=== PATIENT | male | born 1975 | race Caucasian/White ===

== ENCOUNTER 2016-06-13 16:33 | Emergency (ER) | payer MEDICAID ==
--- NOTE | 2016-06-13 16:44 | CPEKG ---
Heart Rate: 70 RR Interval: 857 P-R Interval: 176 QRSD Interval: 130 QT Interval: 436 QTC Interval: 471 P [place]: 30 QRS [place]: -36 T Wave [place]: 153 EKG Severity - ABNORMAL ECG - EKG Impression: SINUS RHYTHM EKG Impression: PROBABLE LEFT ATRIAL ABNORMALITY EKG Impression: LVH WITH IVCD, LAD AND SECONDARY REPOL ABNRM Electronically Signed By: Beka Agudelo 13-Jun-2016 16:50:55
[2016-06-13] MEDS ORDERED: ONDANSETRON 4 MG/2 ML VIAL IVP ONE (16:47)
[2016-06-13 16:54] LABS: % IMMATURE GRANULYOCYTES 0.7 % (0.0-1.1); ABSOLUTE IMMATURE GRANULOCYTES 0.05 10^3/uL (0.00-0.10); ADD DIFF? NO; ADD MORPH? NO; ADD SCAN? NO; ATYPICAL LYMPHOCYTE FLAG 10 (0-99); FRAGMENT RBC FLAG 0 (0-99); HEMOGLOBIN 15.2 g/dL (13.7-17.5); LEFT SHIFT FLG 0 (0-99); LIPEMIA HEMOLYSIS FLAG 90 (0-99); MEAN CELL HEMOGLOBIN 27.2 pg (27.9-34.1); MEAN CELL HEMOGLOBIN CONCENTR. 33.8 g/dL (32.4-36.7); MEAN CELL VOLUME 80.6 fL (81.5-99.8); MEAN PLATELET VOLUME 10.3 fL (8.7-11.7); PLATELET CLUMPS FLAG 10 (0-99); PLATELET COUNT 285 10^3/uL (150-400); RED BLOOD CELL COUNT 5.58 10^6/uL (4.40-6.38); RED CELL DISTRIBUTION WIDTH 15.9 % (11.5-15.2)
--- NOTE | 2016-06-13 17:02 | EDPHY ---
H & P Time Seen by Provider: 06/13/16 16:42 HPI/ROS: Chief complaint. Chest pain and possible syncope HPI. 40-year-old male here in by EMS after a possible syncopal episode versus falling down. He had just seen his therapist today for PTSD. He and his were walking outside and he fell over backward. He had been having sit several episodes of being dizzy, sweating, chest discomfort. He describes the chest discomfort is sharp left anterior going to his left arm. Episodes last 5-10 minutes. No precipitating symptoms. Shortness of breath with exertion for several months. No fever cough. He complains of pain to his neck and had a collar placed by EMS prior to arrival. He also has a bump on his head. He is unsure if he lost consciousness. He had a heart catheterization on April 04 which showed nonischemic cardiomyopathy with normal coronary arteries. He has an implantable defibrillator. No unusual leg pain or swelling. Claims compliance with medication ROS Constitutional. no fever/chills, no weakness Eyes. no problems with vision ENT. no sore throat, no nasal drainage Cardiovascular. Chest pain Respiratory. Shortness of breath Abdominal. no abdominal pain, no nausea/vomiting, no diarrhea . no problems urinating MS. no calf pain/swelling, no neck/back pain, no joint pain Skin. no rash Lymph. no swollen glands Neuro. Possible syncope Past Medical/Surgical History: I HS S cardiomyopathy, atrial fibrillation, mechanical heart valve and mitral valve. PTSD, hypothyroid, V-tach, implantable defibrillator Social History: , daily smoker, no alcohol Smoking Status: Current every day smoker Physical Exam: General Appearance: Alert well-developed male mild distress. Vital signs are stable Eyes: Pupils equal and round no pallor or injection. ENT, Mouth: Mucous membranes are moist. Respiratory: There are no retractions, lungs are clear to auscultation. Cardiovascular: Regular rate and rhythm. Gastrointestinal: Abdomen is soft and nontender, no masses, bowel sounds normal. Neurological: Awake and alert, sensory and motor exams grossly normal. Skin: Warm and dry, no rashes. Musculoskeletal: Neck is in cervical collar. He complains of neck pain to palpation. Extremities symmetrical, full range of motion. Psychiatric: Patient is oriented X 3, there is no agitation. Constitutional: Initial Vital Signs Temperature (C) 36.6 C 06/13/16 16:43 Heart Rate 70 06/13/16 16:43 Respiratory Rate 15 06/13/16 16:43 Blood Pressure 129/85 H 06/13/16 16:43 O2 Sat (%) 93 06/13/16 16:43 O2 Delivery Mode Room Air Allergies/Adverse Reactions: amiodarone Allergy (Intermediate, Verified 06/13/16 16:43) Hives Home Medications: Medication Instructions Recorded Aspirin [Aspirin 81mg (*)] 81 mg PO DAILY 11/21/15 Lisinopril [Zestril 2.5 mg (*)] 2.5 mg PO DAILY 01/21/16 Enoxaparin [Lovenox 100 MG (*)] 100 mg SQ 1000,2200 #4 syr 04/03/16 Gabapentin [Neurontin 300 MG (*)] 900 mg PO TID #270 cap 04/03/16 Levothyroxine [Synthroid 50 mcg 50 mcg PO DAILY06 #30 tab 04/03/16 (*)] Metoprolol Tartrate [Lopressor 25 75 mg PO BID #180 tab 04/03/16 mg (*)] Topiramate [Topamax 100MG (*)] 125 mg PO HS #30 tab 04/03/16 Warfarin Sodium [Coumadin 5MG (*)] 5 mg PO SUTUTHSA #14 tab 04/03/16 Warfarin Sodium [Coumadin 7.5MG 7.5 mg PO MOWEFR #14 tab 04/03/16 (*)] clonazePAM [klonoPIN (*)] 1 mg PO BID #20 tab 04/03/16 Omeprazole 40 mg PO DAILY 04/05/16 Ativan (*) 06/13/16 Baclofen [Baclofen 20 mg (*)] 20 mg PO BID 06/13/16 Cyclobenzaprine [Flexeril 10 MG 10 mg PO BID 06/13/16 (*)] HYDROcodone/APAP [Covert 1 tab PO TID PRN 06/13/16 (*)] Latuda 06/13/16 Zolpidem Tartrate [Ambien 5MG (*)] 5 mg PO HS 06/13/16 Medical Decision Making - Diagnostics EKG Interpretation: EKG interpreted by me shows normal sinus rhythm with normal interval and axis. QRS shows LVH. Probable secondary repolarization abnormality. There are T- wave inversions in lead 1 and aVL and as well as V5 and V6. There is no significant change from previous EKG in April 2016 Imaging: Per Dr. hanna CT head and neck are nonacute. CT is reviewed by me as well. One-view chest x-ray interpreted by me as normal Procedures: IV normal saline, monitor. Tylenol for pain ED Course/Re-evaluation: Patient's pacemaker is interrogated and there has been no recent dysrhythmias including V-tach. I consulted and discussed the case with Dr. Parnell, cardiology, on who recommends admission overnight for this patient I discussed and consulted with Dr. Lee, hospitalist who agrees to the admission I have discussed imaging lab EKG results with the patient. We discussed treatment plan including recommendation for admission. He expresses understanding and agreement Differential Diagnosis: This is a difficult patient. He has known cardiomyopathy and heart disease. Always runs an elevated troponin so serial troponins do not really seem to be helpful. He has a substance abuse issue and is continuing at [facility] for pain medication. My concern is for acute coronary syndrome obviously. I also considered pneumonia pneumothorax, dysrhythmia - Data Points Laboratory Results: Laboratory Results 06/13/16 16:49 06/13/16 16:49 06/13/16 16:49 WBC 7.45 10^3/uL (3.80-9.50) RBC 5.58 10^6/uL (4.40-6.38) Hgb 15.2 g/dL (13.7-17.5) Hct 45.0 % (40.0-51.0) MCV 80.6 L fL (81.5-99.8) MCH 27.2 L pg (27.9-34.1) MCHC 33.8 g/dL (32.4-36.7) RDW 15.9 H % (11.5-15.2) Plt Count 285 10^3/uL (150-400) MPV 10.3 fL (8.7-11.7) Neut % (Auto) 46.1 % (39.3-74.2) Lymph % (Auto) 37.6 % (15.0-45.0) [place] % (Auto) 11.4 % (4.5-13.0) Eos % (Auto) 3.5 % (0.6-7.6) Baso % (Auto) 0.7 % (0.3-1.7) Nucleat RBC Rel Count 0.0 % (0.0-0.2) Absolute Neuts (auto) 3.44 10^3/uL (1.70-6.50) Absolute Lymphs (auto) 2.80 10^3/uL (1.00-3.00) Absolute Monos (auto) 0.85 H 10^3/uL (0.30-0.80) Absolute Eos (auto) 0.26 10^3/uL (0.03-0.40) Absolute Basos (auto) 0.05 10^3/uL (0.02-0.10) Absolute Nucleated RBC 0.00 10^3/uL (0-0.01) Immature Gran % 0.7 % (0.0-1.1) Immature Gran # 0.05 10^3/uL (0.00-0.10) PT 17.5 H SEC (12.0-15.0) INR 1.44 H (0.83-1.16) APTT 31.0 SEC (23.0-38.0) Sodium 142 mEq/L (134-144) Potassium 4.3 mEq/L (3.5-5.2) Chloride 102 mEq/L (97-110) Carbon Dioxide 25 mEq/l (22-31) Anion Gap 15 mEq/L (8-16) BUN 16 mg/dL (7-23) Creatinine 1.2 mg/dL (0.7-1.3) Estimated GFR > 60 Glucose 93 mg/dL (70-100) Calcium 9.6 mg/dL (8.5-10.4) Troponin I 0.222 H ng/mL (0-0.034) NT-Pro-B Natriuret Pep 392 H pg/mL (0-125) Medications Given: Discontinued Medications Acetaminophen (Tylenol) 1,000 mg PO EDNOW ONE Stop: 06/13/16 17:37 Last Admin: 06/13/16 17:41 Dose: 1,000 mg Ondansetron HCl (Zofran) 4 mg IVP EDNOW ONE Stop: 06/13/16 16:48 Last Admin: 06/13/16 16:50 Dose: 4 mg Oxycodone HCl (Oxycodone Ir) 5 mg PO EDNOW ONE Stop: 06/13/16 18:52 Last Admin: 06/13/16 18:55 Dose: 5 mg Oxycodone/Acetaminophen (Percocet 5/325) 1 tab PO EDNOW ONE Stop: 06/13/16 18:51 Last Admin: 06/13/16 19:03 Dose: Not Given Departure - Departure Disposition: [facility] Clinical Impression: Chest pain Cardiomyopathy Qualifiers: Cardiomyopathy type: obstructive hypertrophic Qualifier Code: (I42.1) Obstructive hypertrophic cardiomyopathy Condition: Fair
[2016-06-13 17:05] LABS: INR 1.44 (0.83-1.16); PROTIME(PATIENT) 17.5 SEC (12.0-15.0)
--- NOTE | 2016-06-13 17:13 | DX ---
Portable Chest at 1705 hours History: Chest pain. Comparison: Portable chest April 07, 2016. Findings: Lung volumes are low with no pneumothorax, focal consolidation, or pleural effusion. Left subclavian AICD, mild cardiomegaly, and cardiac valve are again noted. Fractured inferior sternotomy wires are again noted. The bones are stable Impression: No acute findings in the chest.
[2016-06-13 17:17] LABS: ANION GAP 15 mEq/L (8-16); CALCIUM 9.6 mg/dL (8.5-10.4); CARBON DIOXIDE 25 mEq/l (22-31); CHLORIDE 102 mEq/L (97-110); CREATININE 1.2 mg/dL (0.7-1.3); GLOMERULAR FILTRATION RATE > 60; GLUCOSE 93 mg/dL (70-100); POTASSIUM 4.3 mEq/L (3.5-5.2); SODIUM 142 mEq/L (134-144)
[2016-06-13 17:28] LABS: TROPONIN I 0.222 ng/mL (0-0.034)
[2016-06-13] MEDS ORDERED: ACETAMINOPHEN 500 MG TAB PO ONE (17:36)
--- NOTE | 2016-06-13 17:41 | CT ---
CT Scan of Head (Without Contrast) Clinical Indications: Loss of consciousness. Technique: Axial CT images were acquired from foramen magnum through vertex, without intravenous con trast. Soft tissue and bone windows were reviewed on the computer workstation. Images were reconstr ucted down to 1.25-mm images. Dose reduction techniques were utilized. Findings: No mass lesions are seen, and there is no evidence of intracranial hemorrhage or acute inf arct. The ventricles and subarachnoid spaces are normal in size for this age group. Bone windows re veal no sign of fracture. The visualized paranasal sinuses and mastoid air cells are free of fluid. Impression: Normal CT of the head. Critical results relayed by Dr. Brenton Perez with Dr. Beka Agudelo on June 13, 2016, at 1736 hour s.
--- NOTE | 2016-06-13 17:42 | CT ---
CT Scan of the Cervical Spine (Without Contrast) Clinical Indications: Trauma Technique: Thinly collimated multidetector helical CT imaging of the cervical spine was reviewed in multiple planes. Dose reduction techniques were utilized. Findings: No fractures are found. The spinal canal is adequate in size. No evidence of herniated d isk or hematoma. There is some degenerative disk disease and anterior calcification at the C5-C6 disk space. This is consistent with osteoarthritis. Impression: Mild osteoarthritic changes. No evidence of fracture. Critical results relayed by Dr. Brenton Perez to Dr. Beka Agudelo on June 13, 2016, at 1738 hours.
[2016-06-13] MEDS ORDERED: OXYCODONE/APAP 5/325 TAB PO ONE (18:50)
[2016-06-13] MEDS ORDERED: oxyCODONE IR 5 MG TAB PO ONE ×2 (18:51→22:01)
[2016-06-13] MEDS ORDERED: ONDANSETRON DISINTEGRATING 4 MG TAB PO ONE (22:01)
[2016-06-13] MEDS ORDERED: HYDROCODONE/APAP 10/325 TAB PO PRN (23:28)
[2016-06-13] MEDS ORDERED: oxyCODONE IR 5 MG TAB PO PRN (23:35)
[2016-06-13] MEDS ORDERED: WARFARIN SODIUM 5 MG TAB ONE (23:59)
[2016-06-14] MEDS: clonazePAM 1 MG TAB PO SCH ×2 (00:17→09:02)
--- NOTE | 2016-06-14 00:30 | GHP ---
[f rep st] HISTORY AND PHYSICAL DATE OF ADMISSION: 06/13/2016 HISTORY OF PRESENT ILLNESS: The patient is a 40-year-old gentleman, with history of hypertrophic obs tructive cardiomyopathy, syncope, presents with episodes of chest pain, as well as possible syncope. He had a flu shot yesterday. He has had some low-grade temperatures. He has not had a cough. He h as not had urgency, frequency, dysuria. He had nausea, but no vomiting or diarrhea. No one around h as been sick. He notes episodes of chest pain going to his left arm lasting 5-10 minutes. No fever or cough. He h as had some dyspnea on exertion, but no lower extremity edema. He possibly hit his head today. In the emergency department, his AICD was interrogated, and there was no evidence of arrhythmia reall y going back to the . REVIEW OF SYSTEMS: Complete 10-point review of systems conducted, negative except as noted in the HP I. PAST MEDICAL HISTORY: 1. Hypertrophic obstructive cardiomyopathy. 2. Clean coronary arteries by cardiac catheterization in April of 2016. 3. History of myomectomy. 4. Mitral valve replacement, with mechanical. 5. Cardiac arrest in 2008. 6. Atrial fibrillation, status post ablation. 7. AICD placed in 2012. 8. Bilateral footdrop. 9. Upper extremity neuropathy. 10. Hypothyroidism. 11. Chronic hepatitis C. 12. PTSD related to childhood trauma. 13. DJD. 14. Migraines. SOCIAL HISTORY: He smokes cigarettes. Denies alcohol or drugs. ALLERGIES: Amiodarone. HOME MEDICATIONS: Ambien, Flexeril, Coumadin, Topamax, baclofen, [place] 10/325, omeprazole, Lopressor , Klonopin, lisinopril, levothyroxine, gabapentin, enoxaparin, aspirin, Latuda, and Ativan. PHYSICAL EXAM: PRESENTING VITAL SIGNS: Temperature 36.6, blood pressure 129/85, pulse 70, breathing 15 times a minute, 93% on room air. GENERAL: No acute distress. HEENT: Sclerae are anicteric. O ropharynx is clear. Mucous membranes are moist. NECK: Supple. No lymphadenopathy or JVD. LUNGS: Clear to auscultation bilaterally. HEART: S1, S2. ABDOMEN: Soft, nontender, nondistended. LOWER EXTREMITIES: Without edema. Calves nontender. SKIN: Without rash. NEUROLOGIC: Nonfocal. LABS: White count 7.45, hematocrit 45, platelets are 285,000, MCV is low at 80, that is new. INR is 1.44; last checked here it was 4.6. Sodium 142, potassium 4.3, chloride 102, bicarbonate 25, BUN 16 , creatinine 1.2; his baseline is about that. Troponin is 0.22. Repeated shortly thereafter, it was 0.178. BNP is 392. These values are essentially at baseline for him. Chest x-ray, interpreted by me, shows no acute cardiopulmonary disease. AICD in place. EKG, interpreted by me, shows sinus at 70, with left axis deviation, LVH, T-wave inversions in I, L, V5, V6, unchanged from prior. Discussed the case with Dr. Beka Agudelo. ASSESSMENT AND PLAN: A 40-year-old gentleman, with a complex cardiac history, presents with possible syncope. 1. Syncope. It is difficult to know what to make of this. It could be vasovagal. Interrogation of an AICD that reveals no dysrhythmias indicates that this is not cardiac syncope. His abnormal EKG, troponin, BNP are all at baseline. No further cardiac workup is indicated. We will admit him to the EICU. 2. Flu shot. The patient did have a flu shot yesterday. We will continue it. 3. Posttraumatic stress disorder. We will continue his medications. 4. Neuropathy. We will continue his medications. 5. Pain. Chronic pain medicine use. Written him for his p.r.n. home doses, as well as some oxycodo ne. Will not give him any IV narcotics while here if they are not indicated. 6. Disposition. Observation status. 7. Subtherapeutic INR. We will continue his Lovenox as prescribed. This patient is high risk for t hromboembolic event, given his mitral valve replacement. /[id number]/MODL
[2016-06-14] MEDS ORDERED: ENOXAPARIN 100 MG/ML SYR SC SCH (01:30)
[2016-06-14] MEDS ORDERED: TOPIRAMATE 25 MG TAB PO SCH (02:00)
[2016-06-14] MEDS: METOPROLOL TARTRATE 25 MG TAB PO SCH ×2 (02:25→10:12)
[2016-06-14] MEDS: GABAPENTIN 300 MG CAP PO SCH ×2 (02:25→09:02)
[2016-06-14] MEDS: CYCLOBENZAPRINE 10 MG TAB PO SCH ×2 (02:26→10:11)
[2016-06-14] MEDS: BACLOFEN 20 MG TAB PO SCH ×2 (02:26→10:11)
[2016-06-14] MEDS ORDERED: LEVOTHYROXINE 50 MCG TAB PO SCH (06:00)
[2016-06-14 08:27] VITALS: RESP 18
[2016-06-14] MEDS ORDERED: ASPIRIN 81 MG CHEWABLE TAB PO SCH (09:00)
[2016-06-14] MEDS ORDERED: PANTOPRAZOLE SODIUM 40 MG TAB PO SCH (09:00)
[2016-06-14] MEDS ORDERED: LISINOPRIL 2.5 MG TAB PO SCH (09:00)
[2016-06-14 09:52] VITALS: BP 129/95; PULSE 70; TEMP 97.7; O2SAT 95
[2016-06-14] MEDS ORDERED: WARFARIN SODIUM 7.5 MG TAB PO SCH (16:00)
--- NOTE | 2016-06-14 17:27 | PDCONSULT ---
[employer] Note: DISCHARGE SUMMARY FOLLOW-UP ITEMS: Address his mental health needs aggressively DATE OF ADMISSION: 06/13/2016 DATE OF DISCHARGE: 06/14/2016 DISCHARGE DIAGNOSES: 1. Acute chest pain 2. Generalized anxiety disorder 3. Mechanical mitral valve status post repair 4. Hypertrophic obstructive cardiomyopathy 5. Paroxysmal atrial fibrillation 6. Possible syncope CONSULTATIONS: None PROCEDURES / IMAGING: Head CT demonstrating no intracranial abnormality, neck CT demonstrating degenerative joint disease but no fracture comma chest x-ray demonstrating no evidence of CHF, AICD interrogation demonstrating no evidence of abnormal electrical activity at the time of patient's chest discomfort CHIEF COMPLAINT: Possible syncope, acute chest pain SUBJECTIVE: Patient reports that he currently is experiencing some left-sided chest discomfort which is alleviated with Ativan PHYSICAL EXAM ON DISCHARGE: Systolic blood pressure is 101/30, heart rates in the 70s, afebrile overnight, satting well on room air, heart rate and rhythm are regular, 2/6 systolic murmur at the apex, chest is clear to auscultation bilaterally without any inspiratory crackles or expiratory wheezes, no lower extremity edema, alert awake oriented x3, anxious LABS ON DISCHARGE: Troponin 0.18 HOSPITAL COURSE BY PROBLEM: 1. Acute chest pain. Atypical, ruled out for acute coronary syndrome with no significant elevation in his cardiac enzymes, ruled out for tachyarrhythmia with no conduction abnormalities on AICD interrogation, ruled out for CHF with normal-appearing chest x-ray. Most likely cause of patient's chest discomfort is underlying anxiety disorder which will be further discussed below. The patient underwent cardiac catheterization 2 months ago which demonstrated clean coronary arteries and there is no indication for further cardiac risk stratification at this time. 2. Generalized anxiety disorder. I believe the cause of patient's chest discomfort symptoms are his anxiety disorder, and the patient is currently receiving aggressive management with numerous medications from numerous classes with unsuccessful a containment of his anxiety. He is currently receiving Ativan as needed as anxiolytics which seems to have good effect but this is not a good long-term solution and have advised the patient that he should follow up with his mental health providers as closely as possible to continue exploring other options. I have provided him with a script for as needed Ativan for a limited supply until he is able to [facility] providers. 3. Chronic hypertrophic obstructive cardiomyopathy. Patient currently has compensated HOCM without any evidence of CHF on physical exam or chest imaging. I have recommended that he follow up with Dr. Gandhi at [facility] and the patient reports that he will do so. Patient will continue on his home medications as prescribed. 4. Paroxysmal atrial fibrillation. Patient has a history of paroxysmal atrial fibrillation status post ablation. He had no evidence of AFib on his AICD interrogation. 5. Mechanical mitral valve status post repair. Patient underwent mitral valve repair and he has mechanical valve. His INR is subtherapeutic. He will require Lovenox bridging therapy with a goal INR of 2.5-3.5. I have provided him with a script for bridging Lovenox as well as a script for a PT and INR [facility] with the patient follows up for this. It is believed that the patient became subtherapeutic in the setting of not taking Coumadin temporarily, and he will reinitiate. His discharge INR is 1.44. DISCHARGE MEDICATIONS: Please see official discharge medication reconciliation sheet in chart , Lovenox bridging therapy, 100 mg twice daily to be taken through this Sunday with a follow-up PT and INR on Sunday. Ativan as needed 0.5 mg twice daily 20 tabs prescribed. DISCHARGE INSTRUCTIONS: [facility] up [facility] on 06/19/2016 for PT and INR, establish care with Dr. Gandhi at [facility] next week. TIME SPENT: Greater than 30 minutes were spent on direct patient care, as well as discharge planning and preparation.
[2016-06-14] MEDS ORDERED: ZOLPIDEM TARTRATE 5 MG TAB PO SCH (21:00)
[2016-06-14] MEDS ORDERED: WARFARIN SODIUM 5 MG TAB PO SCH (23:30)
== END 2016-06-14 10:31 | disposition home or self-care (01) ==
LOC: EDUNIT# → UNDOADMOB 20:41
DX: R07.9 Chest pain, unspecified (principal); R55 Syncope and collapse; I42.1 Obstructive hypertrophic cardiomyopathy
CPT/HCPCS: 70450; 71010; 72125; 93005; 96374; 99285; G0378; J1650; J2405

== ENCOUNTER 2016-06-18 09:58 | Inpatient (IN) | payer MEDICAID ==
--- NOTE | 2016-06-18 10:13 | EDPHY ---
H & P Time Seen by Provider: 06/18/16 10:03 HPI/ROS: CHIEF COMPLAINT: chest pain HISTORY OF PRESENT ILLNESS: Patient is a 40-year-old male with extensive cardiac history presents emergency department with chest pain starting this morning. Patient has had previous open heart surgery including myomectomy and mitral valve replacement. Patient has also had previous PA per report. Patient states that he developed chest pain a few days ago. [facility]. He was discharged yesterday. Today he presented to the [facility] for his mental health issues. He told that he is having left-sided chest pain. This is slightly different than his previous chest pain. He reports it is a little bit lower on my chest than his previous pain. He describes his pain is [id number]. Does not radiate. He has had mild sweating but no nausea or vomiting. No fevers or chills. No leg pain or swelling. EMS treated the patient with aspirin 324 mg orally. Patient is on Coumadin. REVIEW OF SYSTEMS: My complete review of systems is negative except as mentioned in the HPI. Past Medical/Surgical History: Includes hypertrophic cardiomyopathy, anxiety, hepatitis-C, congenital bone disease, fatty liver, acute PA ACS, PTSD Past surgical history: Includes mitral valve replacement, pacemaker placement Social history: The patient smokes. He denies drug use. Smoking Status: Current every day smoker Physical Exam: Vitals noted GENERAL: No acute distress, alert. HEENT: Eyes normal to inspection, normal pharynx, no signs of dehydration. NECK: No thyromegaly, no lymphadenopathy, supple. RESPIRATORY: Clear to auscultation bilaterally, no rales, rhonchi or wheezing. CVS: Regular rate and rhythm, no rubs, murmurs, or gallops. Large midline surgical scar. The patient has a pacer/AICD in place in his left chest ABDOMEN: Soft, nontender, nondistended, no organomegaly. BACK: Normal to inspection, no CVA tenderness. SKIN: Normal color, no rash, warm, dry. No pallor. EXTREMITIES: No pedal edema, no calf tenderness, no Homans sign or cords, no joint swelling. NEURO/PSYCH: Alert and oriented x3, normal mood and affect, normal motor sensory exam. Constitutional: Initial Vital Signs Temperature (C) 36.8 C 06/18/16 09:58 Heart Rate 92 06/18/16 09:58 Respiratory Rate 20 06/18/16 09:58 Blood Pressure 141/93 H 06/18/16 09:58 O2 Sat (%) 94 06/18/16 09:58 O2 Delivery Mode Room Air Allergies/Adverse Reactions: amiodarone Allergy (Intermediate, Verified 06/18/16 10:11) Hives Home Medications: Medication Instructions Recorded Aspirin [Aspirin 81mg (*)] 81 mg PO DAILY 11/21/15 Lisinopril [Zestril 2.5 mg (*)] 2.5 mg PO DAILY 01/21/16 Gabapentin [Neurontin 300 MG (*)] 900 mg PO TID #270 cap 04/03/16 Levothyroxine [Synthroid 50 mcg 50 mcg PO DAILY06 #30 tab 04/03/16 (*)] Metoprolol Tartrate [Lopressor 25 75 mg PO BID #180 tab 04/03/16 mg (*)] Topiramate [Topamax 100MG (*)] 125 mg PO HS #30 tab 04/03/16 Warfarin Sodium [Coumadin 5MG (*)] 5 mg PO SUTUTHSA #14 tab 04/03/16 Warfarin Sodium [Coumadin 7.5MG 7.5 mg PO MOWEFR #14 tab 04/03/16 (*)] Omeprazole 40 mg PO DAILY 04/05/16 Baclofen [Baclofen 20 mg (*)] 20 mg PO BID 06/13/16 Cyclobenzaprine [Flexeril 10 MG 10 mg PO BID 06/13/16 (*)] HYDROcodone/APAP 10325 [[place] 1 tab PO TID PRN 06/13/16 10/325 (*)] Latuda 06/13/16 Zolpidem Tartrate [Ambien 5MG (*)] 5 mg PO HS 06/13/16 Ativan (*) 0.5 mg PO BID PRN #20 tab 06/14/16 Enoxaparin [Lovenox 100 MG (*)] 100 mg SQ 1000,2200 #7 syr 06/14/16 Medical Decision Making ED Course/Re-evaluation: In the emergency department I discussed possible etiologies with the patient. I discussed the plan and answered all his questions. Laboratory studies, EKG and chest x-ray were ordered. I have ordered a previous HPI and discharge summary from [facility]. Sinus rhythm at 98. The patient has interventricular conduction delay. LVH. ST depression I. Flipped T-waves I, AVL. This is an abnormal EKG is interpreted by me. I obtained records from [facility]. I reviewed the documentation note from 06/17/[address] Tai. In his note he states that the patient had been evaluated the 3 days prior to his presentation at [facility]. Dr. Tai spoke with Dr. Hughes from Cardiology at [facility]. Patient does have a history of hypertrophic cardiomyopathy and has pain secondary to that. He does have labile T-waves with dynamic T-wave changes. It is not believe that he has coronary disease or an emergent process per the note. Patient was evaluated with serial cardiac enzymes and discharge. Patient's EKG from 06/17/2016 is similar to the EKG today. However, the patient's troponin is elevated today at 0.169. Troponin from yesterday is 0.097 and then 0.089. Because today's value was higher than his previous he will have further rule out. I discussed this with the hospitalist service. I discussed the plan with the patient and answered all his questions. 1125: I rechecked the patient. He was complaining of some discomfort. He was given Toradol 30 mg IV. Differential Diagnosis: My differential includes but is not limited to ACS, acute PA, myocarditis, pericarditis, aortic aneurysm, aortic dissection, pleurisy, pneumothorax, hemothorax, pneumonia, PE - Data Points Laboratory Results: Laboratory Results 06/18/16 10:08 06/18/16 10:08 06/18/16 10:08 WBC 6.69 10^3/uL (3.80-9.50) RBC 4.96 10^6/uL (4.40-6.38) Hgb 13.6 L g/dL (13.7-17.5) Hct 41.4 % (40.0-51.0) MCV 83.5 fL (81.5-99.8) MCH 27.4 L pg (27.9-34.1) MCHC 32.9 g/dL (32.4-36.7) RDW 17.0 H % (11.5-15.2) Plt Count 224 10^3/uL (150-400) MPV 11.2 fL (8.7-11.7) Neut % (Auto) 67.3 % (39.3-74.2) Lymph % (Auto) 22.4 % (15.0-45.0) [place] % (Auto) 8.5 % (4.5-13.0) Eos % (Auto) 0.9 % (0.6-7.6) Baso % (Auto) 0.3 % (0.3-1.7) Nucleat RBC Rel Count 0.0 % (0.0-0.2) Absolute Neuts (auto) 4.50 10^3/uL (1.70-6.50) Absolute Lymphs (auto) 1.50 10^3/uL (1.00-3.00) Absolute Monos (auto) 0.57 10^3/uL (0.30-0.80) Absolute Eos (auto) 0.06 10^3/uL (0.03-0.40) Absolute Basos (auto) 0.02 10^3/uL (0.02-0.10) Absolute Nucleated RBC 0.00 10^3/uL (0-0.01) Immature Gran % 0.6 % (0.0-1.1) Immature Gran # 0.04 10^3/uL (0.00-0.10) PT 21.7 H SEC (12.0-15.0) INR 1.88 H (0.83-1.16) APTT 27.0 SEC (23.0-38.0) D-Dimer < 0.27 ug/mLFEU (0.00-0.50) Sodium 139 mEq/L (134-144) Potassium 4.0 mEq/L (3.5-5.2) Chloride 100 mEq/L (97-110) Carbon Dioxide 25 mEq/l (22-31) Anion Gap 14 mEq/L (8-16) BUN 13 mg/dL (7-23) Creatinine 1.0 mg/dL (0.7-1.3) Estimated GFR > 60 Glucose 171 H mg/dL (70-100) Calcium 8.9 mg/dL (8.5-10.4) Total Bilirubin 0.5 mg/dL (0.1-1.4) Conjugated Bilirubin 0.3 mg/dL (0.0-0.5) Unconjugated Bilirubin 0.2 mg/dL (0.0-1.1) AST 64 H IU/L (17-59) ALT 89 H IU/L (21-72) Alkaline Phosphatase 85 IU/L (38-126) Troponin I 0.167 H ng/mL (0-0.034) Total Protein 8.5 H g/dL (6.3-8.2) Albumin 4.3 g/dL (3.5-5.0) Lipase 51.0 IU/L (23-300) Medications Given: Discontinued Medications Ondansetron HCl (Zofran) 4 mg IVP EDNOW ONE Stop: 06/18/16 10:40 Last Admin: 06/18/16 10:41 Dose: 4 mg Departure - Departure Disposition: [facility] Inpatient Acute Clinical Impression: Acute chest pain, Troponin level elevated Condition: Good Referrals: NONE *PRIMARY CARE P,. [Primary Care Provider] - As per Instructions
--- NOTE | 2016-06-18 10:19 | CPEKG ---
Heart Rate: 98 RR Interval: 612 P-R Interval: 188 QRSD Interval: 132 QT Interval: 396 QTC Interval: 506 P Norman: 52 QRS Norman: -31 T Wave Norman: 113 EKG Severity - ABNORMAL ECG - EKG Impression: SINUS RHYTHM EKG Impression: LVH WITH IVCD AND SECONDARY REPOL ABNRM Electronically Signed By: Francie Hu 18-Jun-2016 15:11:20
[2016-06-18 10:21] LABS: % IMMATURE GRANULYOCYTES 0.6 % (0.0-1.1); ABSOLUTE IMMATURE GRANULOCYTES 0.04 10^3/uL (0.00-0.10); ADD DIFF? NO; ADD MORPH? NO; ADD SCAN? NO; ATYPICAL LYMPHOCYTE FLAG 40 (0-99); FRAGMENT RBC FLAG 20 (0-99); HEMATOCRIT 41.4 % (40.0-51.0); HEMOGLOBIN 13.6 g/dL (13.7-17.5); LEFT SHIFT FLG 0 (0-99); LIPEMIA HEMOLYSIS FLAG 80 (0-99); MEAN CELL HEMOGLOBIN 27.4 pg (27.9-34.1); MEAN CELL HEMOGLOBIN CONCENTR. 32.9 g/dL (32.4-36.7); MEAN CELL VOLUME 83.5 fL (81.5-99.8); MEAN PLATELET VOLUME 11.2 fL (8.7-11.7); PLATELET CLUMPS FLAG 30 (0-99); PLATELET COUNT 224 10^3/uL (150-400); RED BLOOD CELL COUNT 4.96 10^6/uL (4.40-6.38)
[2016-06-18 10:30] LABS: INR 1.88 (0.83-1.16); PROTIME(PATIENT) 21.7 SEC (12.0-15.0)
[2016-06-18] MEDS ORDERED: ONDANSETRON 4 MG/2 ML VIAL ONE (10:37)
[2016-06-18 10:38] LABS: ALANINE AMINOTRANSFERASE 89 IU/L (21-72); ALBUMIN 4.3 g/dL (3.5-5.0); ALKALINE PHOSPHATASE 85 IU/L (38-126); ANION GAP 14 mEq/L (8-16); ASPARTATE AMINOTRANSFERASE 64 IU/L (17-59); BILIRUBIN,TOTAL 0.5 mg/dL (0.1-1.4); BILIRUBIN-CONJUGATED 0.3 mg/dL (0.0-0.5); BILIRUBIN-UNCONJUGATED 0.2 mg/dL (0.0-1.1); CALCIUM 8.9 mg/dL (8.5-10.4); CARBON DIOXIDE 25 mEq/l (22-31); CHLORIDE 100 mEq/L (97-110); GLOMERULAR FILTRATION RATE > 60; GLUCOSE 171 mg/dL (70-100); SODIUM 139 mEq/L (134-144); TOTAL PROTEIN 8.5 g/dL (6.3-8.2)
--- NOTE | 2016-06-18 10:38 | DX ---
Chest, PA Upright and Lateral Views June 18, 2016 at 9:58 a.m. Clinical History: 40-year-old male with chest pain this morning. Comparison Study: Chest, dated June 13, 2016. Findings: Telemetry monitoring lead lines are present. There is stable positioning of the dual-lead l eft subclavian AICD pacemaker with the proximal lead in the right atrium and the distal lead in the r ight ventricle. The patient has undergone prior median sternotomy and a prosthetic cardiac valve repl acement. The cardiac silhouette remains mildly enlarged. There is some minimal left basilar subsegmen chaz atelectasis with an air-fluid level identified within the stomach. Impression: Mild hypoventilatory features with stable cardiomegaly and minimal left basilar diskoid s ubsegmental atelectasis.
[2016-06-18] MEDS ORDERED: ONDANSETRON 4 MG/2 ML VIAL IVP ONE (10:39)
[2016-06-18 10:49] LABS: TROPONIN I 0.167 ng/mL (0-0.034)
[2016-06-18] MEDS ORDERED: KETOROLAC 30 MG/1 ML SDV IVP ONE (11:29)
[2016-06-18] MEDS ORDERED: hydrOXYzine HCL 25 MG TAB PO PRN (15:05)
[2016-06-18] MEDS ORDERED: PROMETHAZINE HCL 25 MG/ML VIAL IVP PRN (15:07)
--- NOTE | 2016-06-18 15:36 | GHP ---
[f rep st] HISTORY AND PHYSICAL DATE OF ADMISSION: 06/18/2016 CHIEF COMPLAINT: Chest pain and elevated heart rate. HISTORY OF PRESENT ILLNESS: This is a 40-year-old male with history of hypertrophic obstructive cardiomyopathy who underwent cardiac catheterization, in April of 2016 with clean coronary arteries who was recently evaluated at [facility] in [place] for chest pain where he reportedly had a negative stress test and was discharged from [facility] with chest pain yesterday after he had flat troponins. He presented to the emergency department here in [place] after at around 9 o'clock this morning he developed a 6/10 sharp, stabbing pain in his left chest that radiated to his arm. The pain started while he was getting ready for work and exerting himself. The pain was improved with nitroglycerin and Toradol in the emergency department. It is worse with deep inspiration and leaning forward. Arsenio was at a behavioral health facility earlier today when his symptoms began. He has been out of his psychiatric medications for some time. He currently denies any suicidal or homicidal ideation, but reports feeling very anxious and on edge since being off his medications. He has been compliant with his coumadin an cardiac meds. PAST MEDICAL HISTORY: 1. Hypertrophic obstructive cardiomyopathy. 2. Mitral valve replacement with a mechanical valve. 3. History of myomectomy. 4. Clean cardiac catheterization in April 2016. 5. Cardiac arrest in 2008. 6. Atrial fibrillation status post ablation. 7. AICD placement in 2012. 8. Bilateral footdrop. 9. Upper extremity neuropathy. 10. Hypothyroidism. 11. Hepatitis C. 12. PTSD. 13. DJD. 14. Migraines. HOME MEDICATIONS: Reviewed. Refer to [employer] for details. ALLERGIES: Amiodarone. SOCIAL HISTORY: Patient smokes. He denies any alcohol or illicit drugs. He was recently followed by a manager party in [place] but is now living at [place]. Patient has a prior history of methamphetamine abuse. FAMILY HISTORY: Reviewed and noncontributory. REVIEW OF SYSTEMS: Comprehensive 10-point review of systems was done that was negative except for as mentioned in HPI and below. GI: Patient reports nausea that has been ongoing since his pain started this morning. PHYSICAL EXAM: VITAL SIGNS: Blood pressure 129/100, heart rate 93, respiratory rate 20, O2 saturation 97% on room air. Temperature afebrile. GENERAL: No acute distress. HEENT: Head: Normocephalic, atraumatic. Eyes are PERRLA. Sclerae anicteric. Mouth: Moist mucous membranes. NECK: Supple. No lymphadenopathy. CARDIOVASCULAR: S1-S2. No JVD. No lower extremity edema. PULMONARY: Lungs are clear. No wheezes, rales, or rhonchi. ABDOMEN: Soft, nontender, nondistended. No guarding or rebound tenderness. Normoactive bowel sounds. EXTREMITIES: No clubbing or cyanosis. NEUROLOGICAL : Cranial nerves 2-12 grossly intact. No focal motor or sensory deficits. SKIN: Clear. No rashes. DIAGNOSTIC STUDIES: WBC 6.69, hemoglobin 13.6, hematocrit 41.4, platelets 224. INR 1.88. Sodium 139, potassium 4, chloride 100, BUN 13, creatinine 1. Glucose 171. AST 64, ALT 89. Troponin was 0.167. D-dimer was negative. Chest x-ray shows mild hypoventilatory features with stable cardiomegaly and minimal left basilar discoid subsegmental atelectasis. EKG, which I visualized and personally interpreted, shows sinus rhythm with large voltages consistent with LVH. ASSESSMENT AND PLAN: This is a 40-year-old male with history of hypertrophic cardiomyopathy status post myomectomy and mitral valve replacements who underwent cardiac catheterization here in April of 2016 presenting with: 1. Chest pain in the setting of troponin elevation which seems to be chronic. Plan: Patient will be placed in observation where I will obtain an echocardiogram to evaluate cardiac function and consult cardiology. His chest pain could possibly be psychologic in etiology given his history of post traumatic stress disorder. See below. 2. History of post traumatic stress disorder with recently reported suicidal ideation. Plan: Resume home psychiatric meds. Will ask for behavioral health evaluation. [facility]. 3. History of mechanical mitral valve replacement with subtherapeutic INR. Plan: Continue coumadin and monitor INR. I discussed bridging with cardiology who felt like it was not necessary. /[id number]/MODL MTDD
[2016-06-18] MEDS: LISINOPRIL 2.5 MG TAB PO SCH (15:46)
[2016-06-18] MEDS: VENLAFAXINE XR 150 MG CAP PO SCH (15:46)
[2016-06-18] MEDS: GABAPENTIN 300 MG CAP PO SCH ×2 (15:46→20:57)
[2016-06-18] MEDS: LORazepam 1 MG TAB PO SCH ×2 (15:46→20:55)
[2016-06-18] MEDS: WARFARIN SODIUM 5 MG TAB PO SCH (15:46)
[2016-06-18] MEDS: LURASIDONE HCL 20 MG TAB PO SCH (16:09)
[2016-06-18] MEDS: oxyCODONE IR 5 MG TAB PO PRN ×2 (16:56→20:56)
[2016-06-18] MEDS: guaiFENesin 600 MG TAB.ER PO SCH (20:54)
[2016-06-18] MEDS: METOPROLOL TARTRATE 100 MG TAB PO SCH (20:54)
[2016-06-18] MEDS: OLANZapine DISINTEGR 10 MG TAB PO SCH (20:55)
[2016-06-18] MEDS: ZOLPIDEM TARTRATE 5 MG TAB PO SCH (20:55)
[2016-06-18] MEDS ORDERED: ENOXAPARIN 100 MG/ML SYR SC SCH (21:00)
[2016-06-19 05:04] LABS: INR 2.36 (0.83-1.16)
[2016-06-19] MEDS: GABAPENTIN 300 MG CAP PO SCH ×4 (05:44→21:06)
[2016-06-19] MEDS: LEVOTHYROXINE 50 MCG TAB PO SCH (05:44)
[2016-06-19] MEDS: oxyCODONE IR 5 MG TAB PO PRN ×3 (05:46→21:05)
[2016-06-19] MEDS: LORazepam 1 MG TAB PO SCH ×3 (08:35→21:05)
[2016-06-19] MEDS: VENLAFAXINE XR 150 MG CAP PO SCH (08:35)
[2016-06-19] MEDS: LISINOPRIL 2.5 MG TAB PO SCH (08:36)
[2016-06-19] MEDS: guaiFENesin 600 MG TAB.ER PO SCH ×2 (08:36→21:06)
[2016-06-19] MEDS: LURASIDONE HCL 20 MG TAB PO SCH (08:36)
[2016-06-19] MEDS: METOPROLOL TARTRATE 100 MG TAB PO SCH ×2 (08:36→21:07)
--- NOTE | 2016-06-19 09:04 | CPEKG ---
Heart Rate: 69 RR Interval: 870 P-R Interval: 196 QRSD Interval: 132 QT Interval: 436 QTC Interval: 467 P [place]: 34 QRS [place]: -37 T Wave [place]: 161 EKG Severity - ABNORMAL ECG - EKG Impression: SINUS RHYTHM EKG Impression: LVH WITH IVCD, LAD AND SECONDARY REPOL ABNRM Electronically Signed By: Loki Gonzalez 20-Jun-2016 17:20:46
--- NOTE | 2016-06-19 10:46 | ECHO ---
[id number] + + [address] : : [place] [address] : : [phone] + + Adult Echocardiographic Report + --------+ :Name: DEWAYNEALIDA SAPP JStudy Date: 06/19/2016 09:52 AM : : Hospital Admission Number: [id number] Locat ion: 202: :: 1975 Gender: Male Height: 72 in : :Age: 40 yrs Race: WH Weight: 230 l b : :Reason For Study: Eval LV FX : : BSA: 2.3 mete rs2 : :History: Reassessment of the LVEF, Known mechanical mitral : :valve, Known septal myectomy : + --------+ MMode/2D Measurements & Calculations IVSd: 0.91 cm LVIDd: 4.9 cm FS: 19.5 % Ao root diam: LVPWd: 1.2 cm LVIDs: 4.0 cm EDV(Teich): 2.7 cm 113.4 ml ACS: 1.7 cm ESV(Teich): 68.0 ml EF(Teich): 40.0 % LVLd ap4: 8.9 cm SV(MOD-sp4): EDV(MOD-sp4): 47.0 ml 114.0 ml LVLs ap4: 7.8 cm ESV(MOD-sp4): 67.0 ml EF(MOD-sp4): 41.2 % Normal Measurement Values: + + :LVIDd (3.5-5.7cm) IVSd (0.6-1.1cm) LVPWd (0.6-1.1cm) Aortic Root (2.0-3.7cm)Left Atrium (1.5-4.0cm): :LV Vol(d) (76-115ml) LV Vol(s) (29-48ml) Ejec Fraction (50-65%)PV Charly (0.6- 1.2m/s) TV Charly (0.4-1.0m/s) : :MV E Charly (0.8-1.0m/s)MV A Charly (0.3-1.0m/s)LVOT Charly (0.7-1.2m/s) Asc Ao Charly ( 0.9-1.8m/s) : + + Doppler Measurements & Calculations MV E max charly: MV V2 mean: MV P1/2t max charly: Ao V2 max: 155.2 cm/sec 110.9 cm/sec 192.7 cm/sec 133.0 cm/sec MV A max charly: MV mean PG: MV P1/2t: 94.9 msec Ao max P.9 cm/sec 5.3 mmHg MVA(P1/2t): 2.3 cm2 7.1 mmHg MV E/A: 1.7 MV V2 VTI: 49.2 cmMV dec slope: MV dec time: 0.33 sec 595.0 cm/sec2 LV V1 max: PA V2 max: 84.6 cm/sec 80.1 cm/sec LV V1 max PG: PA max P.9 mmHg 2.6 mmHg Left Ventricle The left ventricle is mildly dilated. Ejection Fraction = 40%. There is Doppler evidence for diastolic dysfunction. Akinetic, mid anteroseptal and inferoseptal. no lvot obstruction noted. Right Ventricle The right ventricle is normal in size and function. Atria The left atrium is mildly dilated. Right atrial size is normal. Mitral Valve There is a mechanical mitral valve. The mitral valve mean PG is 10 mmHg. Tricuspid Valve The tricuspid valve is normal in structure and function. There is no tricuspid stenosis. No tricuspid regurgitation. Right ventricular systolic pressure is normal. Aortic Valve The aortic valve is normal in structure and function. The aortic valve is trileaflet. The aortic valve opens well. There is no aortic stenosis. There is no aortic insufficiency. Pulmonic Valve The pulmonic valve is normal in structure and function. There is no pulmonic valvular regurgitation. Great Vessels The aortic root is normal size. Pericardium/Pleural There is no pericardial effusion. Conclusion A complete two-dimensional transthoracic echocardiogram was performed (2D, M-mode, Doppler and color flow Doppler). Compared to prior study, there is no significant change. The left ventricle is mildly dilated. Ejection Fraction = 40%. There is Doppler evidence for diastolic dysfunction. The left atrium is mildly dilated. There is a mechanical mitral valve. The mitral valve mean PG is 10 mmHg. The tricuspid valve is normal in structure and function. Right ventricular systolic pressure is normal. The aortic valve is normal in structure and function. The aortic valve is trileaflet. The pulmonic valve is normal in structure and function. There is no pericardial effusion. Akinetic, mid anteroseptal and inferoseptal. no lvot obstruction noted Compared to prior study, there is no significant change. Final Reading Physician: Steve Marshall signed on 06/19/2016 10:44 AM Ordering Physician: Clarence Castro Performed By: Dl Mascorro RDCS
--- NOTE | 2016-06-19 12:06 | PDCARCONS ---
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 He also has a history of atrial fibrillation s/p ablation. Arsenio presented to the emergency department at [facility] 06/18 for recurrent left-sided chest pain, rapid heart rate and diaphoresis. His last cardiac catheterization was performed 04/04/16 (Dr. Gandhi) which revealed nonischemic cardiomyopathy with moderately reduced LV systolic function, angiographically normal coronary arteries and normal excursion of [place] mechanical mitral prosthesis leaflets. The patient had an echocardiogram performed today which revealed akinetic mid anteroseptal and inferoseptal akinesis with an ejection fraction estimated to be 40%. The left atrium was mildly dilated and left atrial thrombus could not be ruled out. (Unchanged from the study 03/19/2016) I have ordered a HUSAM to be performed tomorrow to rule out left atrial thrombus , which I think would be unlikely since he has been compliant with his anticoagulation and has a therapeutic INR. I have also asked that his AICD be interrogated ([employer]) to examine his cardiac rhythm during the episode of chest discomfort, diaphoresis and tachycardia. He is taking his Coumadin faithfully with therapeutic INR. Obstructive coronary disease is unlikely to be the source of the chest pain given most recent cath 04/04, even though his EKG is abnormal. These changes are almost certainly related to the patient's known history of hypertrophic cardiomyopathy. I do think the most likely cardiac causes of his clinical symptoms may be partial or intermittent obstruction of the mechanical mitral valve or significant tachydysrhythmia. Clinically he has bronchitis without evidence of pneumonia on examination or the CXR. History Information - Allergies/Home Medication List Allergies/Adverse Reactions: amiodarone Allergy (Intermediate, Verified 06/18/16 10:11) Hives Home Medications: Gabapentin [Neurontin 300 MG (*)] 900 mg PO QID 06/18/16 [Last Taken Unknown] LORazepam [Ativan (*)] 1 mg PO TID 06/18/16 [Last Taken Unknown] Levothyroxine [Synthroid 50 mcg (*)] 50 mcg PO DAILY06 06/18/16 [Last Taken Unknown] Lisinopril [Zestril 2.5 mg (*)] 2.5 mg PO DAILY 06/18/16 [Last Taken Unknown] Lurasidone HCl [Latuda] 20 mg PO DAILY 06/18/16 [Last Taken Unknown] Metoprolol Tartrate [Lopressor 100 mg (*)] 100 mg PO BID 06/18/16 [Last Taken Unknown] Olanzapine [Zyprexa] 10 mg PO HS 06/18/16 [Last Taken Unknown] Venlafaxine Xr [Effexor Xr] 150 mg PO DAILY 06/18/16 [Last Taken Unknown] Warfarin Sodium [Coumadin 5MG (*)] 5 mg PO SUTUTHSA@1600 06/18/16 [Last Taken Unknown] Warfarin Sodium [Coumadin 7.5MG (*)] 7.5 mg PO MOWEFR@1600 06/18/16 [Last Taken Unknown] Zolpidem Tartrate [Ambien 5MG (*)] 5 mg PO HS 06/18/16 [Last Taken Unknown] hydrOXYzine HCL [hydrOXYzine HCL (RX)] 25 mg PO Q6 PRN 06/18/16 [Last Taken Unknown] I have personally reviewed and updated: medical history, social history, surgical history Past Medical History: HOCM, cardiac arrest 2008, MVR, Myomectomy, atrial fibrillation, AICD implantation, Hep C, PTSD, DJD, Migraines. - Surgical History Reports: ablation, pacemaker/AICD Additional surgical history: Myomectomy - Social History Smoking Status: Current every day smoker Cardiac History - Cardiac History Past Cardiac History: MVR, ICD Associated Symptoms: cough, diaphoresis HANNAH Risk Evaluation age greater or equal to 65: no greater or equal to 3 CAD risk factors: no known CAD(stenosis greater or eqaul to 50%): no ASA use in past 7 days: no severe angina(greater or equal to 2 episodes in 24hrs): no EKG ST changes greater or equal to 0.5mm: yes positive cardiac marker: no Total Score: 2 HANNAH Score: 8.3% risk Physical Exam Temp Pulse Resp BP Pulse Ox 36.7 C 88 18 111/79 92 06/19/16 08:00 06/19/16 08:00 06/19/16 08:00 06/19/16 08:00 06/19/16 08:00 O2 (L/minute) 2 Constitutional: no apparent distress, appears nourished, not in pain Cardiovascular: regular rate and rhythym, systolic murmur, No edema Respiratory: no respiratory distress, no rales or rhonchi, clear to auscultation Gastrointestinal: normoactive bowel sounds Skin: warm, normal color Psychiatric: not anxious Lab and Imaging 06/18/16 10:08 06/18/16 10:08 WBC 6.69 10^3/uL (3.80-9.50) 06/18/16 10:08 RBC 4.96 10^6/uL (4.40-6.38) 06/18/16 10:08 Hgb 13.6 g/dL (13.7-17.5) L 06/18/16 10:08 Hct 41.4 % (40.0-51.0) 06/18/16 10:08 MCV 83.5 fL (81.5-99.8) 06/18/16 10:08 MCH 27.4 pg (27.9-34.1) L 06/18/16 10:08 MCHC 32.9 g/dL (32.4-36.7) 06/18/16 10:08 RDW 17.0 % (11.5-15.2) H 06/18/16 10:08 Plt Count 224 10^3/uL (150-400) 06/18/16 10:08 MPV 11.2 fL (8.7-11.7) 06/18/16 10:08 Neut % (Auto) 67.3 % (39.3-74.2) 06/18/16 10:08 Lymph % (Auto) 22.4 % (15.0-45.0) 06/18/16 10:08 [place] % (Auto) 8.5 % (4.5-13.0) 06/18/16 10:08 Eos % (Auto) 0.9 % (0.6-7.6) 06/18/16 10:08 Baso % (Auto) 0.3 % (0.3-1.7) 06/18/16 10:08 Nucleat RBC Rel Count 0.0 % (0.0-0.2) 06/18/16 10:08 Absolute Neuts (auto) 4.50 10^3/uL (1.70-6.50) 06/18/16 10:08 Absolute Lymphs (auto) 1.50 10^3/uL (1.00-3.00) 06/18/16 10:08 Absolute Monos (auto) 0.57 10^3/uL (0.30-0.80) 06/18/16 10:08 Absolute Eos (auto) 0.06 10^3/uL (0.03-0.40) 06/18/16 10:08 Absolute Basos (auto) 0.02 10^3/uL (0.02-0.10) 06/18/16 10:08 Absolute Nucleated RBC 0.00 10^3/uL (0-0.01) 06/18/16 10:08 Immature Gran % 0.6 % (0.0-1.1) 06/18/16 10:08 Immature Gran # 0.04 10^3/uL (0.00-0.10) 06/18/16 10:08 PT 26.0 SEC (12.0-15.0) H 06/19/16 03:25 INR 2.36 (0.83-1.16) H 06/19/16 03:25 APTT 27.0 SEC (23.0-38.0) 06/18/16 10:08 D-Dimer < 0.27 ug/mLFEU (0.00-0.50) 06/18/16 10:08 Sodium 139 mEq/L (134-144) 06/18/16 10:08 Potassium 4.0 mEq/L (3.5-5.2) 06/18/16 10:08 Chloride 100 mEq/L (97-110) 06/18/16 10:08 Carbon Dioxide 25 mEq/l (22-31) 06/18/16 10:08 Anion Gap 14 mEq/L (8-16) 06/18/16 10:08 BUN 13 mg/dL (7-23) 06/18/16 10:08 Creatinine 1.0 mg/dL (0.7-1.3) 06/18/16 10:08 Estimated GFR > 60 06/18/16 10:08 Glucose 171 mg/dL (70-100) H 06/18/16 10:08 Calcium 8.9 mg/dL (8.5-10.4) 06/18/16 10:08 Total Bilirubin 0.5 mg/dL (0.1-1.4) 06/18/16 10:08 Conjugated Bilirubin 0.3 mg/dL (0.0-0.5) 06/18/16 10:08 Unconjugated Bilirubin 0.2 mg/dL (0.0-1.1) 06/18/16 10:08 AST 64 IU/L (17-59) H 06/18/16 10:08 ALT 89 IU/L (21-72) H 06/18/16 10:08 Alkaline Phosphatase 85 IU/L (38-126) 06/18/16 10:08 Troponin I 0.212 ng/mL (0-0.034) H 06/18/16 23:01 Total Protein 8.5 g/dL (6.3-8.2) H 06/18/16 10:08 Albumin 4.3 g/dL (3.5-5.0) 06/18/16 10:08 Lipase 51.0 IU/L (23-300) 06/18/16 10:08 EKG Interpretation: Positive for: LVH, normal sinsus rhythm (IVCD, secondary repolarization abnormality)
[2016-06-19] MEDS ORDERED: IPRATROPIUM/ALBUTEROL 3 ML DEYVIAL ONE (15:02)
--- NOTE | 2016-06-19 15:33 | HOSPPROG ---
Hospitalist Progress Note Assessment/Plan: * Chest pain -doubt ischemia with recent negative cardiac cath -suspect chronically elevated troponin * Hypertrophic cardiomyopathy s/p myomectomy/AICD -interrogate AICD - r/o arrhythmia as cause for CP * Mechanical MVR -continue warfarin - follow INR -HUSAM in am - r/o clot as cause for CP * Afib s/p ablation * Non-ischemic cardiomyopathy - EF 40% * Bronchitis with RAD exacerbation -steroids, nebs, abx -r/o influenza * Hepatitis C * PTSD -ran out of psych meds with increased symptoms -resume meds Subjective: coughing, wheezing, worried he is getting pneumonia Objective: Vital Signs Temp Pulse Resp BP Pulse Ox 37.3 C 70 16 116/72 95 06/19/16 12:00 06/19/16 12:00 06/19/16 12:00 06/19/16 12:00 06/19/16 12:00 06/18/16 06/19/16 06/20/16 05:59 05:59 05:59 Intake Total 895 120 Balance 895 120 PT 26.0 SEC (12.0-15.0) H 06/19/16 03:25 INR 2.36 (0.83-1.16) H 06/19/16 03:25 - Physical Exam Constitutional: no apparent distress, appears nourished, not in pain Cardiovascular: regular rate and rhythym, no murmur, rub, or gallop Respiratory: expiratory wheeze, No inspiratory crackles, No respiratory distress , No rhonchi Gastrointestinal: normoactive bowel sounds, soft, non-tender abdomen, no palpable masses Skin: no rashes or abrasions, no fluctuance, no induration Neurologic: AAOx3, sensation intact bilaterally Psychiatric: interacting appropriately, not anxious, not encephalopathic, thought process linear ICD10 Worksheet Patient Problems: Problems Problem Status Diagnosed Acute chest pain Acute Troponin level elevated Acute Mood disorder Active Chest pain Acute History of coronary artery disease Acute Lightheadedness Acute Shortness of breath Acute
[2016-06-19] MEDS: WARFARIN SODIUM 7.5 MG TAB PO SCH (16:04)
[2016-06-19] MEDS: predniSONE 20 MG TAB PO SCH (16:09)
[2016-06-19] MEDS: IPRATROPIUM/ALBUTEROL 3 ML DEYVIAL IH SCH ×2 (16:40→20:18)
[2016-06-19] MEDS: DOXYCYCLINE HYCLATE 100 MG CAP/TAB PO SCH (21:05)
[2016-06-19] MEDS: OLANZapine DISINTEGR 10 MG TAB PO SCH (21:06)
[2016-06-19] MEDS: ZOLPIDEM TARTRATE 5 MG TAB PO SCH (21:06)
[2016-06-20] MEDS: oxyCODONE IR 5 MG TAB PO PRN ×3 (03:23→20:57)
[2016-06-20 05:16] LABS: INR 2.58 (0.83-1.16)
[2016-06-20] MEDS: IPRATROPIUM/ALBUTEROL 3 ML DEYVIAL IH SCH ×4 (05:29→20:30)
[2016-06-20] MEDS: LEVOTHYROXINE 50 MCG TAB PO SCH (05:37)
[2016-06-20] MEDS: GABAPENTIN 300 MG CAP PO SCH ×4 (05:37→20:56)
[2016-06-20] MEDS ORDERED: PROPOFOL 200 MG/20 ML VIAL IVP ONE (06:41)
[2016-06-20] MEDS ORDERED: fentaNYL 100 MCG/2 ML INJ IVP ONE (06:41)
[2016-06-20] MEDS ORDERED: MIDAZOLAM 2 MG/2 ML VIAL IVP ONE (06:41)
[2016-06-20] MEDS ORDERED: NS 1,000 ML IV ONE (06:41)
[2016-06-20] MEDS ORDERED: BENZOCAINE UNIT DOSE SPRAY HURRICAINE MM ONE (06:41)
[2016-06-20] MEDS ORDERED: NS 1,000 ML IV SCH (08:00)
[2016-06-20] MEDS: METOPROLOL TARTRATE 100 MG TAB PO SCH ×2 (08:01→20:55)
[2016-06-20] MEDS ORDERED: MIDAZOLAM 2 MG/2 ML VIAL ONE ×3 (09:45→10:18)
[2016-06-20] MEDS ORDERED: fentaNYL 100 MCG/2 ML INJ ONE (09:45)
[2016-06-20] MEDS ORDERED: ETOMIDATE 40 MG/20 ML INJ ONE (09:46)
[2016-06-20] MEDS: guaiFENesin 600 MG TAB.ER PO SCH ×2 (12:36→20:55)
[2016-06-20] MEDS: DOXYCYCLINE HYCLATE 100 MG CAP/TAB PO SCH ×2 (12:38→20:56)
[2016-06-20] MEDS: LURASIDONE HCL 20 MG TAB PO SCH (12:38)
[2016-06-20] MEDS: LISINOPRIL 2.5 MG TAB PO SCH (12:38)
[2016-06-20] MEDS: predniSONE 20 MG TAB PO SCH (12:38)
[2016-06-20] MEDS: VENLAFAXINE XR 150 MG CAP PO SCH (12:39)
[2016-06-20] MEDS: LORazepam 1 MG TAB PO SCH ×3 (12:42→22:20)
--- NOTE | 2016-06-20 15:42 | HOSPPROG ---
Hospitalist Progress Note Assessment/Plan: * Chest pain -doubt ischemia with recent negative cardiac cath -suspect chronically elevated troponin * Hypertrophic cardiomyopathy s/p myomectomy/AICD -interrogate AICD - r/o arrhythmia as cause for CP * Mechanical MVR -continue warfarin - follow INR -possible valve malfunction -right heart cath in am * Afib s/p ablation * Non-ischemic cardiomyopathy - EF 40% * Bronchitis with RAD exacerbation -steroids, nebs, abx * Hepatitis C * PTSD -ran out of psych meds with increased symptoms -resume meds * Obesity BMI 31 Subjective: no new complaints. pulmonary symptoms are better Objective: Vital Signs Temp Pulse Resp BP Pulse Ox 36.7 C 62 14 135/85 H 94 06/20/16 13:07 06/20/16 13:07 06/20/16 13:07 06/20/16 13:07 06/20/16 13:07 06/19/16 06/20/16 06/21/16 05:59 05:59 05:59 Intake Total 1280 Output Total 3 Balance 1277 PT 28.0 SEC (12.0-15.0) H 06/20/16 04:03 INR 2.58 (0.83-1.16) H 06/20/16 04:03 - Physical Exam Constitutional: no apparent distress, appears nourished, not in pain Cardiovascular: regular rate and rhythym, no murmur, rub, or gallop Respiratory: no respiratory distress, no rales or rhonchi, clear to auscultation Gastrointestinal: normoactive bowel sounds, soft, non-tender abdomen, no palpable masses Neurologic: AAOx3, sensation intact bilaterally Psychiatric: interacting appropriately, not anxious, not encephalopathic, thought process linear ICD10 Worksheet Patient Problems: Problems Problem Status Diagnosed Acute chest pain Acute Troponin level elevated Acute Mood disorder Active Chest pain Acute History of coronary artery disease Acute Lightheadedness Acute Shortness of breath Acute
[2016-06-20] MEDS: WARFARIN SODIUM 5 MG TAB PO SCH (16:43)
[2016-06-20] MEDS ORDERED: TEMAZEPAM 15 MG CAP PO PRN (16:58)
[2016-06-20] MEDS: OLANZapine DISINTEGR 10 MG TAB PO SCH (20:58)
[2016-06-20] MEDS ORDERED: ACETAMINOPHEN 325 MG TAB ONE (22:19)
[2016-06-20] MEDS: ZOLPIDEM TARTRATE 5 MG TAB PO SCH (22:21)
[2016-06-21] MEDS: IPRATROPIUM/ALBUTEROL 3 ML DEYVIAL IH SCH ×3 (04:55→15:38)
[2016-06-21 05:02] LABS: % IMMATURE GRANULYOCYTES 0.5 % (0.0-1.1); ABSOLUTE IMMATURE GRANULOCYTES 0.05 10^3/uL (0.00-0.10); ADD DIFF? NO; ADD MORPH? NO; ADD SCAN? NO; ATYPICAL LYMPHOCYTE FLAG 50 (0-99); FRAGMENT RBC FLAG 0 (0-99); HEMATOCRIT 37.6 % (40.0-51.0); HEMOGLOBIN 12.5 g/dL (13.7-17.5); LEFT SHIFT FLG 0 (0-99); LIPEMIA HEMOLYSIS FLAG 80 (0-99); MEAN CELL HEMOGLOBIN 26.8 pg (27.9-34.1); MEAN CELL HEMOGLOBIN CONCENTR. 33.2 g/dL (32.4-36.7); MEAN CELL VOLUME 80.7 fL (81.5-99.8); MEAN PLATELET VOLUME 9.9 fL (8.7-11.7); PLATELET CLUMPS FLAG 10 (0-99); PLATELET COUNT 192 10^3/uL (150-400); RED BLOOD CELL COUNT 4.66 10^6/uL (4.40-6.38); RED CELL DISTRIBUTION WIDTH 16.3 % (11.5-15.2)
[2016-06-21 05:03] LABS: INR 2.83 (0.83-1.16); PROTIME(PATIENT) 30.1 SEC (12.0-15.0)
[2016-06-21 05:04] LABS: APTT 37.1 SEC (23.0-38.0)
[2016-06-21 05:27] LABS: ANION GAP 10 mEq/L (8-16); CALCIUM 8.6 mg/dL (8.5-10.4); CARBON DIOXIDE 25 mEq/l (22-31); CHLORIDE 106 mEq/L (97-110); CHOLESTEROL 166 mg/dL (140-200); CHOLESTEROL/HDL RATIO 5.03 RATIO (1.00-4.97); CREATININE 0.8 mg/dL (0.7-1.3); GLOMERULAR FILTRATION RATE > 60; GLUCOSE 153 mg/dL (70-100); HIGH DENSITY LIPOPROTEIN 33 mg/dL (40-65); LDL/HDL RATIO 3.06 RATIO (1.00-3.64); LOW DENSITY LIPOPROTEIN 101 mg/dL (70-100); MAGNESIUM 1.7 mg/dL (1.6-2.3); NON-HIGH DENSITY LIPOPROTEIN 133 mg/dL (90-129); POTASSIUM 4.2 mEq/L (3.5-5.2); SODIUM 141 mEq/L (134-144); TRIGLYCERIDE 162 mg/dL (40-150); VERY LOW DENSITY LIPOPROTEINS 32 mg/dL (8-25)
[2016-06-21] MEDS ORDERED: NITROGLYCERIN 0.4 MG BTL SL PRN (06:00)
[2016-06-21] MEDS ORDERED: NS 1,000 ML IV ONE (06:00)
[2016-06-21] MEDS ORDERED: ACETAMINOPHEN 325 MG TAB PO PRN (06:00)
[2016-06-21] MEDS: GABAPENTIN 300 MG CAP PO SCH ×5 (06:21→20:49)
[2016-06-21] MEDS: oxyCODONE IR 5 MG TAB PO PRN (06:21)
[2016-06-21] MEDS: LEVOTHYROXINE 50 MCG TAB PO SCH (06:21)
--- NOTE | 2016-06-21 08:48 | CPEKG ---
Heart Rate: 66 RR Interval: 909 P-R Interval: 176 QRSD Interval: 130 QT Interval: 444 QTC Interval: 466 P [place]: 23 QRS [place]: -33 T Wave [place]: 171 EKG Severity - ABNORMAL ECG - EKG Impression: SINUS RHYTHM EKG Impression: PROBABLE LEFT ATRIAL ABNORMALITY EKG Impression: LVH WITH IVCD AND SECONDARY REPOL ABNRM Electronically Signed By: Loki Gonzalez 21-Jun-2016 14:17:59
[2016-06-21] MEDS: DOXYCYCLINE HYCLATE 100 MG CAP/TAB PO SCH ×2 (10:34→20:49)
[2016-06-21] MEDS: predniSONE 20 MG TAB PO SCH (10:34)
[2016-06-21] MEDS: VENLAFAXINE XR 150 MG CAP PO SCH (10:35)
[2016-06-21] MEDS: LORazepam 1 MG TAB PO SCH ×3 (10:35→22:25)
[2016-06-21] MEDS: guaiFENesin 600 MG TAB.ER PO SCH ×2 (10:35→20:49)
[2016-06-21] MEDS: LURASIDONE HCL 20 MG TAB PO SCH (10:37)
[2016-06-21] MEDS ORDERED: fentaNYL 100 MCG/2 ML INJ ONE (10:38)
[2016-06-21] MEDS ORDERED: LIDOCAINE 1% 30 ML SDV ONE (10:38)
[2016-06-21] MEDS ORDERED: HEPARIN 10,000 UNIT/10 ML MDV ONE (10:39)
[2016-06-21] MEDS ORDERED: MIDAZOLAM 2 MG/2 ML VIAL ONE ×2 (10:39)
[2016-06-21] MEDS ORDERED: ETOMIDATE 40 MG/20 ML INJ ONE (10:40)
[2016-06-21] MEDS ORDERED: VERAPAMIL 5 MG/2 ML VIAL ONE (10:40)
[2016-06-21] MEDS ORDERED: IOPAMIDOL (ISOVUE-370) 150 ML BTL IV ONE (10:40)
[2016-06-21] MEDS: METOPROLOL TARTRATE 100 MG TAB PO SCH ×2 (10:45→20:49)
[2016-06-21] MEDS: LISINOPRIL 2.5 MG TAB PO SCH (10:45)
--- NOTE | 2016-06-21 12:09 | PDDXCAT ---
Diagnostic Cath Note - . Date: 06/22/16 Jewelry Sales: Phan Indication: other (CCS IV angina, assessment of mechanical mitral valve function s/p HUSAM) - Procedure Access: left wrist (A plethysmography trace assisted Edinson's Test was used to document dual artery supply to the hand and index finger prior to access.) Procedure: left heart catheterization, left ventriculogram, right heart catheterization - Materials Left Heart Cath size: 5F Left Heart Cath materials: JR4.0, pigtail Right Heart Cath size: 5F Right Heart Cath materials: PWP catheter - Findings-Left Heart Catheterization EDP: 164/10/30 mmHg LVEF: 40% Wall motion: Global wall hypokinesis. 1+ MR. The visualized protion of the thoracic aorta revealed three sinuses of Valsalva. There was no evidence of aneurysm or dissection. - Findings-Right Heart Catheterization CO: 3.95 L/min CI: 1.76 L/min/m^2 Complications: None Estimated blood loss: <50ml Assessment: The patient has elevated left ventricular filling pressures, which is generally not a problem if there is moderate to severe mitral stenosis. There is also moderate to severe pulmonary hypertension and elevated pulmonary capillary wedge pressure (PCW) with intermittent gradient between the PCW and left ventricular end diastolic pressure (LVEDP), the max pressure gradient measured was 11 mmHg with a mean of 6 mmHg which would be consistent with mild mitral stenosis. The gradient between the wedge tracing and the LVEDP appears to be most significant with early inspiration and usually gradually normalizes; however at faster heart rates (in 80s and 90s) there was a consistent gradient between the wedge and LVEDP. Cinefluoroscopy of the valve demonstrated normal excursion of the biconcave tilting disc of the [place] mitral valve with a near parallel position if open and ~110 angle when completely closed. Plan: The patient presents with episodes of chest pain, diaphoresis and sudden tachycardia with multiple visits to the emergency room in the past few months. HUSAM was performed which revealed possible evidence of malfunctioning mechanical mitral valve. Cinefluoroscopy of the valve on cardiac catheterization appeared to show the valve with normal function. However, I am concerned the valve is intermittently malfunctioning (specifically, one or both of the leaflets are intermittently not opening properly). I would like to perform simultaneous HUSAM and Cinefluoroscopy to further examine the valve function. If this test is negative, a source for the patients symptoms may be related to a tachydysrhythmia. Intervention: Simultaneous PAOP and LV pressures were measured both pre and post dobutamine infusion. 1. Pre Dobutamine: PAOP -- 36/49/36 mmHg; LV -- 120/22/34 mmHg 2. Post 20 mcg/kg/min dobutamine infusion: PAOP -- 34/34/33 mmHg ; LV -- 136/18/ 37 mmHg 3. Post 30 mcg/kg/min dobutamine infusion: PAOP -- 22/23/22 mmHg ; LV -- 142/10/ 27 mmHg 4. Post 50 mcg/kg/min dobutamine infusion: PAOP -- 33/33/31 mmHg ; LV 164/7/29 mmhg 5. Post 50 mcg/kg/min dobutamine infusion: PAOP -- 24/24/24 mmHg ; LV 174/1/22 mmHg 6. Post 50 mcg/kg/min and 0.5 mg Atropine: PA -- 49/10/26 mmHg; RV 63/11/16 mmHg ; RA 16/17/16 mmHg Patient Problems: Problems Problem Status Diagnosed Acute chest pain Acute Troponin level elevated Acute Mood disorder Active Chest pain Acute History of coronary artery disease Acute Lightheadedness Acute Shortness of breath Acute
[2016-06-21] MEDS ORDERED: DOBUTamine 500 MG in D5W 250 ML IV ONE (12:30)
[2016-06-21] MEDS ORDERED: DOBUTamine/DEXTROSE 250 ML IV ONE (12:30)
[2016-06-21] MEDS ORDERED: ATROPINE SULFATE 1 MG/10 ML SYR ONE (12:54)
[2016-06-21] MEDS ORDERED: ALBUTEROL 3 ML DEYVIAL IH PRN (16:11)
--- NOTE | 2016-06-21 16:50 | HOSPPROG ---
Hospitalist Progress Note Assessment/Plan: * Chest pain -doubt ischemia with recent negative cardiac cath -suspect chronically elevated troponin * Hypertrophic cardiomyopathy s/p myomectomy/AICD -interrogate AICD - r/o arrhythmia as cause for CP * Mechanical MVR -continue warfarin - follow INR -valve okay on RH cath * Afib s/p ablation * Non-ischemic cardiomyopathy - EF 40% * Bronchitis with RAD exacerbation -steroids, nebs, abx * Hepatitis C * PTSD -ran out of psych meds with increased symptoms -resume meds * Obesity BMI 31 Subjective: no complaints Objective: Vital Signs Temp Pulse Resp BP Pulse Ox 36.5 C 75 14 121/88 H 94 06/21/16 15:30 06/21/16 15:40 06/21/16 15:40 06/21/16 15:30 06/21/16 15:40 Laboratory Results 06/21/16 03:52 06/21/16 03:52 06/20/16 06/21/16 06/22/16 05:59 05:59 05:59 Intake Total 1280 650 Output Total 3 Balance 1277 650 PT 30.1 SEC (12.0-15.0) H 06/21/16 03:52 INR 2.83 (0.83-1.16) H 06/21/16 03:52 - Physical Exam Constitutional: no apparent distress, appears nourished, not in pain Cardiovascular: regular rate and rhythym, no murmur, rub, or gallop Respiratory: no respiratory distress, no rales or rhonchi, clear to auscultation Gastrointestinal: normoactive bowel sounds, soft, non-tender abdomen, no palpable masses Skin: no rashes or abrasions, no fluctuance, no induration Neurologic: AAOx3, sensation intact bilaterally Psychiatric: interacting appropriately, not anxious, not encephalopathic, thought process linear ICD10 Worksheet Patient Problems: Problems Problem Status Diagnosed Acute chest pain Acute Troponin level elevated Acute Mood disorder Active Chest pain Acute History of coronary artery disease Acute Lightheadedness Acute Shortness of breath Acute
[2016-06-21] MEDS ORDERED: DIAZEPAM 5 MG TAB PO ONE (16:59)
[2016-06-21] MEDS: WARFARIN SODIUM 7.5 MG TAB PO SCH (17:17)
[2016-06-21] MEDS: OLANZapine DISINTEGR 10 MG TAB PO SCH (20:49)
[2016-06-21] MEDS: ZOLPIDEM TARTRATE 5 MG TAB PO SCH (22:25)
[2016-06-21] MEDS: FLUTICASONE/SALMETER 250/50MCG DISKUS IH SCH (22:26)
[2016-06-22 05:12] LABS: INR 2.75 (0.83-1.16); PROTIME(PATIENT) 29.4 SEC (12.0-15.0)
[2016-06-22] MEDS: GABAPENTIN 300 MG CAP PO SCH ×4 (06:28→21:25)
[2016-06-22] MEDS: LEVOTHYROXINE 50 MCG TAB PO SCH (06:28)
[2016-06-22] MEDS: FLUTICASONE/SALMETER 250/50MCG DISKUS IH SCH ×2 (08:27→20:22)
[2016-06-22] MEDS: LURASIDONE HCL 20 MG TAB PO SCH (09:37)
[2016-06-22] MEDS: LISINOPRIL 2.5 MG TAB PO SCH (09:37)
[2016-06-22] MEDS: VENLAFAXINE XR 150 MG CAP PO SCH (09:37)
[2016-06-22] MEDS: METOPROLOL TARTRATE 100 MG TAB PO SCH ×2 (09:37→21:25)
[2016-06-22] MEDS: predniSONE 20 MG TAB PO SCH (09:38)
[2016-06-22] MEDS: DOXYCYCLINE HYCLATE 100 MG CAP/TAB PO SCH ×2 (09:38→21:24)
[2016-06-22] MEDS: guaiFENesin 600 MG TAB.ER PO SCH ×2 (09:38→21:24)
[2016-06-22] MEDS: LORazepam 1 MG TAB PO SCH ×3 (09:38→21:25)
[2016-06-22] MEDS ORDERED: MIDAZOLAM 2 MG/2 ML VIAL ONE ×2 (13:30→14:16)
[2016-06-22] MEDS ORDERED: fentaNYL 100 MCG/2 ML INJ ONE ×2 (13:30→14:15)
[2016-06-22] MEDS ORDERED: ETOMIDATE 40 MG/20 ML INJ ONE (13:31)
--- NOTE | 2016-06-22 14:14 | PDDXCAT ---
Diagnostic Cath Note - . Date: 06/22/16 Science Analyst: Phan Indication: other (Evalutation of mechanical mitral valve) - Procedure Procedure: other (Simultaneous HUSAM and cinefluoroscopy to examine the function of the [place] mechanical mitral valve) Complications: None Assessment: Simultaneous 3D HUSAM and cinefluoroscopy was performed for further assessment of the patient's [place] mechanical mitral valve function (please see my last cardiac catheterization and prior HUSAM note for more details). Upon initial placement of the HUSAM probe, it was clear both leaflets were functioning normally (and the images were different compared to those performed 2 days ago where it appeared one valve leaflet was not opening properly). There was a period where a leaflet appeared to be malfunctioning and simultaneous cinefluoroscopy showed one leaflet moving well, while it was less clear the other was moving normally. After a few minutes, both leaflets appeared to be moving normally (on the HUSAM imaging and on cinefluoroscopy the excursion of both leaflets were both normal at that point in time). Plan: The patient should be presented at our weekly cardiology case conference next Sunday to discuss with the CV surgery team. It is in my opinion that if one of the leaflets is functioning abnormally, then it would be unlikely to be a significant danger to his life. The risks/benefits of a redo operation should be considered given his history of thrombosis and 29 minutes of cardiac arrest following his prior surgery. I do believe that we should try to avoid a repeat operation until his symptoms become more frequent and protracted. I do not believe there is definitive proof of intermittent single leaflet valve dysfunction; however, there is certainly a suggestion based on the preponderance of the evidence. I would like the patient to carefully track his symptoms until further recommendations are made. I may also decrease the rate of the monitoring zone (VT1) on his AICD at 140 BPM to measure relatively slow tachydysrhythmia. Patient Problems: Problems Problem Status Diagnosed Acute chest pain Acute Troponin level elevated Acute Mood disorder Active Chest pain Acute History of coronary artery disease Acute Lightheadedness Acute Shortness of breath Acute
[2016-06-22] MEDS: WARFARIN SODIUM 5 MG TAB PO SCH (16:42)
[2016-06-22] MEDS: oxyCODONE IR 5 MG TAB PO PRN ×2 (16:45→21:24)
--- NOTE | 2016-06-22 18:25 | HOSPPROG ---
Hospitalist Progress Note Assessment/Plan: * Mechanical MVR -suggestion of possible intermittent valve leaflet dysfunction by HUSAM -high risk for re-do valve - per cardiology monitor for now -CT surgery to review -continue warfarin - follow INR * Hypertrophic cardiomyopathy s/p myomectomy/AICD -interrogate AICD without arrhythmia -possible change device setting to catch possible slow Vtach * Non-ischemic cardiomyopathy - EF 40% * Afib s/p ablation * Chest pain -doubt ischemia with recent negative cardiac cath -suspect chronically elevated troponin * Bronchitis with RAD exacerbation -steroids, nebs, abx * Hepatitis C * PTSD -ran out of psych meds with increased symptoms -resume meds * h/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 Chisholm regarding possible etiologies of symptoms HUSAM report reviewed: simultaneous fluoro - valve better than last HUSAM - Physical Exam Constitutional: no apparent distress, appears nourished, not in pain Cardiovascular: regular rate and rhythym, no murmur, rub, or gallop Respiratory: no respiratory distress, no rales or rhonchi, clear to auscultation Gastrointestinal: normoactive bowel sounds, soft, non-tender abdomen, no palpable masses Skin: no rashes or abrasions, no fluctuance, no induration Neurologic: AAOx3, sensation intact bilaterally Psychiatric: interacting appropriately, not anxious, not encephalopathic, thought process linear ICD10 Worksheet Patient Problems: Problems Problem Status Diagnosed Acute chest pain Acute Troponin level elevated Acute Mood disorder Active Chest pain Acute History of coronary artery disease Acute Lightheadedness Acute Shortness of breath Acute
[2016-06-22] MEDS: OLANZapine DISINTEGR 10 MG TAB PO SCH (21:24)
[2016-06-22] MEDS: ZOLPIDEM TARTRATE 5 MG TAB PO SCH (21:25)
[2016-06-23 05:05] LABS: INR 2.98 (0.83-1.16); PROTIME(PATIENT) 31.4 SEC (12.0-15.0)
[2016-06-23] MEDS: LEVOTHYROXINE 50 MCG TAB PO SCH (06:30)
[2016-06-23] MEDS: GABAPENTIN 300 MG CAP PO SCH ×2 (06:30→12:17)
[2016-06-23] MEDS: guaiFENesin 600 MG TAB.ER PO SCH (07:39)
[2016-06-23] MEDS: LURASIDONE HCL 20 MG TAB PO SCH (07:40)
[2016-06-23] MEDS: predniSONE 20 MG TAB PO SCH (07:40)
[2016-06-23] MEDS: VENLAFAXINE XR 150 MG CAP PO SCH (07:40)
[2016-06-23] MEDS: oxyCODONE IR 5 MG TAB PO PRN ×2 (07:40→12:17)
[2016-06-23] MEDS: METOPROLOL TARTRATE 100 MG TAB PO SCH (07:41)
[2016-06-23] MEDS: LISINOPRIL 2.5 MG TAB PO SCH (07:42)
[2016-06-23] MEDS: LORazepam 1 MG TAB PO SCH (07:43)
[2016-06-23 07:44] VITALS: BP 107/95; PULSE 66
[2016-06-23] MEDS: DOXYCYCLINE HYCLATE 100 MG CAP/TAB PO SCH (09:00)
[2016-06-23 09:05] VITALS: RESP 18; TEMP 96.8; O2SAT 93
[2016-06-23] MEDS: FLUTICASONE/SALMETER 250/50MCG DISKUS IH SCH (09:27)
--- NOTE | 2016-06-23 15:13 | PDCARPN ---
Cardiology Progress Note Assessment/Plan: I have asked the patient to record a video so that we can have audio of the mitral valve both when he is feeling normal and when he is having a typical "spell" of diaphoresis, chest pain and shortness of breath (specifically, to listen to the sound of the valve during the episodes to indirectly gauge whether or not the valve is working properly). When he experiences an episode, he will also measure his pulse, oxygen saturation in one hand and the blood pressure in the opposite arm and visit the emergency department for further evaluation. His current AICD backup rate is set at 50 and the monitoring zone at 125 - 180 BPM. Intracardiac electrograms have not revealed evidence of tachydysrhythmia thus far. I have also asked that Arsenio set up a follow up appointment with a mid level within the next week and at my next available appointment in August or September. 06/23/16 15:33 Objective: Vital Signs (8 Hrs) Temp Pulse Resp BP Pulse Ox 06/23/16 08:04 36.0 C 66 18 107/95 H 93 06/23/16 07:41 66 107/95 H Intake/Output (24 Hrs) 06/22/16 06/23/16 06/24/16 05:59 05:59 05:59 Intake Total 500 1200 Balance 500 1200 Intake: Oral (ml) 500 1200 Other: Intake Quantity Yes Sufficient Output Comment Toilet out reported by patient Number of Stools Toilet 4 Result Diagrams: 06/21/16 03:52 06/21/16 03:52 ICD10 Worksheet Patient Problems: Problems Problem Status Diagnosed Acute chest pain Acute Troponin level elevated Acute Mood disorder Active Chest pain Acute History of coronary artery disease Acute Lightheadedness Acute Shortness of breath Acute
--- NOTE | 2016-06-23 16:20 | ECHO ---
[id number] + + [address] : : [place] [address] : : [phone] + + Transesophageal Echocardiographic Report + --------+ :Name: DEWAYNEALIDA SAPP JStudy Date: 06/20/2016 10:22 AM : : Hospital Admission Number: [id number] Locat ion: CVC: :: 1975 Gender: Male : :Age: 40 yrs Race: WH : :Reason For Study: Eval LA and Mitral Valve : :History: Mechanical Mitral Valve, R/O left atrial thrombus : + --------+ Doppler Measurements & Calculations MV V2 max: 115.5 cm/sec MV max P.3 mmHg MV V2 mean: 69.6 cm/sec MV mean P.3 mmHg MV V2 VTI: 32.3 cm Left Ventricle Ejection Fraction = 40%. Atria No thrombus is detected in the left atrial appendage. No left atrial mass or thrombus visualized. Mitral Valve There is a mechanical mitral valve. Pannus noted in the areas of the prothesis implantation. Appears impingment of the anterior mitral valve leaflet by 3D HUSAM. Tricuspid Valve Normal tricuspid valve. No tricuspid regurgitation. Aortic Valve The aortic valve is trileaflet. The aortic valve opens well. There is no aortic stenosis. Pulmonic Valve The pulmonic valve is normal in structure and function. Conclusion A 2D transesophageal echocardiogram with color flow Doppler was performed. Ejection Fraction = 40%. No thrombus is detected in the left atrial appendage. No left atrial mass or thrombus visualized. There is a mechanical mitral valve. Pannus noted in the areas of the prothesis implantation. Appears impingment of the anterior mitral valve leaflet by 3D HUSAM with possible reduced excursion of the valve leaflet. The aortic valve is trileaflet. A 2D transesophageal echocardiogram with color flow Doppler was performed. Final Reading Physician: Steve Suresh signed on 06/23/2016 04:19 PM Ordering Physician: Jerry Chisholm Performed By: Jerry Chisholm MD
--- NOTE | 2016-06-23 16:25 | ECHO ---
[id number] + + [address] : : [place] [address] : : [phone] + + Transesophageal Echocardiographic Report + + :Name: ALIDA BUCHANAN Study Date: 06/22/2016 02:07 PM : : Hospital Admission Number: [id number] : :: 1975 Gender: Male : :Age: 40 yrs Race: WH : :Reason For Study: Eval Mitral Valve with 3D HUSAM : :History: Mechanical Mitral Valve : + + Doppler Measurements & Calculations MV V2 max: 115.5 cm/sec MV max P.3 mmHg MV V2 mean: 67.2 cm/sec MV mean P.1 mmHg MV V2 VTI: 31.5 cm Mitral Valve There is a bi-leaflet ([employer]) mechanical prosthesis. It appears that the anterior mitral valve leaflet has intermittent dysfunction. Conclusion This is a limited 3D HUSAM to evaluate the [employer] mitral valve. There is a bi-leaflet ([employer]) mechanical prosthesis. It appears that the anterior mitral valve leaflet has intermittent dysfunction. This did seem to correlate with simultaneous cineangiography; that is, when the valve leaflet appeared to have limited motion the cine appeared to show limited motion of the leaflet and when the HUSAM showed normal motion the Cine clearly showed normal function of both leaflets. Final Reading Physician: Steve Suresh signed on 06/23/2016 04:24 PM Ordering Physician: Clarence Castro Performed By: Jerry Chisholm MD
--- NOTE | 2016-06-24 00:12 | GDS ---
[f rep st] DISCHARGE SUMMARY DISCHARGE DIAGNOSES: 1. Mechanical mitral valve replacement with possible intermittent valve leaflet dysfunction. 2. Hypertrophic cardiomyopathy status post myomectomy and automatic implantable cardioverter defibri llator. 3. Nonischemic cardiomyopathy, ejection fraction 40%. 4. Atrial fibrillation, status post ablation. 5. Chest pain with chronically elevated troponins, but negative cardiac catheterization for ischemia . 6. Bronchitis with reactive airways disease exacerbation. 7. Hepatitis C. 8. Posttraumatic stress disorder. 9. 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 10. Obesity, BMI 31. HISTORY: This patient is a 40-year-old male with hypertrophic cardiomyopathy, previous myomectomy, a nd AICD. He also has a mechanical mitral valve which was placed 8 years ago, which was complicated i n the postoperative state by almost 30-minute cardiac arrest, for which he does have some remaining c ognitive dysfunction. He is having recurrent admissions to the emergency room with complaints of rec urrent spells of diaphoresis, chest pain, and shortness of breath. These spells are becoming more fr equent. He was seen here in consultation with cardiology. A HUSAM was performed, which showed some po ssible intermittent valve leaflet dysfunction. He also had his valve looked at under fluoro; it appe ared that this leaflet dysfunction is transient and does not persist. He will probably eventually ne ed to have his valve redone; however, given the fact that this dysfunction is now only intermittent, and he is a high risk valve redo, given his cardiac arrest last time, he is going to be closely monit ored for now. He continues on chronic warfarin with therapeutic INR throughout his hospitalization. His AICD was interrogated without evidence of arrhythmia as the cause of these spells. He recently had negative cardiac catheterization at [facility] just prior to admission, and his troponin is chronically elevated and does not represent ischemia. Also during this hospitalization, he had bronchitis with reactive airways disease exacerbation. He w as treated with steroids, nebulizers, and antibiotics and did have improvement. DISCHARGE MEDICATIONS: Please see computer record for full detailed list. NEW MEDICATIONS: 1. Advair 250/50 one puff twice daily. 2. Ativan 1 mg p.o. three times daily, which was renewed for a short period of time until he can fol low up with [facility] for long-term management. 3. Oxycodone 5-10 mg every 4 hours as needed. Again, small prescription given until he can establis h outpatient primary care. 4. Albuterol 1-2 puffs every 4 hours as needed. 5. Doxycycline 100 mg p.o. twice daily for 7 days. 6. Prednisone 40 mg p.o. daily for 5 days. ADDITIONAL DISCHARGE INSTRUCTIONS: 1. Follow up closely with Dr. Chisholm in 2 weeks. 2. No heavy lifting with the left hand for 3-5 days, as he did receive a right heart catheterization during this hospitalization. Please note that this right heart catheterization was consistent with some intermittent valve dysfunction, as he would have transient elevated pressures, however they were not sustained. DISCHARGE TIME: Greater than 30 minutes' time was spent arranging this discharge. Patient seen and examined by me on the day of discharge. /[id number]/MODL
== END 2016-06-23 15:34 | disposition home or self-care (01) | DRG 287 ==
LOC: EDUNIT# → F2W 14:18 → OBSVTOIN 06-19 14:53
PROVIDERS: ADMIT Family Medicine; ATTEND Internal Medicine
PROC: B2151ZZ Fluoroscopy of Left Heart using Low Osmolar Contrast (ICD-10-PCS; principal; 2016-06-22)
PROC: 4A023N8 Measurement of Cardiac Sampling and Pressure, Bilateral, Percutaneous Approach (ICD-10-PCS; principal; 2016-06-22)
PROC: B2161ZZ Fluoroscopy of Right and Left Heart using Low Osmolar Contrast (ICD-10-PCS; principal; 2016-06-22)
PROC: B2161ZZ Fluoroscopy of Right and Left Heart using Low Osmolar Contrast (ICD-10-PCS; 2016-06-22)
PROC: B246ZZ4 Ultrasonography of Right and Left Heart, Transesophageal (ICD-10-PCS; 2016-06-22)
DX: T82.09XA Other mechanical complication of heart valve prosthesis, initial encounter (principal); J45.901 Unspecified asthma with (acute) exacerbation; I42.2 Other hypertrophic cardiomyopathy; E03.9 Hypothyroidism, unspecified; F43.10 Post-traumatic stress disorder, unspecified; B19.20 Unspecified viral hepatitis C without hepatic coma; E66.9 Obesity, unspecified; I25.2 Old myocardial infarction; Z68.31 Body mass index [BMI] 31.0-31.9, adult; Z86.718 Personal history of other venous thrombosis and embolism; Z79.01 Long term (current) use of anticoagulants; Z95.810 Presence of automatic (implantable) cardiac defibrillator
CPT/HCPCS: 96374; 97165-GO; G0378; J0461; J1250; J1644; J1885; J2250; J2405; J2550; J3010; Q9967

== ENCOUNTER 2016-08-28 22:19 | Emergency (ER) | payer MEDICAID ==
[2016-08-28 22:25] VITALS: RESP 16
--- NOTE | 2016-08-28 22:38 | CPEKG ---
Heart Rate: 67 RR Interval: 896 P-R Interval: 188 QRSD Interval: 134 QT Interval: 408 QTC Interval: 431 P [place]: 32 QRS [place]: -41 T Wave [place]: 133 EKG Severity - ABNORMAL ECG - EKG Impression: SINUS RHYTHM EKG Impression: LVH WITH IVCD, LAD AND SECONDARY REPOL ABNRM Electronically Signed By: Loretta Evangelista 29-Aug-2016 07:29:27
--- NOTE | 2016-08-28 22:41 | EDPHY ---
H & P Stated Complaint: c/o cp/sob/nausea x 4 Time Seen by Provider: 08/28/16 22:31 HPI/ROS: HPI The patient presents with chest pain which has been present over the last 3-4 days which occurs in episodes that last from 5 minutes to 1 hour. He thinks he has had about 2 episodes daily. He has chest pain which is both dull and sharp located in his central chest without radiation. They are associated with shortness of breath, nausea, diaphoresis. He has these episodes intermittently , however he thinks they have been more severe over the last few days. He was admitted to the hospital in June of this year and had a full evaluation including cardiac catheterization. He has had frequent episodes of this chest pain. He was seen by Dr. Chisholm in the hospital though has not had any sort of follow-up since his discharge. He had moved to [place] and now has just relocated to [place] and needs to establish care here. REVIEW OF SYSTEMS Constitutional: No fever, no chills. Eyes: No discharge. ENT: No sore throat. Cardiovascular: Chest pain present Respiratory: No cough, no shortness of breath. Gastrointestinal: No abdominal pain, no vomiting. Genitourinary: No hematuria. Musculoskeletal: No back pain. Skin: No rashes. Neurological: No headache. PMHx: Hypertrophic cardiomyopathy status post myomectomy with AICD in place, mitral valve replacement with possible intermittent valve dysfunction, frequent ER visits for chest pain with chronically elevated troponin Soc Hx: Recently relocated to [place] PHYSICAL General Appearance: Alert, no distress Eyes: Pupils equal and round no pallor or injection ENT, Mouth: Mucous membranes moist Respiratory: There are no retractions, lungs are clear to auscultation Cardiovascular: Regular rate and rhythm, murmur present Gastrointestinal: Abdomen is soft and non-tender, no masses, bowel sounds normal Neurological: A&O, moves all extremities Skin: Warm and dry, no rashes Musculoskeletal: Neck is supple non tender Extremities: symmetrical, full range of motion Psychiatric: Patient is oriented X 3, there is no agitation Source: Patient, Old records Exam Limitations: No limitations - Personal History Tetanus Vaccine Date: <10 YRS - Medical/Surgical History Hx Asthma: No Hx Chronic Respiratory Disease: No Hx Diabetes: No Hx Cardiac Disease: Yes Hx Renal Disease: No Hx Cirrhosis: No Hx Alcoholism: No Hx HIV/AIDS: No Hx Splenectomy or Spleen Trauma: No Other PMH: Polysubstance abuse, homelessness, hypertrophic cardiomyopathy, myomectomy, mitral valve replacement mechanical valve, pacer defib., PTSD, degenerative bone disease, depression, hypertension, hep c, migraines, gerd, hypothyroid - Social History Smoking Status: Current every day smoker Constitutional: Initial Vital Signs Temperature (C) 36.8 C 08/28/16 22:21 Heart Rate 75 08/28/16 22:21 Respiratory Rate 16 08/28/16 22:21 Blood Pressure 126/84 H 08/28/16 22:21 O2 Sat (%) 95 08/28/16 22:21 O2 Delivery Mode Room Air Allergies/Adverse Reactions: amiodarone Allergy (Intermediate, Verified 08/28/16 22:25) Hives Home Medications: Medication Instructions Recorded Gabapentin [Neurontin 300 MG (*)] 900 mg PO QID 06/18/16 Levothyroxine [Synthroid 50 mcg 50 mcg PO DAILY06 06/18/16 (*)] Lisinopril [Zestril 2.5 mg (*)] 2.5 mg PO DAILY 06/18/16 Lurasidone HCl [Latuda] 20 mg PO DAILY 06/18/16 Metoprolol Tartrate [Lopressor 100 100 mg PO BID 06/18/16 mg (*)] Olanzapine [Zyprexa] 10 mg PO HS 06/18/16 Venlafaxine Xr [Effexor Xr] 150 mg PO DAILY 06/18/16 Warfarin Sodium [Coumadin 5MG (*)] 5 mg PO SUTUTHSA@1600 06/18/16 Warfarin Sodium [Coumadin 7.5MG 7.5 mg PO MOWEFR@1600 06/18/16 (*)] Zolpidem Tartrate [Ambien 5MG (*)] 5 mg PO HS 06/18/16 hydrOXYzine HCL [hydrOXYzine HCL 25 mg PO Q6 PRN 06/18/16 (RX)] LORazepam [Ativan (*)] 1 mg PO TID #20 tab 06/23/16 oxyCODONE IR [Oxycodone Ir (*)] 5 - 10 mg PO Q4 PRN #20 tab 06/23/16 Aspirin 81mg (*) 08/28/16 Cyclobenzaprine HCl 08/28/16 HYDROMORPHONE HCL 08/28/16 KLONOPIN 08/28/16 Pantoprazole Sodium 08/28/16 Topiramate ER 08/28/16 Medical Decision Making - Diagnostics EKG Interpretation: EKG: Complete interpretation has been separately recorded in the [facility] archive. Summary impression: LVH, sinus rhythm, pseudonormalization of T- waves in V3 through V6 Imaging: Chest x-ray two views shows kink in the patient's defibrillator wires, interpreted by Dr. Mcclendon of Radiology, I have reviewed the films myself. ED Course/Re-evaluation: The patient had no ongoing pain in the emergency room. Troponin was elevated, though on par with prior troponin elevations. The remainder of his labs were unremarkable. Chest x-ray was performed that did show kink in the defibrillator wires without any other abnormality. The patient has not had any arrhythmias on telemetry monitoring. I discussed the case with the assembler wire group infection control practitioner, Dr. Penelope Chi. She does know the patient. We agreed that there would be little benefit inpatient admission given his prior history of ongoing chest pain. He had a cardiac catheterization within the last 2 months which is normal. He can follow up with the [facility] and she will give his information to Dr. Chisholm's RN. I will also stressed the importance of follow-up with the Cardiology Clinic as he should have his AICD interrogated to make sure it is properly functioning. He will be discharged from the emergency room. Differential Diagnosis: This is a 40-year-old male with a complex past cardiac history including hypertrophic cardiomyopathy status post myomectomy and AICD in place, mitral valve repair with signs of valve dysfunction as noted on recent HUSAM performed during June 2015 admission, frequent chest pain episodes who presents from home with 3-4 days of increased chest pain associated with diaphoresis and nausea. On exam, he is well-appearing, he has no pain currently, and his exam is generally unremarkable. Differential diagnosis includes ACS, CHF exacerbation musculoskeletal pain, GERD. Plan for basic cardiac workup including troponin, BNP, chest x-ray, EKG. - Data Points Laboratory Results: Laboratory Results 08/28/16 22:40 08/28/16 22:40 08/28/16 08/28/16 08/28/16 22:40 22:40 22:40 WBC 4.58 10^3/uL 10^3/uL (3.80-9.50) RBC 5.44 10^6/uL 10^6/uL (4.40-6.38) Hgb 14.3 g/dL g/dL (13.7-17.5) Hct 42.9 % % (40.0-51.0) MCV 78.9 fL L fL (81.5-99.8) MCH 26.3 pg L pg (27.9-34.1) MCHC 33.3 g/dL g/dL (32.4-36.7) RDW 16.5 % H % (11.5-15.2) Plt Count 206 10^3/uL 10^3/uL (150-400) MPV 10.3 fL fL (8.7-11.7) Neut % (Auto) 45.5 % % (39.3-74.2) Lymph % (Auto) 36.7 % % (15.0-45.0) [place] % (Auto) 13.5 % H % (4.5-13.0) Eos % (Auto) 3.9 % % (0.6-7.6) Baso % (Auto) 0.2 % L % (0.3-1.7) Nucleat RBC Rel Count 0.0 % % (0.0-0.2) Absolute Neuts (auto) 2.08 10^3/uL 10^3/uL (1.70-6.50) Absolute Lymphs (auto) 1.68 10^3/uL 10^3/uL (1.00-3.00) Absolute Monos (auto) 0.62 10^3/uL 10^3/uL (0.30-0.80) Absolute Eos (auto) 0.18 10^3/uL 10^3/uL (0.03-0.40) Absolute Basos (auto) 0.01 10^3/uL L 10^3/uL (0.02-0.10) Absolute Nucleated RBC 0.00 10^3/uL 10^3/uL (0-0.01) Immature Gran % 0.2 % % (0.0-1.1) Immature Gran # 0.01 10^3/uL 10^3/uL (0.00-0.10) PT 22.9 SEC H SEC (12.0-15.0) INR 2.01 H (0.83-1.16) APTT 37.0 SEC SEC (23.0-38.0) Sodium 139 mEq/L mEq/L (134-144) Potassium 3.9 mEq/L mEq/L (3.5-5.2) Chloride 108 mEq/L mEq/L (97-110) Carbon Dioxide 21 mEq/l L mEq/l (22-31) Anion Gap 10 mEq/L mEq/L (8-16) BUN 16 mg/dL mg/dL (7-23) Creatinine 1.0 mg/dL mg/dL (0.7-1.3) Estimated GFR > 60 Glucose 108 mg/dL H mg/dL (70-100) Calcium 8.9 mg/dL mg/dL (8.5-10.4) Troponin I 0.156 ng/mL H ng/mL (0-0.034) Medications Given: Discontinued Medications Acetaminophen (Tylenol) 1,000 mg PO EDNOW ONE Stop: 08/28/16 23:06 Last Admin: 08/28/16 23:15 Dose: Not Given Ondansetron HCl (Zofran Odt) 4 mg PO EDNOW ONE Stop: 08/28/16 23:05 Last Admin: 08/28/16 23:15 Dose: 4 mg Ondansetron HCl (Zofran) 4 mg IVP EDNOW ONE Stop: 08/28/16 22:46 Last Admin: 08/28/16 23:59 Dose: Not Given Departure - Departure Disposition: Home, Routine, Self-Care Clinical Impression: Troponin level elevated Chest pain Qualifiers: Chest pain type: unspecified Qualified Code(s): R07.9 - Chest pain, unspecified Condition: Good Instructions: Chest Pain (ED) Additional Instructions: Please follow-up with Dr. Chisholm tomorrow. You can call his office for an appointment. Referrals: Jerry Chisholm MD [Medical Doctor] - As per Instructions
[2016-08-28] MEDS ORDERED: ONDANSETRON 4 MG/2 ML VIAL ONE (23:07)
[2016-08-28] MEDS: ONDANSETRON DISINTEGRATING 4 MG TAB PO ONE (23:15)
[2016-08-28] MEDS: ACETAMINOPHEN 500 MG TAB PO ONE (23:15)
[2016-08-28 23:23] LABS: % IMMATURE GRANULYOCYTES 0.2 % (0.0-1.1); ABSOLUTE IMMATURE GRANULOCYTES 0.01 10^3/uL (0.00-0.10); ADD DIFF? NO; ADD MORPH? NO; ADD SCAN? NO; ATYPICAL LYMPHOCYTE FLAG 50 (0-99); FRAGMENT RBC FLAG 20 (0-99); HEMATOCRIT 42.9 % (40.0-51.0); HEMOGLOBIN 14.3 g/dL (13.7-17.5); LEFT SHIFT FLG 0 (0-99); LIPEMIA HEMOLYSIS FLAG 80 (0-99); MEAN CELL HEMOGLOBIN 26.3 pg (27.9-34.1); MEAN CELL HEMOGLOBIN CONCENTR. 33.3 g/dL (32.4-36.7); MEAN CELL VOLUME 78.9 fL (81.5-99.8); MEAN PLATELET VOLUME 10.3 fL (8.7-11.7); PLATELET CLUMPS FLAG 40 (0-99); PLATELET COUNT 206 10^3/uL (150-400); RED BLOOD CELL COUNT 5.44 10^6/uL (4.40-6.38); RED CELL DISTRIBUTION WIDTH 16.5 % (11.5-15.2)
[2016-08-28 23:29] LABS: ANION GAP 10 mEq/L (8-16); CALCIUM 8.9 mg/dL (8.5-10.4); CARBON DIOXIDE 21 mEq/l (22-31); CHLORIDE 108 mEq/L (97-110); GLOMERULAR FILTRATION RATE > 60; GLUCOSE 108 mg/dL (70-100); POTASSIUM 3.9 mEq/L (3.5-5.2); SODIUM 139 mEq/L (134-144)
[2016-08-28 23:33] LABS: INR 2.01 (0.83-1.16); PROTIME(PATIENT) 22.9 SEC (12.0-15.0)
[2016-08-28 23:41] LABS: TROPONIN I 0.156 ng/mL (0-0.034)
[2016-08-28] MEDS: ONDANSETRON 4 MG/2 ML VIAL IVP ONE (23:59)
[2016-08-29 00:44] VITALS: PULSE 62
[2016-08-29 00:54] VITALS: BP 110/80; TEMP 97.9; O2SAT 94
== END 2016-08-29 00:54 | disposition home or self-care (01) ==
DX: R07.9 Chest pain, unspecified (principal); R79.89 Other specified abnormal findings of blood chemistry; I10 Essential (primary) hypertension; F17.200 Nicotine dependence, unspecified, uncomplicated; Z79.01 Long term (current) use of anticoagulants; Z79.82 Long term (current) use of aspirin
CPT/HCPCS: J2405

== ENCOUNTER 2016-09-13 14:05 | Emergency (ER) | payer MEDICAID ==
[2016-09-13 14:16] VITALS: BP 137/89; PULSE 67; RESP 18; TEMP 98.6; O2SAT 94
--- NOTE | 2016-09-13 14:39 | CPEKG ---
Heart Rate: 65 RR Interval: 923 P-R Interval: 180 QRSD Interval: 126 QT Interval: 452 QTC Interval: 470 P [place]: 43 QRS [place]: -41 T Wave [place]: 119 EKG Severity - ABNORMAL ECG - EKG Impression: SINUS RHYTHM EKG Impression: ATRIAL PREMATURE COMPLEX EKG Impression: LVH WITH IVCD, LAD AND SECONDARY REPOL ABNRM Electronically Signed By: Cassandra Case 13-Sep-2016 19:31:10
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
[2016-09-13] MEDS ORDERED: KETOROLAC 30 MG/1 ML SDV IM ONE (15:21)
== END 2016-09-13 15:40 | disposition left against medical advice (07) ==
DX: T82.118A Breakdown (mechanical) of other cardiac electronic device, initial encounter (principal); M54.5 Low back pain; I10 Essential (primary) hypertension; F17.200 Nicotine dependence, unspecified, uncomplicated; Z79.82 Long term (current) use of aspirin; Z79.01 Long term (current) use of anticoagulants; Y71.3 Surgical instruments, materials and cardiovascular devices (including sutures) associated with adverse incidents
CPT/HCPCS: J1885

== ENCOUNTER 2016-09-14 12:39 | Inpatient (IN) | payer MEDICAID ==
[2016-09-14] MEDS ORDERED: NS 1,000 ML IV ONE (13:46)
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
[2016-09-14 13:58] LABS: % IMMATURE GRANULYOCYTES 0.2 % (0.0-1.1); ABSOLUTE IMMATURE GRANULOCYTES 0.01 10^3/uL (0.00-0.10); ADD DIFF? NO; ADD MORPH? NO; ADD SCAN? NO; ATYPICAL LYMPHOCYTE FLAG 30 (0-99); FRAGMENT RBC FLAG 20 (0-99); HEMATOCRIT 41.1 % (40.0-51.0); HEMOGLOBIN 13.5 g/dL (13.7-17.5); LEFT SHIFT FLG 0 (0-99); LIPEMIA HEMOLYSIS FLAG 80 (0-99); MEAN CELL HEMOGLOBIN 25.4 pg (27.9-34.1); MEAN CELL HEMOGLOBIN CONCENTR. 32.8 g/dL (32.4-36.7); MEAN CELL VOLUME 77.3 fL (81.5-99.8); MEAN PLATELET VOLUME 9.6 fL (8.7-11.7); PLATELET CLUMPS FLAG 0 (0-99); PLATELET COUNT 243 10^3/uL (150-400); RED BLOOD CELL COUNT 5.32 10^6/uL (4.40-6.38); RED CELL DISTRIBUTION WIDTH 16.9 % (11.5-15.2)
[2016-09-14 14:25] LABS: ANION GAP 10 mEq/L (8-16); CALCIUM 9.7 mg/dL (8.5-10.4); CARBON DIOXIDE 21 mEq/l (22-31); CHLORIDE 114 mEq/L (97-110); CREATININE 1.1 mg/dL (0.7-1.3); GLOMERULAR FILTRATION RATE > 60; GLUCOSE 85 mg/dL (70-100); POTASSIUM 4.1 mEq/L (3.5-5.2); SODIUM 145 mEq/L (134-144)
[2016-09-14 14:37] LABS: TROPONIN I 0.098 ng/mL (0-0.034)
[2016-09-14] MEDS ORDERED: PHYTONADIONE 2.5 MG/2.5 ML ORAL UDL PO ONE (16:07)
--- NOTE | 2016-09-14 16:14 | CPEKG ---
Heart Rate: 74 RR Interval: 811 P-R Interval: 180 QRSD Interval: 126 QT Interval: 420 QTC Interval: 466 P [place]: 29 QRS [place]: -38 T Wave [place]: 119 EKG Severity - ABNORMAL ECG - EKG Impression: SINUS RHYTHM EKG Impression: LEFT ATRIAL ABNORMALITY EKG Impression: LVH WITH IVCD, LAD AND SECONDARY REPOL ABNRM Electronically Signed By: Zan Cash 14-Sep-2016 16:26:57
[2016-09-14 16:22] LABS: INR 2.81 (0.83-1.16); PROTIME(PATIENT) 29.9 SEC (12.0-15.0)
[2016-09-14] MEDS ORDERED: ACETAMINOPHEN 325 MG TAB PO PRN (16:22)
[2016-09-14] MEDS ORDERED: ONDANSETRON 4 MG/2 ML VIAL IVP PRN (16:22)
[2016-09-14] MEDS ORDERED: ONDANSETRON DISINTEGRATING 4 MG TAB PO PRN (16:22)
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
[2016-09-14] MEDS ORDERED: DEXMEDETOMIDINE HCL 400 MCG in NS 100 ML IV SCH (18:00)
[2016-09-14] MEDS ORDERED: ceFAZolin 3 GM in D5W 100 ML IV SCH (18:00)
[2016-09-14] MEDS ORDERED: hydrOXYzine HCL 50 MG TAB PO PRN (18:18)
[2016-09-14] MEDS: NICOTINE 14 MG/24 HR PATCH TD SCH (18:34)
[2016-09-14] MEDS: HYDROmorphONE/DILAUDID 4 MG TAB PO SCH ×2 (18:34→21:55)
[2016-09-14] MEDS: METOPROLOL TARTRATE 25 MG TAB PO SCH (21:55)
[2016-09-14] MEDS: LURASIDONE HCL 20 MG TAB PO SCH (21:55)
[2016-09-14] MEDS: TOPIRAMATE 25 MG TAB PO SCH (21:55)
[2016-09-14] MEDS: GABAPENTIN 300 MG CAP PO SCH (21:55)
[2016-09-14] MEDS: TOPIRAMATE 100 MG TAB PO SCH (21:55)
[2016-09-14] MEDS: CYCLOBENZAPRINE 10 MG TAB PO SCH (21:56)
[2016-09-14] MEDS: ZOLPIDEM TARTRATE 5 MG TAB PO SCH (21:56)
[2016-09-15 05:02] LABS: INR 2.41 (0.83-1.16); PROTIME(PATIENT) 26.5 SEC (12.0-15.0)
[2016-09-15] MEDS: NICOTINE 14 MG/24 HR PATCH TD SCH (08:11)
[2016-09-15] MEDS: OLANZapine 10 MG TAB PO SCH (08:12)
[2016-09-15] MEDS: ASPIRIN 81 MG CHEWABLE TAB PO SCH (08:13)
[2016-09-15] MEDS: METOPROLOL TARTRATE 25 MG TAB PO SCH ×2 (08:13→22:04)
[2016-09-15] MEDS: CYCLOBENZAPRINE 10 MG TAB PO SCH ×2 (08:14→22:04)
[2016-09-15] MEDS: HYDROmorphONE/DILAUDID 4 MG TAB PO SCH ×3 (08:14→22:04)
[2016-09-15] MEDS: PANTOPRAZOLE SODIUM 40 MG TAB PO SCH (08:15)
[2016-09-15] MEDS: LEVOTHYROXINE 50 MCG TAB PO SCH (08:15)
[2016-09-15] MEDS: GABAPENTIN 300 MG CAP PO SCH ×3 (08:16→22:04)
[2016-09-15] MEDS ORDERED: LISINOPRIL 2.5 MG TAB PO SCH (09:00)
[2016-09-15] MEDS: VENLAFAXINE XR 150 MG CAP PO SCH (10:17)
[2016-09-15] MEDS: LORazepam 0.5 MG TAB PO PRN ×2 (10:52→19:59)
--- NOTE | 2016-09-15 11:04 | PDCARPN ---
Cardiology Progress Note Chief Complaint: ICD at JACKIE Assessment/Plan: Assessment: 41 y/o M with PMH cardiac arrest s/p AICD, HOCM s/p myomectomy in September 2008 and MVR with mechanical design drafter valve replacement which was complicated by a 29 minute cardiac arrest and thrombosis of the mechanical mitral valve. He also has a history of PAF s/p ablation. Arsenio presented to the ED after hearing beeps from ICD. Found to be at JACKIE (no check currently on chart) but spoke with [employer] who confirms this. #. ICD JACKIE: awaiting down-drifting of INR prior to gen change will likely need bridging post-procedurally but will defer for now as INR still in therapeutic range #. NICM: EF on last echo 40% appears euvolemic continue Metoprolol and we will plan to titrate Lisinopril dose #. htn: bp mildly above goal which may anxietal increase Lisinopril now Plan: Plan for gen change Sunday09/15/16 10:54 Subjective: Feels chest pain currently. Reports feeling anxious. Objective: Vital Signs (8 Hrs) Temp Pulse Resp BP Pulse Ox 09/15/16 07:42 97.7 F 68 19 138/91 H 97 09/15/16 04:00 97.8 F 72 16 128/80 H 96 Intake/Output (24 Hrs) 09/14/16 09/15/16 09/16/16 05:59 05:59 05:59 Intake Total 1740 240 Balance 1740 240 Intake: Oral (ml) 740 240 IV Infused (ml) 1000 Other: Weight 99.8 kg Number of Voids Toilet 1 Result Diagrams: 09/14/16 13:50 09/14/16 13:50 - Physical Exam Constitutional: WDWN, no apparent distress Eyes: PERRL Ears, Nose, Mouth, Throat: moist mucous membranes Cardiovascular: regular rate and rhythm Respiratory: clear to auscultate bilat, no crackles Gastrointestinal: normoactive bowel sounds Psychiatric: cooperative, interactive ICD10 Worksheet Patient Problems: Problems Problem Status Onset Chest wall pain Acute Malfunction of cardiac pacemaker battery Acute Nonischemic cardiomyopathy Acute Mood disorder Active Acute chest pain Acute Chest pain Acute History of coronary artery disease Acute Lightheadedness Acute Shortness of breath Acute Troponin level elevated Acute
[2016-09-15] MEDS: LISINOPRIL 10 MG TAB PO SCH (12:23)
[2016-09-15] MEDS: oxyCODONE IR 5 MG TAB PO PRN (12:24)
--- NOTE | 2016-09-15 13:50 | HOSPPROG ---
Hospitalist Progress Note Assessment/Plan: HCM with AICD - needs battery replacement. Plan to do tomorrow, awaiting INR reversal. Elevated troponin - this is chronic, at/below his baseline. Chest pain free. Mechanical mitral valve on chronic anticoagulation - Received oral Vit K yesterday, INR 2.8 --> 2.4. Recheck in am, if still >1.5, will give FFP prior to procedure. H/O aortic thrombus Hypertension - adequate control on metoprolol and lisinopril (latter up- titrated per cards) Hyperchloremia / Hypernatremia - mild, will give gentle rate of 1/2 NS overnight , recheck in am. Full code Dispo - cont inpt, awaiting procedure Subjective: Pt feels okay, denies CP at this time, though reports chronic intermittent chest pain. No SOB. No fevers. Objective: Vital Signs Temp Pulse Resp BP Pulse Ox 36.4 C 66 16 145/96 H 97 09/15/16 11:18 09/15/16 11:18 09/15/16 11:18 09/15/16 12:23 09/15/16 11:18 09/14/16 09/15/16 09/16/16 05:59 05:59 05:59 Intake Total 1740 240 Balance 1740 240 PT 26.5 SEC (12.0-15.0) H 09/15/16 04:00 INR 2.41 (0.83-1.16) H 09/15/16 04:00 - Physical Exam Constitutional: no apparent distress Eyes: PERRL Ears, Nose, Mouth, Throat: moist mucous membranes Cardiovascular: regular rate and rhythym Respiratory: no respiratory distress Gastrointestinal: normoactive bowel sounds, soft, non-tender abdomen Skin: warm Musculoskeletal: full muscle strength Neurologic: AAOx3 Psychiatric: interacting appropriately ICD10 Worksheet Patient Problems: Problems Problem Status Onset Mood disorder Active Chest pain Acute Shortness of breath Acute History of coronary artery disease Acute Troponin level elevated Acute Lightheadedness Acute Acute chest pain Acute Nonischemic cardiomyopathy Acute Malfunction of cardiac pacemaker battery Acute Chest wall pain Acute
[2016-09-15] MEDS ORDERED: 1/2 NS 1,000 ML IV SCH (17:30)
[2016-09-15] MEDS: TOPIRAMATE 100 MG TAB PO SCH (22:04)
[2016-09-15] MEDS: LURASIDONE HCL 20 MG TAB PO SCH (22:04)
[2016-09-15] MEDS: TOPIRAMATE 25 MG TAB PO SCH (22:04)
[2016-09-15] MEDS: ZOLPIDEM TARTRATE 5 MG TAB PO SCH (22:05)
[2016-09-16 05:24] LABS: % IMMATURE GRANULYOCYTES 0.2 % (0.0-1.1); ABSOLUTE IMMATURE GRANULOCYTES 0.01 10^3/uL (0.00-0.10); ADD DIFF? NO; ADD MORPH? NO; ADD SCAN? NO; ATYPICAL LYMPHOCYTE FLAG 20 (0-99); FRAGMENT RBC FLAG 20 (0-99); HEMATOCRIT 41.2 % (40.0-51.0); LEFT SHIFT FLG 0 (0-99); LIPEMIA HEMOLYSIS FLAG 80 (0-99); MEAN CELL HEMOGLOBIN 25.3 pg (27.9-34.1); MEAN CELL HEMOGLOBIN CONCENTR. 31.6 g/dL (32.4-36.7); MEAN CELL VOLUME 80.2 fL (81.5-99.8); MEAN PLATELET VOLUME 9.8 fL (8.7-11.7); PLATELET CLUMPS FLAG 0 (0-99); PLATELET COUNT 219 10^3/uL (150-400); RED BLOOD CELL COUNT 5.14 10^6/uL (4.40-6.38); RED CELL DISTRIBUTION WIDTH 17.2 % (11.5-15.2)
[2016-09-16 05:37] LABS: APTT 31.3 SEC (23.0-38.0); INR 1.55 (0.83-1.16); PROTIME(PATIENT) 18.6 SEC (12.0-15.0)
[2016-09-16 05:40] LABS: ALANINE AMINOTRANSFERASE 64 IU/L (21-72); ALBUMIN 3.9 g/dL (3.5-5.0); ALKALINE PHOSPHATASE 71 IU/L (38-126); ANION GAP 9 mEq/L (8-16); ASPARTATE AMINOTRANSFERASE 47 IU/L (17-59); BILIRUBIN,TOTAL 0.8 mg/dL (0.1-1.4); CALCIUM 8.9 mg/dL (8.5-10.4); CARBON DIOXIDE 22 mEq/l (22-31); CHLORIDE 108 mEq/L (97-110); CREATININE 1.1 mg/dL (0.7-1.3); GLOMERULAR FILTRATION RATE > 60; GLUCOSE 100 mg/dL (70-100); POTASSIUM 4.3 mEq/L (3.5-5.2); SODIUM 139 mEq/L (134-144); TOTAL PROTEIN 7.4 g/dL (6.3-8.2)
[2016-09-16] MEDS ORDERED: DIAZEPAM 5 MG TAB PO ONE (06:00)
[2016-09-16] MEDS ORDERED: NS 1,000 ML IV ONE (06:00)
[2016-09-16] MEDS ORDERED: ceFAZolin 2 GM/DEXTROSE 100 ML IV ONE (06:00)
[2016-09-16] MEDS ORDERED: BACITRACIN IRRIGATION/NS 50,000 UNITS/1,000 ML BTL IRR ONE (06:00)
[2016-09-16] MEDS: OLANZapine 10 MG TAB PO SCH (08:34)
[2016-09-16] MEDS: METOPROLOL TARTRATE 25 MG TAB PO SCH ×2 (08:34→20:53)
[2016-09-16] MEDS: CYCLOBENZAPRINE 10 MG TAB PO SCH ×2 (08:35→20:52)
[2016-09-16] MEDS: LEVOTHYROXINE 50 MCG TAB PO SCH (08:35)
[2016-09-16] MEDS: HYDROmorphONE/DILAUDID 4 MG TAB PO SCH ×3 (08:35→21:58)
[2016-09-16] MEDS: GABAPENTIN 300 MG CAP PO SCH ×3 (08:35→21:57)
[2016-09-16] MEDS: LISINOPRIL 10 MG TAB PO SCH (08:35)
[2016-09-16] MEDS: PANTOPRAZOLE SODIUM 40 MG TAB PO SCH (08:36)
[2016-09-16] MEDS: VENLAFAXINE XR 150 MG CAP PO SCH (08:36)
[2016-09-16] MEDS: LORazepam 0.5 MG TAB PO PRN (09:10)
[2016-09-16] MEDS ORDERED: fentaNYL 100 MCG/2 ML INJ ONE (10:27)
[2016-09-16] MEDS ORDERED: LIDOCAINE 1% 30 ML SDV ONE (10:27)
[2016-09-16] MEDS ORDERED: LIDO/EPI 1% **for epidural** 30 ML SDV ONE (10:28)
[2016-09-16] MEDS ORDERED: BUPIVACAINE 0.5% 30 ML SDV ONE (10:28)
[2016-09-16] MEDS ORDERED: MIDAZOLAM 2 MG/2 ML VIAL ONE ×2 (10:28→12:13)
[2016-09-16] MEDS ORDERED: ETOMIDATE 40 MG/20 ML INJ ONE (12:28)
--- NOTE | 2016-09-16 14:21 | CPEKG ---
Heart Rate: 60 RR Interval: 1000 P-R Interval: 196 QRSD Interval: 128 QT Interval: 448 QTC Interval: 448 P [place]: 40 QRS [place]: -42 T Wave [place]: 141 EKG Severity - ABNORMAL ECG - EKG Impression: SINUS RHYTHM EKG Impression: PROBABLE LEFT ATRIAL ABNORMALITY EKG Impression: IVCD, CONSIDER ATYPICAL RBBB EKG Impression: LEFT VENTRICULAR HYPERTROPHY EKG Impression: ANTERIOR Q WAVES, POSSIBLY DUE TO LVH Electronically Signed By: Varun Saldaña 16-Sep-2016 16:57:50
[2016-09-16] MEDS: NICOTINE 14 MG/24 HR PATCH TD SCH (14:56)
[2016-09-16] MEDS: ASPIRIN 81 MG CHEWABLE TAB PO SCH (15:02)
--- NOTE | 2016-09-16 15:41 | HOSPPROG ---
Hospitalist Progress Note Assessment/Plan: HCM with AICD - needs battery replacement. Procedure planned for today, INR 1.5. Elevated troponin - this is chronic, at/below his baseline. Chest pain free. Mechanical mitral valve on chronic anticoagulation - Received oral Vit K yesterday, will initiate Lovenox bridge tonight (if ok with cards) until INR therapeutic. H/O aortic thrombus Hypertension - adequate control on metoprolol and lisinopril (latter up- titrated per cards) Hyperchloremia / Hypernatremia - mild, will give gentle rate of 1/2 NS overnight , recheck in am. Full code Dispo - cont inpt, awaiting procedure Subjective: Pt doing well, going for AICD batter replacement today. No CP or SOB. Objective: Vital Signs Temp Pulse Resp BP Pulse Ox 36.6 C 60 11 L 122/75 H 94 09/16/16 13:30 09/16/16 13:30 09/16/16 13:30 09/16/16 13:30 09/16/16 13:30 Laboratory Results 09/16/16 04:42 09/16/16 04:42 09/15/16 09/16/16 09/17/16 05:59 05:59 05:59 Intake Total 1740 2635 850 Balance 1740 2635 850 PT 18.6 SEC (12.0-15.0) H 09/16/16 04:42 INR 1.55 (0.83-1.16) H 09/16/16 04:42 - Physical Exam Constitutional: no apparent distress Eyes: PERRL Ears, Nose, Mouth, Throat: moist mucous membranes Cardiovascular: regular rate and rhythym Respiratory: no respiratory distress Skin: warm Musculoskeletal: full muscle strength Neurologic: AAOx3 Psychiatric: interacting appropriately ICD10 Worksheet Patient Problems: Problems Problem Status Onset Chest wall pain Acute Malfunction of cardiac pacemaker battery Acute Nonischemic cardiomyopathy Acute Mood disorder Active Acute chest pain Acute Chest pain Acute History of coronary artery disease Acute Lightheadedness Acute Shortness of breath Acute Troponin level elevated Acute
[2016-09-16] MEDS ORDERED: WARFARIN SODIUM 5 MG TAB PO SCH (16:00)
[2016-09-16] MEDS: oxyCODONE IR 5 MG TAB PO PRN ×2 (17:30→20:52)
[2016-09-16] MEDS: TOPIRAMATE 25 MG TAB PO SCH (20:52)
[2016-09-16] MEDS: TOPIRAMATE 100 MG TAB PO SCH (20:53)
[2016-09-16] MEDS: LURASIDONE HCL 20 MG TAB PO SCH (20:53)
[2016-09-16] MEDS ORDERED: ENOXAPARIN 40 MG/0.4 ML SYR SC ONE (21:00)
[2016-09-17] MEDS: ZOLPIDEM TARTRATE 5 MG TAB PO SCH ×3 (00:19→23:40)
[2016-09-17] MEDS: BISACODYL 5 MG EC TAB PO PRN ×2 (00:53→21:23)
[2016-09-17] MEDS: oxyCODONE IR 5 MG TAB PO PRN ×2 (04:06→13:06)
[2016-09-17] MEDS: LORazepam 0.5 MG TAB PO PRN ×2 (04:06→16:05)
[2016-09-17] MEDS: LEVOTHYROXINE 50 MCG TAB PO SCH (04:08)
[2016-09-17 04:24] LABS: % IMMATURE GRANULYOCYTES 0.4 % (0.0-1.1); ABSOLUTE IMMATURE GRANULOCYTES 0.03 10^3/uL (0.00-0.10); ADD DIFF? NO; ADD MORPH? NO; ADD SCAN? NO; ATYPICAL LYMPHOCYTE FLAG 0 (0-99); FRAGMENT RBC FLAG 20 (0-99); HEMATOCRIT 44.9 % (40.0-51.0); HEMOGLOBIN 14.1 g/dL (13.7-17.5); LEFT SHIFT FLG 0 (0-99); LIPEMIA HEMOLYSIS FLAG 80 (0-99); MEAN CELL HEMOGLOBIN 25.4 pg (27.9-34.1); MEAN CELL HEMOGLOBIN CONCENTR. 31.4 g/dL (32.4-36.7); MEAN CELL VOLUME 80.9 fL (81.5-99.8); MEAN PLATELET VOLUME 9.5 fL (8.7-11.7); PLATELET CLUMPS FLAG 10 (0-99); PLATELET COUNT 257 10^3/uL (150-400); RED BLOOD CELL COUNT 5.55 10^6/uL (4.40-6.38); RED CELL DISTRIBUTION WIDTH 17.3 % (11.5-15.2)
[2016-09-17 04:34] LABS: INR 1.31 (0.83-1.16); PROTIME(PATIENT) 16.3 SEC (12.0-15.0)
[2016-09-17 04:44] LABS: ANION GAP 10 mEq/L (8-16); CALCIUM 9.3 mg/dL (8.5-10.4); CARBON DIOXIDE 20 mEq/l (22-31); CHLORIDE 107 mEq/L (97-110); CREATININE 1.5 mg/dL (0.7-1.3); GLOMERULAR FILTRATION RATE 51; GLUCOSE 108 mg/dL (70-100); POTASSIUM 4.9 mEq/L (3.5-5.2); SODIUM 137 mEq/L (134-144)
--- NOTE | 2016-09-17 05:33 | CPEKG ---
Heart Rate: 71 RR Interval: 845 P-R Interval: 192 QRSD Interval: 130 QT Interval: 428 QTC Interval: 466 P [place]: 29 QRS [place]: -40 T Wave [place]: 116 EKG Severity - ABNORMAL ECG - EKG Impression: SINUS RHYTHM EKG Impression: LVH WITH IVCD, LAD AND SECONDARY REPOL ABNRM EKG Impression: ANTERIOR ST ELEVATION MORE PRONOUNCED...LATERAL RECIPROCAL CHANGES NOTED WELL Electronically Signed By: Varun Saldaña 17-Sep-2016 07:03:31
[2016-09-17] MEDS: HYDROmorphONE/DILAUDID 4 MG TAB PO SCH ×3 (07:41→21:24)
[2016-09-17] MEDS: OLANZapine 10 MG TAB PO SCH (09:03)
[2016-09-17] MEDS: GABAPENTIN 300 MG CAP PO SCH ×3 (09:03→21:23)
[2016-09-17] MEDS: ASPIRIN 81 MG CHEWABLE TAB PO SCH (09:03)
[2016-09-17] MEDS: METOPROLOL TARTRATE 25 MG TAB PO SCH ×2 (09:04→21:25)
[2016-09-17] MEDS: VENLAFAXINE XR 150 MG CAP PO SCH (09:04)
[2016-09-17] MEDS: PANTOPRAZOLE SODIUM 40 MG TAB PO SCH (09:05)
[2016-09-17] MEDS: LISINOPRIL 10 MG TAB PO SCH (09:05)
[2016-09-17] MEDS: CYCLOBENZAPRINE 10 MG TAB PO SCH ×2 (09:05→21:24)
[2016-09-17] MEDS: NICOTINE 14 MG/24 HR PATCH TD SCH (09:05)
--- NOTE | 2016-09-17 10:47 | HOSPPROG ---
Hospitalist Progress Note Assessment/Plan: HCM with AICD - battery replaced yesterday per Dr. Chisholm, no complications. F/ U CXR no PTX. Elevated troponin - this is chronic, at/below his baseline. Mechanical mitral valve on chronic anticoagulation - Received oral Vit K per- procedure, INR sub-therapeutic at 1.3. -bridge with Lovenox -cont coumadin -will d/c tomorrow with outpt [facility] f/u planned H/O aortic thrombus Hypertension - adequate control on metoprolol and lisinopril (latter up- titrated per cards) Hyperchloremia / Hypernatremia - resolved Full code Dispo - He is not homeless, lives in [facility]. Likely d/c farrah am. Subjective: Pt feels well, baseline chest discomfort. No SOB. Eating/ drinking. No complaints. He does not have local PCP or anyone following his coumadin. Objective: Vital Signs Temp Pulse Resp BP Pulse Ox 36.6 C 71 17 109/85 H 91 L 09/17/16 07:40 09/17/16 09:04 09/17/16 04:00 09/17/16 09:04 09/17/16 07:40 Laboratory Results 09/17/16 03:38 09/17/16 03:38 09/16/16 09/17/16 09/18/16 05:59 05:59 05:59 Intake Total 2635 1450 Balance 2635 1450 PT 16.3 SEC (12.0-15.0) H 09/17/16 03:38 INR 1.31 (0.83-1.16) H 09/17/16 03:38 - Physical Exam Constitutional: no apparent distress Eyes: PERRL Ears, Nose, Mouth, Throat: moist mucous membranes Cardiovascular: regular rate and rhythym Respiratory: no respiratory distress, clear to auscultation Gastrointestinal: normoactive bowel sounds, soft, non-tender abdomen Skin: warm Musculoskeletal: full muscle strength Neurologic: AAOx3 Psychiatric: interacting appropriately ICD10 Worksheet Patient Problems: Problems Problem Status Onset Chest wall pain Acute Malfunction of cardiac pacemaker battery Acute Nonischemic cardiomyopathy Acute Mood disorder Active Acute chest pain Acute Chest pain Acute History of coronary artery disease Acute Lightheadedness Acute Shortness of breath Acute Troponin level elevated Acute
[2016-09-17] MEDS: ENOXAPARIN 100 MG/ML SYR SC SCH ×2 (12:22→21:23)
[2016-09-17] MEDS ORDERED: WARFARIN SODIUM 7.5 MG TAB PO ONE (16:00)
[2016-09-17] MEDS: LURASIDONE HCL 20 MG TAB PO SCH (21:23)
[2016-09-17] MEDS: TOPIRAMATE 100 MG TAB PO SCH (21:24)
[2016-09-17] MEDS: TOPIRAMATE 25 MG TAB PO SCH (21:24)
[2016-09-18] MEDS: LEVOTHYROXINE 50 MCG TAB PO SCH (04:55)
[2016-09-18] MEDS: LORazepam 0.5 MG TAB PO PRN (04:55)
[2016-09-18] MEDS: oxyCODONE IR 5 MG TAB PO PRN (04:58)
[2016-09-18 05:00] LABS: ANION GAP 7 mEq/L (8-16); CARBON DIOXIDE 22 mEq/l (22-31); CHLORIDE 107 mEq/L (97-110); CREATININE 1.2 mg/dL (0.7-1.3); GLOMERULAR FILTRATION RATE > 60; GLUCOSE 102 mg/dL (70-100); POTASSIUM 4.3 mEq/L (3.5-5.2); SODIUM 136 mEq/L (134-144)
[2016-09-18] MEDS: GABAPENTIN 300 MG CAP PO SCH (09:11)
[2016-09-18] MEDS: HYDROmorphONE/DILAUDID 4 MG TAB PO SCH (09:12)
[2016-09-18] MEDS: METOPROLOL TARTRATE 25 MG TAB PO SCH (09:13)
[2016-09-18] MEDS: ASPIRIN 81 MG CHEWABLE TAB PO SCH (09:13)
[2016-09-18] MEDS: OLANZapine 10 MG TAB PO SCH (09:13)
[2016-09-18] MEDS: VENLAFAXINE XR 150 MG CAP PO SCH (09:14)
[2016-09-18] MEDS: CYCLOBENZAPRINE 10 MG TAB PO SCH (09:14)
[2016-09-18] MEDS: PANTOPRAZOLE SODIUM 40 MG TAB PO SCH (09:14)
[2016-09-18] MEDS: LISINOPRIL 10 MG TAB PO SCH (09:14)
[2016-09-18] MEDS: NICOTINE 14 MG/24 HR PATCH TD SCH (09:15)
[2016-09-18 11:15] LABS: INR 1.49 (0.83-1.16)
--- NOTE | 2016-09-18 11:16 | GDS ---
[f rep st] DISCHARGE SUMMARY DISCHARGE DIAGNOSES: 1. Hypertrophic cardiomyopathy with automatic internal cardiac defibrillator battery exchange. 2. Chronically elevated troponin. 3. Mechanical mitral valve. 4. Chronic anticoagulation with subtherapeutic INR requiring bridge therapy with Lovenox. 5. History of aortic thrombus. 6. Hypertension. 7. Post-traumatic stress disorder. 8. Mental health disorder, not otherwise specified. CONSULTANTS: Alexandra Haley, Cardiology service. HISTORY: For details, please see dictated history and physical dated September 14, 2016. In brief, the patient is a 41-year-old male with a history of hypertrophic cardiomyopathy and an AICD, who presented to the emergency department with a beeping device over the course of last week. It was found that he needed a battery exchange and he was admitted for further management. HOSPITAL COURSE: The patient was admitted to the telemetry unit. Cardiology was consulted. The patient's INR was reversed with vitamin K, with plans for battery exchange. He underwent this procedure on September 16, 2016. Postoperatively, he was bridged with therapeutic Lovenox given his history of mechanical valve. His INR remains subtherapeutic at the time of discharge with a goal INR of 2.5 to 3.5. He will go home with b.i.d. therapeutic Lovenox doses , with close INR followup. We are currently trying to arrange for him to get assigned to a [facility] provider so he can be followed in our Coumadin Clinic. Otherwise, the backup plan is for him to have his INR checked at the [facility] on Sunday. He recently moved back to [place] from [place], and is living with his in [facility]. He is on disability. He is followed by [facility]. The reports that she lost all of his medications since admission to the hospital and is requesting new prescriptions for everything. I am not sure who prescribes his chronic opiates , though he does reportedly take oral Dilaudid and oral oxycodone, as well as benzodiazepines. I advised she will need to have these refilled by his prescriber and I have given a 10-day supply on all of his other medications, including Coumadin. His lisinopril was up titrated by Cardiology from 2.5 mg daily to 10 mg daily. However, I note he has been a bit hypotensive with this dose. Therefore, I will decrease him back to his usual outpatient dose. DISPOSITION: Patient is discharged home in stable condition. FOLLOWUP: 1. Dr. Jerry Chisholm at [place] [facility]. 2. Primary care either at the [facility], or he may opt to be assigned a [facility] primary care provider. 3. He needs his INR checked on Sunday, September 20, and continued management either again by the [facility] or [facility] provider. Discontinue Lovenox when INR >2.5. DISCHARGE MEDICATIONS: Please see [employer] [facility] for complete updated outpatient medication list. New medications on discharge include: Lovenox 100 mg subcutaneous b.i.d. A total of 10 doses is provided. He may require a refill if he remains subtherapeutic after 5 days of bridge therapy with Coumadin. /[id number]/MODL MTDD
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
[2016-09-18] MEDS: ENOXAPARIN 100 MG/ML SYR SC SCH (11:59)
[2016-09-18 12:02] VITALS: BP 110/71; PULSE 76; RESP 16; TEMP 98.1; O2SAT 92
== END 2016-09-18 12:04 | disposition home or self-care (01) | DRG 245 ==
LOC: F2W 17:51
PROVIDERS: ADMIT Hospitalist; ATTEND Hospitalist
PROC: 0JPT0MZ Removal of Stimulator Generator from Trunk Subcutaneous Tissue and Fascia, Open Approach (ICD-10-PCS; principal; 2016-09-16 13:25)
PROC: 0JH608Z Insertion of Defibrillator Generator into Chest Subcutaneous Tissue and Fascia, Open Approach (ICD-10-PCS; principal; 2016-09-16 13:25)
DX: Z45.02 Encounter for adjustment and management of automatic implantable cardiac defibrillator (principal); I42.2 Other hypertrophic cardiomyopathy; I10 Essential (primary) hypertension; E03.9 Hypothyroidism, unspecified; F32.9 Major depressive disorder, single episode, unspecified; F12.90 Cannabis use, unspecified, uncomplicated; F43.10 Post-traumatic stress disorder, unspecified; F17.210 Nicotine dependence, cigarettes, uncomplicated; M21.371 Foot drop, right foot; M21.372 Foot drop, left foot; Z86.74 Personal history of sudden cardiac arrest; Z95.2 Presence of prosthetic heart valve; Z79.01 Long term (current) use of anticoagulants; Z79.82 Long term (current) use of aspirin; Z86.718 Personal history of other venous thrombosis and embolism
CPT/HCPCS: 96374; 97161-GP; C1721; J0690; J1650; J1885; J2250; J3010

== ENCOUNTER 2016-09-20 20:03 | Inpatient (IN) | payer MEDICAID ==
--- NOTE | 2016-09-20 20:15 | CPEKG ---
Heart Rate: 79 RR Interval: 759 P-R Interval: 184 QRSD Interval: 132 QT Interval: 416 QTC Interval: 477 P [place]: 21 QRS [place]: -29 T Wave [place]: 122 EKG Severity - ABNORMAL ECG - EKG Impression: SINUS RHYTHM EKG Impression: PROBABLE LEFT ATRIAL ABNORMALITY EKG Impression: LVH WITH IVCD AND SECONDARY REPOL ABNRM Electronically Signed By: Abdulkadir Hyde 20-Sep-2016 22:24:26
[2016-09-20] MEDS ORDERED: HYDROmorphONE/DILAUDID 1 MG/ML SYR IVP ONE ×2 (20:16→21:04)
[2016-09-20] MEDS ORDERED: HYDROmorphONE/DILAUDID 1 MG/ML SYR ONE (20:16)
--- NOTE | 2016-09-20 20:16 | EDPHY ---
H & P HPI/ROS: HPI CHIEF COMPLAINT: Bleeding at AICD site HISTORY OF PRESENT ILLNESS: Patient very pleasant 41-year-old male significant past medical history for hypertrophic cardiomyopathy, chronic elevated troponin , mitral valve, supratherapeutic INR, AFib, PTSD, anoxic brain injury, nonischemic cardiomyopathy, hep C, PTSD, hypertension, presents to the emergency room with 2-3 hours of left chest wall swelling and pain at his AICD site. Patient reports that started bleeding or actively getting swollen approximately 2-3 hours ago. Per his at bedside he has not been compliant with his arm restrictions. Been out of his arm at sling that is post to mobilize arm given that he has a fresh AICD site and is on Coumadin Lovenox. Presents emergency room with left chest anterior wall pain and swelling. Past Medical History: Medical history includes hypertrophic cardiomyopathy, chronic elevated troponin, mitral valve replacement, supratherapeutic INR, AFib , PTSD, anoxic brain injury, nonischemic cardiomyopathy, PTSD, hypertension, AICD. Past Surgical History: Recent AICD placement. Social History:Denies drug use alcohol Family History: noncontributory ROS REVIEW OF SYSTEMS: A comprehensive 10 point review of systems is otherwise negative aside from elements mentioned in the history of present illness. Exam Constitutional triage nursing summary reviewed, vital signs reviewed, awake/ alert. Eyes normal conjunctivae and sclera, EOMI, PERRLA. HENT normal inspection, atraumatic, moist mucus membranes, no epistaxis, neck supple/ no meningismus, no raccoon eyes. Respiratory clear to auscultation bilaterally, normal breath sounds, no respiratory distress, no wheezing. Cardiovascular left chest wall: large hematoma left anterior chest wall around AICD site incision is still intact, tension present, induration present, tender palpation, no signs of infection, rate normal, regular rhythm, no murmur , no edema, distal pulses normal. Gastrointestinal soft, non-tender, no rebound, no guarding, normal bowel sounds, no distension, no pulsatile mass. Genitourinary no CVA tenderness. Musculoskeletal no midline vertebral tenderness, full range of motion, no calf swelling, no tenderness of extremities, no meningismus, good pulses, neurovascularly intact. Skin pink, warm, & dry, no rash, skin atraumatic. Neurologic awake, alert and oriented x 3, AAOx3, moves all 4 extremities equally, motor intact, sensory intact, CN II-XII intact, normal cerebellar, normal vision, normal speech. Psychiatric normal mood/affect. Heme/Lymph/Immune no lymphadenopathy. Differential Diagnosis: Includes but is not limited to in a particular order AICD pocket infection, AICD pocket bleed, AICD malfunction, AICD lead Displacement. Medical Decision Making: Plan for this patient IV establishment blood draw, type and screen, coags, chest x-ray, ultrasound left chest. Plan will need to be admission compression dressing ice pack pain control. Re-evaluation: 2014: Spoke with Cardiology Dr. Rivera, recommends admission for pain control to the hospitalist service will notify Jerry Chisholm. Pain control. Ice pack. Monitor for further bleeding. EKG interpretation by me on record in [employer] system. Impression time of EKG 2010: this is sinus rhythm rate of 79, LVH present. When compared to old EKG 09/17/2016 unchanged morphology. ED x-ray chest one view: cardiomegaly present. AICD left chest. Wires appear to be in appropriate position. No subcutaneous gas. 2053: the patient be admitted to the hospitalist service for AICD hematoma. Close monitoring. Patient hemodynamically stable this time pain control. H&H stable. INR noted 2.4. Dr. Watts has accepted. Source: Patient, EMS - Personal History Tetanus Vaccine Date: <10 YRS - Medical/Surgical History Hx Asthma: No Hx Chronic Respiratory Disease: No Hx Diabetes: No Hx Cardiac Disease: Yes Hx Renal Disease: No Hx Cirrhosis: No Hx Alcoholism: No Hx HIV/AIDS: No Hx Splenectomy or Spleen Trauma: No Other PMH: Polysubstance abuse, homelessness, hypertrophic cardiomyopathy, myomectomy, mitral valve replacement mechanical valve, pacer defib., PTSD, degenerative bone disease, depression, hypertension, hep c, migraines, gerd, hypothyroid - Social History Smoking Status: Current every day smoker Constitutional: Initial Vital Signs Temperature (C) 36.9 C 09/20/16 20:12 Heart Rate 79 09/20/16 20:12 Respiratory Rate 18 09/20/16 20:12 Blood Pressure 133/88 H 09/20/16 20:12 O2 Sat (%) 98 09/20/16 20:12 O2 Delivery Mode Room Air Allergies/Adverse Reactions: amiodarone Allergy (Intermediate, Verified 08/28/16 22:25) Hives Medical Decision Making - Data Points Laboratory Results: Laboratory Results 09/20/16 20:05 09/20/16 20:05 09/20/16 09/20/16 09/20/16 20:05 20:05 20:05 WBC 6.91 10^3/uL 10^3/uL (3.80-9.50) RBC 5.38 10^6/uL 10^6/uL (4.40-6.38) Hgb 13.8 g/dL g/dL (13.7-17.5) Hct 43.3 % % (40.0-51.0) MCV 80.5 fL L fL (81.5-99.8) MCH 25.7 pg L pg (27.9-34.1) MCHC 31.9 g/dL L g/dL (32.4-36.7) RDW 17.8 % H % (11.5-15.2) Plt Count 271 10^3/uL 10^3/uL (150-400) MPV 10.0 fL fL (8.7-11.7) Neut % (Auto) 51.1 % % (39.3-74.2) Lymph % (Auto) 34.3 % % (15.0-45.0) [place] % (Auto) 11.3 % % (4.5-13.0) Eos % (Auto) 2.6 % % (0.6-7.6) Baso % (Auto) 0.4 % % (0.3-1.7) Nucleat RBC Rel Count 0.0 % % (0.0-0.2) Absolute Neuts (auto) 3.53 10^3/uL 10^3/uL (1.70-6.50) Absolute Lymphs (auto) 2.37 10^3/uL 10^3/uL (1.00-3.00) Absolute Monos (auto) 0.78 10^3/uL 10^3/uL (0.30-0.80) Absolute Eos (auto) 0.18 10^3/uL 10^3/uL (0.03-0.40) Absolute Basos (auto) 0.03 10^3/uL 10^3/uL (0.02-0.10) Absolute Nucleated RBC 0.00 10^3/uL 10^3/uL (0-0.01) Immature Gran % 0.3 % % (0.0-1.1) Immature Gran # 0.02 10^3/uL 10^3/uL (0.00-0.10) PT 26.5 SEC H D SEC (12.0-15.0) INR 2.41 H (0.83-1.16) APTT 47.4 SEC H SEC (23.0-38.0) Sodium 141 mEq/L mEq/L (134-144) Potassium 4.6 mEq/L mEq/L (3.5-5.2) Chloride 106 mEq/L mEq/L (97-110) Carbon Dioxide 24 mEq/l mEq/l (22-31) Anion Gap 11 mEq/L mEq/L (8-16) BUN 13 mg/dL mg/dL (7-23) Creatinine 1.3 mg/dL mg/dL (0.7-1.3) Estimated GFR > 60 Glucose 111 mg/dL H mg/dL (70-100) Calcium 9.7 mg/dL mg/dL (8.5-10.4) Medications Given: Discontinued Medications Hydromorphone HCl (Dilaudid) 1 mg IVP EDNOW ONE Stop: 09/20/16 20:17 Last Admin: 09/20/16 20:24 Dose: 1 mg Departure - Departure Disposition: [facility] Acute Clinical Impression: Chest wall pain Chest wall hematoma Qualifiers: Encounter type: initial encounter Laterality: left Qualified Code(s): S20.212A - Contusion of left front wall of thorax, initial encounter Condition: Good
[2016-09-20 20:23] LABS: % IMMATURE GRANULYOCYTES 0.3 % (0.0-1.1); ABSOLUTE IMMATURE GRANULOCYTES 0.02 10^3/uL (0.00-0.10); ADD DIFF? NO; ADD MORPH? NO; ADD SCAN? NO; ATYPICAL LYMPHOCYTE FLAG 0 (0-99); FRAGMENT RBC FLAG 20 (0-99); HEMATOCRIT 43.3 % (40.0-51.0); HEMOGLOBIN 13.8 g/dL (13.7-17.5); LEFT SHIFT FLG 0 (0-99); LIPEMIA HEMOLYSIS FLAG 80 (0-99); MEAN CELL HEMOGLOBIN 25.7 pg (27.9-34.1); MEAN CELL HEMOGLOBIN CONCENTR. 31.9 g/dL (32.4-36.7); MEAN CELL VOLUME 80.5 fL (81.5-99.8); PLATELET CLUMPS FLAG 0 (0-99); PLATELET COUNT 271 10^3/uL (150-400); RED BLOOD CELL COUNT 5.38 10^6/uL (4.40-6.38); RED CELL DISTRIBUTION WIDTH 17.8 % (11.5-15.2)
[2016-09-20 20:28] LABS: APTT 47.4 SEC (23.0-38.0); INR 2.41 (0.83-1.16); PROTIME(PATIENT) 26.5 SEC (12.0-15.0)
[2016-09-20 20:30] LABS: ANION GAP 11 mEq/L (8-16); CALCIUM 9.7 mg/dL (8.5-10.4); CARBON DIOXIDE 24 mEq/l (22-31); CHLORIDE 106 mEq/L (97-110); CREATININE 1.3 mg/dL (0.7-1.3); GLOMERULAR FILTRATION RATE > 60; GLUCOSE 111 mg/dL (70-100); POTASSIUM 4.6 mEq/L (3.5-5.2); SODIUM 141 mEq/L (134-144)
[2016-09-20] MEDS ORDERED: ONDANSETRON DISINTEGRATING 4 MG TAB PO PRN (22:54)
[2016-09-20] MEDS ORDERED: ONDANSETRON 4 MG/2 ML VIAL IVP PRN (22:54)
[2016-09-20] MEDS ORDERED: oxyCODONE IR 5 MG TAB PO PRN (22:54)
[2016-09-20] MEDS ORDERED: ACETAMINOPHEN 325 MG TAB PO PRN (22:54)
[2016-09-20] MEDS ORDERED: hydrOXYzine HCL 50 MG TAB PO PRN (22:57)
[2016-09-20] MEDS ORDERED: BISACODYL 5 MG EC TAB PO PRN (22:57)
[2016-09-20] MEDS: HYDROmorphONE/DILAUDID 1 MG/ML SYR IVP PRN (23:44)
[2016-09-20] MEDS: clonazePAM 1 MG TAB PO PRN (23:44)
--- NOTE | 2016-09-20 23:55 | GHP ---
[f rep st] HISTORY AND PHYSICAL DATE OF ADMISSION: 09/20/2016 CHIEF COMPLAINT: Chest wall pain. HISTORY OF PRESENT ILLNESS: The patient is a 41-year-old male with a history of hypertrophic cardiomyopathy, and an AICD, for which he just had a battery exchange on September 16, 2016. Prior to that procedure, his INR was reversed with Coumadin. He was then bridged with Lovenox postoperatively due to his history of mechanical heart valve and LV thrombus. His INR on September 18, the day of discharge, was 1.49. He went to the [facility] today for an INR check, but apparently they did not check his INR. Later in the afternoon, he began having tenderness and swelling in his left chest wall over his AICD pocket. There then was some bloody oozing out of the incision, and they presented to the emergency department. His notes that he has been frequently moving his left arm, not following the activity restrictions that were recommended. In the emergency department, his INR is 2.4. His goal is 2.5 to 3.5, given his mechanical heart valve. An ultrasound was performed, which revealed a hematoma in his defibrillator pocket. He is hemodynamically stable, with a normal hemoglobin. He is afebrile , and denies any history of fevers or chills. He denies chest pressure or shortness of breath. He also notes being out of his pain medications, and is in quite a bit of pain with his hematoma. The case was discussed with Dr. Ruiz from the Cardiology service, and he is admitted to the hospital for further management. PAST MEDICAL HISTORY: 1. Hypertrophic cardiomyopathy. 2. AICD placement in 2012, with a battery exchange September 16, 2016. 3. Mitral valve replacement, with a mechanical valve. 4. History of aortic thrombus. 5. Chronic anticoagulation. 6. History of myomectomy. 7. Atrial fibrillation, status post ablation. 8. Chronic upper extremity neuropathy. 9. Bilateral footdrop. 10. Hypothyroidism. 11. Hepatitis C. 12. PTSD. 13. Migraines. 14. Degenerative joint disease. 15. Mental health disorder, not otherwise specified. SOCIAL HISTORY: The patient continues to smoke cigarettes. He denies alcohol use. He reports daily marijuana use. He has a history of homelessness, though he recently acquired a place to live, with his , who is present at the bedside. FAMILY HISTORY: Positive for hypertrophic cardiomyopathy in his mother, as well as a nephew. REVIEW OF SYSTEMS: A 10-point review of system was performed and is negative, except as per HPI. OBJECTIVE: VITAL SIGNS: Temperature is 36.8, blood pressure 106/69, heart rate 79, respiratory rate 15, is 93% on room air. GENERAL: The patient is awake, alert, oriented, in no acute distress. HEENT: Head is atraumatic, normocephalic. Pupils are equal, round, react to light. Extraocular motion intact. Oropharynx is clear. Mucous membranes are moist. NECK: Supple. There is no JVD. HEART: Regular rate and rhythm. He has a palpable left anterior chest wall hematoma within his AICD pocket, and there is a small amount of dried blood from the incision site. There is no associated erythema, purulence or warmth, though some bruising discoloration from bleeding is noted. LUNGS: Clear to auscultation bilaterally. ABDOMEN: Soft, nondistended, nontender, with normoactive bowel tones. EXTREMITIES: Without cyanosis, clubbing, or edema. NEUROLOGIC: Grossly nonfocal. LABORATORY DATA: CBC reveals a normal white blood cell count, hemoglobin 13.8. INR is 2.4. Basic metabolic panel is within normal limits. Chest wall ultrasound shows a 3.7 x 0.9 x 2.2 cm hematoma in the left upper chest wall. ASSESSMENT AND PLAN: The patient is a 41-year-old male with history of hypertrophic cardiomyopathy, and a recent AICD battery exchange, who, unfortunately, suffered a left wall hematoma while on Coumadin bridging with Lovenox. 1. Left chest wall hematoma in his AICD pocket, in the setting of Coumadin and Lovenox. He will be admitted to monitor for continued bleeding. We will give an ice pack, activity restrictions to immobilize his left upper extremity, and maintain it in a sling to prevent further exacerbation of his bleeding complication. Cardiology is consulted. 2. Mechanical mitral valve and history of aortic thrombus, on chronic anticoagulation. He was discharged home from the hospital 2 days ago on a Lovenox bridge, given his INR of 1.49 after receiving vitamin K prior to his AICD battery exchange. He still remains slightly subtherapeutic at 2.4 today ( goal 2.5-3.5). I am going to stop his Lovenox. If he has no continued bleeding , his Coumadin will likely need to be resumed tomorrow, given his risk of thrombus in the setting of a mechanical valve. Follow INR. Cards to see in am. 3. Chronic pain. We will continue him on oxycodone, with p.r.n. Dilaudid for pain. 4. Mental health disorder, not otherwise specified. The patient is followed by [facility]. We will continue his Topamax, Latuda, Zyprexa, Klonopin and Effexor. I have held his Ativan, as I do not think it is safe for him to be on two forms of benzodiazepines, in addition to his opiates. 5. Disposition. Patient admitted to observation status. Should he require further cardiac interventions, he can be transitioned to inpatient as indicated. 6. Code status. Full code. /[id number]/MODL MTDD
[2016-09-21] MEDS: LURASIDONE HCL 20 MG TAB PO SCH ×2 (02:31→21:51)
[2016-09-21 04:38] LABS: % IMMATURE GRANULYOCYTES 0.4 % (0.0-1.1); ABSOLUTE IMMATURE GRANULOCYTES 0.02 10^3/uL (0.00-0.10); ADD DIFF? NO; ADD MORPH? NO; ADD SCAN? NO; ATYPICAL LYMPHOCYTE FLAG 0 (0-99); FRAGMENT RBC FLAG 0 (0-99); HEMATOCRIT 36.4 % (40.0-51.0); HEMOGLOBIN 11.6 g/dL (13.7-17.5); LEFT SHIFT FLG 0 (0-99); LIPEMIA HEMOLYSIS FLAG 80 (0-99); MEAN CELL HEMOGLOBIN 25.7 pg (27.9-34.1); MEAN CELL HEMOGLOBIN CONCENTR. 31.9 g/dL (32.4-36.7); MEAN CELL VOLUME 80.5 fL (81.5-99.8); MEAN PLATELET VOLUME 9.4 fL (8.7-11.7); PLATELET CLUMPS FLAG 0 (0-99); PLATELET COUNT 184 10^3/uL (150-400); RED BLOOD CELL COUNT 4.52 10^6/uL (4.40-6.38); RED CELL DISTRIBUTION WIDTH 17.3 % (11.5-15.2)
[2016-09-21 04:51] LABS: INR 2.81 (0.83-1.16); PROTIME(PATIENT) 29.9 SEC (12.0-15.0)
[2016-09-21] MEDS: HYDROmorphONE/DILAUDID 1 MG/ML SYR IVP PRN (08:41)
[2016-09-21] MEDS: METOPROLOL TARTRATE 25 MG TAB PO SCH ×2 (08:45→21:51)
[2016-09-21] MEDS: OLANZapine 10 MG TAB PO SCH (08:45)
[2016-09-21] MEDS: CYCLOBENZAPRINE 10 MG TAB PO SCH ×3 (08:45→21:50)
[2016-09-21] MEDS: GABAPENTIN 300 MG CAP PO SCH ×3 (08:45→21:50)
[2016-09-21] MEDS: LISINOPRIL 10 MG TAB PO SCH (08:46)
[2016-09-21] MEDS: PANTOPRAZOLE SODIUM 40 MG TAB PO SCH (08:46)
[2016-09-21] MEDS: LEVOTHYROXINE 50 MCG TAB PO SCH (08:46)
--- NOTE | 2016-09-21 09:19 | PDCARCONS ---
Cardiology Consult Reason for Consult: Pocket hematoma s/p AICD revision Chief Complaint: Breast swelling, tenderness and bleeding History of Present Illness: HPI: Mr. Patterson is a 41-year-old man with a history of cardiac arrest post mitral valve replacement in 2008 (29 minutes), HOCM s/p myectomy in 2008, valvular heart disease s/p mechanical mitral valve replacement in 2008, and AICD implantation. The patient's AICD had alerted with JACKIE and he presented to the hospital on 09/13/16. He underwent AICD generator revision on 09/16/2016 by myself, with no complications. His chest x-ray following the procedure showed no complications. The patient presented to the emergency department yesterday after noticing some oozing in his pocket wound. His reports he is non-complaint with the arm constriction when he sleeps. The lesion is rather painful and swollen. He denies other complaints from a cardiac standpoint. *A TEN POINT ROS IS NEGATIVE EXCEPT STATED ABOVE. Assessment/Plan: 1. Pocket hematoma s/p AICD replacement. INR this morning 2.81. The patient's Coumadin dose should be held this afternoon. We will plan on AICD pocket revision tomorrow to remove residual clot and cauterize bleeding. The patient can eat today but should remain NPO after midnight tonight. History Information - Allergies/Home Medication List Allergies/Adverse Reactions: amiodarone Allergy (Intermediate, Verified 08/28/16 22:25) Hives Home Medications: Aspirin [Aspirin 81mg (*)] 81 mg PO DAILY 09/20/16 [Last Taken 09/20/16] Bisacodyl [Dulcolax] 5 mg PO DAILY PRN 09/20/16 [Last Taken Unknown] Cyclobenzaprine [Flexeril 10 MG (*)] 10 mg PO TID 09/20/16 [Last Taken 09/20/16] Enoxaparin [Lovenox 100 MG (*)] 100 mg SQ Q12H 09/20/16 [Last Taken 09/20/16 morning dose] Gabapentin [Neurontin 300 MG (*)] 900 mg PO TID 09/20/16 [Last Taken 09/20/16] HYDROmorphone HCL [Dilaudid 4 mg (*)] 4 mg PO TID 09/20/16 [Last Taken 09/20/16] LORazepam [Ativan (*)] 0.5 mg PO TID 09/20/16 [Last Taken 09/20/16] Levothyroxine [Synthroid 50 mcg (*)] 50 mcg PO DAILY 09/20/16 [Last Taken ] Lisinopril [Zestril 10 mg (*)] 10 mg PO DAILY 09/20/16 [Last Taken 09/20/16] Lurasidone HCl [Latuda] 20 mg PO HS 09/20/16 [Last Taken 09/19/16] Metoprolol Tartrate [Lopressor 25 mg (*)] 75 mg PO BID 09/20/16 [Last Taken ] OLANZapine [Zyprexa] 20 mg PO DAILY 09/20/16 [Last Taken 09/20/16] Omeprazole [Prilosec 20 mg] 40 mg PO DAILY 09/20/16 [Last Taken 09/20/16] Topiramate [Topamax 100MG (*)] 100 mg PO HS 09/20/16 [Last Taken 09/19/16] Topiramate [Topamax 25MG (*)] 25 mg PO HS 09/20/16 [Last Taken 09/19/16] Venlafaxine Xr [Effexor Xr] 150 mg PO DAILY@12 09/20/16 [Last Taken 09/20/16] Warfarin Sodium [Coumadin 5MG (*)] 5 mg PO SUTUTHSA@1600 09/20/16 [Last Taken ] Warfarin Sodium [Coumadin 7.5MG (*)] 7.5 mg PO MOWEFR@16 09/20/16 [Last Taken ] Zolpidem Tartrate 10 mg PO DAILY 09/20/16 [Last Taken 09/19/16] clonazePAM [klonoPIN (*)] 1 mg PO TID PRN 09/20/16 [Last Taken Unknown] hydrOXYzine HCL [Hydroxyzine HCl] 50 mg PO TID PRN 09/20/16 [Last Taken Unknown] oxyCODONE IR [Oxycodone Ir (*)] 10 mg PO QID PRN MDD ' 09/20/16 [Last Taken ] I have personally reviewed and updated: medical history, social history, surgical history - Past Medical History Additional medical history: HOCM, AFIB, PTSD, non-ischemic cardiomyopathy, HTN, s/p AICD - Surgical History Reports: pacemaker/AICD - Social History Smoking Status: Current every day smoker Cardiac History - Cardiac History Past Cardiac History: MVR, ICD Cardiac Risk Factors: hypertension (>140/90), lipidemia, current cigarette smoker, male Physical Exam Temp Pulse Resp BP Pulse Ox 36.6 C 80 15 97/70 L 93 09/21/16 08:00 09/21/16 08:00 09/21/16 08:00 09/21/16 08:00 09/21/16 08:00 Constitutional: appears nourished, uncomfortable Ears, Nose, Mouth, Throat: moist mucous membranes Cardiovascular: regular rate and rhythym, systolic murmur, other (crisp mechanical click of valve closure) Respiratory: no respiratory distress, clear to auscultation Gastrointestinal: normoactive bowel sounds Skin: warm, normal color Neurologic: AAOx3, sensation intact bilaterally, No asterixes Lab and Imaging 09/21/16 04:08 09/20/16 20:05 WBC 5.60 10^3/uL (3.80-9.50) 09/21/16 04:08 RBC 4.52 10^6/uL (4.40-6.38) 09/21/16 04:08 Hgb 11.6 g/dL (13.7-17.5) L 09/21/16 04:08 Hct 36.4 % (40.0-51.0) L 09/21/16 04:08 MCV 80.5 fL (81.5-99.8) L 09/21/16 04:08 MCH 25.7 pg (27.9-34.1) L 09/21/16 04:08 MCHC 31.9 g/dL (32.4-36.7) L 09/21/16 04:08 RDW 17.3 % (11.5-15.2) H 09/21/16 04:08 Plt Count 184 10^3/uL (150-400) D 09/21/16 04:08 MPV 9.4 fL (8.7-11.7) 09/21/16 04:08 Neut % (Auto) 39.4 % (39.3-74.2) 09/21/16 04:08 Lymph % (Auto) 40.5 % (15.0-45.0) 09/21/16 04:08 [place] % (Auto) 15.4 % (4.5-13.0) H 09/21/16 04:08 Eos % (Auto) 3.9 % (0.6-7.6) 09/21/16 04:08 Baso % (Auto) 0.4 % (0.3-1.7) 09/21/16 04:08 Nucleat RBC Rel Count 0.0 % (0.0-0.2) 09/21/16 04:08 Absolute Neuts (auto) 2.21 10^3/uL (1.70-6.50) 09/21/16 04:08 Absolute Lymphs (auto) 2.27 10^3/uL (1.00-3.00) 09/21/16 04:08 Absolute Monos (auto) 0.86 10^3/uL (0.30-0.80) H 09/21/16 04:08 Absolute Eos (auto) 0.22 10^3/uL (0.03-0.40) 09/21/16 04:08 Absolute Basos (auto) 0.02 10^3/uL (0.02-0.10) 09/21/16 04:08 Absolute Nucleated RBC 0.00 10^3/uL (0-0.01) 09/21/16 04:08 Immature Gran % 0.4 % (0.0-1.1) 09/21/16 04:08 Immature Gran # 0.02 10^3/uL (0.00-0.10) 09/21/16 04:08 PT 29.9 SEC (12.0-15.0) H 09/21/16 04:08 INR 2.81 (0.83-1.16) H 09/21/16 04:08 APTT 47.4 SEC (23.0-38.0) H 09/20/16 20:05 Sodium 141 mEq/L (134-144) 09/20/16 20:05 Potassium 4.6 mEq/L (3.5-5.2) 09/20/16 20:05 Chloride 106 mEq/L (97-110) 09/20/16 20:05 Carbon Dioxide 24 mEq/l (22-31) 09/20/16 20:05 Anion Gap 11 mEq/L (8-16) 09/20/16 20:05 BUN 13 mg/dL (7-23) 09/20/16 20:05 Creatinine 1.3 mg/dL (0.7-1.3) 09/20/16 20:05 Estimated GFR > 60 09/20/16 20:05 Glucose 111 mg/dL (70-100) H 09/20/16 20:05 Calcium 9.7 mg/dL (8.5-10.4) 09/20/16 20:05 Patient ABO/Rh O POSITIVE 09/20/16 23:16 Antibody Screen NEGATIVE 09/20/16 23:16 Visualized and Interpreted Chest x-ray results: No Telemetry: no V tach in the last 24 hours.
[2016-09-21] MEDS ORDERED: HYDROmorphONE/DILAUDID 4 MG TAB PO PRN (10:34)
[2016-09-21] MEDS ORDERED: LORazepam 0.5 MG TAB PO PRN (10:34)
[2016-09-21] MEDS: VENLAFAXINE XR 150 MG CAP PO SCH (13:27)
--- NOTE | 2016-09-21 14:22 | HOSPPROG ---
Hospitalist Progress Note Assessment/Plan: Assessment: 41-year-old male presents with acute pocket hematoma resulting in acute left-sided chest pain in the setting of chronic opiate dependency Plan: 1. Pocket hematoma. Acute, most likely secondary to recent generator change as well as systemic anticoagulation, resulting in pain -discussed with Dr. Chisholm, the patient will undergo surgical exploration tomorrow to evaluate clot hopefully cauterize bleeding -will hold his Coumadin dosage this afternoon, repeat serum INR in the morning 2. Acute chest pain. Continue dose home pain medications, continue bowel regimen 3. Chronic kidney disease stage 3. Continue to monitor serum creatinine level 4. Chronic pain with continuous opiate dependency. Continue patient's home medications 5. Mechanical mitral valve. Patient's goal INR is 2.5-3.5, current INR is 2.8, hold his afternoon dosage of Coumadin and repeat INR tomorrow morning 6. Atrial fibrillation. Paroxysmal, status post ablation, no recurrence during this hospitalization 7. Hypertrophic cardiomyopathy. Requiring AICD, placed in 2011, recently underwent generator change Diet. Regular, NPO after midnight Prophylaxis. High risk patient, currently systemically anticoagulated Code. Full Disposition. Anticipated discharge is uncertain at this time, the patient will be upgraded to inpatient admission status as he requires surgical evacuation of the hematoma pocket and this cannot safely be performed today given his supratherapeutic INR, he requires gradual decline in his INR given his underlying mechanical valve which precludes giving him FFP or vitamin K at this time. Subjective: Patient reports ongoing pain in his left chest, responding well to scheduled Dilaudid as needed oxycodone Objective: Vital Signs Temp Pulse Resp BP Pulse Ox 36.5 C 60 12 94/62 L 95 09/21/16 12:00 09/21/16 12:00 09/21/16 12:00 09/21/16 12:00 09/21/16 12:00 Laboratory Results 09/21/16 04:08 09/20/16 09/21/16 09/22/16 05:59 05:59 05:59 Intake Total 160 320 Balance 160 320 PT 29.9 SEC (12.0-15.0) H 09/21/16 04:08 INR 2.81 (0.83-1.16) H 09/21/16 04:08 - Physical Exam Constitutional: no apparent distress, appears nourished, obese, uncomfortable Cardiovascular: regular rate and rhythym, systolic murmur (106 at the sternum), No tachycardia, No edema Respiratory: no respiratory distress, no rales or rhonchi, clear to auscultation Gastrointestinal: normoactive bowel sounds, soft, non-tender abdomen, no palpable masses Skin: other (Tender area over the left anterior chest which is raised and fluctuant, no ecchymosis or erythema) Neurologic: AAOx3, sensation intact bilaterally Psychiatric: not anxious, not encephalopathic, thought process linear, flat affect, No agitated ICD10 Worksheet Patient Problems: Problems Problem Status Onset Mood disorder Active Chest pain Acute Shortness of breath Acute History of coronary artery disease Acute Troponin level elevated Acute Lightheadedness Acute Acute chest pain Acute Nonischemic cardiomyopathy Acute Malfunction of cardiac pacemaker battery Acute Chest wall pain Acute Chest wall pain Acute Chest wall hematoma Acute
[2016-09-21] MEDS ORDERED: MAGNESIUM HYDROXIDE 30 ML UDCUP PO PRN (14:25)
[2016-09-21] MEDS ORDERED: BISACODYL 10 MG SUPP PR PRN (14:25)
[2016-09-21] MEDS ORDERED: POLYETHYLENE GLYCOL 3350 17 GM PKT PO PRN (14:25)
[2016-09-21] MEDS ORDERED: LACTULOSE 20 GM/30 ML UDCUP PO PRN (14:25)
[2016-09-21] MEDS: LORazepam 0.5 MG TAB PO SCH ×2 (15:34→21:50)
[2016-09-21] MEDS: HYDROmorphONE/DILAUDID 4 MG TAB PO SCH ×2 (15:52→21:50)
[2016-09-21] MEDS ORDERED: WARFARIN SODIUM 5 MG TAB PO SCH (16:00)
[2016-09-21] MEDS: clonazePAM 1 MG TAB PO PRN ×2 (16:49→19:52)
[2016-09-21] MEDS: oxyCODONE IR 5 MG TAB PO PRN (19:52)
[2016-09-21] MEDS ORDERED: LURASIDONE HCL 20 MG TAB PO SCH (21:00)
[2016-09-21] MEDS: SENNOSIDES/DOCUSATE SODIUM TAB PO SCH (21:50)
[2016-09-21] MEDS: TOPIRAMATE 100 MG TAB PO SCH (21:50)
[2016-09-21] MEDS: TOPIRAMATE 25 MG TAB PO SCH (21:51)
[2016-09-22] MEDS: ZOLPIDEM TARTRATE 5 MG TAB PO SCH ×2 (01:57→21:13)
[2016-09-22] MEDS: oxyCODONE IR 5 MG TAB PO PRN (01:57)
[2016-09-22 04:37] LABS: % IMMATURE GRANULYOCYTES 0.4 % (0.0-1.1); ABSOLUTE IMMATURE GRANULOCYTES 0.02 10^3/uL (0.00-0.10); ADD DIFF? NO; ADD MORPH? NO; ADD SCAN? NO; ATYPICAL LYMPHOCYTE FLAG 10 (0-99); FRAGMENT RBC FLAG 0 (0-99); HEMATOCRIT 39.7 % (40.0-51.0); HEMOGLOBIN 12.5 g/dL (13.7-17.5); LEFT SHIFT FLG 0 (0-99); LIPEMIA HEMOLYSIS FLAG 80 (0-99); MEAN CELL HEMOGLOBIN 25.2 pg (27.9-34.1); MEAN CELL HEMOGLOBIN CONCENTR. 31.5 g/dL (32.4-36.7); MEAN PLATELET VOLUME 9.9 fL (8.7-11.7); PLATELET CLUMPS FLAG 0 (0-99); PLATELET COUNT 210 10^3/uL (150-400); RED BLOOD CELL COUNT 4.96 10^6/uL (4.40-6.38); RED CELL DISTRIBUTION WIDTH 17.7 % (11.5-15.2)
[2016-09-22 04:47] LABS: APTT 38.5 SEC (23.0-38.0); INR 1.98 (0.83-1.16); PROTIME(PATIENT) 22.6 SEC (12.0-15.0)
[2016-09-22 04:54] LABS: ALANINE AMINOTRANSFERASE 58 IU/L (21-72); ALBUMIN 3.8 g/dL (3.5-5.0); ALKALINE PHOSPHATASE 79 IU/L (38-126); ANION GAP 8 mEq/L (8-16); ASPARTATE AMINOTRANSFERASE 43 IU/L (17-59); BILIRUBIN,TOTAL 0.4 mg/dL (0.1-1.4); CALCIUM 9.4 mg/dL (8.5-10.4); CARBON DIOXIDE 27 mEq/l (22-31); CHLORIDE 108 mEq/L (97-110); CREATININE 1.1 mg/dL (0.7-1.3); GLOMERULAR FILTRATION RATE > 60; GLUCOSE 73 mg/dL (70-100); POTASSIUM 5.1 mEq/L (3.5-5.2); SODIUM 143 mEq/L (134-144); TOTAL PROTEIN 7.6 g/dL (6.3-8.2)
[2016-09-22] MEDS ORDERED: NS 1,000 ML IV ONE (06:00)
[2016-09-22] MEDS ORDERED: DIAZEPAM 5 MG TAB PO ONE (06:00)
[2016-09-22] MEDS ORDERED: BACITRACIN IRRIGATION/NS 50,000 UNITS/1,000 ML BTL IRR ONE (06:00)
[2016-09-22] MEDS ORDERED: ceFAZolin 2 GM/DEXTROSE 100 ML IV ONE (06:00)
[2016-09-22] MEDS: PANTOPRAZOLE SODIUM 40 MG TAB PO SCH (07:22)
[2016-09-22] MEDS: LORazepam 0.5 MG TAB PO SCH ×3 (07:24→21:13)
[2016-09-22] MEDS: HYDROmorphONE/DILAUDID 4 MG TAB PO SCH ×3 (07:25→21:13)
[2016-09-22] MEDS: GABAPENTIN 300 MG CAP PO SCH ×3 (07:27→21:13)
[2016-09-22] MEDS ORDERED: NON-FORMULARY NEW DRUG (Zolpidem Tartrate [Zolpidem Tartrate] 10 MG) PO SCH (09:00)
[2016-09-22] MEDS: LEVOTHYROXINE 50 MCG TAB PO SCH (11:51)
[2016-09-22] MEDS: CYCLOBENZAPRINE 10 MG TAB PO SCH ×3 (11:52→21:13)
[2016-09-22] MEDS: OLANZapine 10 MG TAB PO SCH (11:53)
--- NOTE | 2016-09-22 14:02 | HOSPPROG ---
Hospitalist Progress Note Assessment/Plan: Assessment: 41-year-old male presents with acute pocket hematoma resulting in acute left-sided chest pain in the setting of chronic opiate dependency Plan: 1. Pocket hematoma. Acute, most likely secondary to recent generator change as well as systemic anticoagulation, resulting in pain -undergoing surgical exploration today to evaluate clot, hopefully cauterize bleeding -held his coumadin, will require lovenox bridge and coumadin reinitiated post- procedure -would recommend closely monitoring post-procedure once anticoagulation is restarted, to ensure that he does not have recurrent bleed -check Hgb in AM 2. Acute chest pain. Continue dose home pain medications, continue bowel regimen 3. Chronic kidney disease stage 3. Continue to monitor serum creatinine level 4. Chronic pain with continuous opiate dependency. Continue patient's home medications -this has been a significant issue for this patient as an outpatient, and his has scheduled him w/ a provider for 09/25 in [place] who reportedly writes scripts for his dilaudid/oxy IR -she has requested a 1-2 day supply of his dilaudid/oxy IR at discharge to ensure he has Rx between discharge and 09/25 appt 5. Mechanical mitral valve. Patient's goal INR is 2.5-3.5, current INR is 1.9, restart post-procedure at discretion of Dr. Chisholm 6. Atrial fibrillation. Paroxysmal, status post ablation, no recurrence during this hospitalization 7. Hypertrophic cardiomyopathy. Requiring AICD, placed in 2011, recently underwent generator change Diet. NPO, restart post-procedure Prophylaxis. High risk patient, currently systemically anticoagulated Code. Full Disposition. Anticipated discharge is 09/23, pending no recurrent bleeding. Subjective: Patient's very anxious about receiving pain medications at time of discharge, counseled that will most likely be able to supply him with 1- 2 days of pain medications to bridge him until his appointment but this will be under the discretion of the hospitalist beginning their service tomorrow Objective: Vital Signs Temp Pulse Resp BP Pulse Ox 36.3 C 62 18 112/77 92 09/22/16 11:29 09/22/16 11:29 09/22/16 11:29 09/22/16 11:29 09/22/16 11:29 Laboratory Results 09/22/16 03:59 09/22/16 03:59 04/09/22/16 09/23/16 05:59 05:59 05:59 Intake Total 400 Balance 400 PT 22.6 SEC (12.0-15.0) H 09/22/16 03:59 INR 1.98 (0.83-1.16) H 09/22/16 03:59 - Time Spent With Patient Time Spent with Patient: greater than 25 minutes Time Spent with Patient: Greater than 25 minutes spent on this patients care, greater than 50% of time spent counseling, educating, and coordinating care regarding the above mentioned plan. - Physical Exam Constitutional: no apparent distress, uncomfortable, other (Lethargic but arousable) Cardiovascular: regular rate and rhythym, no murmur, rub, or gallop Skin: other (Edema and tenderness on the left chest without any overlying erythema or ecchymoses) Psychiatric: flat affect, other (Withdrawn, noncommittal) ICD10 Worksheet Patient Problems: Problems Problem Status Onset Mood disorder Active Chest pain Acute Shortness of breath Acute History of coronary artery disease Acute Troponin level elevated Acute Lightheadedness Acute Acute chest pain Acute Nonischemic cardiomyopathy Acute Malfunction of cardiac pacemaker battery Acute Chest wall pain Acute Chest wall pain Acute Chest wall hematoma Acute
[2016-09-22] MEDS: LISINOPRIL 10 MG TAB PO SCH (15:43)
[2016-09-22] MEDS: METOPROLOL TARTRATE 25 MG TAB PO SCH ×2 (15:45→21:14)
[2016-09-22] MEDS: SENNOSIDES/DOCUSATE SODIUM TAB PO SCH ×2 (15:46→21:15)
[2016-09-22] MEDS: VENLAFAXINE XR 150 MG CAP PO SCH (15:46)
[2016-09-22] MEDS ORDERED: WARFARIN SODIUM 7.5 MG TAB PO SCH (16:00)
[2016-09-22] MEDS ORDERED: LIDO/EPI 1% **for epidural** 30 ML SDV ONE (16:11)
[2016-09-22] MEDS ORDERED: MIDAZOLAM 2 MG/2 ML VIAL ONE (16:11)
[2016-09-22] MEDS ORDERED: fentaNYL 100 MCG/2 ML INJ ONE (16:11)
[2016-09-22] MEDS ORDERED: LIDOCAINE 1% 30 ML SDV ONE (16:11)
[2016-09-22] MEDS ORDERED: BUPIVACAINE 0.5% 30 ML SDV ONE (16:12)
[2016-09-22] MEDS ORDERED: ETOMIDATE 40 MG/20 ML INJ ONE (16:14)
--- NOTE | 2016-09-22 17:11 | PDCTREPORT ---
Cardiothoracic Procedure Rpt Cardiothoracic Procedure Report: Procedure: Dual chamber automatic implantable cardioverter-defibrillator pocket revision Date of procedure: 09/22/2016 Complications: None Indication: The patient has a large sized pocket hematoma secondary to recent AICD replacement. This procedure is being performed to relieve pocket pressure, remove clot and establish hemostasis. Procedure in detail: After informed consent was obtained and n.p.o. status was confirmed, the region of the left subclavicular fossa was cleaned, prepped and draped in a sterile fashion. Approximately 30 mL of 1% lidocaine was utilized for local anesthesia. An 18-gauge [employer] needle was used to relieve pressure before the skin was sharply incised with a #10 blade. Electrocautery and local pressure were used for hemostasis. Sharp and blunt dissection was used to access the pacemaker pocket overlying the pectoralis major fascia. The old sutures were removed and the pocket was thoroughly flushed and checked for bleeding. Hemostasis was established in the pocket with the use of electrocautery and Rodri absorbable hemostatic particles. The skin was then closed with a 3-layered 3-0 Vicryl, 2-0 Vicryl and 4-0 Monocryl repair with excellent wound edge opposition and hemostasis documented. Final impression: Successful AICD pocket revision with hemostasis established and residual clot removed. The pacer public relations representative at [employer] was called and will perform AICD device interrogation tomorrow morning. The patient can safely resume his Coumadin tomorrow. HE SHOULD NOT BE BRIDGED WITH LOVENOX. Coumadin can be resumed tomorrow afternoon. Patient Problems: Problems Problem Status Onset Chest wall hematoma Acute Chest wall pain Acute Mood disorder Active Acute chest pain Acute Chest pain Acute Chest wall pain Acute History of coronary artery disease Acute Lightheadedness Acute Malfunction of cardiac pacemaker battery Acute Nonischemic cardiomyopathy Acute Shortness of breath Acute Troponin level elevated Acute
[2016-09-22] MEDS: TOPIRAMATE 25 MG TAB PO SCH (21:13)
[2016-09-22] MEDS: TOPIRAMATE 100 MG TAB PO SCH (21:13)
[2016-09-22] MEDS: LURASIDONE HCL 20 MG TAB PO SCH (21:13)
[2016-09-23 04:34] LABS: % IMMATURE GRANULYOCYTES 0.3 % (0.0-1.1); ABSOLUTE IMMATURE GRANULOCYTES 0.02 10^3/uL (0.00-0.10); ADD DIFF? NO; ADD MORPH? NO; ADD SCAN? NO; ATYPICAL LYMPHOCYTE FLAG 30 (0-99); FRAGMENT RBC FLAG 20 (0-99); HEMATOCRIT 39.3 % (40.0-51.0); HEMOGLOBIN 12.5 g/dL (13.7-17.5); LEFT SHIFT FLG 0 (0-99); LIPEMIA HEMOLYSIS FLAG 80 (0-99); MEAN CELL HEMOGLOBIN 25.5 pg (27.9-34.1); MEAN CELL HEMOGLOBIN CONCENTR. 31.8 g/dL (32.4-36.7); MEAN PLATELET VOLUME 10.1 fL (8.7-11.7); PLATELET CLUMPS FLAG 0 (0-99); PLATELET COUNT 208 10^3/uL (150-400); RED BLOOD CELL COUNT 4.91 10^6/uL (4.40-6.38)
[2016-09-23] MEDS: METOPROLOL TARTRATE 25 MG TAB PO SCH (09:14)
[2016-09-23] MEDS: GABAPENTIN 300 MG CAP PO SCH (09:14)
[2016-09-23] MEDS: HYDROmorphONE/DILAUDID 4 MG TAB PO SCH (09:14)
[2016-09-23] MEDS: LORazepam 0.5 MG TAB PO SCH (09:15)
[2016-09-23] MEDS: LISINOPRIL 10 MG TAB PO SCH (09:15)
[2016-09-23] MEDS: CYCLOBENZAPRINE 10 MG TAB PO SCH (09:16)
[2016-09-23] MEDS: PANTOPRAZOLE SODIUM 40 MG TAB PO SCH (09:16)
[2016-09-23] MEDS: LEVOTHYROXINE 50 MCG TAB PO SCH (09:16)
[2016-09-23] MEDS: SENNOSIDES/DOCUSATE SODIUM TAB PO SCH (09:17)
[2016-09-23] MEDS: OLANZapine 10 MG TAB PO SCH (09:17)
[2016-09-23 11:44] VITALS: BP 131/97; PULSE 71; RESP 13; TEMP 99; O2SAT 95
[2016-09-23] MEDS: VENLAFAXINE XR 150 MG CAP PO SCH (12:02)
--- NOTE | 2016-09-23 15:28 | GDS ---
[f rep st] DISCHARGE SUMMARY DISCHARGE DIAGNOSES: 1. Acute pocket hematoma. 2. Chronic kidney disease. 3. Chronic pain with continuous opiate dependency. 4. Mechanical mitral valve. 5. Atrial fibrillation. 6. Hypertrophic cardiomyopathy. HISTORY OF PRESENT ILLNESS: A 41-year-old male who presented for a battery exchange of his device a nd re-presented with complaints of left-sided chest pain with a resultant hematoma found. For detai ls of patient's initial presentation, please see the history and physical, dated . CONSULTATIVE SERVICES: Include Cardiology. PROCEDURES: On 09/22/2016, patient underwent pocket revision for his dual chamber AICD with evacuati on of the hematoma. HOSPITAL COURSE BY ISSUE: 1. Pocket hematoma. Patient underwent pocket revision and hematoma evacuation. Patient is being d ischarged on his Coumadin therapy alone with no bridging Lovenox, per Dr. Chisholm. He will follow ne xt week with Cardiology for his first postop followup. 2. Chronic narcotic dependency secondary to chronic pain. Patient is reporting that he has no medi cations to bridge him to his pain medication doctor appointment on Sunday. Providing a few tablets of both his Dilaudid and oxycodone to bridge him the 2 days until his Sunday appointment. I have hi gh suspicion patient is being dishonest about this; however, I have no way of documenting his misuse . MEDICATIONS AT THE TIME OF DISPOSITION: Please reference Med Rec, printed on 09/23/2016. FOLLOWUP APPOINTMENTS: Include with Dr. Chisholm next week for postprocedural followup. Pending stud ies at the time of this dictation are none. TIME SPENT: I spent greater than 30 minutes in the planning and coordination of this discharge. /[id number]/MODL
== END 2016-09-23 12:08 | disposition home or self-care (01) | DRG 908 ==
LOC: EDUNIT# → INTOOBSV 20:46 → F2W 21:51 → OBSVTOIN 09-21 14:58
PROVIDERS: ADMIT Hospitalist; ATTEND Hospitalist
DX: L76.32 Postprocedural hematoma of skin and subcutaneous tissue following other procedure (principal); I42.2 Other hypertrophic cardiomyopathy; N18.9 Chronic kidney disease, unspecified; F11.20 Opioid dependence, uncomplicated; G89.29 Other chronic pain; I48.91 Unspecified atrial fibrillation; F43.10 Post-traumatic stress disorder, unspecified; Z95.810 Presence of automatic (implantable) cardiac defibrillator; Z95.2 Presence of prosthetic heart valve; Z79.01 Long term (current) use of anticoagulants
CPT/HCPCS: 96374; 97166-GO; G0378; J0690; J1170; J2250; J3010

== ENCOUNTER 2016-09-26 10:59 | Inpatient (IN) | payer MEDICAID ==
--- NOTE | 2016-09-26 11:34 | CPEKG ---
Heart Rate: 64 RR Interval: 938 P-R Interval: 208 QRSD Interval: 132 QT Interval: 436 QTC Interval: 450 P [place]: 17 QRS [place]: -31 T Wave [place]: 156 EKG Severity - ABNORMAL ECG - EKG Impression: SINUS RHYTHM EKG Impression: PROBABLE LEFT ATRIAL ABNORMALITY EKG Impression: LVH WITH IVCD AND SECONDARY REPOL ABNRM Electronically Signed By: Abiel Mark 26-Sep-2016 13:45:44
[2016-09-26 12:04] LABS: % IMMATURE GRANULYOCYTES 0.5 % (0.0-1.1); ABSOLUTE IMMATURE GRANULOCYTES 0.02 10^3/uL (0.00-0.10); ADD DIFF? NO; ADD MORPH? NO; ADD SCAN? NO; ATYPICAL LYMPHOCYTE FLAG 0 (0-99); FRAGMENT RBC FLAG 0 (0-99); HEMOGLOBIN 12.2 g/dL (13.7-17.5); LEFT SHIFT FLG 0 (0-99); LIPEMIA HEMOLYSIS FLAG 80 (0-99); MEAN CELL HEMOGLOBIN 25.9 pg (27.9-34.1); MEAN CELL HEMOGLOBIN CONCENTR. 32.1 g/dL (32.4-36.7); MEAN CELL VOLUME 80.7 fL (81.5-99.8); MEAN PLATELET VOLUME 9.8 fL (8.7-11.7); PLATELET CLUMPS FLAG 0 (0-99); PLATELET COUNT 202 10^3/uL (150-400); RED BLOOD CELL COUNT 4.71 10^6/uL (4.40-6.38); RED CELL DISTRIBUTION WIDTH 16.9 % (11.5-15.2)
--- NOTE | 2016-09-26 12:12 | EDPHY ---
H & P Stated Complaint: dc from hospital 09/23 blood clots post pacemaker/acting sluggish/on dilaudy Source: Patient, Family Exam Limitations: Clinical condition - Personal History Current Tetanus/Diphtheria Vaccine: Yes Tetanus Vaccine Date: <10 YRS - Medical/Surgical History Hx Asthma: No Hx Chronic Respiratory Disease: No Hx Diabetes: No Hx Cardiac Disease: Yes Hx Renal Disease: No Hx Cirrhosis: No Hx Alcoholism: No Hx HIV/AIDS: No Hx Splenectomy or Spleen Trauma: No Other PMH: Polysubstance abuse, homelessness, hypertrophic cardiomyopathy, myomectomy, mitral valve replacement mechanical valve, pacer defib., PTSD, degenerative bone disease, depression, hypertension, hep c, migraines, gerd, hypothyroid - Social History Smoking Status: Current every day smoker HPI/ROS: CHIEF COMPLAINT: Multiple complaints HISTORY OF PRESENT ILLNESS: Patient presents with spouse and friends at bedside. The spouse provides the bulk of the history. She says that he has been sweating, somnolent, confused and appearing ill to her. This started with over the past 24 hours. She says that recently here hospitalization due to pacemaker exchange with complications. Since he has gone home, he has been reportedly dehydrated. He has been taking his chronic pain medication as prescribed. She gave him is Dilaudid this morning as scheduled. He was still complaining of pain, but she gave him a Percocet at 10:00 a.m.. Since then he has been somnolent, diaphoretic and altered to her. He will open his eyes occasionally, and he will always open them to verbal or physical stimuli. Earlier this morning however he was only responsive to physical stimuli. No chest pain. Some cough. No abdominal or urinary complaints. No changes in dosing regimen. Patient has extensive medical history as documented in his chart. No other associated complaints or modifying factors. REVIEW OF SYSTEMS: Ten systems reviewed and are negative unless otherwise noted in the HPI PERTINENT MEDICAL HISTORY: Reviewed. Pertinent positives include ischemic cardiomyopathy, previous ME, mechanical mitral valve, chronic kidney disease EXAMINATION General Appearance: Somnolent but awakens with verbal cues. Diaphoretic. No acute distress. Head: normocephalic, atraumatic Eyes: Pupils equal and round, no conjunctival pallor or injection ENT, Mouth: Mucous membranes moist. Uvula midline. No erythema or edema. Neck: Normal inspection, supple, non-tender. Trachea midline Respiratory: Scattered rhonchi. No crackles or diminishment. Cardiovascular: Regular rate and rhythm. Harsh systolic murmur. Pulses intact distally. Gastrointestinal: Abdomen is soft and nontender Back: non-tender, no bony abnormalities. No lesions or ulcerations Neurological: Alert to person and place. Disoriented to time. GCS 14. Cranial nerves 2 through 12 grossly intact. Skin: Warm and dry, no rash. Left anterior chest incision over his pacemaker is clean, dry and intact. There is bruising around the site. Extremities: Nontender, minimal pedal edema that is nonpitting. Moves both lower extremities and right lower upper extremity without any asymmetry. Left upper extremity is limited postoperatively. Psychiatric: Mood and affect normal DIFFERENTIAL DIAGNOSES: Including but not limited to acute kidney injury, chronic kidney injury, accidental overdose, opioid dependency, dehydration, intracranial hemorrhage MDM: 11:50 a.m. Somnolence, diaphoresis and weakness. Patient has a very extensive medical history. This includes recent pacemaker change with postoperative complication. He has a Dilaudid pain medication he takes scheduled for this. We both the patient and the spouse at bedside feel that the pain medication has been too strong, causing increased somnolence. He has no chest pain. He has some recent cough and congestion. No complaints of abdominal pain or urinary complaints. He was hypoxic but otherwise stable vital signs. He is very somnolent on examination but protecting his airway without complication. Laboratory studies, chest x-ray and CT scan of the head have been ordered. 1:15 p.m. Notified by radiologist Dr. Ordonez. CT scan of head is unremarkable for any acute findings. He is still somnolent and encephalopathic, and I suspect this is from excess opioid. He has no focal findings. Laboratory studies are at baseline for the patient. Chest x-ray is unremarkable for any acute changes. Dr. Mark has discussed the case with hospitalist Dr. Shirley, and the patient has been admitted. He is admitted in stable condition SUPERVISION: Patient was evaluated in conjunction with the supervising physician. Please see their note for details. (Obie Martinez) Constitutional: Initial Vital Signs Temperature (C) 36.7 C 09/26/16 11:05 Heart Rate 67 09/26/16 11:05 Respiratory Rate 20 09/26/16 11:05 Blood Pressure 93/54 L 09/26/16 11:05 O2 Sat (%) 90 L 09/26/16 11:05 O2 Delivery Mode Room Air Allergies/Adverse Reactions: amiodarone Allergy (Intermediate, Verified 09/26/16 11:03) Hives Home Medications: Medication Instructions Recorded Aspirin [Aspirin 81mg (*)] 81 mg PO DAILY 09/20/16 Bisacodyl [Dulcolax] 5 mg PO DAILY PRN 09/20/16 Cyclobenzaprine [Flexeril 10 MG 10 mg PO TID 09/20/16 (*)] Gabapentin [Neurontin 300 MG (*)] 900 mg PO TID 09/20/16 LORazepam [Ativan (*)] 0.5 mg PO TID 09/20/16 Levothyroxine [Synthroid 50 mcg 50 mcg PO DAILY 09/20/16 (*)] Lisinopril [Zestril 10 mg (*)] 10 mg PO DAILY 09/20/16 Lurasidone HCl [Latuda] 20 mg PO HS 09/20/16 Metoprolol Tartrate [Lopressor 25 75 mg PO BID 09/20/16 mg (*)] OLANZapine [Zyprexa] 20 mg PO DAILY 09/20/16 Omeprazole [Prilosec 20 mg] 40 mg PO DAILY 09/20/16 Topiramate [Topamax 100MG (*)] 100 mg PO HS 09/20/16 Topiramate [Topamax 25MG (*)] 25 mg PO HS 09/20/16 Venlafaxine Xr [Effexor Xr] 150 mg PO DAILY@12 09/20/16 Warfarin Sodium [Coumadin 5MG (*)] 5 mg PO SUTUTHSA@1600 09/20/16 Warfarin Sodium [Coumadin 7.5MG 7.5 mg PO MOWEFR@16 09/20/16 (*)] Zolpidem Tartrate 10 mg PO DAILY 09/20/16 clonazePAM [klonoPIN (*)] 1 mg PO TID PRN 09/20/16 hydrOXYzine HCL [Hydroxyzine HCl] 50 mg PO TID PRN 09/20/16 HYDROmorphone HCL [Dilaudid 4 mg 4 mg PO TID #6 tab 09/23/16 (*)] oxyCODONE IR [Oxycodone Ir (*)] 10 mg PO QID PRN #14 tab MDD ' 09/23/16 Medical Decision Making - Diagnostics EKG Interpretation: 12-lead EKG interpreted by me; official reading is in trace master. My interpretation is sinus rhythm with LVH and intraventricular conduction delay. Rate 64. (Abiel Mark) Imaging Results: Imaging Impressions Chest X-Ray 09/26/16 11:57 Impression: No evidence for cardiac decompensation or pneumonia. Head CT 09/26/16 11:58 Impression: Negative. No acute intracranial hemorrhage, subdural hematoma, or evidence of ischemia. Findings discussed with Emergency Department, Obie Martinez PA-C, on September 26, 2016 at 1309 hours. Other Provider: PHYSICIAN DOCUMENTATION: The patient was evaluated and managed by the Physician Engineering Scientist and myself. I have reviewed the chart and agree with the findings and plan of care as documented. In addition, I examined the patient myself at 1254. History confirmed as somnolent without trauma, recent pacemaker procedure. Physical findings as follows: Patient is somnolent but arouses to sternal rub but has slurred speech. Can move all [address] head reviewed by myself does not show intracranial bleeding, global encephalopathy more likely to be medication related as he is on narcotics. Admission for serial observation and supportive care. [place] 1300. I am the secondary supervising physician. (Abiel Mark) - Data Points Laboratory Results: Laboratory Results 09/26/16 11:25 09/26/16 11:25 09/26/16 09/26/16 09/26/16 12:15 12:15 11:25 WBC RBC Hgb Hct MCV MCH MCHC RDW Plt Count MPV Neut % (Auto) Lymph % (Auto) [place] % (Auto) Eos % (Auto) Baso % (Auto) Nucleat RBC Rel Count Absolute Neuts (auto) Absolute Lymphs (auto) Absolute Monos (auto) Absolute Eos (auto) Absolute Basos (auto) Absolute Nucleated RBC Immature Gran % Immature Gran # PT INR APTT Sodium 138 mEq/L mEq/L (134-144) Potassium 4.4 mEq/L mEq/L (3.5-5.2) Chloride 103 mEq/L mEq/L (97-110) Carbon Dioxide 25 mEq/l mEq/l (22-31) Anion Gap 10 mEq/L mEq/L (8-16) BUN 20 mg/dL mg/dL (7-23) Creatinine 1.3 mg/dL mg/dL (0.7-1.3) Estimated GFR > 60 Glucose 84 mg/dL mg/dL (70-100) Calcium 9.7 mg/dL mg/dL (8.5-10.4) Troponin I 0.139 ng/mL H ng/mL (0-0.034) NT-Pro-B Natriuret Pep 639 pg/mL H pg/mL (0-125) Lipase 67.0 IU/L IU/L (23-300) Urine Color YELLOW Urine Appearance CLEAR Urine pH 6.0 (5.0-7.5) Ur Specific [place] 1.020 (1.002-1.030) Urine Protein NEGATIVE (NEGATIVE) Urine Ketones NEGATIVE (NEGATIVE) Urine Blood NEGATIVE (NEGATIVE) Urine Nitrate NEGATIVE (NEGATIVE) Urine Bilirubin NEGATIVE (NEGATIVE) Urine Urobilinogen NEGATIVE EU EU (0.2-1.0) Ur Leukocyte Esterase NEGATIVE (NEGATIVE) Ur Culture Indicated? NOT INDICATED (NI) Urine Glucose NEGATIVE (NEGATIVE) Urine Opiates Screen Pending NON-NEGATIVE H (NEGATIVE) Urine Barbiturates NEGATIVE ng/mL ng/mL NEGATIVE (NEGATIVE) (NEGATIVE) Ur Phencyclidine Scrn NEGATIVE ng/mL ng/mL NEGATIVE (NEGATIVE) (NEGATIVE) Ur Amphetamine Screen NEGATIVE (NEGATIVE) Ur Amphetamines Screen NEGATIVE ng/mL ng/mL (NEGATIVE) U Benzodiazepines Scrn NEGATIVE ng/mL ng/mL NEGATIVE (NEGATIVE) (NEGATIVE) Urine Cocaine Screen NEGATIVE ng/mL ng/mL NEGATIVE (NEGATIVE) (NEGATIVE) U Marijuana (THC) Screen > 800 ng/mL ng/mL NON-NEGATIVE H (NEGATIVE) (NEGATIVE) 09/26/16 09/26/16 11:25 11:25 WBC 4.43 10^3/uL 10^3/uL (3.80-9.50) RBC 4.71 10^6/uL 10^6/uL (4.40-6.38) Hgb 12.2 g/dL L g/dL (13.7-17.5) Hct 38.0 % L % (40.0-51.0) MCV 80.7 fL L fL (81.5-99.8) MCH 25.9 pg L pg (27.9-34.1) MCHC 32.1 g/dL L g/dL (32.4-36.7) RDW 16.9 % H % (11.5-15.2) Plt Count 202 10^3/uL 10^3/uL (150-400) MPV 9.8 fL fL (8.7-11.7) Neut % (Auto) 47.5 % % (39.3-74.2) Lymph % (Auto) 34.1 % % (15.0-45.0) [place] % (Auto) 13.1 % H % (4.5-13.0) Eos % (Auto) 4.3 % % (0.6-7.6) Baso % (Auto) 0.5 % % (0.3-1.7) Nucleat RBC Rel Count 0.0 % % (0.0-0.2) Absolute Neuts (auto) 2.11 10^3/uL 10^3/uL (1.70-6.50) Absolute Lymphs (auto) 1.51 10^3/uL 10^3/uL (1.00-3.00) Absolute Monos (auto) 0.58 10^3/uL 10^3/uL (0.30-0.80) Absolute Eos (auto) 0.19 10^3/uL 10^3/uL (0.03-0.40) Absolute Basos (auto) 0.02 10^3/uL 10^3/uL (0.02-0.10) Absolute Nucleated RBC 0.00 10^3/uL 10^3/uL (0-0.01) Immature Gran % 0.5 % % (0.0-1.1) Immature Gran # 0.02 10^3/uL 10^3/uL (0.00-0.10) PT 15.5 SEC H SEC (12.0-15.0) INR 1.23 H (0.83-1.16) APTT 30.4 SEC SEC (23.0-38.0) Sodium Potassium Chloride Carbon Dioxide Anion Gap BUN Creatinine Estimated GFR Glucose Calcium Troponin I NT-Pro-B Natriuret Pep Lipase Urine Color Urine Appearance Urine pH Ur Specific [place] Urine Protein Urine Ketones Urine Blood Urine Nitrate Urine Bilirubin Urine Urobilinogen Ur Leukocyte Esterase Ur Culture Indicated? Urine Glucose Urine Opiates Screen Urine Barbiturates Ur Phencyclidine Scrn Ur Amphetamine Screen Ur Amphetamines Screen U Benzodiazepines Scrn Urine Cocaine Screen U Marijuana (THC) Screen Departure - Departure Disposition: [facility] Inpatient Acute Clinical Impression: Encephalopathy acute Condition: Good
[2016-09-26 12:14] LABS: APTT 30.4 SEC (23.0-38.0); INR 1.23 (0.83-1.16); PROTIME(PATIENT) 15.5 SEC (12.0-15.0)
[2016-09-26 12:21] LABS: ANION GAP 10 mEq/L (8-16); CALCIUM 9.7 mg/dL (8.5-10.4); CARBON DIOXIDE 25 mEq/l (22-31); CHLORIDE 103 mEq/L (97-110); CREATININE 1.3 mg/dL (0.7-1.3); GLOMERULAR FILTRATION RATE > 60; GLUCOSE 84 mg/dL (70-100); POTASSIUM 4.4 mEq/L (3.5-5.2); SODIUM 138 mEq/L (134-144)
[2016-09-26 12:33] LABS: TROPONIN I 0.139 ng/mL (0-0.034)
[2016-09-26 12:49] LABS: COLOR YELLOW; LEUKOCYTE ESTERASE,URINE NEGATIVE (NEGATIVE); NITRITE,URINE NEGATIVE (NEGATIVE)
[2016-09-26] MEDS ORDERED: ONDANSETRON 4 MG/2 ML VIAL IVP PRN (13:07)
[2016-09-26] MEDS ORDERED: ONDANSETRON DISINTEGRATING 4 MG TAB PO PRN (13:07)
[2016-09-26] MEDS ORDERED: NS 1,000 ML IV SCH (13:15)
[2016-09-26 13:43] LABS: PHENCYCLIDINE URINE BCH < 6 ng/ml (NEGATIVE); PHENCYCLIDINE URINE BCH NEGATIVE (NEGATIVE)
[2016-09-26] MEDS: ACETAMINOPHEN 325 MG TAB PO PRN ×2 (14:24→19:58)
[2016-09-26 14:32] LABS: TETRAHYDROCANNABINOL URINE > 800 ng/mL (NEGATIVE)
--- NOTE | 2016-09-26 14:46 | GHP ---
[f rep st] HISTORY AND PHYSICAL DATE OF ADMISSION: 09/26/2016 CHIEF COMPLAINT: Obtunded. HISTORY OF PRESENT ILLNESS: This is a 41-year-old male with a complicated medical history, includin g hypertrophic cardiomyopathy, recent AICD battery exchange with a hematoma in his pocket, who was d ischarged on 09/23/2016 with expected outpatient followup with his cardiology team as well as his [facility] pain physician. The patient was brought back to the emergency department today with family at the bedside because of extreme somnolence. reports that he had been looking ill for the pa st 24 hours. She suspected that he was dehydrated. She reports giving him Dilaudid the morning of presentation, still complaining of pain and then gave him Percocet. She then noticed that he was un able to effectively respond to stimuli or open his eyes. On my evaluation in the emergency department, the patient is arousable to sternal rub. He is answer ing yes/no questions, but maintaining limited alertness. Denied active chest pain. Denied abdomina l pain. Denied shortness of breath. PAST MEDICAL/SURGICAL HISTORY: 1. Polysubstance abuse. 2. Chronic pain with continuous narcotic dependency. 3. Hypertrophic cardiomyopathy. 4. AICD placement with recent battery exchange on 09/16/2016. 5. AICD pocket hematoma status post evacuation. 6. Mitral valve replacement with mechanical valve. 7. History of an aortic thrombus, on chronic anticoagulation. 8. History of myomectomy. 9. Atrial fibrillation status post ablation. 10. Chronic upper extremity neuropathy. 11. Hypothyroidism. 12. Hepatitis C. 13. Posttraumatic stress disorder. 14. Migraines. 15. Degenerative joint disease. SOCIAL HISTORY: The patient has a history of homelessness, but currently lives with his . The patient actively smokes tobacco. He denies alcohol use. Does report daily marijuana and uses sana nuous high-dose narcotics. FAMILY HISTORY: Positive for hypertrophic cardiomyopathy in his mother and a nephew. REVIEW OF SYSTEMS: A 10-point review of systems was negative, with the exception of that reported i n the HPI. PHYSICAL EXAMINATION: VITAL SIGNS: Blood pressure 122/74, heart rate 76, respiratory rate 13, satu rating 90% on room air, temperature 36.7. GENERAL: This is a somnolent appearing young male, resti ng in bed. HEENT: Notable for moist mucous membranes. Eye exam is negative for any icterus. CARD IAC: The patient is regular rate and rhythm. A systolic murmur is appreciated. Mechanical valve i s auscultated. PULMONARY: The patient has limited respiratory effort, but is clear on anterior aus cultation. GASTROINTESTINAL: Positive bowel sounds. Abdomen is obese and soft. MUSCULOSKELETAL: Negative for any lower extremity edema. SKIN: Negative for any rashes. NEUROLOGIC: The patient is barely arousable on sternal rub, but will answer questions with repeated sternal rubbing. DATA: Noncontrast CT of the head, which I personally reviewed and interpreted, shows no acute bleed s or ischemia. LABORATORY: White count 4.4, hematocrit 38.0, platelets of 202. INR is 1.2. Creatinine 1.3. Urin alysis is negative. ASSESSMENT AND PLAN: This is a 41-year-old male presenting with acute somnolence. 1. Acute prescription medication intoxication. The patient appears to be over sedated likely from narcotic and sedating prescription medications. Will send a stat drug screen. The patient is curre ntly protecting his airway, so will not treat with Narcan. He will be admitted to the stepdown unit for close monitoring. Will hold all narcotic and sedating medications. This is a very concerning development and misuse of medical prescriptions. Will involve our Psychiatry consultants when the p atient is able to interview and interact. 2. Hypertrophic cardiomyopathy. The patient's cardiac medications can be continued. 3. Recent automatic implantable cardioverter-defibrillator pocket hematoma. The patient is not to be bridged with Lovenox therapy because of this. Will continue with warfarin therapy. 4. Mechanical mitral valve. As above, Cardiology specifically requested that no Lovenox bridging b e provided. Will continue the patient's warfarin therapy. Follow daily INR. 5. Prophylaxis. As above, no Lovenox. The patient can have SCDs. 6. Diet. N.p.o., as he is too somnolent to safely swallow. DISPOSITION: I expect greater than 2 midnights. The patient is presenting with prescription medication intoxication requiring monitoring and weaning . I have discussed the case with the emergency room physician. The patient will be triaged to the stepdown unit for close monitoring and care. /[id number]/MODL
[2016-09-26] MEDS ORDERED: BISACODYL 5 MG EC TAB PO PRN (15:53)
[2016-09-26] MEDS ORDERED: WARFARIN SODIUM 5 MG TAB PO SCH (16:00)
--- NOTE | 2016-09-26 16:29 | CPEKG ---
Heart Rate: 63 RR Interval: 952 P-R Interval: 232 QRSD Interval: 136 QT Interval: 472 QTC Interval: 484 P [place]: 50 QRS [place]: -25 T Wave [place]: 148 EKG Severity - ABNORMAL ECG - EKG Impression: SINUS RHYTHM EKG Impression: FIRST DEGREE AV BLOCK EKG Impression: IVCD EKG Impression: ST DEPRESSION LATERAL LEADS. Electronically Signed By: Candido Piedra 27-Sep-2016 09:08:30
--- NOTE | 2016-09-26 19:05 | PDCARPN ---
Cardiology Progress Note Chief Complaint: altered mental status Assessment/Plan: Assessment: 1. altered mental status. 2. status post ICD generator change complicated by pocket hematoma: Resolved 3. nonischemic cardiomyopathy with chronically elevated troponin. Last ejection fraction 40%. 4. history of hypertrophic obstructive cardiomyopathy status post septal myectomy and mitral valve replacement with mechanical mitral valve. 5. History of atrial fibrillation status post ablation. Impression: Recent generator change site appears to be healing well without erythema or edema. There is no recurrent hematoma of significance.Troponin levels at baseline. EKG unchanged. Continue current medical therapy including ramu inhibitor, beta-liseth. Anticoagulation for mechanical mitral valve. Repeat limited echocardiogram in the morning to reassess mitral valve. 09/26/16 19:01 Subjective: 41-year-old male well known to our service readmitted today when his found him obtunded. She reported that he was severely diaphoretic. She reported that he had perioral cyanosis. He does not recall any of this. On arrival to the emergency department that was the 1st thing he remembered. Currently he denies significant chest pain, shortness of breath, PND, orthopnea. His pacer site has been healing well without significant complaints. He did state in the emergency department he was severely diaphoretic and was concerned that his mitral valve was stuck. He has a history of a nonischemic cardiomyopathy status post angiogram in 2016 confirming normal coronaries. At that time his ejection fraction was 40%. He has AICD in place which recently reached end of life and had the generator changed. . This was complicated by a hematoma requiring evacuation. He has a remote history of hypertrophic cardiomyopathy status post myectomy as well as replacement of the mitral valve. His mechanical valve has been functioning properly. He has a history of atrial fibrillation status post ablation. Cardiac review of systems is negative for chest pain, shortness of breath, PND , orthopnea, palpitations, syncope, near syncope, edema.. General review of systems is positive for diaphoresis. Objective: Ambulatory Orders Aspirin [Aspirin 81mg (*)] 81 mg PO DAILY 09/26/16 Bisacodyl [Dulcolax] 5 mg PO DAILY PRN 09/26/16 Cyclobenzaprine [Flexeril 10 MG (*)] 10 mg PO BID 09/26/16 Gabapentin [Neurontin 300 MG (*)] 900 mg PO TID 09/26/16 HYDROmorphone HCL [Dilaudid 4 mg (*)] 4 mg PO TID 09/26/16 LORazepam [Ativan (*)] 0.5 mg PO TID PRN 09/26/16 Levothyroxine [Synthroid 100 mcg (*)] 100 mcg PO DAILY 09/26/16 Lisinopril [Zestril 10 mg (*)] 10 mg PO DAILY 09/26/16 Lurasidone HCl [Latuda] 20 mg PO HS 09/26/16 Metoprolol Tartrate [Lopressor 25 mg (*)] 75 mg PO BID 09/26/16 OLANZapine [Zyprexa] 20 mg PO HS 09/26/16 Omeprazole 40 mg PO HS PRN 09/26/16 Topiramate [Topamax 100MG (*)] 100 mg PO HS 09/26/16 Topiramate [Topamax 25MG (*)] 25 mg PO HS 09/26/16 Venlafaxine Xr [Effexor Xr] 150 mg PO HS 09/26/16 Warfarin Sodium [Coumadin 5MG (*)] 5 mg PO SUTUTHSA@0900 09/26/16 Warfarin Sodium [Coumadin 7.5MG (*)] 7.5 mg PO MOWEFR@0900 09/26/16 Zolpidem Tartrate [Ambien 5MG (*)] 10 mg PO HS PRN 09/26/16 clonazePAM [klonoPIN (*)] 1 mg PO BID 09/26/16 hydrOXYzine HCL [Hydroxyzine HCl] 100 mg PO DAILY PRN 09/26/16 oxyCODONE IR [Oxycodone Ir (*)] 10 mg PO QID PRN 09/26/16 Laboratory Tests 09/26/16 11:25 Troponin I 0.139 H NT-Pro-B Natriuret Pep 639 H Vital Signs (8 Hrs) Temp Pulse Resp BP Pulse Ox 09/26/16 16:00 36.1 C 59 L 16 88/50 L 97 09/26/16 14:21 36.5 C 67 14 112/66 100 09/26/16 13:53 36.9 C 64 15 115/79 93 Intake/Output (24 Hrs) 09/25/16 09/26/16 09/27/16 05:59 05:59 05:59 Intake Total 434 Output Total 425 Balance 9 Intake: Oral (ml) 100 IV Intake (ml) 334 Output: Urine (ml) 425 Urinal 425 Other: Weight 99.798 kg Result Diagrams: 09/26/16 11:25 09/26/16 11:25 EKG: Sinus rhythm with lateral ST-T changes - Physical Exam Eyes: anicteric sclera Ears, Nose, Mouth, Throat: moist mucous membranes Cardiovascular: regular rate and rhythm, other ( pacer site is clean and dry. No significant hematoma. No erythema. Dressing intact), No no rubs, No no gallops Peripheral Pulses: 1+: carotid (R), carotid (L) Respiratory: clear to auscultate bilat, no crackles, no wheezes Gastrointestinal: normoactive bowel sounds, no tenderness, no masses Genitourinary: no suprapubic tenderness Skin: no rashes Neurologic: AAOx3 Psychiatric: other ( sleepy) Lymph, Heme, Immunologic: no lymphadenopathy ICD10 Worksheet Patient Problems: Problems Problem Status Onset Mood disorder Active Chest pain Acute Shortness of breath Acute History of coronary artery disease Acute Troponin level elevated Acute Lightheadedness Acute Acute chest pain Acute Nonischemic cardiomyopathy Acute Malfunction of cardiac pacemaker battery Acute Chest wall pain Acute Chest wall pain Acute Chest wall hematoma Acute Encephalopathy acute Acute Review of Systems - Review of Systems Constitutional: chills, diaphoresis, malaise Respiratory: no symptoms reported Cardiac: no symptoms reported Gastrointestinal/Abdominal: no symptoms reported Genitourinary: no symptoms Past Medical History - Personal History Current Tetanus/Diphtheria Vaccine: Yes Tetanus Vaccine Date: <10 YRS - Medical/Surgical History Hx Asthma: No Hx Chronic Respiratory Disease: No Hx Cardiac Disease: Yes Hx Diabetes: No Hx Renal Disease: No Hx Alcoholism: No Hx Cirrhosis: No Hx HIV/AIDS: No Hx Splenectomy or Spleen Trauma: No Other PMH: Polysubstance abuse, hypertrophic cardiomyopathy, HI, mitral valve replacement mechanical valve, pacer defib., PTSD, degenerative bone disease, depression, hypertension, hep c, migraines, gerd, hypothyroid - Social History Smoking Status: Current every day smoker Drug Use: Marijuana
[2016-09-26] MEDS: METOPROLOL TARTRATE 25 MG TAB PO SCH (20:01)
[2016-09-26] MEDS ORDERED: VENLAFAXINE XR 150 MG CAP PO SCH (21:00)
[2016-09-26] MEDS ORDERED: TOPIRAMATE 100 MG TAB PO SCH (22:09)
[2016-09-26] MEDS ORDERED: PANTOPRAZOLE SODIUM 40 MG TAB PO PRN (22:46)
[2016-09-26] MEDS ORDERED: TOPIRAMATE 25 MG TAB PO SCH (22:49)
[2016-09-26] MEDS ORDERED: clonazePAM 1 MG TAB PO ONE (22:49)
[2016-09-27] MEDS ORDERED: LEVOTHYROXINE 100 MCG TAB PO SCH (06:00)
[2016-09-27 06:03] VITALS: BP 114/70; TEMP 98.4
[2016-09-27] MEDS: ACETAMINOPHEN 325 MG TAB PO PRN (06:25)
[2016-09-27 06:39] LABS: % IMMATURE GRANULYOCYTES 0.6 % (0.0-1.1); ABSOLUTE IMMATURE GRANULOCYTES 0.03 10^3/uL (0.00-0.10); ADD DIFF? NO; ADD MORPH? NO; ADD SCAN? NO; ATYPICAL LYMPHOCYTE FLAG 0 (0-99); FRAGMENT RBC FLAG 0 (0-99); HEMATOCRIT 35.1 % (40.0-51.0); HEMOGLOBIN 11.3 g/dL (13.7-17.5); LEFT SHIFT FLG 0 (0-99); LIPEMIA HEMOLYSIS FLAG 80 (0-99); MEAN CELL HEMOGLOBIN CONCENTR. 32.2 g/dL (32.4-36.7); MEAN CELL VOLUME 80.7 fL (81.5-99.8); MEAN PLATELET VOLUME 9.9 fL (8.7-11.7); PLATELET CLUMPS FLAG 0 (0-99); PLATELET COUNT 177 10^3/uL (150-400); RED BLOOD CELL COUNT 4.35 10^6/uL (4.40-6.38); RED CELL DISTRIBUTION WIDTH 16.8 % (11.5-15.2)
[2016-09-27 07:14] LABS: ANION GAP 6 mEq/L (8-16); CALCIUM 8.6 mg/dL (8.5-10.4); CARBON DIOXIDE 24 mEq/l (22-31); CHLORIDE 111 mEq/L (97-110); CREATININE 0.9 mg/dL (0.7-1.3); GLOMERULAR FILTRATION RATE > 60; GLUCOSE 95 mg/dL (70-100); POTASSIUM 4.7 mEq/L (3.5-5.2); SODIUM 141 mEq/L (134-144)
[2016-09-27 07:53] VITALS: PULSE 82; RESP 20; O2SAT 95
[2016-09-27] MEDS ORDERED: LISINOPRIL 10 MG TAB PO SCH (09:00)
[2016-09-27] MEDS ORDERED: ASPIRIN 81 MG CHEWABLE TAB PO SCH (09:00)
[2016-09-27] MEDS ORDERED: WARFARIN SODIUM 7.5 MG TAB PO SCH (09:00)
[2016-09-27] MEDS ORDERED: PANTOPRAZOLE SODIUM 40 MG TAB PO PRN (09:00)
[2016-09-27] MEDS: METOPROLOL TARTRATE 25 MG TAB PO SCH (09:52)
--- NOTE | 2016-09-27 10:34 | ECHO ---
[id number] + + [address] : : [place] [address] : : [phone] + Adult Echocardiographic Report + --------+ :Name: DEWAYNEALIDA SAPP JStudy Date: 09/27/2016 08:07 AM : : Hospital Admission Number: [id number] Locat ion: 241: :: 1975 Gender: Male Height: 72 in : :Age: 41 yrs Race: WH Weight: 220 l b : :Reason For Study: Eval MV prosthesis in setting of incomplete : :anticoagulation BSA: 2.2 mete rs2 : :History: Pacer : + --------+ MMode/2D Measurements \T\ Calculations IVSd: 0.61 cm LVIDd: 5.7 cm EDV(Teich): Ao root diam: LVPWd: 1.3 cm 159.9 ml 3.3 cm LA dimension: 4.5 cm LVLd ap4: 9.1 cm SV(MOD-sp4): EDV(MOD-sp4): 61.0 ml 131.0 ml LVLs ap4: 8.7 cm ESV(MOD-sp4): 70.0 ml EF(MOD-sp4): 46.6 % Normal Measurement Values: + + :LVIDd (3.5-5.7cm) IVSd (0.6-1.1cm) LVPWd (0.6-1.1cm) Aortic Root (2.0-3.7cm)Left Atrium (1.5-4.0cm): :LV Vol(d) (76-115ml) LV Vol(s) (29-48ml) Ejec Fraction (50-65%)PV Charly (0.6- 1.2m/s) TV Charly (0.4-1.0m/s) : :MV E Charly (0.8-1.0m/s)MV A Charly (0.3-1.0m/s)LVOT Charly (0.7-1.2m/s) Asc Ao Charly ( 0.9-1.8m/s) : + + Doppler Measurements \T\ Calculations MV E max charly: MV V2 mean: MV P1/2t max charly: Ao mean P.1 cm/sec 155.6 cm/sec 224.0 cm/sec 6.5 mmHg MV A max charly: MV mean PG: MV P1/2t: 142.5 msec Ao V2 mean: 92.6 cm/sec 10.3 mmHg MVA(P1/2t): 1.5 cm2 120.6 cm/sec MV E/A: 2.3 MV V2 VTI: MV dec slope: Ao V2 VTI: MV dec time: 66.7 cm 460.4 cm/sec2 33.1 cm 0.42 sec Left Ventricle The left ventricle is mildly dilated. There is normal left ventricular wall thickness. There is Doppler evidence for diastolic dysfunction. EF estimate is 40-45%. LV entire inferior/inferoseptal lynn are akinetic. Right Ventricle The right ventricle is normal in size and function. There is a pacemaker lead in the right ventricle. Atria The left atrium is moderate to severely dilated. Right atrial size is normal. The interatrial septum is intact with no evidence for an atrial septal defect. Mitral Valve There is a mechanical mitral valve. MV mean PG is 10mmHG. Tricuspid Valve Normal tricuspid valve. There is trace tricuspid regurgitation. Aortic Valve The aortic valve opens well. There is no aortic stenosis. There is no aortic insufficiency. Pulmonic Valve The pulmonic valve is normal in structure and function. Trace pulmonic valvular regurgitation. Great Vessels The aortic root is normal size. Pericardium/Pleural There is no pericardial effusion. Conclusion A complete two-dimensional transthoracic echocardiogram was performed (2D, M-mode, Doppler and color flow Doppler). The left ventricle is mildly dilated. LV entire inferior/inferoseptal lynn are akinetic. There is Doppler evidence for diastolic dysfunction. EF estimate is 40-45%. There is a pacemaker lead in the right ventricle. The left atrium is moderate to severely dilated. There is a mechanical mitral valve. MV mean PG is 10mmHG. There is trace tricuspid regurgitation. Trace pulmonic valvular regurgitation. Final Reading Physician: Steve Garces signed on 09/27/2016 10:33 AM Ordering Physician: ALEX ESCAMILLA Performed By: Allyson Oneill, MEECS
--- NOTE | 2016-09-27 14:39 | GDS ---
[f rep st] DISCHARGE SUMMARY DISCHARGE DIAGNOSES: Include. 1. Acute narcotic and marijuana intoxication. 2. Respiratory depression secondary to intoxication. 3. Hypertrophic cardiomyopathy. 4. AICD pocket hematoma. 5. Chronic pain with continuous narcotic dependency. 6. Marijuana abuse. 7. Mitral valve replacement with mechanical valve on chronic anticoagulation. 8. History of aortic thrombus. 9. History of myomectomy. 10. Atrial fibrillation, status post ablation. 11. Hypothyroidism. 12. Hepatitis C. 13. Posttraumatic stress disorder. 14. Migraines. 15. Degenerative joint disease. HISTORY OF PRESENT ILLNESS: A 41-year-old male who has had multiple hospitalizations in the last co uple weeks for AICD battery exchange and pocket hematoma. The patient was discharged on 09/23/2016 to follow with his pain doctor on 09/25/2016 for refills of scripts. He was provided with bridging narcotic medications to cover the 1-1/3 days that he reported he be without medications. The patien t returned to the hospital obtunded with respiratory depression secondary to use of narcotics. Cons ultative services include Cardiology procedures on this patient. Echocardiography was performed, ev aluating mitral valve which is unchanged. HOSPITAL COURSE: By issue. 1. Acute narcotic and marijuana intoxication. The patient presented obtunded with respiratory depr ession. A urine tox screen confirmed extremely high levels of opiates and THC in the patient's bloo d. The patient was admitted to the stepdown unit for monitoring. No benzodiazepine-sedating medica tions or narcotics were provided for 24 hours. The patient was conversant and in normal health the morning following presentation. I believe this patient is abusing prescription medications and he i s manipulating his use of inpatient hospitalizations and the outpatient care for misuse of controlle d substances and sedating medications. I will not write ongoing narcotic pain medications for this patient. I recommend that the rest of the hospital group follow suit. Patient has been instructed by me that if he wants controlled substances they need to be written for by his pain doctor for whom he contracts in the outpatient setting. The patient was discharged without prescriptions to follow with his outpatient pain doctor. 2. Polysubstance abuse. Patient had very high levels of THC also in his blood. He has clearly mis using recreational substances in the setting of prescription drugs, another violation of pain contra ct. 3. Hypertrophic cardiomyopathy. Patient was continued on his home medications without alteration. 4. A recent AICD pocket hematoma. Patient's physical examination is stable. Device is functional. He will follow in the outpatient setting with Cardiology. He was not provided with Lovenox bridgi ng or prophylaxis during the stay, has been instructed to continue taking his Coumadin until therape utic levels. MEDICATIONS AT THE TIME OF DISPOSITION: I did not change the patient's home medications at discharg e. Again, did not provide any prescriptions for this patient either. He has been instructed to pre sent to his outpatient pain doctor for weaning and discontinuation of medications. He has also been educated to stop misusing marijuana products in the setting of multiple controlled substances. PENDING STUDIES: At the time of this dictation are none. TIME SPENT: I spent greater than 30 minutes in the planning and coordination of this discharge. /[id number]/MODL
[2016-09-28] MEDS ORDERED: WARFARIN SODIUM 5 MG TAB PO SCH (09:00)
== END 2016-09-27 11:50 | disposition home or self-care (01) | DRG 897 ==
LOC: F2N 14:09
PROVIDERS: ADMIT Hospitalist; ATTEND Hospitalist
DX: F11.229 Opioid dependence with intoxication, unspecified (principal); I42.2 Other hypertrophic cardiomyopathy; F12.129 Cannabis abuse with intoxication, unspecified; G93.89 Other specified disorders of brain; G89.29 Other chronic pain; I48.91 Unspecified atrial fibrillation; E03.9 Hypothyroidism, unspecified; B19.20 Unspecified viral hepatitis C without hepatic coma; F43.10 Post-traumatic stress disorder, unspecified; G43.909 Migraine, unspecified, not intractable, without status migrainosus; I10 Essential (primary) hypertension; Z72.0 Tobacco use; Z95.4 Presence of other heart-valve replacement; Z79.01 Long term (current) use of anticoagulants; Z95.810 Presence of automatic (implantable) cardiac defibrillator
CPT/HCPCS: 80305; 80307; G0480

== ENCOUNTER 2016-09-28 18:29 | Emergency (ER) | payer MEDICAID ==
[2016-09-28 18:43] VITALS: BP 124/93; PULSE 65; RESP 18; TEMP 98.4; O2SAT 96
--- NOTE | 2016-09-28 18:57 | EDPHY ---
H & P Time Seen by Provider: 09/28/16 18:46 HPI/ROS: CHIEF COMPLAINT: Drainage from surgical site HISTORY OF PRESENT ILLNESS: The patient is a 41 y/o male complaining of drainage from the site of his recent pacemaker placement. The AICD was placed about [address] Chisholm, cardiology. He developed subsequent pocket hematoma that required admission; he was discharged home yesterday. He was instructed to keep his arms down while healing, but he reports he has been sleeping with his arms above his head up for comfort. Today after taking a nap with his arms above his head he woke with drainage on his bandages and shift seeping from the left anterior chest surgical site. Overall he feels better since his admission. He denies pain, fever. REVIEW OF SYSTEMS: Constitutional: No fever, no chills Eyes: No visual changes ENT: No sore throat Respiratory: No cough, no shortness of breath Cardiac: No chest pain Gastrointestinal: No nausea, no vomiting, no abdominal pain Past Medical/Surgical History: Recent pacemaker placement by Dr. Chisholm. Social History: . Smoker. Medicaid patient. Smoking Status: Current every day smoker Physical Exam: General Appearance: Alert, no distress Eyes: Pupils equal and round, no conjunctival pallor or injection ENT, Mouth: Mucous membranes moist Neck: Normal inspection Respiratory: Lungs are clear to auscultation Cardiovascular: Regular rate and rhythm Gastrointestinal: Abdomen is soft and non-tender Neurological: A&O, nonfocal, normal gait Skin: No fluctuance, erythema, warmth or swelling at surgical site on left anterior chest. Steristrips moist but in place over site. Extremities: Nontender, no edema Psychiatric: Mood and affect normal Constitutional: Initial Vital Signs Temperature (C) 36.9 C 09/28/16 18:40 Heart Rate 65 09/28/16 18:40 Respiratory Rate 18 09/28/16 18:40 Blood Pressure 124/93 H 09/28/16 18:40 O2 Sat (%) 96 09/28/16 18:40 O2 Delivery Mode Room Air Allergies/Adverse Reactions: amiodarone Allergy (Intermediate, Verified 09/26/16 15:14) Hives, swelling Home Medications: Medication Instructions Recorded Aspirin [Aspirin 81mg (*)] 81 mg PO DAILY 09/26/16 Bisacodyl [Dulcolax] 5 mg PO DAILY PRN 09/26/16 Cyclobenzaprine [Flexeril 10 MG 10 mg PO BID 09/26/16 (*)] Gabapentin [Neurontin 300 MG (*)] 900 mg PO TID 09/26/16 HYDROmorphone HCL [Dilaudid 4 mg 4 mg PO TID 09/26/16 (*)] LORazepam [Ativan (*)] 0.5 mg PO TID PRN 09/26/16 Levothyroxine [Synthroid 100 mcg 100 mcg PO DAILY 09/26/16 (*)] Lisinopril [Zestril 10 mg (*)] 10 mg PO DAILY 09/26/16 Lurasidone HCl [Latuda] 20 mg PO HS 09/26/16 Metoprolol Tartrate [Lopressor 25 75 mg PO BID 09/26/16 mg (*)] OLANZapine [Zyprexa] 20 mg PO HS 09/26/16 Omeprazole 40 mg PO HS PRN 09/26/16 Topiramate [Topamax 100MG (*)] 100 mg PO HS 09/26/16 Topiramate [Topamax 25MG (*)] 25 mg PO HS 09/26/16 Venlafaxine Xr [Effexor Xr] 150 mg PO HS 09/26/16 Warfarin Sodium [Coumadin 5MG (*)] 5 mg PO SUTUTHSA@0900 09/26/16 Warfarin Sodium [Coumadin 7.5MG 7.5 mg PO MOWEFR@0900 09/26/16 (*)] Zolpidem Tartrate [Ambien 5MG (*)] 10 mg PO HS PRN 09/26/16 clonazePAM [klonoPIN (*)] 1 mg PO BID 09/26/16 hydrOXYzine HCL [Hydroxyzine HCl] 100 mg PO DAILY PRN 09/26/16 oxyCODONE IR [Oxycodone Ir (*)] 10 mg PO QID PRN 09/26/16 Medical Decision Making ED Course/Re-evaluation: Surgical site examined and found to be negative for any signs of infection. No erythema, fluctuance, warmth, streaking, or edema. Re-bandaged patient and recommended follow up with his supervisor grower as directed. Reminded him to keep his arms below his head while healing to avoid recurrence of drainage. He agrees with plan for follow up. Return precautions given. Departure - Departure Disposition: Home, Routine, Self-Care Clinical Impression: Drainage from wound Condition: Good Instructions: Surgical Site Infections (ED) Additional Instructions: 1. Follow up with Dr. Chisholm next week. 2. Keep your arms below your head. Do not sleep with your arms above your head to prevent recurrence. Referrals: Jerry Chisholm MD [Medical Doctor] - As per Instructions Report Scribed for: Cassandra Case Report Scribed by: Scarlet Solitario Date of Report: 09/28/16 Time of Report: 18:57 Physician Review and Approval Statement: 09/28/16 18:57 Portions of this note were transcribed by a certified medical asst. I personally performed a history, physical exam, medical decision making, and confirmed accuracy of information the transcribed note.
--- NOTE | 2016-09-28 18:59 | CPEKG ---
Heart Rate: 62 RR Interval: 968 P-R Interval: 196 QRSD Interval: 136 QT Interval: 428 QTC Interval: 435 P [place]: -1 QRS [place]: -31 T Wave [place]: 169 EKG Severity - ABNORMAL ECG - EKG Impression: SINUS RHYTHM EKG Impression: LEFT BUNDLE BRANCH BLOCK Electronically Signed By: Candido Piedra 29-Sep-2016 12:14:49
== END 2016-09-28 19:09 | disposition home or self-care (01) ==
LOC: EDUNIT#
DX: T81.4XXA Infection following a procedure, initial encounter (principal); F17.200 Nicotine dependence, unspecified, uncomplicated; Z79.01 Long term (current) use of anticoagulants; Z79.82 Long term (current) use of aspirin; Z95.0 Presence of cardiac pacemaker; Y82.8 Other medical devices associated with adverse incidents

== ENCOUNTER 2016-11-08 21:28 | Emergency (ER) | payer MEDICAID ==
--- NOTE | 2016-11-08 21:44 | CPEKG ---
Heart Rate: 79 RR Interval: 759 P-R Interval: 180 QRSD Interval: 126 QT Interval: 436 QTC Interval: 500 P [place]: 28 QRS [place]: -36 T Wave [place]: 113 EKG Severity - ABNORMAL ECG - EKG Impression: SINUS RHYTHM EKG Impression: VENTRICULAR PREMATURE COMPLEX EKG Impression: PROBABLE LEFT ATRIAL ABNORMALITY EKG Impression: LVH WITH IVCD, LAD AND SECONDARY REPOL ABNRM Electronically Signed By: Elbert Morales 09-Nov-2016 08:53:32
[2016-11-08 22:10] LABS: ANION GAP 8 mEq/L (8-16); CARBON DIOXIDE 23 mEq/l (22-31); CHLORIDE 111 mEq/L (97-110); CREATININE 1.1 mg/dL (0.7-1.3); GLOMERULAR FILTRATION RATE > 60; GLUCOSE 108 mg/dL (70-100); POTASSIUM 3.9 mEq/L (3.5-5.2); SODIUM 142 mEq/L (134-144)
[2016-11-08 22:11] LABS: % IMMATURE GRANULYOCYTES 0.6 % (0.0-1.1); ABSOLUTE IMMATURE GRANULOCYTES 0.05 10^3/uL (0.00-0.10); ADD DIFF? NO; ADD MORPH? NO; ADD SCAN? NO; ATYPICAL LYMPHOCYTE FLAG 10 (0-99); FRAGMENT RBC FLAG 20 (0-99); HEMATOCRIT 43.4 % (40.0-51.0); HEMOGLOBIN 14.1 g/dL (13.7-17.5); LEFT SHIFT FLG 0 (0-99); LIPEMIA HEMOLYSIS FLAG 80 (0-99); MEAN CELL HEMOGLOBIN 25.7 pg (27.9-34.1); MEAN CELL HEMOGLOBIN CONCENTR. 32.5 g/dL (32.4-36.7); MEAN CELL VOLUME 79.2 fL (81.5-99.8); MEAN PLATELET VOLUME 10.4 fL (8.7-11.7); PLATELET CLUMPS FLAG 10 (0-99); PLATELET COUNT 273 10^3/uL (150-400); RED BLOOD CELL COUNT 5.48 10^6/uL (4.40-6.38); RED CELL DISTRIBUTION WIDTH 18.1 % (11.5-15.2)
[2016-11-08 22:22] LABS: TROPONIN I 0.163 ng/mL (0-0.034)
[2016-11-08 22:26] LABS: INR 2.27 (0.83-1.16); PROTIME(PATIENT) 25.2 SEC (12.0-15.0)
[2016-11-08] MEDS ORDERED: KETOROLAC 30 MG/1 ML SDV IVP ONE (22:55)
[2016-11-08] MEDS ORDERED: PROMETHAZINE HCL 25 MG/ML INJ ONE (22:56)
[2016-11-08] MEDS ORDERED: KETOROLAC 15 MG/1 ML SDV ONE (22:56)
[2016-11-08] MEDS ORDERED: PROMETHAZINE HCL 25 MG/ML INJ IVP ONE (23:01)
--- NOTE | 2016-11-09 02:05 | EDPHY ---
H & P Stated Complaint: CP Time Seen by Provider: 11/08/16 22:02 HPI/ROS: HPI The patient presents with chest pain which began about 1 hour prior to arrival while lying down after eating a dinner of risperidone knee. The pain is pressure like and stabbing, it has been intermittent, lasting for minutes at a time, it does not radiate, it is located in his mid chest. He has had this pain numerous times before. He was recently admitted for AICD placement. He says he has been taking his medications, he denies any current drug use. He has not had any shortness of breath, nausea, vomiting, dizziness, diaphoresis. He has had a dry cough for the last 1 day. He reports increased stress at home because his partner may have a heart condition. REVIEW OF SYSTEMS Constitutional: No fever, no chills. Eyes: No discharge. ENT: No sore throat. Cardiovascular: Positive for chest pain, no palpitations. Respiratory: Positive for cough, no shortness of breath. Gastrointestinal: No abdominal pain, no vomiting. Genitourinary: No hematuria. Musculoskeletal: No back pain. Skin: No rashes. Neurological: No headache. PMHx: Hypertrophic cardiomyopathy with history of AICD, mitral valve replacement on anticoagulation, history of MD, GERD Soc Hx: History of drug abuse PHYSICAL General Appearance: Alert, no distress Eyes: Pupils equal and round no pallor or injection ENT, Mouth: Mucous membranes moist Respiratory: There are no retractions, lungs are clear to auscultation Cardiovascular: Regular rate and rhythm Gastrointestinal: Abdomen is soft and non-tender, no masses, bowel sounds normal Neurological: A&O, moves all extremities Skin: Warm and dry, no rashes Musculoskeletal: Neck is supple non tender Extremities: symmetrical, full range of motion Psychiatric: Patient is oriented X 3, there is no agitation Source: Patient, EMS Exam Limitations: No limitations - Personal History Current Tetanus/Diphtheria Vaccine: Yes Current Tetanus Diphtheria and Acellular Pertussis (TDAP): Yes Tetanus Vaccine Date: <10 YRS - Medical/Surgical History Hx Asthma: No Hx Chronic Respiratory Disease: No Hx Diabetes: No Hx Cardiac Disease: Yes Hx Renal Disease: No Hx Cirrhosis: No Hx Alcoholism: No Hx HIV/AIDS: No Hx Splenectomy or Spleen Trauma: No Other PMH: Polysubstance abuse, hypertrophic cardiomyopathy, [place], mitral valve replacement mechanical valve, pacer defib., PTSD, degenerative bone disease, depression, hypertension, hep c, migraines, gerd, hypothyroid - Social History Smoking Status: Current every day smoker Constitutional: Initial Vital Signs Temperature (C) 37.1 C 11/08/16 21:28 Heart Rate 80 11/08/16 21:28 Respiratory Rate 16 11/08/16 21:28 Blood Pressure 103/69 11/08/16 21:28 O2 Sat (%) 91 L 11/08/16 21:28 O2 Delivery Mode Room Air Allergies/Adverse Reactions: amiodarone Allergy (Intermediate, Verified 09/26/16 15:14) Hives, swelling Home Medications: Medication Instructions Recorded Aspirin [Aspirin 81mg (*)] 81 mg PO DAILY 09/26/16 Bisacodyl [Dulcolax] 5 mg PO DAILY PRN 09/26/16 Cyclobenzaprine [Flexeril 10 MG 10 mg PO BID 09/26/16 (*)] Gabapentin [Neurontin 300 MG (*)] 900 mg PO TID 09/26/16 HYDROmorphone HCL [Dilaudid 4 mg 4 mg PO TID 09/26/16 (*)] LORazepam [Ativan (*)] 0.5 mg PO TID PRN 09/26/16 Levothyroxine [Synthroid 100 mcg 100 mcg PO DAILY 09/26/16 (*)] Lisinopril [Zestril 10 mg (*)] 10 mg PO DAILY 09/26/16 Lurasidone HCl [Latuda] 20 mg PO HS 09/26/16 Metoprolol Tartrate [Lopressor 25 75 mg PO BID 09/26/16 mg (*)] OLANZapine [Zyprexa] 20 mg PO HS 09/26/16 Omeprazole 40 mg PO HS PRN 09/26/16 Topiramate [Topamax 100MG (*)] 100 mg PO HS 09/26/16 Topiramate [Topamax 25MG (*)] 25 mg PO HS 09/26/16 Venlafaxine Xr [Effexor Xr] 150 mg PO HS 09/26/16 Warfarin Sodium [Coumadin 5MG (*)] 5 mg PO SUTUTHSA@0900 09/26/16 Warfarin Sodium [Coumadin 7.5MG 7.5 mg PO MOWEFR@0900 09/26/16 (*)] Zolpidem Tartrate [Ambien 5MG (*)] 10 mg PO HS PRN 09/26/16 clonazePAM [klonoPIN (*)] 1 mg PO BID 09/26/16 hydrOXYzine HCL [Hydroxyzine HCl] 100 mg PO DAILY PRN 09/26/16 oxyCODONE IR [Oxycodone Ir (*)] 10 mg PO QID PRN 09/26/16 Medical Decision Making - Diagnostics EKG Interpretation: EKG 1.: Complete interpretation has been separately recorded in the [facility] archive. Summary impression: T-wave inversions in 1, aVL, unchanged from old EKG EKG 2: Complete interpretation has been separately recorded in the [facility] archive. Summary impression: Unchanged from 1st. Imaging Results: Imaging Impressions Chest X-Ray 11/08/16 21:59 Impression: Stable chest Imaging: I viewed and interpreted images myself Differential Diagnosis: This is a 41-year-old male with complicated past cardiac history including hypertrophic cardiomyopathy with AICD, mitral valve replacement on anticoagulation, CAD, hypertension, substance abuse who presents brought in by ambulance for chest pain which began an hour prior to presentation. This is associated with a dry cough and feels like his prior episodes of chest pain. He now does not have chest pain. Differential diagnosis includes ACS, GERD, anxiety, pneumothorax, pneumonia. In the emergency room, the patient was monitored, he had no recurrence of his pain. Serial troponins were obtained and were elevated, though on par with his prior troponins. EKGs were unremarkable showing no signs of acute ischemia. I doubt ACS in this case given these findings. He has had this pain numerous times before. I have stressed the importance of following up with his sales associate cashier Dr. Chisholm. He is in agreement with this plan and is comfortable being discharged from the emergency room. - Data Points Laboratory Results: Laboratory Results 11/08/16 21:35 11/08/16 21:35 11/09/16 11/08/16 11/08/16 00:30 21:35 21:35 WBC 8.89 10^3/uL 10^3/uL (3.80-9.50) RBC 5.48 10^6/uL 10^6/uL (4.40-6.38) Hgb 14.1 g/dL g/dL (13.7-17.5) Hct 43.4 % % (40.0-51.0) MCV 79.2 fL L fL (81.5-99.8) MCH 25.7 pg L pg (27.9-34.1) MCHC 32.5 g/dL g/dL (32.4-36.7) RDW 18.1 % H % (11.5-15.2) Plt Count 273 10^3/uL 10^3/uL (150-400) MPV 10.4 fL fL (8.7-11.7) Neut % (Auto) 44.1 % % (39.3-74.2) Lymph % (Auto) 42.0 % % (15.0-45.0) [place] % (Auto) 9.9 % % (4.5-13.0) Eos % (Auto) 3.0 % % (0.6-7.6) Baso % (Auto) 0.4 % % (0.3-1.7) Nucleat RBC Rel Count 0.0 % % (0.0-0.2) Absolute Neuts (auto) 3.92 10^3/uL 10^3/uL (1.70-6.50) Absolute Lymphs (auto) 3.73 10^3/uL H 10^3/uL (1.00-3.00) Absolute Monos (auto) 0.88 10^3/uL H 10^3/uL (0.30-0.80) Absolute Eos (auto) 0.27 10^3/uL 10^3/uL (0.03-0.40) Absolute Basos (auto) 0.04 10^3/uL 10^3/uL (0.02-0.10) Absolute Nucleated RBC 0.00 10^3/uL 10^3/uL (0-0.01) Immature Gran % 0.6 % % (0.0-1.1) Immature Gran # 0.05 10^3/uL 10^3/uL (0.00-0.10) PT INR Sodium 142 mEq/L mEq/L (134-144) Potassium 3.9 mEq/L mEq/L (3.5-5.2) Chloride 111 mEq/L H mEq/L (97-110) Carbon Dioxide 23 mEq/l mEq/l (22-31) Anion Gap 8 mEq/L mEq/L (8-16) BUN 13 mg/dL mg/dL (7-23) Creatinine 1.1 mg/dL mg/dL (0.7-1.3) Estimated GFR > 60 Glucose 108 mg/dL H mg/dL (70-100) Calcium 10.0 mg/dL mg/dL (8.5-10.4) Troponin I 0.177 ng/mL H ng/mL 0.163 ng/mL H ng/mL (0-0.034) (0-0.034) 11/08/16 21:25 WBC RBC Hgb Hct MCV MCH MCHC RDW Plt Count MPV Neut % (Auto) Lymph % (Auto) [place] % (Auto) Eos % (Auto) Baso % (Auto) Nucleat RBC Rel Count Absolute Neuts (auto) Absolute Lymphs (auto) Absolute Monos (auto) Absolute Eos (auto) Absolute Basos (auto) Absolute Nucleated RBC Immature Gran % Immature Gran # PT 25.2 SEC H SEC (12.0-15.0) INR 2.27 H (0.83-1.16) Sodium Potassium Chloride Carbon Dioxide Anion Gap BUN Creatinine Estimated GFR Glucose Calcium Troponin I Medications Given: Discontinued Medications Ketorolac Tromethamine (Toradol) 15 mg IVP EDNOW ONE Stop: 11/08/16 22:56 Last Admin: 11/08/16 23:02 Dose: 15 mg Promethazine HCl (Phenergan) 12.5 mg IVP EDNOW ONE Stop: 11/08/16 23:02 Last Admin: 11/08/16 23:02 Dose: 12.5 mg Departure - Departure Disposition: Home, Routine, Self-Care Clinical Impression: Acute chest pain Condition: Good Instructions: Chest Pain (ED) Additional Instructions: Please follow-up with the sales associate cashier tomorrow. Referrals: THONG RICE [Other] - As per Instructions Jerry Chisholm MD [Medical Doctor] - As per Instructions
--- NOTE | 2016-11-09 02:10 | CPEKG ---
Heart Rate: 67 RR Interval: 896 P-R Interval: 172 QRSD Interval: 124 QT Interval: 424 QTC Interval: 448 P [place]: 23 QRS [place]: -31 T Wave [place]: 143 EKG Severity - ABNORMAL ECG - EKG Impression: SINUS RHYTHM EKG Impression: LVH WITH IVCD AND SECONDARY REPOL ABNRM Electronically Signed By: Francie Hu 09-Nov-2016 15:37:30
[2016-11-09 02:17] VITALS: BP 116/64; PULSE 60; RESP 16; TEMP 97.9; O2SAT 94
== END 2016-11-09 02:17 | disposition home or self-care (01) ==
LOC: EDUNIT#
DX: R07.89 Other chest pain (principal); I25.2 Old myocardial infarction; F17.200 Nicotine dependence, unspecified, uncomplicated; I10 Essential (primary) hypertension; Z79.01 Long term (current) use of anticoagulants; Z79.82 Long term (current) use of aspirin
CPT/HCPCS: 96374; J1885; J2550

== ENCOUNTER 2016-11-16 13:34 | Emergency (ER) | payer MEDICAID ==
--- NOTE | 2016-11-16 14:15 | CPEKG ---
Heart Rate: 64 RR Interval: 938 P-R Interval: 196 QRSD Interval: 152 QT Interval: 456 QTC Interval: 471 P [place]: 16 QRS [place]: -31 T Wave [place]: 144 EKG Severity - ABNORMAL ECG - EKG Impression: SINUS RHYTHM EKG Impression: PROBABLE LEFT ATRIAL ABNORMALITY EKG Impression: LVH WITH IVCD AND SECONDARY REPOL ABNRM Electronically Signed By: Zan Cash 16-Nov-2016 15:07:44
[2016-11-16 14:20] LABS: % IMMATURE GRANULYOCYTES 0.5 % (0.0-1.1); ABSOLUTE IMMATURE GRANULOCYTES 0.04 10^3/uL (0.00-0.10); ABSOLUTE NRBC COUNT 0.04 10^3/uL (0-0.01); ADD DIFF? NO; ADD MORPH? NO; ADD SCAN? NO; ATYPICAL LYMPHOCYTE FLAG 20 (0-99); FRAGMENT RBC FLAG 20 (0-99); HEMATOCRIT 43.2 % (40.0-51.0); LEFT SHIFT FLG 0 (0-99); LIPEMIA HEMOLYSIS FLAG 80 (0-99); MEAN CELL HEMOGLOBIN CONCENTR. 32.4 g/dL (32.4-36.7); MEAN CELL VOLUME 80.3 fL (81.5-99.8); NRBC-AUTO% 0.5 % (0.0-0.2); PLATELET CLUMPS FLAG 10 (0-99); PLATELET COUNT 195 10^3/uL (150-400); RED BLOOD CELL COUNT 5.38 10^6/uL (4.40-6.38); RED CELL DISTRIBUTION WIDTH 18.3 % (11.5-15.2)
--- NOTE | 2016-11-16 14:41 | EDPHY ---
H & P Stated Complaint: confusion, ataxia Source: Patient Exam Limitations: No limitations - Personal History Tetanus Vaccine Date: <10 YRS - Medical/Surgical History Hx Asthma: No Hx Chronic Respiratory Disease: No Hx Diabetes: No Hx Cardiac Disease: Yes Hx Renal Disease: No Hx Cirrhosis: No Hx Alcoholism: No Hx HIV/AIDS: No Hx Splenectomy or Spleen Trauma: No Other PMH: Polysubstance abuse, hypertrophic cardiomyopathy, [place], mitral valve replacement mechanical valve, pacer defib., PTSD, degenerative bone disease, depression, hypertension, hep c, migraines, gerd, hypothyroid - Social History Smoking Status: Current every day smoker Time Seen by Provider: 11/16/16 14:16 HPI/ROS: CHIEF COMPLAINT: Confusion, altered mental status, somnolence HISTORY OF PRESENT ILLNESS: Patient has a history of hypertrophic cardiomyopathy and pacemaker. The patient presents to the ED with acute confusion and altered mental status. The patient has a history of admission to the hospital for acute encephalopathy secondary to narcotic and marijuana use. The patient tells me that he did start narcotics and smoked marijuana earlier today. The patient does have a history of chronic chest pain which is not worsened today. The patient denies any history of syncope or dyspnea. The patient denies fever, cough congestion. The patient has not had recent follow up with his scouts. The patient was admitted to the hospital for polysubstance encephalopathy approximately 2 months ago. REVIEW OF SYSTEMS: A comprehensive 10 point review of systems is otherwise negative aside from elements mentioned in the history of present illness. (Zan Cash) - Physical Exam Exam: General Appearance: Alert, somnolent, appears under the influence sedating medication Eyes: Pupils equal and round no pallor or injection ENT, Mouth: Mucous membranes moist Respiratory: There are no retractions, lungs are clear to auscultation Cardiovascular: Regular rate and rhythm Gastrointestinal: Abdomen is soft and nontender, no masses, bowel sounds normal Neurological: A&O, normal motor function, normal sensory exam, normal cranial nerves Skin: Warm and dry, no rashes Musculoskeletal: Neck is supple nontender Extremities: symmetrical, full range of motion (Zan Cash) Constitutional: Initial Vital Signs Temperature (C) 36.5 C 11/16/16 13:37 Heart Rate 70 11/16/16 13:37 Respiratory Rate 18 11/16/16 13:37 Blood Pressure 99/70 L 11/16/16 13:37 O2 Sat (%) 92 11/16/16 13:37 O2 Delivery Mode Nasal Cannula O2 (L/minute) 2 Allergies/Adverse Reactions: amiodarone Allergy (Intermediate, Verified 09/26/16 15:14) Hives, swelling Home Medications: Medication Instructions Recorded Aspirin [Aspirin 81mg (*)] 81 mg PO DAILY 09/26/16 Bisacodyl [Dulcolax] 5 mg PO DAILY PRN 09/26/16 Cyclobenzaprine [Flexeril 10 MG 10 mg PO BID 09/26/16 (*)] Gabapentin [Neurontin 300 MG (*)] 900 mg PO TID 09/26/16 HYDROmorphone HCL [Dilaudid 4 mg 4 mg PO TID 09/26/16 (*)] LORazepam [Ativan (*)] 0.5 mg PO TID PRN 09/26/16 Levothyroxine [Synthroid 100 mcg 100 mcg PO DAILY 09/26/16 (*)] Lisinopril [Zestril 10 mg (*)] 10 mg PO DAILY 09/26/16 Lurasidone HCl [Latuda] 20 mg PO HS 09/26/16 Metoprolol Tartrate [Lopressor 25 75 mg PO BID 09/26/16 mg (*)] OLANZapine [Zyprexa] 20 mg PO HS 09/26/16 Omeprazole 40 mg PO HS PRN 09/26/16 Topiramate [Topamax 100MG (*)] 100 mg PO HS 09/26/16 Topiramate [Topamax 25MG (*)] 25 mg PO HS 09/26/16 Venlafaxine Xr [Effexor Xr] 150 mg PO HS 09/26/16 Warfarin Sodium [Coumadin 5MG (*)] 5 mg PO SUTUTHSA@0909/26/16 Warfarin Sodium [Coumadin 7.5MG 7.5 mg PO MOWEFR@0909/26/16 (*)] Zolpidem Tartrate [Ambien 5MG (*)] 10 mg PO HS PRN 09/26/16 clonazePAM [klonoPIN (*)] 1 mg PO BID 09/26/16 hydrOXYzine HCL [Hydroxyzine HCl] 100 mg PO DAILY PRN 09/26/16 oxyCODONE IR [Oxycodone Ir (*)] 10 mg PO QID PRN 09/26/16 Medical Decision Making - Diagnostics EKG Interpretation: EKG: Complete interpretation has been separately recorded in the [facility] archive. Summary impression: Sinus rhythm, chronic ST segment changes are noted (Zan Cash) ED Course/Re-evaluation: I reviewed the patient's past medical records. He presents to the ED with altered mental status after using marijuana and narcotics prior to arrival. The patient has no acute changes noted on his EKG. The patient is quite somnolent. He does have evidence of miosis. The patient did receive supplemental oxygen was placed on a groundwater monitoring technician. He received 0.4 mg of IV Narcan. The patient will be turned over to Dr. Rojas at 3:00 p.m. for further care. (Zan Cash) I took over care of this patient at 3:30 p.m.. The patient presents with altered mental status after using marijuana and snorting narcotics prior to arrival. He has been given 0.4 mg of IV Narcan. Plan is discussed with Dr. Cash is to observe the patient in the emergency department for sustained sobriety and discharge if appropriate. 4:50 p.m., patient re-evaluated. He is up and ambulatory around the emergency department without difficulty. He is awake and alert. He is responding to questions appropriately. He is requesting discharge. I discussed my concerns regarding his significant medical history and his substance abuse. I discussed admitting him for observation. He does not want to do this. His is currently in the room. He states that he wants to go home with his . His endorses this plan. Follow-up and return to emergency department precautions were thoroughly reviewed with him. All of his questions were answered. He was discharged in good condition with his . (Paolo Rojas) Differential Diagnosis: Differential diagnosis considered includes acute coronary syndrome, substance abuse, metabolic abnormality, encephalopathy (Zan Cash) - Data Points Laboratory Results: Laboratory Results 11/16/16 14:00 11/16/16 14:00 11/16/16 11/16/16 11/16/16 15:05 14:00 14:00 WBC 7.77 10^3/uL 10^3/uL (3.80-9.50) RBC 5.38 10^6/uL 10^6/uL (4.40-6.38) Hgb 14.0 g/dL g/dL (13.7-17.5) Hct 43.2 % % (40.0-51.0) MCV 80.3 fL L fL (81.5-99.8) MCH 26.0 pg L pg (27.9-34.1) MCHC 32.4 g/dL g/dL (32.4-36.7) RDW 18.3 % H % (11.5-15.2) Plt Count 195 10^3/uL 10^3/uL (150-400) MPV 10.0 fL fL (8.7-11.7) Neut % (Auto) 41.4 % % (39.3-74.2) Lymph % (Auto) 44.4 % % (15.0-45.0) [place] % (Auto) 10.2 % % (4.5-13.0) Eos % (Auto) 3.1 % % (0.6-7.6) Baso % (Auto) 0.4 % % (0.3-1.7) Nucleat RBC Rel Count 0.5 % H % (0.0-0.2) Absolute Neuts (auto) 3.22 10^3/uL 10^3/uL (1.70-6.50) Absolute Lymphs (auto) 3.45 10^3/uL H 10^3/uL (1.00-3.00) Absolute Monos (auto) 0.79 10^3/uL 10^3/uL (0.30-0.80) Absolute Eos (auto) 0.24 10^3/uL 10^3/uL (0.03-0.40) Absolute Basos (auto) 0.03 10^3/uL 10^3/uL (0.02-0.10) Absolute Nucleated RBC 0.04 10^3/uL H 10^3/uL (0-0.01) Immature Gran % 0.5 % % (0.0-1.1) Immature Gran # 0.04 10^3/uL 10^3/uL (0.00-0.10) PT 31.2 SEC H SEC (12.0-15.0) INR 2.96 H (0.83-1.16) Sodium 136 mEq/L mEq/L (134-144) Potassium 4.4 mEq/L mEq/L (3.5-5.2) Chloride 107 mEq/L mEq/L (97-110) Carbon Dioxide 14 mEq/l L mEq/l (22-31) Anion Gap 15 mEq/L mEq/L (8-16) BUN 14 mg/dL mg/dL (7-23) Creatinine 1.6 mg/dL H mg/dL (0.7-1.3) Estimated GFR 48 Glucose 109 mg/dL H mg/dL (70-100) Calcium 9.8 mg/dL mg/dL (8.5-10.4) Medications Given: Discontinued Medications Sodium Chloride (Ns) 1,000 mls @ 0 mls/hr IV ONCE ONE; Wide Open PRN Reason: Protocol Stop: 11/16/16 14:57 Last Admin: 11/16/16 14:57 Dose: 1,000 mls Naloxone HCl (Narcan) 0.4 mg IVP EDNOW ONE Stop: 11/16/16 14:58 Last Admin: 11/16/16 15:10 Dose: 0.4 mg Departure - Departure Disposition: Home, Routine, Self-Care Clinical Impression: Polysubstance abuse Condition: Good Instructions: Narcotic Abuse (ED) Additional Instructions: Read and follow provided instructions. Follow-up with your primary care physician in 1-2 days for re-evaluation. Take your medication as prescribed only. Do not drink alcohol. Return to the emergency department for chest pain, shortness of breath or other serious concerns. Referrals: DORACS,ANNE MARIE [Other] - As per Instructions
[2016-11-16] MEDS ORDERED: NS 1,000 ML IV ONE (14:56)
[2016-11-16] MEDS ORDERED: NALOXONE HCL 0.4 MG/ML INJ IVP ONE (14:57)
[2016-11-16 15:20] LABS: ANION GAP 15 mEq/L (8-16); CALCIUM 9.8 mg/dL (8.5-10.4); CARBON DIOXIDE 14 mEq/l (22-31); CHLORIDE 107 mEq/L (97-110); CREATININE 1.6 mg/dL (0.7-1.3); GLOMERULAR FILTRATION RATE 48; GLUCOSE 109 mg/dL (70-100); POTASSIUM 4.4 mEq/L (3.5-5.2); SODIUM 136 mEq/L (134-144)
[2016-11-16 15:27] LABS: INR 2.96 (0.83-1.16); PROTIME(PATIENT) 31.2 SEC (12.0-15.0)
[2016-11-16 17:07] VITALS: BP 141/88; PULSE 67; RESP 20; TEMP 98.6; O2SAT 97
== END 2016-11-16 17:17 | disposition home or self-care (01) ==
DX: F19.10 Other psychoactive substance abuse, uncomplicated (principal); I25.2 Old myocardial infarction; I10 Essential (primary) hypertension; F17.200 Nicotine dependence, unspecified, uncomplicated; Z79.01 Long term (current) use of anticoagulants; Z79.82 Long term (current) use of aspirin
CPT/HCPCS: 96374; J2310

== ENCOUNTER 2016-11-29 15:44 | Inpatient (IN) | payer MEDICAID ==
--- NOTE | 2016-11-29 15:56 | CPEKG ---
Heart Rate: 63 RR Interval: 952 P-R Interval: 180 QRSD Interval: 130 QT Interval: 444 QTC Interval: 455 P [place]: 25 QRS [place]: -35 T Wave [place]: 128 EKG Severity - ABNORMAL ECG - EKG Impression: SINUS RHYTHM EKG Impression: PROBABLE LEFT ATRIAL ABNORMALITY EKG Impression: LVH WITH IVCD AND SECONDARY REPOL ABNRM Electronically Signed By: Kvng Tijerina 29-Nov-2016 22:23:15
--- NOTE | 2016-11-29 16:10 | EDPHY ---
H & P Stated Complaint: syncopal episode, palpitation, chest pressure since this morning Time Seen by Provider: 11/29/16 15:51 HPI/ROS: Chief Complaint: Syncope, chest tightness, headache HPI: 41-year-old male with a past medical history of hypertrophic cardiomyopathy with an AICD and a history migraine headaches. Patient woke up this morning with a migraine headache. Has had intermittent palpitations all morning. Still unwell all day. Patient was found unconscious by his in the hallway. Patient states he does not recall the event. States his AICD has never fired. Has not had any changes test tightness. His headache is a little bit worse since he fell. Some nausea, no fevers or chills. No cough. No urinary symptoms. No abdominal pain. No neck pain, numbness or tingling. Chest tightness is about a 4/10, headache is currently an 8/10. ROS: 10 point Review of Systems is negative except as noted in the HPI. PMH: Hypertrophic cardio myopathy with outflow tract obstruction status post septoplasty in [place] AICD/pacemaker placement Mitral valve replacement with mechanical valve Migraine headache Hepatitis-C, hypertension, degenerative bone disease Allergies: Amiodarone causes anaphylaxis Social History: Positive smoking, no alcohol, occasional marijuana Family History: non-contributory Physical Exam: Gen: Awake, Alert, No Distress HEENT: Nose: no rhinorrhea Eyes: PERRLA, EOMI Mouth: Moist mucosa Neck: Supple, no JVD Chest: nontender, lungs clear to auscultation Heart: S1, S2 normal, no murmur Abd: Soft, non-tender, no guarding Back: no CVA tenderness, no midline tenderness Ext: no edema, non-tender Skin: no rash Neuro: CN II-XII intact, Sensation grossly intact, Strength 5/5 in bilateral upper and lower extremities - Personal History Tetanus Vaccine Date: <10 YRS - Medical/Surgical History Hx Asthma: No Hx Chronic Respiratory Disease: No Hx Diabetes: No Hx Cardiac Disease: Yes Hx Renal Disease: No Hx Cirrhosis: No Hx Alcoholism: No Hx HIV/AIDS: No Hx Splenectomy or Spleen Trauma: No Other PMH: Polysubstance abuse, hypertrophic cardiomyopathy, [place], mitral valve replacement mechanical valve, pacer defib., PTSD, degenerative bone disease, depression, hypertension, hep c, migraines, gerd, hypothyroid - Social History Smoking Status: Current every day smoker Constitutional: Initial Vital Signs Temperature (C) 37.1 C 11/29/16 15:52 Heart Rate 85 11/29/16 15:52 Respiratory Rate 18 11/29/16 15:52 Blood Pressure 129/94 H 11/29/16 15:52 O2 Sat (%) 94 11/29/16 15:52 O2 Delivery Mode Room Air Allergies/Adverse Reactions: amiodarone Allergy (Intermediate, Verified 09/26/16 15:14) Hives, swelling Home Medications: Medication Instructions Recorded Aspirin [Aspirin 81mg (*)] 81 mg PO DAILY 09/26/16 Bisacodyl [Dulcolax] 5 mg PO DAILY PRN 09/26/16 Cyclobenzaprine [Flexeril 10 MG 10 mg PO BID 09/26/16 (*)] Gabapentin [Neurontin 300 MG (*)] 900 mg PO TID 09/26/16 HYDROmorphone HCL [Dilaudid 4 mg 4 mg PO TID 09/26/16 (*)] LORazepam [Ativan (*)] 0.5 mg PO TID PRN 09/26/16 Levothyroxine [Synthroid 100 mcg 100 mcg PO DAILY 09/26/16 (*)] Lisinopril [Zestril 10 mg (*)] 10 mg PO DAILY 09/26/16 Lurasidone HCl [Latuda] 20 mg PO HS 09/26/16 Metoprolol Tartrate [Lopressor 25 75 mg PO BID 09/26/16 mg (*)] OLANZapine [Zyprexa] 20 mg PO HS 09/26/16 Omeprazole 40 mg PO HS PRN 09/26/16 Topiramate [Topamax 100MG (*)] 100 mg PO HS 09/26/16 Topiramate [Topamax 25MG (*)] 25 mg PO HS 09/26/16 Venlafaxine Xr [Effexor Xr] 150 mg PO HS 09/26/16 Warfarin Sodium [Coumadin 5MG (*)] 5 mg PO SUTUTHSA@0900 09/26/16 Warfarin Sodium [Coumadin 7.5MG 7.5 mg PO MOWEFR@0900 09/26/16 (*)] Zolpidem Tartrate [Ambien 5MG (*)] 10 mg PO HS PRN 04/25/17 clonazePAM [klonoPIN (*)] 1 mg PO BID 09/26/16 hydrOXYzine HCL [Hydroxyzine HCl] 100 mg PO DAILY PRN 09/26/16 oxyCODONE IR [Oxycodone Ir (*)] 10 mg PO QID PRN 09/26/16 Medical Decision Making - Diagnostics EKG Interpretation: ECG time 1551, sinus rhythm, noted left atrial abnormality. There is a left ventricular hypertrophy with intraventricular conduction abduction delay and secondary repolarization abnormality. ECG is unchanged compared to 11/16/2016 Imaging Results: CT scan shows a subtle left high parietal intraparenchymal bleed that is 3-5 mm with surrounding edema. This is a new finding since September. interpreted by Dr. Ramsay. Imaging: Discussed imaging studies w/ call person Radiologist ED Course/Re-evaluation: 41-year-old male with a history of hypertrophic cardiomyopathy who is presenting with palpitations, syncopal episode today, headache and chest tightness. He is on warfarin. Patient states his headache is worse after his syncopal episode. Complaining of some mild scalp tenderness but has not on my examination. Given the worsening his headache and his anticoagulation will get a CT scan of his brain. Patient has an AICD in place and had a syncopal event with no recollection of events. He has a [employer] instrument. They have been paged to interrogate his AICD. Blood work will be sent. Will give him IV fluids and analgesia for his headache. He has no new acute ECG changes. Report received from Dr. Ramsay, radiology. Patient has a subtle left high parietal intraparenchymal bleed. INR is 1.7. I have discussed with Dr. Mondragon , neurosurgery. She is recommending reversing his warfarin now and repeat scan tomorrow. She will consult on the patient. Troponin is noted to be 0.19. Still awaiting patient's ICD interrogation. I have discussed with Dr. Dahl, hospitalist. He will admit to his service. Neurosurgery be consulting. Dr. Dahl will consult Cardiology as needed. - Data Points Laboratory Results: Laboratory Results 11/29/16 16:00 11/29/16 16:00 11/29/16 11/29/16 11/29/16 16:00 16:00 16:00 WBC 6.36 10^3/uL 10^3/uL (3.80-9.50) RBC 5.08 10^6/uL 10^6/uL (4.40-6.38) Hgb 13.7 g/dL g/dL (13.7-17.5) Hct 40.3 % % (40.0-51.0) MCV 79.3 fL L fL (81.5-99.8) MCH 27.0 pg L pg (27.9-34.1) MCHC 34.0 g/dL g/dL (32.4-36.7) RDW 18.2 % H % (11.5-15.2) Plt Count 216 10^3/uL 10^3/uL (150-400) MPV 9.8 fL fL (8.7-11.7) Neut % (Auto) 60.0 % % (39.3-74.2) Lymph % (Auto) 29.6 % % (15.0-45.0) [place] % (Auto) 8.2 % % (4.5-13.0) Eos % (Auto) 1.4 % % (0.6-7.6) Baso % (Auto) 0.5 % % (0.3-1.7) Nucleat RBC Rel Count 0.0 % % (0.0-0.2) Absolute Neuts (auto) 3.82 10^3/uL 10^3/uL (1.70-6.50) Absolute Lymphs (auto) 1.88 10^3/uL 10^3/uL (1.00-3.00) Absolute Monos (auto) 0.52 10^3/uL 10^3/uL (0.30-0.80) Absolute Eos (auto) 0.09 10^3/uL 10^3/uL (0.03-0.40) Absolute Basos (auto) 0.03 10^3/uL 10^3/uL (0.02-0.10) Absolute Nucleated RBC 0.00 10^3/uL 10^3/uL (0-0.01) Immature Gran % 0.3 % % (0.0-1.1) Immature Gran # 0.02 10^3/uL 10^3/uL (0.00-0.10) PT 20.4 SEC H SEC (12.0-15.0) INR 1.74 H (0.83-1.16) APTT 31.4 SEC SEC (23.0-38.0) Sodium 140 mEq/L mEq/L (134-144) Potassium 3.9 mEq/L mEq/L (3.5-5.2) Chloride 110 mEq/L mEq/L (97-110) Carbon Dioxide 18 mEq/l L mEq/l (22-31) Anion Gap 12 mEq/L mEq/L (8-16) BUN 14 mg/dL mg/dL (7-23) Creatinine 1.1 mg/dL mg/dL (0.7-1.3) Estimated GFR > 60 Glucose 89 mg/dL mg/dL (70-100) Calcium 9.2 mg/dL mg/dL (8.5-10.4) Troponin I 0.196 ng/mL H ng/mL (0-0.034) Medications Given: Discontinued Medications Haloperidol Lactate (Haldol Injection) 2.5 mg IVP EDNOW ONE Stop: 11/29/16 16:16 Last Admin: 11/29/16 16:35 Dose: 2.5 mg Sodium Chloride (Ns) 1,000 mls @ 0 mls/hr IV ONCE ONE PRN Reason: Wide Open Stop: 11/29/16 16:15 Last Admin: 11/29/16 16:30 Dose: 1,000 mls Departure - Departure Disposition: [facility] Inpatient Acute Clinical Impression: Intraparenchymal hemorrhage of brain, Syncope, Elevated troponin Condition: Serious Referrals: Patient,NotPresent [Unknown] - As per Instructions
[2016-11-29] MEDS ORDERED: NS 1,000 ML IV ONE (16:14)
[2016-11-29] MEDS ORDERED: HALOPERIDOL LACT 5 MG/ML INJ IVP ONE (16:15)
[2016-11-29 16:17] LABS: % IMMATURE GRANULYOCYTES 0.3 % (0.0-1.1); ABSOLUTE IMMATURE GRANULOCYTES 0.02 10^3/uL (0.00-0.10); ADD DIFF? NO; ADD MORPH? NO; ADD SCAN? NO; ATYPICAL LYMPHOCYTE FLAG 10 (0-99); FRAGMENT RBC FLAG 0 (0-99); HEMATOCRIT 40.3 % (40.0-51.0); HEMOGLOBIN 13.7 g/dL (13.7-17.5); LEFT SHIFT FLG 0 (0-99); LIPEMIA HEMOLYSIS FLAG 90 (0-99); MEAN CELL VOLUME 79.3 fL (81.5-99.8); MEAN PLATELET VOLUME 9.8 fL (8.7-11.7); PLATELET CLUMPS FLAG 0 (0-99); PLATELET COUNT 216 10^3/uL (150-400); RED BLOOD CELL COUNT 5.08 10^6/uL (4.40-6.38); RED CELL DISTRIBUTION WIDTH 18.2 % (11.5-15.2)
[2016-11-29 16:26] LABS: INR 1.74 (0.83-1.16); PROTIME(PATIENT) 20.4 SEC (12.0-15.0)
[2016-11-29 16:27] LABS: APTT 31.4 SEC (23.0-38.0)
[2016-11-29 16:28] LABS: ANION GAP 12 mEq/L (8-16); CALCIUM 9.2 mg/dL (8.5-10.4); CARBON DIOXIDE 18 mEq/l (22-31); CHLORIDE 110 mEq/L (97-110); CREATININE 1.1 mg/dL (0.7-1.3); GLOMERULAR FILTRATION RATE > 60; GLUCOSE 89 mg/dL (70-100); POTASSIUM 3.9 mEq/L (3.5-5.2); SODIUM 140 mEq/L (134-144)
[2016-11-29 16:40] LABS: TROPONIN I 0.196 ng/mL (0-0.034)
[2016-11-29] MEDS ORDERED: ONDANSETRON 4 MG/2 ML VIAL IVP PRN (17:40)
[2016-11-29] MEDS ORDERED: ONDANSETRON DISINTEGRATING 4 MG TAB PO PRN (17:40)
[2016-11-29] MEDS ORDERED: oxyCODONE IR 5 MG TAB ONE (17:48)
[2016-11-29] MEDS ORDERED: ONDANSETRON DISINTEGRATING 4 MG TAB ONE (17:48)
[2016-11-29] MEDS: oxyCODONE IR 5 MG TAB PO PRN (17:53)
--- NOTE | 2016-11-29 18:10 | PDCONSULT ---
Mapper Note: neurosurgery dictation [id number]
--- NOTE | 2016-11-29 18:26 | GHP ---
[f rep st] HISTORY AND PHYSICAL DATE OF ADMISSION: 11/29/2016 HISTORY OF PRESENT ILLNESS: The patient is a 41-year-old gentleman with a history of hypertrophic o bstructive cardiomyopathy, AICD, ventricular tachycardia, cardiac arrest and mechanical mitral valve who had a syncopal episode today. He woke up with a migraine headache. He said he did not get out of bed for a while. He finally got up this afternoon to walk across. He does recall feeling lighth eaded or dizziness. He does not recall his AICD going off. He has not had diarrhea. He has not santiago d vomiting. He did not eat or drink today. He does not take diuretics. The next thing he knew, hi s was waking him up. Here in the emergency department, we are awaiting interrogation of his pa cemaker. He denies fevers, chills, cough, sputum, nausea, vomiting, diarrhea. REVIEW OF SYSTEMS: Complete 10-point review of systems conducted, negative except as noted in the H PI. PAST MEDICAL HISTORY: 1. ICD with recent battery exchange in September of this year. 2. ICD pocket hematoma, status post evacuation. 3. Hypertrophic obstructive cardiomyopathy. 4. Chronic pain with continuous narcotic dependency. 5. Polysubstance abuse, although his last meth or cocaine was in April, he did smoke marijuana y esterday. 6. Mitral valve replacement with mechanical valve. 7. History of aortic thrombus on chronic anticoagulation. 8. History of myomectomy. 9. Atrial fibrillation, status post ablation. 10. Chronic upper extremity neuropathy. 11. Hypothyroidism. 12. Hepatitis C. 13. PTSD. 14. Migraines. 15. Degenerative joint disease. SOCIAL HISTORY: Currently lives with his . He smokes a half pack a day. Denies alcohol. Uses chronic narcotics and uses marijuana. FAMILY HISTORY: Notable for hypertrophic cardiomyopathy in his mother and a nephew. ALLERGIES: Amiodarone. HOME MEDICATIONS: Oxycodone, hydroxyzine, clonazepam, Ambien, warfarin, venlafaxine, Topamax, omepr azole, olanzapine, Toprol, lurasidone, lisinopril, levothyroxine, Ativan, hydromorphone, gabapentin, cyclobenzaprine, bisacodyl, aspirin. PHYSICAL EXAMINATION: PRESENTING VITAL SIGNS: Temperature 37.1, blood pressure 129/94, pulse 85, b reathing 18 times a minute, 94% on room air. GENERAL: No acute distress. Chronically ill-appearin gAntonia HEENT: Sclerae anicteric. Oropharynx clear. Mucous membranes moist. NECK: Supple without ly mphadenopathy or JVD. LUNGS: Clear to auscultation bilaterally. HEART: S1, S2. There is a systo lic click, as well as a systolic murmur. His pacer pocket is without fluctuance or erythema. ABDOM EN: Soft, nontender, nondistended. LOWER EXTREMITIES: Without edema. Calves nontender. SKIN: W ithout rash. Multiple tattoos. NEUROLOGIC: Nonfocal. DIAGNOSTIC STUDIES: A noncontrast head CT is read as new tiny subarachnoid hemorrhage versus petech ial intraparenchymal hemorrhages along the high left parietal convexity with associated edema. I re viewed this with Dr. Lindsey Mondragon of Neurosurgery who is less convinced that this represents an actu al finding. EKG, interpreted by me, shows sinus with left axis deviation. He has LVH with repolari zation abnormalities. This EKG is unchanged from prior. Labs: White count 6.3, hematocrit 40, platelets are 216,000. His MCV is chronically low at about 7 9. INR is 1.75. He does have a history of subtherapeutic INRs going over the last couple months. Sodium 140, potassium 3.9, chloride 110, bicarb 18, BUN 14, creatinine 1.1. About his baseline gluc ose 89. Troponin is 0.196; it sounds like he runs a chronically indeterminate troponin between 0.1 a nd 0.2. I have discussed the case with Dr. José Tijerina. ASSESSMENT/PLAN: This 41-year-old gentleman with multiple comorbidities presents with syncope. 1. Syncope. Uncertain what to make of this. He may be hypovolemic. On the basis of his history, this possibly represents an arrhythmogenic syncope. We will have his automatic implantable cardiove rter-defibrillator interrogated. We will follow him on telemetry. His troponin is chronically elev ated. He is chronically anticoagulated. I think pulmonary embolism appears less likely. We will f ollow him on telemetry. Cycle troponins. Interrogate his automatic implantable cardioverter-defibr illator. 2. Migraine. We will treat this symptomatically. 3. Question intracranial hemorrhage. I have discussed this with Dr. Lindsey Mondragon who feels that we will give him fresh frozen plasma now on repeat a CT in the morning, and hold his warfarin. He is high risk for thromboembolic event from his mechanical mitral valve, so I would like to leave him of f anticoagulation for as short a period of time as possible, so I have ordered a CT scan for tomorro w morning. We will await the answer. 4. Hypertrophic cardiomyopathy. We will continue his medications, and they have been reconciled. 5. Chronic pain. Continue his medications, and they have been reconciled. 6. Prophylaxis. Anticoagulation issued as above. DISPOSITION: Observation status. /[id number]/MODL
--- NOTE | 2016-11-29 18:41 | GHP ---
[f rep st] HISTORY AND PHYSICAL DATE OF ADMISSION: 11/29/2016 CHIEF COMPLAINT: Headache. HISTORY OF PRESENT ILLNESS: This is a 41-year-old male with a history of hypertrophic cardiomyopath y with an AICD and a history of migraine headaches, who stated that he woke up this morning with a m igraine, had intermittent palpitations all morning and was feeling unwell. He then remembers gettin g up from the bed and the next thing he remembers is his waking him up. He was unconscious in the hallway. He does not recall the event. He denies any loss of control of bowel or bladder, or t ongue biting. He states that he did feel his AICD fire. He does complain of some chest pressure. He had a slightly worse headache since he fell and some nausea. No fevers or chills. He has baseli ne numbness and tingling in all hands and fingers secondary to his known peripheral neuropathy. He denies any other significant complaints. PAST MEDICAL HISTORY: Includes hypertrophic cardiomyopathy with outflow tract obstruction status po st septoplasty, AICD and pacemaker, mitral valve replacement with mechanical valve, migraine headach e, hep C, hypertension and degenerative bone disease. SOCIAL HISTORY: Positive for tobacco. No alcohol. He uses occasional marijuana. FAMILY HISTORY: No family history of any contributory illnesses. ALLERGIES: Amiodarone. HOME MEDICATIONS: Include oxycodone, hydroxyzine, clonazepam, Ambien, Coumadin, Effexor, Topamax, o meprazole, Zyprexa, Lopressor, Latuda, Zestril, Synthroid, Ativan, Dilaudid, Neurontin, Flexeril, Du lcolax and aspirin. REVIEW OF SYSTEMS: A complete 10 system review of systems was performed by myself and was negative, except as stated above. PHYSICAL EXAMINATION: VITAL SIGNS: Blood pressure is 141/98, heart rate is 63, respiratory rate is 20, saturating 96% on 2 L nasal cannula, temp is 37.1. GENERAL: He is alert and oriented x3. TODD NT: Pupils equal, round, reactive to light and accommodation. External ocular muscles are intact. There is no facial asymmetry or tongue deviation. NEUROLOGIC: Sensation is intact V1, V2, V3 dist ributions of fifth cranial nerve bilaterally. Strength is 5/5 to bilateral deltoids, biceps, tricep s, wrist flexors, wrist extensors, hand intrinsics, iliopsoas, quadriceps, hamstrings, dorsiflexors, plantar flexors, EHL. DTRs are +2/4, biceps, brachioradialis, patellar and Achilles. There is no Mosquera's. There is no clonus. There is no drift. Sensation is intact to light touch through all dermatomal distributions. LABORATORY DATA: White blood cell count 6.36, hemoglobin 13.7, hematocrit 40.3, platelets are 216. PT is 20.4, INR is 1.74, PTT is 31.4. Sodium 140, potassium 3.9, chloride 110, CO2 of 18, BUN 14, creatinine 1.1. Troponin 0.196. IMAGING: CT of the head reveals a 4 mm petechial hyperdensity on the left high parietal lobe only s een on image 92 of series 3. Minimal decreased attenuation has developed in the underlying white ma tter. No interventricular epidural or subdural hematoma. No mass effect or shift. Ventricular sys tem is normal in caliber and midline. Numerous low attenuation foci in the cerebral hemispheres are unchanged compared to a prior CT. IMPRESSION: This is a 41-year-old male, on Coumadin for hypertrophic cardiomyopathy, with mechanica l valve replacement, who had a headache, had a syncopal episode and now has a small petechial hemorr ace. PLAN: He has already been reversed for his Coumadin. Would hold this overnight. Repeat a head CT in the morning. Given the fact that he has such high risk, I would recommend that he have a repeat head CT in the morning. If this is clear or stable, then he should be able to restart his Coumadin. Please call with any changes in neurologic status. I would not start him on any epileptics. This w as discussed with Medicine. /[id number]/MODL
[2016-11-29] MEDS ORDERED: ZOLPIDEM TARTRATE 5 MG TAB PO PRN (18:51)
[2016-11-29] MEDS ORDERED: BISACODYL 5 MG EC TAB PO PRN (18:51)
[2016-11-29] MEDS ORDERED: clonazePAM 1 MG TAB PO PRN (18:51)
[2016-11-29] MEDS ORDERED: oxyCODONE IR 5 MG TAB PO PRN (18:51)
--- NOTE | 2016-11-29 18:55 | HOSPPROG ---
Hospitalist Progress Note Assessment/Plan: spoke w device rep who interrogated AICD- no events Objective: Vital Signs Temp Pulse Resp BP Pulse Ox 36.9 C 56 L 20 145/94 H 99 11/29/16 18:30 11/29/16 18:30 11/29/16 18:30 11/29/16 18:30 11/29/16 18:30 PT 20.4 SEC (12.0-15.0) H 11/29/16 16:00 INR 1.74 (0.83-1.16) H 11/29/16 16:00 ICD10 Worksheet Patient Problems: Problems Problem Status Onset Elevated troponin Acute Intraparenchymal hemorrhage of brain Acute Syncope Acute Mood disorder Active Acute chest pain Acute Chest pain Acute Chest wall hematoma Acute Chest wall pain Acute Chest wall pain Acute Encephalopathy acute Acute History of coronary artery disease Acute Lightheadedness Acute Malfunction of cardiac pacemaker battery Acute Nonischemic cardiomyopathy Acute Shortness of breath Acute Troponin level elevated Acute
[2016-11-29] MEDS: OLANZapine DISINTEGR 5 MG TAB PO SCH (21:08)
[2016-11-29] MEDS: VENLAFAXINE XR 150 MG CAP PO SCH (21:10)
[2016-11-29] MEDS: TOPIRAMATE 100 MG TAB PO SCH (21:11)
[2016-11-29] MEDS: TOPIRAMATE 25 MG TAB PO SCH (21:11)
[2016-11-29] MEDS: ACETAMINOPHEN 500 MG TAB PO SCH (21:11)
[2016-11-29] MEDS: LURASIDONE HCL 20 MG TAB PO SCH (21:14)
[2016-11-29] MEDS: GABAPENTIN 300 MG CAP PO SCH (21:14)
[2016-11-29] MEDS: HYDROmorphONE/DILAUDID 4 MG TAB PO PRN (21:15)
[2016-11-29] MEDS: CYCLOBENZAPRINE 10 MG TAB PO PRN (21:40)
[2016-11-29] MEDS: METOPROLOL TARTRATE 25 MG TAB PO SCH (22:27)
[2016-11-30] MEDS: ACETAMINOPHEN 500 MG TAB PO SCH ×3 (05:24→20:23)
[2016-11-30] MEDS: HYDROmorphONE/DILAUDID 4 MG TAB PO PRN ×3 (05:24→19:34)
[2016-11-30] MEDS: LEVOTHYROXINE 50 MCG TAB PO SCH (05:25)
[2016-11-30 06:15] LABS: INR 1.58 (0.83-1.16); PROTIME(PATIENT) 18.9 SEC (12.0-15.0)
[2016-11-30 06:16] LABS: ANION GAP 9 mEq/L (8-16); CALCIUM 8.8 mg/dL (8.5-10.4); CARBON DIOXIDE 19 mEq/l (22-31); CHLORIDE 111 mEq/L (97-110); CREATININE 1.1 mg/dL (0.7-1.3); GLOMERULAR FILTRATION RATE > 60; GLUCOSE 92 mg/dL (70-100); POTASSIUM 3.7 mEq/L (3.5-5.2); SODIUM 139 mEq/L (134-144)
--- NOTE | 2016-11-30 08:00 | NEUSURGPN ---
Assessment/Plan: Assessment: 41 yo male that is on Coumadin for valve/cardiomyopathy that had syncopal episode with small left parietal ICH Plan: -left parietal ICH: CT done this am looked ok-await final reading from radiology and if ok Dr Mondragon is ok with restarting coumadin -PT/OT -no MACHADO this am -rested overnight -no new events per RN/Pt -defer to IM for work up of syncope -call with any questions or concerns Subjective: Awake and alert. No new events overnight. No machado/neck/chest/abd or gu complaints. No f/c/n/v/d. Objective: AAO x 3, PERRLA/EOMI no droop CN 2-12 grossly intact +lt touch 5/5 BUE/BLE = Neuro Check Frequency: per routine Urinary Catheter in Place: No - Physician Discussed Patient with Dr.: Mondragon Neurosurgery Physical Exam - Vitals, I&O, Labs I and O 11/29/16 11/30/16 12/01/16 05:59 05:59 05:59 Intake Total 386 Output Total 425 Balance -39 Weight 103.8 kg Intake: Oral (ml) 120 Fresh Frozen Plasma (ml) 266 Output: Urine (ml) 425 Urinal 425 Other: Intake Quantity Yes Sufficient Number of Voids Urinal 1 Vital Signs Temp Pulse Resp BP Pulse Ox 36.5 C 65 17 125/79 H 97 11/30/16 04:00 11/30/16 04:00 11/30/16 04:00 11/30/16 04:00 11/30/16 04:00 Laboratory Results 11/30/16 05:58 ICD10 Worksheet Patient Problems: Problems Problem Status Onset Elevated troponin Acute Intraparenchymal hemorrhage of brain Acute Syncope Acute Mood disorder Active Acute chest pain Acute Chest pain Acute Chest wall hematoma Acute Chest wall pain Acute Chest wall pain Acute Encephalopathy acute Acute History of coronary artery disease Acute Lightheadedness Acute Malfunction of cardiac pacemaker battery Acute Nonischemic cardiomyopathy Acute Shortness of breath Acute Troponin level elevated Acute
[2016-11-30] MEDS: GABAPENTIN 300 MG CAP PO SCH ×3 (08:35→20:22)
[2016-11-30] MEDS: ASPIRIN 81 MG CHEWABLE TAB PO SCH (08:35)
[2016-11-30] MEDS: oxyCODONE IR 5 MG TAB PO PRN ×3 (08:40→16:34)
[2016-11-30] MEDS: METOPROLOL TARTRATE 25 MG TAB PO SCH ×2 (10:28→20:23)
[2016-11-30] MEDS: LISINOPRIL 5 MG TAB PO SCH (10:28)
--- NOTE | 2016-11-30 10:33 | HOSPPROG ---
Hospitalist Progress Note Assessment/Plan: 41 YO male with hx of Hypertrophic Cardiomyopathy s/p AICD admitted for syncope and left sided partial ICH. Warfarin held. Given FFP. Repeat CT pending #Parietal ICH: Per NS. Repeat CT is pending. If no changes they are ok restarting Coumadin. Of note, he has a left sided MACHADO. Neuro yoder, no deficits #Chronic AC: holding warfarin per above #Syncope: unclear etiology. AICD did not show any events. He says he was dizzy before standing up. Also says his BP runs low intermittently. BP was ok yesterday but he did not take any of his meds. He has already received his meds today including Lisinopril 2.5 and Metoprolol 75 which is dosed BID. #Hypertrophic Cardiomyopathy #Chronic Pain #Chronically elevated troponin Plan: -Await CT scan to determine progression. MACHADO per above noted. Await further Neuro pending CT scan -as for the etiology of the Syncope, it is unclear. May be a volume issue or hypoperfusion due to low BP. Will monitor today given restarting BP meds and adjust as needed. Will also check a repeat TTE for comparison purposes, one was already done in September. -cont to hold Aspirin for now -dispo: will change to inpatient. Subjective: Left sided MACHADO this morning. No dizzyness. No focal deficits. Objective: Vital Signs Temp Pulse Resp BP Pulse Ox 36.3 C 73 15 122/81 H 93 11/30/16 08:00 11/30/16 08:00 11/30/16 08:00 11/30/16 08:00 11/30/16 08:00 Laboratory Results 11/30/16 05:58 11/29/16 11/30/16 12/01/16 05:59 05:59 05:59 Intake Total 386 Output Total 425 Balance -39 PT 18.9 SEC (12.0-15.0) H 11/30/16 05:58 INR 1.58 (0.83-1.16) H 11/30/16 05:58 - Time Spent With Patient Time Spent with Patient: greater than 35 minutes Time Spent with Patient: Greater than 35 minutes spent on this patients care, greater than 50% of time spent counseling, educating, and coordinating care regarding the above mentioned plan. - Physical Exam Constitutional: no apparent distress, appears nourished, not in pain Eyes: PERRL, EOMI Ears, Nose, Mouth, Throat: moist mucous membranes, hearing normal Cardiovascular: regular rate and rhythym Respiratory: no respiratory distress, clear to auscultation Gastrointestinal: normoactive bowel sounds, soft, non-tender abdomen Skin: warm Musculoskeletal: full muscle strength Neurologic: AAOx3 Psychiatric: interacting appropriately, not anxious, not encephalopathic ICD10 Worksheet Patient Problems: Problems Problem Status Onset Elevated troponin Acute Intraparenchymal hemorrhage of brain Acute Syncope Acute Mood disorder Active Acute chest pain Acute Chest pain Acute Chest wall hematoma Acute Chest wall pain Acute Chest wall pain Acute Encephalopathy acute Acute History of coronary artery disease Acute Lightheadedness Acute Malfunction of cardiac pacemaker battery Acute Nonischemic cardiomyopathy Acute Shortness of breath Acute Troponin level elevated Acute
[2016-11-30] MEDS: CYCLOBENZAPRINE 10 MG TAB PO PRN (12:44)
--- NOTE | 2016-11-30 13:43 | ECHO ---
[id number] + + [address] : : [place] [address] : : [phone] + + Adult Echocardiographic Report + --------+ :Name: DEWAYNEALIDA SAPP JStudy Date: 11/30/2016 09:52 AM BP: 122/81 mm Hg : : Hospital Admission Number: [id number] Locat ion: 244: :: 1975 Gender: Male Height: 72 in : :Age: 41 yrs Race: Weight: 228 l b : :Reason For Study: syncope : : BSA: 2.3 mete rs2 : :History: MVR /myectomy 2009 : + --------+ MMode/2D Measurements \T\ Calculations RVDd: 2.8 cm LVLd ap4: 9.2 cm SV(MOD-sp4): 75.0 ml EDV(MOD-sp4): 183.0 ml LVLs ap4: 8.4 cm ESV(MOD-sp4): 108.0 ml EF(MOD-sp4): 41.0 % Normal Measurement Values: + + :LVIDd (3.5-5.7cm) IVSd (0.6-1.1cm) LVPWd (0.6-1.1cm) Aortic Root (2.0-3.7cm)Left Atrium (1.5-4.0cm): :LV Vol(d) (76-115ml) LV Vol(s) (29-48ml) Ejec Fraction (50-65%)PV Charly (0.6- 1.2m/s) TV Charly (0.4-1.0m/s) : :MV E Charly (0.8-1.0m/s)MV A Charly (0.3-1.0m/s)LVOT Charly (0.7-1.2m/s) Asc Ao Charly ( 0.9-1.8m/s) : + + Doppler Measurements \T\ Calculations MV V2 mean: MV P1/2t max charly: Ao V2 max: LV V1 max: 105.0 cm/sec 151.3 cm/sec 128.0 cm/sec 97.7 cm/sec MV mean PG: MV P1/2t: 111.1 msec Ao max PG: LV V1 max P.8 mmHg MVA(P1/2t): 2.0 cm2 6.6 mmHg 3.8 mmHg MV V2 VTI: 52.1 cm MV dec slope: 398.6 cm/sec2 Left Ventricle The left ventricle is normal in size. There is normal left ventricular wall thickness. Left ventricular systolic function is mildly reduced. Ejection Fraction = 45%. Basal to mid infero/anteroseptal thinning and akinesis consistent with h/o myectomy. Right Ventricle The right ventricle is normal in size and function. There is a pacemaker lead in the right ventricle. Atria The left atrium is mildly dilated. The Left Atrial Volume is 40 ml/m2. Right atrial size is normal. Mitral Valve Mean gradient across the MVR 5 mmHg. There is no mitral regurgitation noted. There is a bi-leaflet ([employer]) mechanical prosthesis. Tricuspid Valve The tricuspid valve is normal in structure and function. There is no tricuspid stenosis. No tricuspid regurgitation. Aortic Valve The aortic valve is not well visualized. There is no aortic stenosis. There is no aortic insufficiency. Pulmonic Valve The pulmonic valve is not well visualized. Great Vessels The aortic root is normal size. Pericardium/Pleural There is no pericardial effusion. Conclusion Technically difficult parasternal window. 1. The left ventricle is normal in size. Basal to mid anteroseptal thinning and akinesis consistent with h/o myectomy. Left ventricular systolic function is mildly reduced. The Ejection Fraction = 45%. 2. The left atrium is mildly dilated. 3. There is a bi-leaflet ([employer]) mechanical prosthesis. Mean gradient across the MVR 5 mmHg. 4. The aortic valve is not well visualized. There is no aortic stenosis. There is no aortic insufficiency. 5. When compared to the 09/27/16 study The mean mitral valve gradient has decreased from 10 to 5 mmHg. Final Reading Physician: Varun Mccabe MD electronically signed on 11/30/2016 01:41 PM Ordering Physician: Remi Moon Performed By: Patrizia Washington
[2016-11-30] MEDS: LORazepam 0.5 MG TAB PO PRN (15:11)
[2016-11-30] MEDS ORDERED: WARFARIN SODIUM 7.5 MG TAB PO ONE (16:30)
--- NOTE | 2016-11-30 18:55 | GCON ---
[f rep st] CONSULTATION PULMONARY CRITICAL CARE CONSULTATION REASON FOR CONSULTATION: Syncope. HISTORY: The patient is a 41-year-old gentleman with a history of hypertrophic cardiomyopathy, mitr al valve replacement with a mechanical valve on chronic anticoagulation and AICD with pacemaker. He is on multiple medications at home including Flexeril, oxycodone, lisinopril, Dilaudid, Klonopin, A mbien, and psychiatric medications. His blood pressure runs chronically low and he has a history of postural hypotension and lightheadedness. Yesterday, the day of admission, he stood up, although h abhilash recalls standing up slowly. He subsequently had a syncopal episode with brief loss of consciousne ss. This was witnessed by his . There was apparently no seizure activity. He denies arrhythmi as or his AICD discharging. He does recall having some nausea prior to his syncopal event. He was not incontinent of stool or urine. He was brought to the hospital. Evaluation showed a very small area of subarachnoid versus petechia l hemorrhage in the high left parietal area. There was a small amount of surrounding edema. He was seen by Neurosurgery. He may or may not have hit his head when he had his syncopal episode. He do es not have any bruising or a sore spot related to the head. He has had some headaches, worse over the last several days. He does have a history of migraines and feels that this is typical for his m igraine. His headache is left frontal in location. Followup CT scan of the head was done today, approximately 12 hours following his initial scan. The re is an equivocal area of hemorrhage and edema in the same location, thus probably unchanged. PAST MEDICAL HISTORY: Remarkable as outlined above with hypertrophic obstructive cardiomyopathy, mi tral valve replacement, AICD placement, chronic anticoagulation, history of previous atrial fibrilla tion and ablation, chronic pain, hepatitis, migraines, and substance abuse. SOCIAL HISTORY: The patient is . Alcohol is denied. There is a history of cocaine use and marijuana. FAMILY HISTORY: Hypertrophic cardiomyopathy. REVIEW OF SYSTEMS: Negative except as outlined above. DRUG ALLERGIES: Amiodarone. PHYSICAL EXAMINATION: GENERAL: Reveals a gentleman who is sitting comfortably in bed. He complain s of some left-sided headache. He says overall he feels currently 7 on a scale of 10. VITAL SIGNS: Blood pressure is 110/70, heart rate 62 with sinus rhythm on the monitor. He is afebrile. Respir atory rate is 16. HEENT: Unremarkable for lymphadenopathy or thyromegaly. There is no jugular narinder ous distention. There are no signs of scalp trauma or head trauma. Pupils appear equal. LUNGS: R emarkable for decreased breath sounds and excursions. There are few minimal nonspecific rales bilat erally at the posterior bases. There are no wheezes or rhonchi. HEART: Regular in rate and rhythm , heart tones are distant. The valve sounds are crisp. There is a systolic murmur. ABDOMEN: Soft , nontender. Bowel sounds are present but diminished. There is no organomegaly. There is no lower extremity edema, cords or tenderness. NEUROLOGIC: Examination is intact and nonfocal. He is orie nted x3. DATABASE: CT scans of the head are as outlined above. LABORATORY: White blood cell count is 6000, hematocrit 40, platelets normal. MCV is decreased. IN R on admission was subtherapeutic at 1.74. INR is currently 1.58. Troponin was 0.19 on admission, down to 0.15 currently. Basic metabolic panel is within normal limits with the exception of a mildl y decreased CO2. ASSESSMENT: 1. Syncope. The etiology for this is unclear. He does have a history of cardiac disease as outlin ed above. However, there appears to have been no arrhythmia by pacer/AICD interrogation and the AIC D did not go off. This possibly could have been a postural event as he does have a history of postu ral hypotension and presyncope. A vasovagal event with his nausea and his headache could also have been present. The patient has had no evidence of cardiac arrhythmias since admission and blood pres sure appears stable. Orthostatics will be needed. 2. Small intraparenchymal hemorrhage. It is unclear how this is related to his syncope. I think i t is possible that with his anticoagulation in the setting of a syncopal event that he had mild head trauma with the resultant very small area of hemorrhage. There is no evidence of hemorrhagic evolu tion. Anticoagulation does need to be restarted as he is at high risk for intracardiac clot and emb olic events. 3. History of migraines, with a headache currently. 4. History of hypertrophic cardiomyopathy, obstructive, with valve surgery and mitral valve replace ment, myotomy, AICD, etc. Cardiac status appears stable at this time. 5. History of narcotic and benzodiazepine use, substance abuse, etc. Prescribed narcotics and isaiah odiazepines, antihypertensives and other medications that he is on could have contributed to low blo od pressure and his syncopal event? 6. Chronically elevated troponins without evidence of myocardial infarction. PLAN AND RECOMMENDATIONS: The patient will be monitored in the intensive care unit. Postural blood pressures can be obtained. Activity should be increased as tolerated. Coumadin will be restarted at his usual dose. He will need to be therapeutically anticoagulated. Outpatient dosage may need t o be increased to achieve this. Further plans and recommendations will be made based on his progress over the next 12-24 hours. /[id number]/MODL
[2016-11-30] MEDS: OLANZapine DISINTEGR 5 MG TAB PO SCH (20:22)
[2016-11-30] MEDS: TOPIRAMATE 25 MG TAB PO SCH (20:22)
[2016-11-30] MEDS: LURASIDONE HCL 20 MG TAB PO SCH (20:22)
[2016-11-30] MEDS: TOPIRAMATE 100 MG TAB PO SCH (20:22)
[2016-11-30] MEDS: VENLAFAXINE XR 150 MG CAP PO SCH (20:23)
[2016-11-30] MEDS ORDERED: PANTOPRAZOLE SODIUM 40 MG TAB PO PRN (21:00)
[2016-12-01] MEDS: HYDROmorphONE/DILAUDID 4 MG TAB PO PRN ×5 (00:08→21:09)
[2016-12-01] MEDS: LORazepam 0.5 MG TAB PO PRN (00:08)
[2016-12-01] MEDS: CYCLOBENZAPRINE 10 MG TAB PO PRN (00:08)
[2016-12-01] MEDS: LEVOTHYROXINE 50 MCG TAB PO SCH (05:20)
[2016-12-01] MEDS: ACETAMINOPHEN 500 MG TAB PO SCH ×3 (05:21→21:33)
[2016-12-01 05:36] LABS: % IMMATURE GRANULYOCYTES 0.2 % (0.0-1.1); ABSOLUTE IMMATURE GRANULOCYTES 0.01 10^3/uL (0.00-0.10); ADD DIFF? NO; ADD MORPH? NO; ADD SCAN? NO; ATYPICAL LYMPHOCYTE FLAG 0 (0-99); FRAGMENT RBC FLAG 0 (0-99); HEMATOCRIT 38.4 % (40.0-51.0); HEMOGLOBIN 12.5 g/dL (13.7-17.5); LEFT SHIFT FLG 0 (0-99); LIPEMIA HEMOLYSIS FLAG 80 (0-99); MEAN CELL HEMOGLOBIN 27.1 pg (27.9-34.1); MEAN CELL HEMOGLOBIN CONCENTR. 32.6 g/dL (32.4-36.7); MEAN CELL VOLUME 83.1 fL (81.5-99.8); MEAN PLATELET VOLUME 9.6 fL (8.7-11.7); PLATELET CLUMPS FLAG 10 (0-99); PLATELET COUNT 199 10^3/uL (150-400); RED BLOOD CELL COUNT 4.62 10^6/uL (4.40-6.38); RED CELL DISTRIBUTION WIDTH 18.5 % (11.5-15.2)
[2016-12-01 05:44] LABS: INR 1.6 (0.83-1.16); PROTIME(PATIENT) 19.1 SEC (12.0-15.0)
[2016-12-01 05:48] LABS: ANION GAP 7 mEq/L (8-16); CALCIUM 9.5 mg/dL (8.5-10.4); CARBON DIOXIDE 23 mEq/l (22-31); CHLORIDE 108 mEq/L (97-110); CREATININE 1.2 mg/dL (0.7-1.3); GLOMERULAR FILTRATION RATE > 60; GLUCOSE 80 mg/dL (70-100); MAGNESIUM 1.7 mg/dL (1.6-2.3); POTASSIUM 4.5 mEq/L (3.5-5.2); SODIUM 138 mEq/L (134-144)
[2016-12-01] MEDS: oxyCODONE IR 5 MG TAB PO PRN ×3 (07:36→18:14)
[2016-12-01] MEDS: METOPROLOL TARTRATE 25 MG TAB PO SCH ×2 (10:37→21:09)
[2016-12-01] MEDS: GABAPENTIN 300 MG CAP PO SCH ×3 (10:38→21:09)
[2016-12-01] MEDS: LISINOPRIL 5 MG TAB PO SCH (10:39)
[2016-12-01] MEDS: ASPIRIN 81 MG CHEWABLE TAB PO SCH (10:39)
[2016-12-01] MEDS ORDERED: WARFARIN SODIUM 5 MG TAB PO ONE ×2 (10:45→13:45)
--- NOTE | 2016-12-01 12:40 | PDINTPN ---
[facility]quet [facility] Progress Note Assessment/Plan: Assessment: Status post syncopal event. No evidence of a cardiac dysrhythmia. Probably related to postural changes and multiple medications that he is on that can affect blood pressure. A vasovagal reaction associated with nausea cannot be excluded. Intraparenchymal hemorrhage. Likely secondary to his syncopal event. Extremely small, not progressive, no contraindication to ongoing anticoagulation. History of hypertrophic cardiomyopathy, mitral valve replacement, AICD, etc. Stable. Chronic anticoagulation. Secondary to cardiac issues. Coumadin restarted but INR remains subtherapeutic 1.6. Will give Coumadin again today. May need bridge? Will discuss with Cardiology. Chronic pain syndrome and anxiety with chronic narcotics and benzodiazepine use. Also has substance abuse issues. History of chronic migraines. Headache better today. Plan: Continue Coumadin: Will give 10 mg today and follow INR. Check postural blood pressures. Continue other therapies an outpatient medications as we are doing. Can transfer to PCU today. Subjective: Doing okay. Lethargic/sleepy secondary to medications. Arouses, appropriately responsive. Says his headache is less, denies significant pain at this time. Denies shortness of breath. Objective: Vital Signs Temp Pulse Resp BP Pulse Ox 36.6 C 62 14 90/63 L 96 12/01/16 11:57 12/01/16 11:57 12/01/16 11:57 12/01/16 11:57 12/01/16 11:57 Laboratory Results 12/01/16 05:25 12/01/16 05:25 11/30/16 12/01/16 12/02/16 05:59 05:59 05:59 Intake Total 675 Output Total 700 Balance -25 PT 19.1 SEC (12.0-15.0) H 12/01/16 05:25 INR 1.60 (0.83-1.16) H 12/01/16 05:25 Laboratory Tests 12/01/16 12/01/16 05:25 05:25 PT 19.1 H INR 1.60 H Magnesium 1.7 Physical Exam - Physical Exam General Appearance: other (Sleepy, arouses) EENT: normal ENT inspection, other (On room air) Neck: normal inspection (No JVD) Respiratory: lungs clear (Anteriorly), decreased breath sounds (At the bases), No rales, No rhonchi Cardiac/Chest: regular rate, rhythm, systolic murmur (Valves sound crisp) Abdomen: normal bowel sounds, non-tender, soft Skin: normal color, warm/dry Extremities: No pedal edema Neuro/Psych: no motor/sensory deficits, No cognition abnormalities ICD10 Worksheet Patient Problems: Problems Problem Status Onset Mood disorder Active Chest pain Acute Shortness of breath Acute History of coronary artery disease Acute Troponin level elevated Acute Lightheadedness Acute Acute chest pain Acute Nonischemic cardiomyopathy Acute Malfunction of cardiac pacemaker battery Acute Chest wall pain Acute Chest wall pain Acute Chest wall hematoma Acute Encephalopathy acute Acute Intraparenchymal hemorrhage of brain Acute Syncope Acute Elevated troponin Acute
--- NOTE | 2016-12-01 17:35 | HOSPPROG ---
Hospitalist Progress Note Assessment/Plan: 41-year-old male admitted for syncope. He has a history of a hyper trophic cardiomyopathy, status post AICD. patient is new to me today. following admission a CT scan showed a small left-sided ICH. Patient was given FFP and his warfarin was held. Repeat CT scan showed no change in the patient's shows no neurologic deficit. -Parietal ICH: Repeat CT scan showed no change in the ICH is quite small. His anticoagulation has been restarted. -Chronic AC: Coumadin has been restarted. Will consider Lovenox bridging at discharge as patient has use Lovenox previously. -Syncope: unclear etiology. AICD did not show any events. He says he was dizzy before standing up. Also says his BP runs low intermittently. BP was ok The syncopal episode was probably related to rapid change of position, orthostatics changes, and the multiple medications this gentleman takes. - Polypharmacy: Gentleman received short and long-acting narcotics along with sedatives and uses marijuana on a daily basis. I have discussed the need for the gentleman to decrease his pharmacy use as it is not improving his function. He complains of chest pain but some chest discomfort is normal and a hypertrophic cardiomyopathy. He seems understanding of this. He is inquisitive about how to diminish his use of narcotics and I have referred him to his PCP in this regard. -Hypertrophic Cardiomyopathy -Chronic Pain -Chronically elevated troponin Plan: Discharge on December 02. follow up with his PCP for INR management. Subjective: Reports he has some headache but no chest pain shortness of breath nausea or vomiting Objective: Vital Signs Temp Pulse Resp BP Pulse Ox 36.8 C 64 19 129/85 H 94 12/01/16 16:00 12/01/16 16:00 12/01/16 16:00 12/01/16 16:00 12/01/16 16:00 Laboratory Results 12/01/16 05:25 12/01/16 05:25 11/30/16 12/01/16 12/02/16 05:59 05:59 05:59 Intake Total 675 Output Total 700 Balance -25 PT 19.1 SEC (12.0-15.0) H 12/01/16 05:25 INR 1.60 (0.83-1.16) H 12/01/16 05:25 - Time Spent With Patient Time Spent with Patient: greater than 35 minutes Time Spent with Patient: Greater than 35 minutes spent on this patients care, greater than 50% of time spent counseling, educating, and coordinating care regarding the above mentioned plan. - Pending Discharge Pending Discharge Within 24 Hours: Yes Pending Discharge Date: 12/02/16 Pending Discharge Time: 11:00 - Physical Exam Constitutional: no apparent distress Eyes: PERRL, anicteric sclera Ears, Nose, Mouth, Throat: moist mucous membranes, hearing normal Cardiovascular: regular rate and rhythym, no murmur, rub, or gallop Respiratory: no respiratory distress, no rales or rhonchi, clear to auscultation Gastrointestinal: normoactive bowel sounds, soft, non-tender abdomen, no palpable masses Genitourinary: no bladder fullness Skin: warm Musculoskeletal: full muscle strength Neurologic: AAOx3, CN II-XII Intact Psychiatric: interacting appropriately ICD10 Worksheet Patient Problems: Problems Problem Status Onset Mood disorder Active Chest pain Acute Shortness of breath Acute History of coronary artery disease Acute Troponin level elevated Acute Lightheadedness Acute Acute chest pain Acute Nonischemic cardiomyopathy Acute Malfunction of cardiac pacemaker battery Acute Chest wall pain Acute Chest wall pain Acute Chest wall hematoma Acute Encephalopathy acute Acute Intraparenchymal hemorrhage of brain Acute Syncope Acute Elevated troponin Acute
[2016-12-01] MEDS: TOPIRAMATE 25 MG TAB PO SCH (21:09)
[2016-12-01] MEDS: OLANZapine DISINTEGR 5 MG TAB PO SCH (21:09)
[2016-12-01] MEDS: VENLAFAXINE XR 150 MG CAP PO SCH (21:09)
[2016-12-01] MEDS: TOPIRAMATE 100 MG TAB PO SCH (21:09)
[2016-12-01] MEDS: LURASIDONE HCL 20 MG TAB PO SCH (21:09)
[2016-12-02] MEDS: CYCLOBENZAPRINE 10 MG TAB PO PRN (03:56)
[2016-12-02] MEDS: HYDROmorphONE/DILAUDID 4 MG TAB PO PRN ×2 (03:56→08:52)
[2016-12-02 05:35] LABS: % IMMATURE GRANULYOCYTES 0.4 % (0.0-1.1); ABSOLUTE IMMATURE GRANULOCYTES 0.03 10^3/uL (0.00-0.10); ADD DIFF? NO; ADD MORPH? NO; ADD SCAN? NO; ATYPICAL LYMPHOCYTE FLAG 10 (0-99); FRAGMENT RBC FLAG 20 (0-99); HEMATOCRIT 38.5 % (40.0-51.0); HEMOGLOBIN 12.8 g/dL (13.7-17.5); LEFT SHIFT FLG 0 (0-99); LIPEMIA HEMOLYSIS FLAG 80 (0-99); MEAN CELL HEMOGLOBIN 27.2 pg (27.9-34.1); MEAN CELL HEMOGLOBIN CONCENTR. 33.2 g/dL (32.4-36.7); MEAN CELL VOLUME 81.7 fL (81.5-99.8); MEAN PLATELET VOLUME 9.1 fL (8.7-11.7); PLATELET CLUMPS FLAG 0 (0-99); PLATELET COUNT 196 10^3/uL (150-400); RED BLOOD CELL COUNT 4.71 10^6/uL (4.40-6.38); RED CELL DISTRIBUTION WIDTH 18.3 % (11.5-15.2)
[2016-12-02 05:44] LABS: INR 2.64 (0.83-1.16); PROTIME(PATIENT) 28.5 SEC (12.0-15.0)
[2016-12-02] MEDS: LEVOTHYROXINE 50 MCG TAB PO SCH (05:45)
[2016-12-02] MEDS: ACETAMINOPHEN 500 MG TAB PO SCH (05:45)
[2016-12-02 08:49] VITALS: BP 142/88; RESP 18; TEMP 97.9; O2SAT 96
[2016-12-02] MEDS: LISINOPRIL 5 MG TAB PO SCH (08:51)
[2016-12-02] MEDS: GABAPENTIN 300 MG CAP PO SCH (08:51)
[2016-12-02] MEDS: METOPROLOL TARTRATE 25 MG TAB PO SCH (08:51)
[2016-12-02] MEDS: ASPIRIN 81 MG CHEWABLE TAB PO SCH (08:52)
[2016-12-02 08:54] VITALS: PULSE 63
--- NOTE | 2016-12-02 10:03 | PDIAF ---
- Diagnosis Code Status: Full Code - Medication Management Discharge Medications: Medications to Continue on Transfer Aspirin [Aspirin 81mg (*)] 81 mg PO DAILY 09/26/16 [Last Taken 11/29/16] Bisacodyl [Dulcolax] 5 mg PO DAILY PRN 09/26/16 [Last Taken Unknown] Cyclobenzaprine [Flexeril 10 MG (*)] 10 mg PO BID PRN 09/26/16 [Last Taken Unknown] Gabapentin [Neurontin 300 MG (*)] 900 mg PO TID 09/26/16 [Last Taken 11/28/16] HYDROmorphone HCL [Dilaudid 4 mg (*)] 4 mg PO TID PRN 09/26/16 [Last Taken 09/26 2 tabs] LORazepam [Ativan (*)] 0.5 mg PO TID PRN 09/26/16 [Last Taken Unknown] Lurasidone HCl [Latuda] 20 mg PO HS 09/26/16 [Last Taken 11/28/16] Metoprolol Tartrate [Lopressor 25 mg (*)] 75 mg PO BID 09/26/16 [Last Taken ] Omeprazole 40 mg PO HS PRN 09/26/16 [Last Taken 09/25/16] Topiramate [Topamax 100MG (*)] 100 mg PO HS 09/26/16 [Last Taken 11/28/16] Topiramate [Topamax 25MG (*)] 25 mg PO HS 09/26/16 [Last Taken 11/28/16] Venlafaxine Xr [Effexor Xr] 150 mg PO HS 09/26/16 [Last Taken 11/28/16] Warfarin Sodium [Coumadin 5MG (*)] 5 mg PO SUTUTHSA@0909/26/16 [Last Taken ] Warfarin Sodium [Coumadin 7.5MG (*)] 7.5 mg PO MOWEFR@89909/26/16 [Last Taken 11/27/16] Zolpidem Tartrate [Ambien 5MG (*)] 10 mg PO HS PRN 09/26/16 [Last Taken Unknown] clonazePAM [klonoPIN (*)] 1 mg PO BID PRN 09/26/16 [Last Taken 09/26/16] oxyCODONE IR [Oxycodone Ir (*)] 10 mg PO QID PRN 09/26/16 [Last Taken 09/26/16 1 tab] Levothyroxine [Synthroid 50 mcg (*)] 50 mcg PO DAILY06 11/29/16 [Last Taken ] Lisinopril [Zestril 2.5 mg (*)] 2.5 mg PO DAILY 11/29/16 [Last Taken 11/28/16] OLANZapine [Zyprexa Zydis] 15 mg PO HS 11/29/16 [Last Taken 11/28/16] Discharge Medications: Refer to the Discharge Home Medication list for PRN reason. - Orders Services needed: Home Care, Registered Nurse, Physical Therapy, Occupational Therapy Home Care Face to Face: I certify that this patient was under my care and that I had the required [id number] encounter meeting the encounter requirements on the discharge day. My findings support the fact that the patient is homebound as defined in CMS Chapter 7 Medicare Benefits Manual 30.1.1, The condition of the patient is such that there exists a normal inability to leave home and consequently, leaving home would require a considerable and taxing effort. Diet Recommendation: no restrictions on diet - Labs/Radiology PT/INR Date: 12/05/16 (q3 days x 2 weeks) - Follow Up Care Current Providers and Referrals: Patient,NotPresent [Unknown] - As per Instructions
--- NOTE | 2016-12-02 10:03 | PDDCSUM ---
Discharge Summary Discharge Summary: Dates of service 11/29-12/02/16 Discharge dx: # small parietal ICH # syncope # VHD # HOCM # chronic pain with continuous narcotic use and dependency # polypharmacy Consultations: nsg, heading and priming operator Procedures performed: head ct x 2, echo Hospital course by problem: 41-year-old male admitted for syncope. He has a history of a hypertrophic cardiomyopathy and presented with syncope and possible small ICH. -Parietal ICH: Repeat CT scan showed no change in the ICH is quite small, NSG evaluated and do not feel further w/u or imaging needed. His anticoagulation has been restarted. Unclear etiology and unclear how/if related to syncopal event -Syncope: AICD did not show any events. Has been having positional lightheadedness and suspect orthostatic versus vasovagal event. Discussed taking caution with getting up from sitting/lying. -VHD: patient with mechanical MV and on chronic AC for same, resumed on coumadin and INR within goal range at time of dc -HOCM: with AICD, continued on home meds - Polypharmacy: Gentleman receives short and long-acting narcotics along with benzo's and multiple other sedating medications and marijuana daily. He is noted to be falling asleep frequently shortly after receiving his usual morning medications. Discussed with him importance of cutting down and he plans to work with his PCP to decrease this usage. -Chronic Pain with continuous narcotic use and dependency: as above, chronic chest pain and chronic migraines -Chronically elevated troponin DC home f/u with PCP > 35 minutes spent in dc, more than half in coordination of care
[2016-12-02] MEDS: oxyCODONE IR 5 MG TAB PO PRN (10:53)
== END 2016-12-02 11:00 | disposition home health service (06) | DRG 65 ==
LOC: EDUNIT# → INTOOBSV 17:12 → F2N 20:02 → OBSVTOIN 11-30 10:56
PROVIDERS: ADMIT Internal Medicine; ATTEND Internal Medicine
DX: I61.8 Other nontraumatic intracerebral hemorrhage (principal); R55 Syncope and collapse; I42.2 Other hypertrophic cardiomyopathy; G43.909 Migraine, unspecified, not intractable, without status migrainosus; I10 Essential (primary) hypertension; E03.9 Hypothyroidism, unspecified; G89.29 Other chronic pain; F11.20 Opioid dependence, uncomplicated; I48.91 Unspecified atrial fibrillation; B19.20 Unspecified viral hepatitis C without hepatic coma; I25.2 Old myocardial infarction; Z95.2 Presence of prosthetic heart valve; Z95.810 Presence of automatic (implantable) cardiac defibrillator; Z79.01 Long term (current) use of anticoagulants; F17.210 Nicotine dependence, cigarettes, uncomplicated
CPT/HCPCS: 92523-GN; 96374; 97166-GO; 97535-GO; G0378; P9017

== ENCOUNTER 2016-12-31 11:49 | Inpatient (IN) | payer MEDICAID ==
--- NOTE | 2016-12-31 12:22 | EDPHY ---
H & P Time Seen by Provider: 12/31/16 12:18 HPI/ROS: Chief complaint. Diaphoresis HPI. 41-year-old male presents emergency department by EMS with complaint of diaphoresis. However he also has altered mental status and decreased responsiveness. The diaphoresis apparently began today. He admits to taking Dilaudid but is unsure how many Dilaudid pills he has taken. He is arousable and then does speak. He denies chest discomfort or shortness of breath. He notes generalized weakness ROS Constitutional. Generalized weakness Eyes. no problems with vision ENT. no sore throat, no nasal drainage Cardiovascular. no chest pain Respiratory. no shortness of breath, no cough Abdominal. no abdominal pain, no nausea/vomiting, no diarrhea . no problems urinating MS. no calf pain/swelling, no neck/back pain, no joint pain Skin. Diaphoresis Lymph. no swollen glands Neuro. Difficulty walking Past Medical/Surgical History: Past medical history significant hypertrophic cardiomyopathy, VT, mitral valve replacement, pacemaker defibrillator, PTSD, depression, hypertension, hep C, migraines, GERD, hypothyroid, polysubstance abuse including methamphetamine and alcohol Social History: , daily smoker, no recent alcohol Smoking Status: Current every day smoker Physical Exam: General Appearance: Arousable but lethargic well-developed male obviously sweating, mild distress. Vital signs are stay Eyes: Pupils equal and round no pallor or injection. ENT, Mouth: Mucous membranes are moist. Respiratory: There are no retractions, lungs are clear to auscultation. Cardiovascular: Regular rate and rhythm. Gastrointestinal: Abdomen is soft and nontender, no masses, bowel sounds normal. Neurological: Awake and alert, sensory and motor exams grossly normal. Skin: Diaphoresis Musculoskeletal: Neck is supple nontender. Extremities symmetrical, full range of motion. Psychiatric: Patient is oriented X 3, there is no agitation. Constitutional: Initial Vital Signs Temperature (C) 36.8 C 12/31/16 12:01 Heart Rate 85 12/31/16 12:01 Respiratory Rate 16 12/31/16 12:01 Blood Pressure 137/98 H 12/31/16 12:01 O2 Sat (%) 93 12/31/16 12:01 O2 Delivery Mode Nasal Cannula O2 (L/minute) 2 Allergies/Adverse Reactions: amiodarone Allergy (Intermediate, Verified 09/26/16 15:14) Hives, swelling Home Medications: Medication Instructions Recorded Aspirin [Aspirin 81mg (*)] 81 mg PO DAILY 09/26/16 Bisacodyl [Dulcolax] 5 mg PO DAILY PRN 09/26/16 Cyclobenzaprine [Flexeril 10 MG 10 mg PO BID PRN 09/26/16 (*)] Gabapentin [Neurontin 300 MG (*)] 900 mg PO TID 09/26/16 HYDROmorphone HCL [Dilaudid 4 mg 4 mg PO TID PRN 09/26/16 (*)] LORazepam [Ativan (*)] 0.5 mg PO TID PRN 09/26/16 Lurasidone HCl [Latuda] 20 mg PO HS 09/26/16 Metoprolol Tartrate [Lopressor 25 75 mg PO BID 09/26/16 mg (*)] Omeprazole 40 mg PO HS PRN 09/26/16 Topiramate [Topamax 100MG (*)] 100 mg PO HS 09/26/16 Topiramate [Topamax 25MG (*)] 25 mg PO HS 09/26/16 Venlafaxine Xr [Effexor Xr] 150 mg PO HS 09/26/16 Warfarin Sodium [Coumadin 5MG (*)] 5 mg PO SUTUTHSA@0900 09/26/16 Warfarin Sodium [Coumadin 7.5MG 7.5 mg PO MOWEFR@0900 09/26/16 (*)] Zolpidem Tartrate [Ambien 5MG (*)] 10 mg PO HS PRN 09/26/16 clonazePAM [klonoPIN (*)] 1 mg PO BID PRN 09/26/16 oxyCODONE IR [Oxycodone Ir (*)] 10 mg PO QID PRN 09/26/16 Levothyroxine [Synthroid 50 mcg 50 mcg PO DAILY06 11/29/16 (*)] Lisinopril [Zestril 2.5 mg (*)] 2.5 mg PO DAILY 11/29/16 OLANZapine [Zyprexa Zydis] 15 mg PO HS 11/29/16 HYDROmorphone HCL [Dilaudid 2 mg 12/31/16 (*)] Medical Decision Making - Diagnostics EKG Interpretation: EKG interpreted by me shows normal sinus rhythm with normal interval and axis. Mild inner content ventricular conduction delay. Appearance of right bundle branch block. LVH by voltage. No significant ST elevation or depression. No arrhythmia. Rate 67 Imaging Results: Imaging Impressions Chest X-Ray 12/31/16 12:53 Impression: Chest negative for acute abnormality. Are one-view chest x-ray shows patient to have a pacemaker and valve replaced status post CABG. No obvious pneumonia Procedures: IV normal saline, monitor Patient took aspirin this morning ED Course/Re-evaluation: Re-evaluation 2:25 p.m.--patient is stable and still does not have chest discomfort. The patient and I discussed laboratory evaluation including recommendation for admission. Patient expresses understanding and agreement I consulted and discussed case with Dr. Wright, hospitalist, who agrees to the admission Differential Diagnosis: This appears to be substance abuse causing the patient to be lethargic. He does note that he has been taking Dilaudid. He tells me that he does not like Narcan. He has a extensive cardiac history and has an elevated troponin. - Data Points Laboratory Results: Laboratory Results 12/31/16 11:50 12/31/16 11:50 12/31/16 12/31/16 11:50 11:50 WBC 11.89 10^3/uL H 10^3/uL (3.80-9.50) RBC 5.31 10^6/uL 10^6/uL (4.40-6.38) Hgb 14.4 g/dL g/dL (13.7-17.5) Hct 43.2 % % (40.0-51.0) MCV 81.4 fL L fL (81.5-99.8) MCH 27.1 pg L pg (27.9-34.1) MCHC 33.3 g/dL g/dL (32.4-36.7) RDW 15.9 % H % (11.5-15.2) Plt Count 214 10^3/uL 10^3/uL (150-400) MPV 9.9 fL fL (8.7-11.7) Neut % (Auto) 80.2 % H % (39.3-74.2) Lymph % (Auto) 10.3 % L % (15.0-45.0) [place] % (Auto) 7.4 % % (4.5-13.0) Eos % (Auto) 1.5 % % (0.6-7.6) Baso % (Auto) 0.2 % L % (0.3-1.7) Nucleat RBC Rel Count 0.0 % % (0.0-0.2) Absolute Neuts (auto) 9.54 10^3/uL H 10^3/uL (1.70-6.50) Absolute Lymphs (auto) 1.22 10^3/uL 10^3/uL (1.00-3.00) Absolute Monos (auto) 0.88 10^3/uL H 10^3/uL (0.30-0.80) Absolute Eos (auto) 0.18 10^3/uL 10^3/uL (0.03-0.40) Absolute Basos (auto) 0.02 10^3/uL 10^3/uL (0.02-0.10) Absolute Nucleated RBC 0.00 10^3/uL 10^3/uL (0-0.01) Immature Gran % 0.4 % % (0.0-1.1) Immature Gran # 0.05 10^3/uL 10^3/uL (0.00-0.10) Sodium 142 mEq/L mEq/L (134-144) Potassium 4.1 mEq/L mEq/L (3.5-5.2) Chloride 108 mEq/L mEq/L (97-110) Carbon Dioxide 20 mEq/l L mEq/l (22-31) Anion Gap 14 mEq/L mEq/L (8-16) BUN 15 mg/dL mg/dL (7-23) Creatinine 1.3 mg/dL mg/dL (0.7-1.3) Estimated GFR > 60 Glucose 110 mg/dL H mg/dL (70-100) Calcium 9.7 mg/dL mg/dL (8.5-10.4) Troponin I 0.131 ng/mL H ng/mL (0-0.034) Lipase 91.0 IU/L IU/L (23-300) Departure - Departure Disposition: [facility] Inpatient Acute Clinical Impression: Troponin level elevated Condition: Fair
[2016-12-31 12:58] LABS: % IMMATURE GRANULYOCYTES 0.4 % (0.0-1.1); ABSOLUTE IMMATURE GRANULOCYTES 0.05 10^3/uL (0.00-0.10); ADD DIFF? NO; ADD MORPH? NO; ADD SCAN? NO; ATYPICAL LYMPHOCYTE FLAG 10 (0-99); FRAGMENT RBC FLAG 20 (0-99); HEMATOCRIT 43.2 % (40.0-51.0); HEMOGLOBIN 14.4 g/dL (13.7-17.5); LEFT SHIFT FLG 10 (0-99); LIPEMIA HEMOLYSIS FLAG 80 (0-99); MEAN CELL HEMOGLOBIN 27.1 pg (27.9-34.1); MEAN CELL HEMOGLOBIN CONCENTR. 33.3 g/dL (32.4-36.7); MEAN CELL VOLUME 81.4 fL (81.5-99.8); MEAN PLATELET VOLUME 9.9 fL (8.7-11.7); PLATELET CLUMPS FLAG 20 (0-99); PLATELET COUNT 214 10^3/uL (150-400); RED BLOOD CELL COUNT 5.31 10^6/uL (4.40-6.38); RED CELL DISTRIBUTION WIDTH 15.9 % (11.5-15.2)
[2016-12-31 13:04] LABS: ANION GAP 14 mEq/L (8-16); CALCIUM 9.7 mg/dL (8.5-10.4); CARBON DIOXIDE 20 mEq/l (22-31); CHLORIDE 108 mEq/L (97-110); CREATININE 1.3 mg/dL (0.7-1.3); GLOMERULAR FILTRATION RATE > 60; GLUCOSE 110 mg/dL (70-100); POTASSIUM 4.1 mEq/L (3.5-5.2); SODIUM 142 mEq/L (134-144)
--- NOTE | 2016-12-31 13:04 | CPEKG ---
Heart Rate: 67 RR Interval: 896 P-R Interval: 188 QRSD Interval: 130 QT Interval: 444 QTC Interval: 469 P [place]: 35 QRS [place]: -29 T Wave [place]: 135 EKG Severity - ABNORMAL ECG - EKG Impression: SINUS RHYTHM EKG Impression: PROBABLE LEFT ATRIAL ABNORMALITY EKG Impression: IVCD, CONSIDER ATYPICAL RBBB EKG Impression: LVH WITH IVCD AND SECONDARY REPOL ABNRM Electronically Signed By: Beka Agudelo 31-Dec-2016 15:47:04
[2016-12-31 13:16] LABS: TROPONIN I 0.131 ng/mL (0-0.034)
[2016-12-31 15:16] LABS: INR 1.41 (0.83-1.16); PROTIME(PATIENT) 17.2 SEC (12.0-15.0)
[2016-12-31] MEDS ORDERED: LORazepam 0.5 MG TAB PO PRN (17:02)
[2016-12-31] MEDS ORDERED: CYCLOBENZAPRINE 10 MG TAB PO PRN (17:02)
[2016-12-31] MEDS ORDERED: clonazePAM 1 MG TAB PO PRN (17:02)
[2016-12-31] MEDS ORDERED: NON-FORMULARY NEW DRUG (Omeprazole [Omeprazole] 40 MG) PO PRN (17:02)
[2016-12-31] MEDS ORDERED: WARFARIN SODIUM 7.5 MG TAB PO ONE (17:04)
[2016-12-31] MEDS ORDERED: ACETAMINOPHEN 325 MG TAB PO PRN (17:05)
[2016-12-31] MEDS ORDERED: ONDANSETRON DISINTEGRATING 4 MG TAB PO PRN (17:05)
[2016-12-31] MEDS ORDERED: ONDANSETRON 4 MG/2 ML VIAL IVP PRN (17:05)
[2016-12-31] MEDS ORDERED: PANTOPRAZOLE SODIUM 40 MG TAB PO PRN (17:22)
[2016-12-31] MEDS: ENOXAPARIN 80 MG/0.8 ML SYR SC SCH ×2 (17:46→20:32)
[2016-12-31] MEDS: HYDROmorphONE/DILAUDID 4 MG TAB PO PRN ×2 (17:47→22:06)
--- NOTE | 2016-12-31 20:22 | GHP ---
[f rep st] HISTORY AND PHYSICAL DATE OF ADMISSION: 12/31/2016 CHIEF COMPLAINT: Diaphoresis. HISTORY OF PRESENT ILLNESS: This is a 41-year-old male with an extensive cardiac history. He has a history of hypotrophic obstructive cardiomyopathy along with AICD and a mitral valve replacement wi th mechanical valve, as well as atrial fibrillation, and other chronic medical problems. He states that over the last several months he has had a few discrete episodes where he becomes diaphoretic an d unwell feeling with altered mental status. This lasts for several hours. He does have intermitte nt chest pain, but the usual chest pain he says he gets is from his hypertrophic cardiomyopathy. He denies any illicit drug use. He is not currently having any chest pain. No shortness of breath. He was told that whenever this happens, he should call his die hardener or come to the emergency dep artment. His die hardener, Dr. Chisholm, thinks that perhaps maybe his valve is malfunctioning during these times. It could be due to arrhythmia as well. Several days ago, patient rolled his ankle and it became quite ecchymotic. He was told by an urgent care to stop his Coumadin, which he has. REVIEW OF SYSTEMS: A 10-point review of systems was obtained, and other than as stated above, was n egative. PAST MEDICAL HISTORY: 1. Hypertrophic cardiomyopathy. 2. Mitral valve replacement with mechanical valve. 3. Atrial fibrillation status post ablation. 4. Chronic pain with narcotic dependency. 5. History of AICD. 6. Chronic upper extremity neuropathy. 7. Hypothyroidism. 8. Hepatitis C. 9. PTSD. 10. Migraines. 11. Recent intracranial hemorrhage. SOCIAL HISTORY: Does smoke. No alcohol. FAMILY HISTORY: Positive for hypertrophic cardiomyopathy in mother and nephew. PHYSICAL EXAM: VITAL SIGNS: Afebrile, blood pressure is 143/106, heart rate 69, oxygen saturation 93% on room air. GENERAL: The patient is well developed, in no apparent distress. HEENT: Nonicte fallon sclerae. Extraocular muscles intact. Moist mucous membranes. NECK: Supple. No thyromegaly. LUNGS: Good effort. Clear to auscultation bilaterally. CARDIOVASCULAR: Regular rate and rhythm. A 2/6 systolic murmur. ABDOMEN: Positive bowel sounds. Soft, nontender, nondistended. No hepat omegaly. EXTREMITIES: No clubbing, cyanosis. The left foot shows significant ecchymoses, but no s ignificant swelling. NEUROLOGIC: Alert and oriented x3. Moving all 4 extremities equally. PSYCH: Normal mood and affect. LABS: White count is 11, hemoglobin 14. INR is low at 1.4. Creatinine is 1.3. Troponin is slight ly elevated 1.31, although his troponin at last admission remained flat in the 1.5-1.9 range. EKG, personally reviewed and interpreted: There are some ST-segment elevations in the anterior lead , probably due to repolarization, also with LVH and an interventricular conduction delay. ASSESSMENT: This is a 41-year-old male presenting with an episode of diaphoresis of unclear etiolog y. PLAN: 1. Diaphoresis. I am not sure what the etiology of this is. I wonder if we could talk to Dr. Singh tomorrow to see what he was thinking. Would interrogate his AICD to see if there are any arrhyth mias that might be precipitating this. He has a very slightly elevated troponin, but I think that i s chronic for him. We will follow his troponins. Will have Cardiology see him the morning. 2. History of mitral valve replacement with mechanical valve. The patient is subtherapeutic in his INR. We will cover with Lovenox and give an extra dose of Coumadin today. 3. Left foot ecchymosis. Will check an x-ray, although does not seem to be fractured. 4. History of chronic narcotic use. Will continue his medications. 5. Hypertrophic cardiomyopathy. 6. Atrial fibrillation. 7. Admission. Patient will be admitted under observation status. Case was discussed with the ER ashleigh castillo. Old records were reviewed and summarized in the HPI. /[id number]/MODL
[2016-12-31] MEDS: OLANZapine 5 MG TAB PO SCH (20:28)
[2016-12-31] MEDS: METOPROLOL TARTRATE 25 MG TAB PO SCH (20:29)
[2016-12-31] MEDS: BACLOFEN 20 MG TAB PO SCH (20:30)
[2016-12-31] MEDS: TOPIRAMATE 100 MG TAB PO SCH (20:30)
[2016-12-31] MEDS: TOPIRAMATE 25 MG TAB PO SCH (20:30)
[2016-12-31] MEDS: LURASIDONE HCL 20 MG TAB PO SCH (20:31)
[2016-12-31] MEDS: VENLAFAXINE XR 150 MG CAP PO SCH (20:31)
[2016-12-31] MEDS: GABAPENTIN 300 MG CAP PO SCH (20:32)
[2016-12-31] MEDS ORDERED: OLANZAPINE 15 MG PO SCH (21:00)
[2016-12-31] MEDS ORDERED: OLANZapine 10 MG TAB PO SCH (21:00)
[2017-01-01 04:08] LABS: % IMMATURE GRANULYOCYTES 0.1 % (0.0-1.1); ABSOLUTE IMMATURE GRANULOCYTES 0.01 10^3/uL (0.00-0.10); ADD DIFF? NO; ADD MORPH? NO; ADD SCAN? NO; ATYPICAL LYMPHOCYTE FLAG 0 (0-99); FRAGMENT RBC FLAG 0 (0-99); HEMATOCRIT 41.9 % (40.0-51.0); LEFT SHIFT FLG 0 (0-99); LIPEMIA HEMOLYSIS FLAG 80 (0-99); MEAN CELL HEMOGLOBIN 27.3 pg (27.9-34.1); MEAN CELL HEMOGLOBIN CONCENTR. 33.4 g/dL (32.4-36.7); MEAN CELL VOLUME 81.7 fL (81.5-99.8); MEAN PLATELET VOLUME 9.6 fL (8.7-11.7); PLATELET CLUMPS FLAG 0 (0-99); PLATELET COUNT 173 10^3/uL (150-400); RED BLOOD CELL COUNT 5.13 10^6/uL (4.40-6.38); RED CELL DISTRIBUTION WIDTH 16.1 % (11.5-15.2)
[2017-01-01 04:17] LABS: ALANINE AMINOTRANSFERASE 56 IU/L (21-72); ALBUMIN 4.1 g/dL (3.5-5.0); ALKALINE PHOSPHATASE 79 IU/L (38-126); ANION GAP 13 mEq/L (8-16); ASPARTATE AMINOTRANSFERASE 51 IU/L (17-59); BILIRUBIN,TOTAL 0.7 mg/dL (0.1-1.4); CALCIUM 9.6 mg/dL (8.5-10.4); CARBON DIOXIDE 19 mEq/l (22-31); CHLORIDE 110 mEq/L (97-110); CREATININE 0.9 mg/dL (0.7-1.3); GLOMERULAR FILTRATION RATE > 60; GLUCOSE 85 mg/dL (70-100); POTASSIUM 3.8 mEq/L (3.5-5.2); SODIUM 142 mEq/L (134-144); TOTAL PROTEIN 7.7 g/dL (6.3-8.2)
[2017-01-01 04:19] LABS: INR 1.61 (0.83-1.16); PROTIME(PATIENT) 19.2 SEC (12.0-15.0)
[2017-01-01 04:27] LABS: TROPONIN I 0.152 ng/mL (0-0.034)
[2017-01-01] MEDS: LEVOTHYROXINE 50 MCG TAB PO SCH (05:34)
[2017-01-01] MEDS: BACLOFEN 20 MG TAB PO SCH ×2 (08:39→20:24)
[2017-01-01] MEDS: ENOXAPARIN 80 MG/0.8 ML SYR SC SCH ×2 (08:39→20:26)
[2017-01-01] MEDS: METOPROLOL TARTRATE 25 MG TAB PO SCH ×2 (08:39→20:23)
[2017-01-01] MEDS: ASPIRIN 81 MG CHEWABLE TAB PO SCH (08:39)
[2017-01-01] MEDS: GABAPENTIN 300 MG CAP PO SCH ×3 (08:39→20:22)
[2017-01-01] MEDS: LISINOPRIL 2.5 MG TAB PO SCH (08:40)
--- NOTE | 2017-01-01 08:55 | CPEKG ---
Heart Rate: 59 RR Interval: 1017 P-R Interval: 180 QRSD Interval: 138 QT Interval: 488 QTC Interval: 484 P [place]: 30 QRS [place]: -33 T Wave [place]: 114 EKG Severity - ABNORMAL ECG - EKG Impression: SINUS RHYTHM EKG Impression: LVH WITH IVCD AND SECONDARY REPOL ABNRM Electronically Signed By: Varun Mccabe 01-Jan-2017 17:23:15
[2017-01-01] MEDS ORDERED: WARFARIN SODIUM 7.5 MG TAB PO SCH (09:00)
[2017-01-01] MEDS: oxyCODONE IR 5 MG TAB PO PRN ×2 (14:55→20:25)
--- NOTE | 2017-01-01 17:25 | HOSPPROG ---
Hospitalist Progress Note Assessment/Plan: assessment: 31-year-old male presents with acute syncopal episode in the setting of mechanical valve Plan: 1. Syncope. Acute, new problem this provider, further workup indicated. Events described as flushing, tachycardia, unresponsiveness, no recollection of event, unclear whether this is secondary to valvular defect and "sticking" verses sleep apnea versus medication effect from his combination of narcotics, benzos, muscle relaxants - discussed extensively with Dr. Mccabe and Dr. Orr, received additional information from Dr. Chisholm, the concern is that the patient may have a valve defect resulting in recurrent symptoms, warranting definitive investigation and potential surgery if present - make patient NPO in a.m., arrange for fluoroscopic catheter evaluation - interrogation demonstrates no corresponding a arrhythmias with his event 2. mechanical valve. Goal INR 2.5-3.5, Coumadin has been held secondary to left lower extremity injury and ecchymoses - reinitiate Coumadin - Lovenox bridge 3. left foot pain. Acute, secondary to recent injury, reportedly "twisted his ankle", x-ray demonstrates no fracture, soft tissue edema in ecchymoses secondary to systemic anticoagulation - ice as needed 4. Chronic opiate and benzodiazepine dependency. Patient with chronic pain and anxiety issues, on high risk doses of Dilaudid, oxycodone, Klonopin, baclofen, potentially resulting in lethargy, as well as his syncopal events and possible sleep apnea - only administer if patient is in visible pain or withdrawal - holding home dosage of Dilaudid, use single agent oxycodone - when patient is ready for discharge, will send our concerns to patient's primary prescribing provider and recommend outpatient counseling and wean as well as mental health support as there is, per patient's own admission, a strong mental health relationship to medication use 5. abnormal troponin level. Most likely secondary to myocardial strain in the setting of mechanical valves and previous cardiac injury, reviewed outside records which demonstrate consistently elevated troponin levels of 0.1-0.2 6. Suspected KEVIN. Likely triggered by highly sedating Rx use, may be resulting in the presenting symptoms - recommend outpt f/u w/ Dr. Rodriguez and sleep study Diet. Regular Prophylaxis. Currently on Lovenox Code. Full Disposition. Anticipated discharge is uncertain this time, upgraded to inpatient admission status as his length of stay is anticipated to be greater than 48 hours for reasonable medical necessity including suspected valve defect requiring further interventional diagnostic workup. Subjective: Patient reports he is not currently in pain, has not had a bowel movement Objective: Vital Signs Temp Pulse Resp BP Pulse Ox 36.6 C 62 14 115/82 H 93 01/01/17 16:00 01/01/17 16:00 01/01/17 16:00 01/01/17 16:00 01/01/17 16:00 Laboratory Results 01/01/17 03:23 01/01/17 03:23 12/31/16 01/01/17 01/02/17 05:59 05:59 05:59 Intake Total 300 Output Total 1000 Balance -700 PT 19.2 SEC (12.0-15.0) H 01/01/17 03:23 INR 1.61 (0.83-1.16) H 01/01/17 03:23 - Time Spent With Patient Time Spent with Patient: greater than 35 minutes Time Spent with Patient: Greater than 35 minutes spent on this patients care, greater than 50% of time spent counseling, educating, and coordinating care regarding the above mentioned plan. - Physical Exam Constitutional: no apparent distress, not in pain, chronically ill appearing, No uncomfortable Cardiovascular: other ( click audible at left sternal border), No irregularly irregular, No tachycardia, No edema Respiratory: no respiratory distress, no rales or rhonchi, clear to auscultation Gastrointestinal: normoactive bowel sounds, soft, non-tender abdomen, no palpable masses Skin: other ( many tattoos) Neurologic: other ( lethargic but arousable to verbal stimuli) Psychiatric: not anxious, flat affect, other ( reports he has PTSD), No agitated ICD10 Worksheet Patient Problems: Problems Problem Status Onset Mood disorder Active Chest pain Acute Shortness of breath Acute History of coronary artery disease Acute Troponin level elevated Acute Lightheadedness Acute Acute chest pain Acute Nonischemic cardiomyopathy Acute Malfunction of cardiac pacemaker battery Acute Chest wall pain Acute Chest wall pain Acute Chest wall hematoma Acute Encephalopathy acute Acute Intraparenchymal hemorrhage of brain Acute Syncope Acute Elevated troponin Acute
[2017-01-01] MEDS: LURASIDONE HCL 20 MG TAB PO SCH (20:23)
[2017-01-01] MEDS: OLANZapine 5 MG TAB PO SCH (20:24)
[2017-01-01] MEDS: TOPIRAMATE 100 MG TAB PO SCH (20:24)
[2017-01-01] MEDS: TOPIRAMATE 25 MG TAB PO SCH (20:24)
[2017-01-01] MEDS: VENLAFAXINE XR 150 MG CAP PO SCH (20:25)
[2017-01-02 04:55] LABS: INR 2.53 (0.83-1.16); PROTIME(PATIENT) 27.5 SEC (12.0-15.0)
[2017-01-02] MEDS: LEVOTHYROXINE 50 MCG TAB PO SCH (06:00)
[2017-01-02] MEDS ORDERED: WARFARIN SODIUM 5 MG TAB PO SCH (09:00)
[2017-01-02] MEDS: GABAPENTIN 300 MG CAP PO SCH ×2 (09:21→15:24)
[2017-01-02] MEDS: LISINOPRIL 2.5 MG TAB PO SCH (09:22)
[2017-01-02] MEDS: METOPROLOL TARTRATE 25 MG TAB PO SCH (09:22)
[2017-01-02] MEDS: BACLOFEN 20 MG TAB PO SCH (09:22)
[2017-01-02] MEDS: ASPIRIN 81 MG CHEWABLE TAB PO SCH (09:22)
[2017-01-02] MEDS: oxyCODONE IR 5 MG TAB PO PRN ×2 (10:11→15:23)
--- NOTE | 2017-01-02 10:45 | ECHO ---
[id number] + + [address] : : [place] [address] : : [phone] + + Adult Echocardiographic Report + --------+ :Name: ALIDA BUCHANAN JStudy Date: 01/02/2017 09:24 AM BP: 123/83 mm Hg : : Hospital Admission Number: [id number] Locat ion: 205: :: 1975 Gender: Male Height: 72 in : :Age: 41 yrs Race: WH Weight: 185 l b : :Reason For Study: eval for mitral valve sticking : : BSA: 2.1 mete rs2 : :History: MVR, myectomy, pacemaker : + --------+ MMode/2D Measurements \T\ Calculations IVSd: 0.88 cm RVDd: 3.4 cm FS: 15.9 % LVLd ap4: 9.7 cm LVPWd: 1.0 cm LVIDd: 5.2 cm EDV(Teich): 127.0 mlEDV(MOD-sp4): 199.0 ml LVIDs: 4.3 cm ESV(Teich): 84.8 ml LVLs ap4: 9.1 cm EF(Teich): 33.2 % ESV(MOD-sp4): 115.0 ml EF(MOD-sp4): 42.2 % SV(MOD-sp4): 84.0 ml Normal Measurement Values: + + :LVIDd (3.5-5.7cm) IVSd (0.6-1.1cm) LVPWd (0.6-1.1cm) Aortic Root (2.0-3.7cm)Left Atrium (1.5-4.0cm): :LV Vol(d) (76-115ml) LV Vol(s) (29-48ml) Ejec Fraction (50-65%)PV Charly (0.6- 1.2m/s) TV Charly (0.4-1.0m/s) : :MV E Charly (0.8-1.0m/s)MV A Charly (0.3-1.0m/s)LVOT Charly (0.7-1.2m/s) Asc Ao Charly ( 0.9-1.8m/s) : + + Doppler Measurements \T\ Calculations MV V2 mean: MV P1/2t max charly: Ao V2 max: LV V1 max: 84.2 cm/sec 133.4 cm/sec 115.4 cm/sec 91.3 cm/sec MV mean PG: MV P1/2t: 160.5 msec Ao max PG: LV V1 max P.7 mmHg MVA(P1/2t): 1.4 cm2 5.3 mmHg 3.3 mmHg MV V2 VTI: MV dec slope: LV V1 mean P.5 cm 2.2 mmHg 243.5 cm/sec2 LV V1 mean: 70.7 cm/sec LV V1 VTI: 16.7 cm PA V2 max: 87.3 cm/sec PA max P.0 mmHg Left Ventricle The left ventricle is mildly dilated. The basal and mid septal segments are thin and hypokinetic c/w previous myectomy. Ejection Fraction = 40 to 45%. Right Ventricle The right ventricle is normal in size and function. There is a pacemaker lead in the right ventricle. Atria The left atrium is mildly dilated. The Left Atrial Volume is 38 ml/m2. Right atrial size is normal. Mitral Valve Mean gradient across the MVR 3mmHg. There is no mitral regurgitation noted. There is a bi-leaflet ([employer]) mechanical prosthesis. Tricuspid Valve The tricuspid valve is normal in structure and function. There is no tricuspid stenosis. No tricuspid regurgitation. Aortic Valve The aortic valve is not well visualized. There is no aortic stenosis. There is no aortic insufficiency. Pulmonic Valve The pulmonic valve is not well visualized. Trace pulmonic valvular regurgitation. Great Vessels The aortic root is normal size. Pericardium/Pleural There is no pericardial effusion. Conclusion A two-dimensional transthoracic echocardiogram with M-mode and Doppler was performed. Technically difficult parasternal window. 1. The left ventricle is mildly dilated. The basal and mid septal segments are thin and hypokinetic c/w previous myectomy. The Ejection Fraction = 40 to 45%. 2. The left atrium is mildly dilated. 3. There is a bi-leaflet ([employer]) mechanical prosthesis. The mean gradient across the MVR 3mmHg. There is no mitral regurgitation noted. 4. The aortic valve is not well visualized. There is no aortic stenosis. There is no aortic insufficiency. 5. When compared to the (11/30/16) study. There is no significant change. Final Reading Physician: Varun Mccabe MD electronically signed on 01/02/2017 10:43 AM Ordering Physician: Varun Golden Referring Physician: Varun Mccabe MD Performed By: Patrizia Washington
[2017-01-02 16:25] VITALS: BP 132/89; PULSE 61; RESP 16; TEMP 97.8; O2SAT 96
--- NOTE | 2017-01-02 16:26 | SOAPPROG ---
[facility] Progress Note Assessment/Plan: 1. HCM with asymetric septal hypertrophy - S/P myectomy in 2008. No residual gradient by echocardiogram. 2. PAF - Pt has a history of PAF. He is s/p ablation. Currently in NSR. --> Continue coumadin 3. MVR - Pt is s/p mitral valve replacement with a mechanical valve. The valve appears to sit and function normally on echocardiogram. Cine films demonstrate normal opening and closing angles. --> Continue coumadin 4. CM - Pt has a NICM. His EF is 40%. He reports class II symptoms at this time. --> Continue metoprolol and lisinopril. --> Will not start diuresis as Pt appears euvolemic at this time. 5. Elevated troponin - Pt presents with an elevated troponin. His troponin is chronically elevated in the .1 to .2 range. EKG demonstrates no acute ST changes. Echocardiogram is unchanged. Angiogram in 06/19 with normal coronary arteries. Do not suspect ischemia. 6. Syncope - Pt presents with an episode of syncope characterized by flushing, tachycardia, and unresponsiveness. ICD evaluation demonstrates no significant arrhythmias associated with his event. His mitral valve appears to sit and function normally on echocardiogram and cine films. There is no significant outflow tract gradient on his echocardiogram. Pt is not tachycardic or hypotensive. Pt is somnolent during interview. Query medication related. Consider 5hiaa level. Subjective: I was asked by Dr. Golden to evaluate Mr. Patterson with an episode of unresponsiveness. He has a complex medical history including hypertrophic obstructive cardiomyopathy, mitral valve replacement, and atrial fibrillation. Patient was in his usual state of health until the day of admission when he has found to be unresponsive by his . Patient has had several similar episodes. The episodes are characterized by a flushing sensation, tachycardia, and unresponsiveness. There are no obvious precipitating or relieving factors. Patient remains mildly active walking to the store. He denies symptoms of chest pain with this activity. No orthopnea or PND. Patient recently injured his left ankle and Coumadin was backed off. He was subtherapeutic on admission. Objective: Vital Signs Temp Pulse Resp BP Pulse Ox 36.5 C 52 L 12 114/65 94 01/02/17 12:45 01/02/17 12:45 01/02/17 12:45 01/02/17 12:45 01/02/17 12:45 01/01/17 01/02/17 01/03/17 05:59 05:59 05:59 Intake Total 900 Balance 900 PT 27.5 SEC (12.0-15.0) H D 01/02/17 03:57 INR 2.53 (0.83-1.16) H 01/02/17 03:57 Physical Exam - Physical Exam General Appearance: other (somnolent) Respiratory: lungs clear Cardiac/Chest: regular rate, rhythm, other (prosthetic sounds crisp) Abdomen: normal bowel sounds, non-tender, soft Extremities: pedal edema ICD10 Worksheet Patient Problems: Problems Problem Status Onset Elevated troponin Acute Mood disorder Active Acute chest pain Acute Chest pain Acute Chest wall hematoma Acute Chest wall pain Acute Chest wall pain Acute Encephalopathy acute Acute History of coronary artery disease Acute Intraparenchymal hemorrhage of brain Acute Lightheadedness Acute Malfunction of cardiac pacemaker battery Acute Nonischemic cardiomyopathy Acute Shortness of breath Acute Syncope Acute Troponin level elevated Acute
--- NOTE | 2017-01-02 16:46 | PDDCSUM ---
Discharge Summary Discharge Summary: DISCHARGE SUMMARY FOLLOW-UP ITEMS: Outpatient sleep study DATE OF ADMISSION: 12/31/2016 DATE OF DISCHARGE: 01/02/2017 DISCHARGE DIAGNOSES: 1. Acute syncope 2. Mechanical mitral valve 3. Acute left foot pain 4. Chronic opiate and benzodiazepine dependency 5. Abnormal troponin level 6. Suspected obstructive sleep apnea CONSULTATIONS: Cardiology PROCEDURES / IMAGING: Fluoroscopic catheterization to visualize the valves CHIEF COMPLAINT: Acute syncope SUBJECTIVE: Patient is feeling well at time of discharge, he has not had any further episodes during this hospitalization PHYSICAL EXAM ON DISCHARGE: Systolic blood pressure is 120, heart rate 70, afebrile overnight, satting well on room air, no apparent distress, alert awake oriented x3 LABS ON DISCHARGE: INR 2.5 HOSPITAL COURSE BY PROBLEM: 1. Acute syncope. Patient has been experiencing recurrent episodes of flushing , tachycardia, unresponsiveness, and the exact etiology is unclear. We evaluated the patient from a cardiac standpoint to ensure that his mechanical valve was not sticking and causing obstructive symptoms. He underwent cardiac catheterization with force cup evaluation of the valves, and it was confirmed with numerous Cardiologists that there was no evidence of valvular motion abnormality. Consequently, there is not a cardiac etiology for his recurrent syncope. I suspect the patient may be experiencing sleep apnea, either obstructive or central comma in the setting of over-sedation from his opiates, benzos, muscle relaxants. I have advised the patient to undergo sleep study and outpatient follow up with Dr. Robert Rodriguez. Also advised him to follow up with his primary care provider and discuss med management. The patient does not require further evaluation at an inpatient level for this issue. I anticipate that it will continue until the exact etiology is identified, but would not recommend that he be readmitted to the hospital if he Re-presents with similar symptoms (I would recommend that he follow the treatment plan recommended in this narrative). 2. Mechanical valve p.o. id goal INR 2.5-3.5, Coumadin was initially held and bridging Lovenox was utilized, goal INR currently achieved and re-initiated on regular Coumadin. 3. Acute left foot pain. Secondary to recent injury, x-ray demonstrated no fracture, patient has soft tissue edema and ecchymoses responding to ice as needed. 4. Chronic opiate and benzodiazepine dependency. Patient has chronic pain and anxiety issues and he is on high risk doses of Dilaudid, oxycodone, Klonopin, baclofen, Flexeril, potentially resulting in lethargy as well as syncopal episodes described. I recommend that he begin weaning some of the do a class medications notably the opiates and muscle relaxants. This should be done through his primary care provider office. 5. Abnormal troponin level. Most likely secondary to myocardial strain, patient has a history of troponin levels ranging between 0.1-0.2, his values this hospitalization were within that range. 6. Suspected sleep apnea. I suspect the patient has either obstructive or central sleep apnea and as mentioned above, would recommend he follow up with Dr. Rodriguez. DISCHARGE MEDICATIONS: Please see official discharge medication reconciliation sheet in chart , continue all home medications. DISCHARGE INSTRUCTIONS: Please have an outpatient sleep study and follow up with both Dr. Rodriguez and your PCP.
[2017-01-03] MEDS ORDERED: WARFARIN SODIUM 7.5 MG TAB PO SCH (16:00)
[2017-01-04] MEDS ORDERED: WARFARIN SODIUM 5 MG TAB PO SCH (16:00)
== END 2017-01-02 17:57 | disposition home or self-care (01) | DRG 312 ==
LOC: EDUNIT# → INTOOBSV 14:30 → F2W 15:14 → OBSVTOIN 01-01 17:18
PROVIDERS: ADMIT Internal Medicine; ATTEND Internal Medicine
DX: R55 Syncope and collapse (principal); R61 Generalized hyperhidrosis; I42.2 Other hypertrophic cardiomyopathy; E03.9 Hypothyroidism, unspecified; I25.10 Atherosclerotic heart disease of native coronary artery without angina pectoris; I48.91 Unspecified atrial fibrillation; G47.33 Obstructive sleep apnea (adult) (pediatric); G89.29 Other chronic pain; F11.20 Opioid dependence, uncomplicated; I25.2 Old myocardial infarction; B19.20 Unspecified viral hepatitis C without hepatic coma; Z95.1 Presence of aortocoronary bypass graft; Z95.2 Presence of prosthetic heart valve; F17.210 Nicotine dependence, cigarettes, uncomplicated; Z79.01 Long term (current) use of anticoagulants; Z95.810 Presence of automatic (implantable) cardiac defibrillator
CPT/HCPCS: 80305; G0378; J1650

== ENCOUNTER 2017-03-06 18:48 | Observation (INO) | payer MEDICAID ==
--- NOTE | 2017-03-06 18:54 | EDPHY ---
H & P Constitutional: Initial Vital Signs Temperature (C) 36.0 C 03/06/17 18:48 Heart Rate 72 03/06/17 18:48 Respiratory Rate 18 03/06/17 18:48 Blood Pressure 131/91 H 03/06/17 18:48 O2 Sat (%) 100 03/06/17 18:48 O2 Delivery Mode Non-Rebreather Mask O2 (L/minute) 15 Allergies/Adverse Reactions: amiodarone Allergy (Intermediate, Verified 09/26/16 15:14) Hives, swelling Home Medications: Medication Instructions Recorded Aspirin [Aspirin 81mg (*)] 81 mg PO DAILY 09/26/16 Cyclobenzaprine [Flexeril 10 MG 10 mg PO BID PRN 09/26/16 (*)] Gabapentin [Neurontin 300 MG (*)] 900 mg PO TID 09/26/16 HYDROmorphone HCL [Dilaudid 4 mg 4 mg PO TID PRN 09/26/16 (*)] Topiramate [Topamax 100MG (*)] 100 mg PO HS 09/26/16 Venlafaxine Xr [Effexor Xr] 150 mg PO HS 09/26/16 Warfarin Sodium [Coumadin 5MG (*)] 5 mg PO SUTUTHSA@0900 09/26/16 Warfarin Sodium [Coumadin 7.5MG 7.5 mg PO MOWEFR@0900 09/26/16 (*)] oxyCODONE IR [Oxycodone Ir (*)] 10 mg PO QID PRN 09/26/16 Levothyroxine [Synthroid 50 mcg 50 mcg PO DAILY06 11/29/16 (*)] Lisinopril [Zestril 2.5 mg (*)] 2.5 mg PO DAILY 11/29/16 Baclofen [Baclofen 20 mg (*)] 20 mg PO BID 12/31/16 Hydroxyzine Pamoate 25 mg PO TID PRN 03/06/17 Metoprolol Tartrate [Lopressor 25 75 mg PO BID 03/06/17 mg (*)] OLANZapine [OLANZapine (*)] 30 mg PO HS 03/06/17 Omeprazole Magnesium [Prilosec Otc] 20 mg PO DAILY 03/06/17 Medical Decision Making ED Course/Re-evaluation: CHIEF COMPLAINT: Polysubstance abuse, minimally responsive HISTORY OF PRESENT ILLNESS: The patient is a 41 y/o male arriving emergently via EMS for unresponsiveness after reported polysubstance overdose this evening. Per EMS, his girlfriend on scene, who was also intoxicated, reported that he has been drinking heavily, took an unknown amount of opiates, used marijuana, and took another unknown drug. EMS found him unresponsive with significant respiratory depression RR 4-6/min. EMS administered 0.5 IV Narcan on scene with some improvement in respiratory drive, but his SpO2 remained around 70%. They placed an NPA and prepared to intubate, but gave another 0.25mg Narcan, which brought patient to semi-consciousness. The patient is minimally able to contribute to history, but states that he took Dilaudid tablets tonight. REVIEW OF SYSTEMS: A 10 point review of systems was performed and is negative with the exception of the elements mentioned in the history of present illness. PHYSICAL EXAM: HR, BP, O2 Sat, RR. Temp noted General Appearance: Alert, well hydrated, appropriate, and non-toxic appearing. Head: Atraumatic without scalp tenderness or obvious injury Eyes: Pupils equal, round, pinpoint, EOMI, no trauma, no injection. Ears: Clear bilaterally, no perforation, normal landmarks Nose: Atraumatic, no rhinorrhea, clear. NPA in place. Throat: Mucus membranes moist. Neck: Supple, no apparent tenderness, no lymphadenopathy. Respiratory: No retractions, no distress, no wheezes, and no accessory muscle use. Lungs are clear to auscultation bilaterally. Cardiovascular: Regular rate and rhythm, no murmurs, rubs, or gallops. Good capillary refill all extremities. Gastrointestinal: Abdomen is soft, no apparent, non-distended, no masses, no rebound, no guarding, no peritoneal signs. Musculoskeletal: Normal active ROM of all extremities, atraumatic. Neurological: Alert, appropriate, and interactive. Moving all extremities. Skin: No rashes, good turgor, no nodules on palpation. PAST MEDICAL HISTORY: Polysubstance abuse, chronic back pain PAST SURGICAL HISTORY: unknown SOCIAL HISTORY: Lives in [place]. Opiate and alcohol abuse. Has girlfriend. DIFFERENTIAL DIAGNOSIS: The differential diagnosis for the patient's altered mental status included but was not limited to hypoglycemia, infectious process, electrolyte abnormality, head injury, neurologic process, anemia, cardiac process, and intoxicants. MEDICAL DECISION MAKIN: Met EMS upon arrival and took report. This is a 41 y/o male with frequent ED visits related to drug and alcohol abuse who presents with altered mentation after reportedly using multiple narcotics and alcohol tonight. It's unclear if he intentionally overdosed. He has pinpoint pupils and is somewhat responsive to verbal stimulus upon arrival. Plan for more Narcan. 1851: Restrained patient prior to Narcan administration. 185: 2mg IV Narcan administered. Mentating well. Shivering. Narcan drip ordered. Plan for labs, VALENTIN, and tox screen. 1899: Spoke with Dr. Dahl, hospitalist. He accepts admission for polysubstance overdose. - Data Points Laboratory Results: Laboratory Results 03/06/17 19:30 03/06/17 19:23 03/06/17 03/06/17 03/06/17 19:46 19:30 19:23 WBC 13.19 10^3/uL H 10^3/uL (3.80-9.50) RBC 5.19 10^6/uL 10^6/uL (4.40-6.38) Hgb 13.9 g/dL g/dL (13.7-17.5) Hct 43.7 % % (40.0-51.0) MCV 84.2 fL fL (81.5-99.8) MCH 26.8 pg L pg (27.9-34.1) MCHC 31.8 g/dL L g/dL (32.4-36.7) RDW 15.7 % H % (11.5-15.2) Plt Count 229 10^3/uL 10^3/uL (150-400) MPV 9.8 fL fL (8.7-11.7) Neut % (Auto) 72.6 % % (39.3-74.2) Lymph % (Auto) 11.0 % L % (15.0-45.0) [place] % (Auto) 15.3 % H % (4.5-13.0) Eos % (Auto) 0.1 % L % (0.6-7.6) Baso % (Auto) 0.2 % L % (0.3-1.7) Nucleat RBC Rel Count 0.2 % % (0.0-0.2) Absolute Neuts (auto) 9.58 10^3/uL H 10^3/uL (1.70-6.50) Absolute Lymphs (auto) 1.45 10^3/uL 10^3/uL (1.00-3.00) Absolute Monos (auto) 2.02 10^3/uL H 10^3/uL (0.30-0.80) Absolute Eos (auto) 0.01 10^3/uL L 10^3/uL (0.03-0.40) Absolute Basos (auto) 0.02 10^3/uL 10^3/uL (0.02-0.10) Absolute Nucleated RBC 0.03 10^3/uL H 10^3/uL (0-0.01) Immature Gran % 0.8 % % (0.0-1.1) Immature Gran # 0.11 10^3/uL H 10^3/uL (0.00-0.10) PT 30.2 SEC H SEC (12.0-15.0) INR 2.84 H (0.83-1.16) Sodium 136 mEq/L mEq/L (134-144) Potassium 3.4 mEq/L L mEq/L (3.5-5.2) Chloride 104 mEq/L mEq/L (97-110) Carbon Dioxide 18 mEq/l L mEq/l (22-31) Anion Gap 14 mEq/L mEq/L (8-16) BUN 17 mg/dL mg/dL (7-23) Creatinine 2.7 mg/dL H mg/dL (0.7-1.3) Estimated GFR 26 Glucose 183 mg/dL H mg/dL (70-100) Calcium 7.1 mg/dL L mg/dL (8.5-10.4) Salicylates < 1.0 mg/dL L mg/dL (2.0-20.0) Acetaminophen < 10 mcg/mL L mcg/mL (10-30) Ethyl Alcohol < 10 mg/dL mg/dL (0-10) 03/06/17 19:23 WBC TNP RBC Not Reported Hgb Not Reported Hct Not Reported MCV Not Reported MCH Not Reported MCHC Not Reported RDW Not Reported Plt Count Not Reported MPV Not Reported Neut % (Auto) Not Reported Lymph % (Auto) Not Reported [place] % (Auto) Not Reported Eos % (Auto) Not Reported Baso % (Auto) Not Reported Nucleat RBC Rel Count Not Reported Absolute Neuts (auto) Not Reported Absolute Lymphs (auto) Not Reported Absolute Monos (auto) Not Reported Absolute Eos (auto) Not Reported Absolute Basos (auto) Not Reported Absolute Nucleated RBC Not Reported Immature Gran % Not Reported Immature Gran # Not Reported PT INR Sodium Potassium Chloride Carbon Dioxide Anion Gap BUN Creatinine Estimated GFR Glucose Calcium Salicylates Acetaminophen Ethyl Alcohol Medications Given: Naloxone HCl 2 mg/ Dextrose 505 mls @ 0 mls/hr IV CONT MARGIE; Per Protocol PRN Reason: Protocol Stop: 09/02/17 18:59 Last Admin: 03/06/17 19:42 Dose: 505 mls Discontinued Medications Naloxone HCl (Narcan) 2 mg IVP EDNOW ONE Stop: 03/06/17 18:59 Last Admin: 03/06/17 19:01 Dose: 2 mg Departure - Departure Disposition: [facility] Inpatient Acute Clinical Impression: Polysubstance overdose Qualifiers: Encounter type: initial encounter Injury intent: undetermined intent Qualified Code(s): T50.904A - Poisoning by unspecified drugs, medicaments and biological substances, undetermined, initial encounter Narcotic overdose Qualifiers: Encounter type: initial encounter Injury intent: undetermined intent Qualified Code(s): T40.604A - Poisoning by unspecified narcotics, undetermined, initial encounter Altered mental status Qualifiers: Altered mental status type: unspecified Qualified Code(s): R41.82 - Altered mental status, unspecified Condition: Fair Referrals: Patient,NotPresent [Primary Care Provider] - As per Instructions Report Scribed for: Matthew Vieyra Report Scribed by: Scarlet Solitario Date of Report: 03/06/17 Time of Report: 18:54
[2017-03-06] MEDS ORDERED: NALOXONE HCL 0.4 MG/ML INJ IVP ONE (18:58)
[2017-03-06] MEDS ORDERED: NALOXONE HCL 2 MG/2 ML SYR IVP ONE (19:38)
[2017-03-06] MEDS: NALOXONE HCL 2 MG in D5W 500 ML IV SCH ×3 (19:42→22:47)
[2017-03-06 19:48] LABS: % IMMATURE GRANULYOCYTES 0.8 % (0.0-1.1); ABSOLUTE IMMATURE GRANULOCYTES 0.11 10^3/uL (0.00-0.10); ABSOLUTE NRBC COUNT 0.03 10^3/uL (0-0.01); ADD DIFF? NO; ADD MORPH? NO; ADD SCAN? NO; ATYPICAL LYMPHOCYTE FLAG 10 (0-99); FRAGMENT RBC FLAG 0 (0-99); HEMATOCRIT 43.7 % (40.0-51.0); HEMOGLOBIN 13.9 g/dL (13.7-17.5); LEFT SHIFT FLG 10 (0-99); LIPEMIA HEMOLYSIS FLAG 80 (0-99); MEAN CELL HEMOGLOBIN 26.8 pg (27.9-34.1); MEAN CELL HEMOGLOBIN CONCENTR. 31.8 g/dL (32.4-36.7); MEAN CELL VOLUME 84.2 fL (81.5-99.8); MEAN PLATELET VOLUME 9.8 fL (8.7-11.7); NRBC-AUTO% 0.2 % (0.0-0.2); PLATELET CLUMPS FLAG 0 (0-99); PLATELET COUNT 229 10^3/uL (150-400); RED BLOOD CELL COUNT 5.19 10^6/uL (4.40-6.38); RED CELL DISTRIBUTION WIDTH 15.7 % (11.5-15.2)
[2017-03-06 19:52] LABS: ANION GAP 14 mEq/L (8-16); CALCIUM 7.1 mg/dL (8.5-10.4); CARBON DIOXIDE 18 mEq/l (22-31); CHLORIDE 104 mEq/L (97-110); CREATININE 2.7 mg/dL (0.7-1.3); ETHANOL SERUM < 10 mg/dL (0-10); GLOMERULAR FILTRATION RATE 26; GLUCOSE 183 mg/dL (70-100); POTASSIUM 3.4 mEq/L (3.5-5.2); SALICYLATE < 1.0 mg/dL (2.0-20.0); SODIUM 136 mEq/L (134-144)
[2017-03-06] MEDS ORDERED: ACETAMINOPHEN 325 MG TAB PO PRN (20:05)
[2017-03-06] MEDS ORDERED: ONDANSETRON 4 MG/2 ML VIAL IVP PRN (20:05)
[2017-03-06] MEDS ORDERED: ONDANSETRON DISINTEGRATING 4 MG TAB PO PRN (20:05)
--- NOTE | 2017-03-06 20:25 | CPEKG ---
Heart Rate: 67 RR Interval: 896 P-R Interval: 204 QRSD Interval: 138 QT Interval: 448 QTC Interval: 473 P [place]: 36 QRS [place]: -31 T Wave [place]: 147 EKG Severity - ABNORMAL ECG - EKG Impression: SINUS RHYTHM EKG Impression: PROBABLE LEFT ATRIAL ABNORMALITY EKG Impression: LVH WITH IVCD AND SECONDARY REPOL ABNRM Electronically Signed By: Matthew Vieyra 06-Mar-2017 23:12:04
[2017-03-06] MEDS ORDERED: NS 1,000 ML IV SCH (20:30)
[2017-03-06 20:49] LABS: INR 2.84 (0.83-1.16); PROTIME(PATIENT) 30.2 SEC (12.0-15.0)
--- NOTE | 2017-03-06 20:56 | GHP ---
[f rep st] HISTORY AND PHYSICAL DATE OF ADMISSION: 03/06/2017 HISTORY OF PRESENT ILLNESS: The patient is a 41-year-old gentleman with a history of systolic heart failure, AICD, mechanical mitral valve, and polysubstance abuse. He was found down in his apartment. His called 911 because he became unresponsive. When I see the patient in the ER, he is on Sohail can drip and more responsive. He endorses taking more Dilaudid than prescribed because he has been h urting lately. He says he denies his AICD firing. He says he has continued to take his medications, including his warfarin. He is otherwise relatively without complaints, including no chest pain, no fever or chills, no cough. He does not elaborate on where his pain is. REVIEW OF SYSTEMS: Complete 10-point review of systems conducted and negative except as noted in the HPI. PAST MEDICAL HISTORY: 1. Polysubstance abuse, including narcotics. 2. History of ICD, pocket hematoma. 3. Hypertrophic obstructive cardiomyopathy, status post myomectomy. 4. Chronic pain with continuous narcotic dependency. 5. Mitral valve replacement with mechanical valve. 6. History of aortic thrombus, on chronic anticoagulation. 7. Atrial fibrillation, status post ablation. 8. Chronic upper extremity neuropathy. 9. Hypothyroidism. 10. Hepatitis C. 11. PTSD. 12. Migraines. 13. Degenerative joint disease. SOCIAL HISTORY: Lives his . Smokes cigarettes. He used alcohol today, as well as marijuana and chronic narcotics. FAMILY HISTORY: Notable for hypertrophic obstructive cardiomyopathy. ALLERGIES: Amiodarone. MEDICATIONS: Aspirin, baclofen, clonazepam, cyclobenzaprine, gabapentin, hydromorphone, levothyroxin e, lisinopril, lorazepam, lurasidone, metoprolol tartrate, olanzapine, omeprazole, oxycodone, Topamax , venlafaxine, warfarin. PHYSICAL EXAMINATION: VITAL SIGNS: Presenting temp 36, blood pressure 131/91, pulse 72, breathing a t 18 times a minute, 100% on 15 L. GENERAL: When I see him, he is alert. HEENT: Sclerae are sligh tly injected, but anicteric. Oropharynx clear. Mucous membranes are moist. NECK: Supple without l ymphadenopathy or JVD. LUNGS: Clear to auscultation anterolaterally. HEART: S1, S2 with metallic click and murmur. His AICD pocket is soft without fluctuance or erythema or warmth. ABDOMEN: Soft, nontender, nondistended. LOWER EXTREMITIES: Without edema. Calves are nontender. SKIN: Without rash. NEUROLOGIC: Nonfocal. LABORATORY DATA: White count 13.2, hematocrit 42.7, platelets are 229,000. INR is pending. Sodium 136, potassium 3.4, chloride 104, bicarb 18, BUN 17, creatinine 2.7; his baseline is normal at about 1. Glucose 183. Tox screen is nonnegative for opiates and nonnegative for marijuana, is otherwise u nremarkable. An EKG is pending. I have discussed the case with Dr. Matthew Vieyra. ASSESSMENT/PLAN: A 41-year-old gentleman, with multiple medical problems and polysubstance abuse, he re with what appears to be narcotic overdose. 1. Narcotic overdose. The patient is obtunded, received Narcan, is alert. We will continue on a Na rcan drip overnight and follow him in the intensive care unit. Patient does not appear to be acutely withdrawing from narcotics in the setting of Narcan. 2. Hypertrophic obstructive cardiomyopathy. The patient has an automatic implantable cardioverter-d efibrillator. We will follow. He is not in heart failure. 3. Acute kidney injury. I suspect this is prerenal. I have written him for IV fluids overnight. 4. History of mechanical mitral valve. He has a prosthetic mitral valve. We will check an INR and follow. 5. Polysubstance abuse. The patient has had drug-related admissions before. We will follow. Johan inly, it sounds like he needs to be on less narcotics as an outpatient. I am concerned that his grupo nancy of use is one of abuse more than therapeutic use. 6. Prophylaxis, await his INR. DISPOSITION: Observation status, ICU. CODE STATUS: Full code. /[id number]/MODL
[2017-03-06] MEDS ORDERED: CYCLOBENZAPRINE 10 MG TAB PO PRN (21:47)
[2017-03-06] MEDS ORDERED: hydrOXYzine HCL 25 MG TAB PO PRN (22:00)
[2017-03-06 22:46] LABS: TROPONIN I 0.241 ng/mL (0.000-0.034)
[2017-03-07] MEDS: GABAPENTIN 300 MG CAP PO SCH ×2 (05:03→12:20)
[2017-03-07 05:46] LABS: % IMMATURE GRANULYOCYTES 0.3 % (0.0-1.1); ABSOLUTE IMMATURE GRANULOCYTES 0.03 10^3/uL (0.00-0.10); ADD DIFF? NO; ADD MORPH? NO; ADD SCAN? NO; ATYPICAL LYMPHOCYTE FLAG 10 (0-99); FRAGMENT RBC FLAG 0 (0-99); HEMATOCRIT 41.1 % (40.0-51.0); HEMOGLOBIN 13.6 g/dL (13.7-17.5); LEFT SHIFT FLG 0 (0-99); LIPEMIA HEMOLYSIS FLAG 80 (0-99); MEAN CELL HEMOGLOBIN 26.7 pg (27.9-34.1); MEAN CELL HEMOGLOBIN CONCENTR. 33.1 g/dL (32.4-36.7); MEAN CELL VOLUME 80.6 fL (81.5-99.8); MEAN PLATELET VOLUME 9.6 fL (8.7-11.7); PLATELET CLUMPS FLAG 0 (0-99); PLATELET COUNT 179 10^3/uL (150-400); RED CELL DISTRIBUTION WIDTH 15.6 % (11.5-15.2)
[2017-03-07 05:52] LABS: ANION GAP 9 mEq/L (8-16); CALCIUM 8.7 mg/dL (8.5-10.4); CARBON DIOXIDE 23 mEq/l (22-31); CHLORIDE 102 mEq/L (97-110); CREATININE 1.6 mg/dL (0.7-1.3); GLOMERULAR FILTRATION RATE 48; GLUCOSE 105 mg/dL (70-100); POTASSIUM 3.9 mEq/L (3.5-5.2); SODIUM 134 mEq/L (134-144)
[2017-03-07] MEDS ORDERED: FLU VACC QS 2017-18 (3YR+)/PF 0.5 ML SYR (FLUARIX QUAD) IM ONE (05:56)
[2017-03-07 05:58] LABS: INR 3.08 (0.83-1.16); PROTIME(PATIENT) 32.2 SEC (12.0-15.0)
[2017-03-07] MEDS ORDERED: LEVOTHYROXINE 50 MCG TAB PO SCH (06:00)
[2017-03-07 06:11] LABS: TROPONIN I 0.229 ng/mL (0.000-0.034)
[2017-03-07] MEDS ORDERED: WARFARIN SODIUM 7.5 MG TAB PO SCH (09:00)
[2017-03-07] MEDS ORDERED: LISINOPRIL 5 MG TAB PO SCH (09:00)
[2017-03-07] MEDS ORDERED: BACLOFEN 20 MG TAB PO SCH (09:00)
[2017-03-07] MEDS ORDERED: ASPIRIN 81 MG CHEWABLE TAB PO SCH (09:00)
[2017-03-07] MEDS ORDERED: PANTOPRAZOLE SODIUM 40 MG TAB PO SCH (09:00)
[2017-03-07] MEDS ORDERED: METOPROLOL TARTRATE 25 MG TAB PO SCH (09:00)
[2017-03-07 12:19] VITALS: BP 121/68; PULSE 69; RESP 17; TEMP 97.9; O2SAT 92
--- NOTE | 2017-03-07 13:04 | PDDCSUM ---
Discharge Summary Discharge Summary: Dates of service 03/06-03/07/17 Procedures: none consultations: pulmonary Hospital course by problem: # narcotic overdose: with hx of prior issues with same, inadvertent, now resolved # chronic pain with continuous narcotic use and dependency: strongly recommending he work to get himself off of narcotics, has had recurrent issues with this, does not seem that he has much insight into this problem # HOCM/VHD: at baseline, chronic issue, continue op f/u # dc home Meds: see EHR > 35 minutes spent in dc of patient more than half in coordination of care
[2017-03-07] MEDS ORDERED: OLANZapine 10 MG TAB PO SCH (21:00)
[2017-03-07] MEDS ORDERED: TOPIRAMATE 100 MG TAB PO SCH (21:00)
[2017-03-07] MEDS ORDERED: VENLAFAXINE XR 150 MG CAP PO SCH (21:00)
[2017-03-08] MEDS ORDERED: WARFARIN SODIUM 5 MG TAB PO SCH (09:00)
--- NOTE | 2017-03-08 16:44 | ASDISCHSUM ---
Discharge Information Plan Status:Home with No Needs Medically Cleared to Leave: Discharge Date:03/07/2017 02:48 PM CM D/C Disposition:Home, Routine, Self-Care ADT D/C Disposition:Home, Routine, Self-Care Projected Discharge Date:03/07/2017 02:48 PM Transportation at D/C:Taxicab Discharge Delay Reason: Follow-Up Date:03/07/2017 02:48 PM Discharge Slot: Final Diagnosis: Placement Information Patient Contact Information Contact Name:JENNIFER Relationship: [address] Work Phone: City:[place] Alternate Phone: [facility]/Zip Code:[place] [address] Email: Financial Information Financial Class:MD Primary Plan Desc:[employer] Primary Plan Number:[id number] Secondary Plan Desc: Secondary Plan Number: Assessment Information Intervention Information
== END 2017-03-07 14:48 | disposition home or self-care (01) ==
LOC: EDUNIT# → F2N 20:44
PROVIDERS: ADMIT Internal Medicine; ATTEND Internal Medicine
DX: T50.904A Poisoning by unspecified drugs, medicaments and biological substances, undetermined, initial encounter (principal); T40.604A Poisoning by unspecified narcotics, undetermined, initial encounter; R41.82 Altered mental status, unspecified; F10.10 Alcohol abuse, uncomplicated; N17.9 Acute kidney failure, unspecified; G89.29 Other chronic pain; I42.1 Obstructive hypertrophic cardiomyopathy; E03.9 Hypothyroidism, unspecified; I48.91 Unspecified atrial fibrillation; F11.20 Opioid dependence, uncomplicated; F12.10 Cannabis abuse, uncomplicated; F43.10 Post-traumatic stress disorder, unspecified; B19.20 Unspecified viral hepatitis C without hepatic coma; F17.210 Nicotine dependence, cigarettes, uncomplicated; G43.909 Migraine, unspecified, not intractable, without status migrainosus; Z95.5 Presence of coronary angioplasty implant and graft; Z95.810 Presence of automatic (implantable) cardiac defibrillator; Z95.2 Presence of prosthetic heart valve; Z79.01 Long term (current) use of anticoagulants; Z23 Encounter for immunization
CPT/HCPCS: 90471; 93005; 96374; 99285; G0378; 80305; G0008; G0480; J2310

== ENCOUNTER 2017-05-22 14:45 | Inpatient (IN) | payer MEDICAID ==
--- NOTE | 2017-05-22 15:01 | CPEKG ---
Heart Rate: 92 RR Interval: 652 P-R Interval: 168 QRSD Interval: 130 QT Interval: 420 QTC Interval: 520 P [place]: 42 QRS [place]: -35 T Wave [place]: 112 EKG Severity - ABNORMAL ECG - EKG Impression: SINUS RHYTHM EKG Impression: LEFT ATRIAL ABNORMALITY EKG Impression: LVH WITH IVCD AND SECONDARY REPOL ABNRM Electronically Signed By: Abiel Mark 22-May-2017 15:29:02
[2017-05-22] MEDS ORDERED: NS 500 ML IV ONE (15:23)
--- NOTE | 2017-05-22 15:25 | EDPHY ---
H & P Time Seen by Provider: 05/22/17 15:12 HPI/ROS: CHIEF COMPLAINT: Syncope x3 HISTORY OF PRESENT ILLNESS: 41-year-old man with a history of hypertrophic cardiomyopathy and mitral valve replacement has defibrillator and is prescribed warfarin. He has been on a methamphetamine binge and has not slept in the lack 6 days and today he passed out 3 times. He says that all 3 times were when he got up or sat up from lying down or sitting and passed out. Did not hurt himself. Still feels dizzy and lightheaded and very tired. REVIEW OF SYSTEMS: Eye: no change in vision ENT: Mild sore throat. Cardiac: No chest pain Pulmonary: no cough or SOB Abdomen: no vomiting, diarrhea, abdominal pain Musculoskeletal: Chronic back pain unchanged Skin: Skin rashes beer to unchanged Neuro: no headache Constitutional: no fever : Decreased and darker urine A comprehensive 10 point review of systems is otherwise negative aside from elements mentioned in the history of present illness. PAST MEDICAL HISTORY: Hypertrophic cardiomyopathy, mitral valve replacement, pacer defibrillator, PTSD, depression, hypertension, hep C, migraines, thyroid. Chronic pain. Social history: Methamphetamine as above. General Appearance: Alert and conversant, cooperative. Eyes: No scleral icterus. ENT, Mouth: Normal mucous membranes. Poor dentition. Respiratory: Normal respiratory effort, breath sounds equal, lungs are clear to auscultation. Cardiovascular: Regular rate and rhythm. Gastrointestinal: Abdomen is soft and non tender. Neurological: Alert and oriented x3. Normally conversant. Face symmetric, normal movement and sensation in all extremities. Skin: Slight rash under his tang on the chin. Scaling. Musculoskeletal: No peripheral edema and no joint swelling. Psychiatric: Not agitated. Emergency Department course/MDM: Patient is no longer on warfarin. His device is from [employer]. His initial blood pressure was 87/61 with a heart rate 101. Plan for fluid hydration, labs to include pro-time and CBC and chemistries. 1548: CO2 of 18 creatinine 1.5, 2 L normal saline IV given. Clinically dehydrated. Was for well 1600: Troponin .208, he has a chronically elevated troponin but this is higher than usual. Plan for admission for IV hydration, evaluation for syncope in a patient with known structural cardiac disease, cardiomyopathy, elevated troponin, hypotension on arrival. 1705: Re-examined, got dizzy when he sat up, plan for continued hydration and cardiology consultation as inpatient. 1812: Discussed with Dr. Chi, cards will consult. Smoking Status: Current every day smoker Constitutional: Initial Vital Signs Temperature (C) 36.8 C 05/22/17 14:50 Heart Rate 101 H 05/22/17 14:50 Respiratory Rate 18 05/22/17 14:50 Blood Pressure 87/61 L 05/22/17 14:50 O2 Sat (%) 95 05/22/17 14:50 O2 Delivery Mode Room Air Allergies/Adverse Reactions: amiodarone Allergy (Intermediate, Verified 09/26/16 15:14) Hives, swelling Home Medications: Medication Instructions Recorded Aspirin [Aspirin 81mg (*)] 81 mg PO DAILY 09/26/16 Gabapentin [Neurontin 300 MG (*)] 900 mg PO QID 09/26/16 Topiramate [Topamax 100MG (*)] 100 mg PO HS 09/26/16 Venlafaxine Xr [Effexor Xr] 150 mg PO HS 09/26/16 Warfarin Sodium [Coumadin 5MG (*)] 5 mg PO SUTUTHSA@16 09/26/16 Warfarin Sodium [Coumadin 7.5MG 7.5 mg PO MOWEFR@0900 09/26/16 (*)] Levothyroxine [Synthroid 50 mcg 50 mcg PO DAILY06 11/29/16 (*)] Lisinopril [Zestril 2.5 mg (*)] 2.5 mg PO DAILY 11/29/16 OLANZapine [OLANZapine (*)] 30 mg PO HS 03/06/17 Omeprazole Magnesium [Prilosec Otc] 20 mg PO DAILY 03/06/17 Baclofen [Baclofen 10 mg (*)] 10 mg PO BID@,14 05/22/17 Cyclobenzaprine [Flexeril 10 MG 10 mg PO HS 05/22/17 (*)] Metoprolol Tartrate [Lopressor 50 50 mg PO DAILY 05/22/17 mg (*)] Metoprolol Tartrate [Lopressor 50 100 mg PO HS 05/22/17 mg (*)] Nicotine [Nicoderm Cq 7 mg (*)] 7 mg TD DAILY PRN 05/22/17 Topiramate [Topamax 25MG (*)] 25 mg PO HS 05/22/17 hydrOXYzine HCL [Vistaril 25MG] 25 mg PO TID PRN 05/22/17 Medical Decision Making - Diagnostics EKG Interpretation: 12-lead EKG interpreted by me; official reading is in trace master. My interpretation is sinus rhythm rate 92 with LVH an IVCD and left atrial abnormality. Imaging Results: Imaging Impressions Chest X-Ray 05/22/17 15:23 Impression: 1. Pacemaker without pneumothorax. 2. No acute pulmonary disease. Differential Diagnosis: Differential diagnosis considered for syncope including but not limited to vasovagal syncope, arrhythmia, dehydration, and blood loss. Consult/Admit Bed Type: [place] [id number] - Data Points Laboratory Results: Laboratory Results 05/22/17 15:14 05/22/17 15:14 05/22/17 05/22/17 05/22/17 15:14 15:14 15:14 WBC 9.70 10^3/uL H 10^3/uL (3.80-9.50) RBC 5.92 10^6/uL 10^6/uL (4.40-6.38) Hgb 16.6 g/dL g/dL (13.7-17.5) Hct 47.7 % % (40.0-51.0) MCV 80.6 fL L fL (81.5-99.8) MCH 28.0 pg pg (27.9-34.1) MCHC 34.8 g/dL g/dL (32.4-36.7) RDW 18.4 % H % (11.5-15.2) Plt Count 219 10^3/uL 10^3/uL (150-400) MPV 9.7 fL fL (8.7-11.7) Neut % (Auto) 59.2 % % (39.3-74.2) Lymph % (Auto) 28.0 % % (15.0-45.0) [place] % (Auto) 9.6 % % (4.5-13.0) Eos % (Auto) 2.4 % % (0.6-7.6) Baso % (Auto) 0.4 % % (0.3-1.7) Nucleat RBC Rel Count 0.0 % % (0.0-0.2) Absolute Neuts (auto) 5.74 10^3/uL 10^3/uL (1.70-6.50) Absolute Lymphs (auto) 2.72 10^3/uL 10^3/uL (1.00-3.00) Absolute Monos (auto) 0.93 10^3/uL H 10^3/uL (0.30-0.80) Absolute Eos (auto) 0.23 10^3/uL 10^3/uL (0.03-0.40) Absolute Basos (auto) 0.04 10^3/uL 10^3/uL (0.02-0.10) Absolute Nucleated RBC 0.00 10^3/uL 10^3/uL (0-0.01) Immature Gran % 0.4 % % (0.0-1.1) Immature Gran # 0.04 10^3/uL 10^3/uL (0.00-0.10) PT 18.1 SEC H SEC (12.0-15.0) INR 1.48 H (0.83-1.16) APTT 24.7 SEC SEC (23.0-38.0) Sodium 140 mEq/L mEq/L (134-144) Potassium 4.0 mEq/L mEq/L (3.5-5.2) Chloride 104 mEq/L mEq/L (97-110) Carbon Dioxide 18 mEq/l L mEq/l (22-31) Anion Gap 18 mEq/L H mEq/L (8-16) BUN 28 mg/dL H mg/dL (7-23) Creatinine 1.5 mg/dL H mg/dL (0.7-1.3) Estimated GFR 51 Glucose 143 mg/dL H mg/dL (70-100) Calcium 9.8 mg/dL mg/dL (8.5-10.4) Troponin I 0.208 ng/mL H ng/mL (0.000-0.034) Medications Given: Discontinued Medications Sodium Chloride (Ns) 500 mls @ 0 mls/hr IV EDNOW ONE; Wide Open PRN Reason: Protocol Stop: 05/22/17 15:24 Last Admin: 05/22/17 15:30 Dose: 500 mls Sodium Chloride (Ns) 1,000 mls @ 0 mls/hr IV EDNOW ONE; Wide Open PRN Reason: Protocol Stop: 05/22/17 15:49 Last Admin: 05/22/17 16:51 Dose: 1,000 mls Sodium Chloride (Ns) 1,000 mls @ 0 mls/hr IV EDNOW ONE; Wide Open PRN Reason: Protocol Stop: 05/22/17 15:49 Last Admin: 05/22/17 16:52 Dose: 1,000 mls Departure - Departure Disposition: [facility] Inpatient Acute Clinical Impression: Dehydration Syncope Qualifiers: Syncope type: unspecified Qualified Code(s): R55 - Syncope and collapse Condition: Good
[2017-05-22 15:37] LABS: % IMMATURE GRANULYOCYTES 0.4 % (0.0-1.1); ABSOLUTE IMMATURE GRANULOCYTES 0.04 10^3/uL (0.00-0.10); ADD DIFF? NO; ADD MORPH? NO; ADD SCAN? NO; ATYPICAL LYMPHOCYTE FLAG 10 (0-99); FRAGMENT RBC FLAG 20 (0-99); HEMATOCRIT 47.7 % (40.0-51.0); HEMOGLOBIN 16.6 g/dL (13.7-17.5); LEFT SHIFT FLG 0 (0-99); LIPEMIA HEMOLYSIS FLAG 90 (0-99); MEAN CELL HEMOGLOBIN CONCENTR. 34.8 g/dL (32.4-36.7); MEAN CELL VOLUME 80.6 fL (81.5-99.8); MEAN PLATELET VOLUME 9.7 fL (8.7-11.7); PLATELET CLUMPS FLAG 10 (0-99); PLATELET COUNT 219 10^3/uL (150-400); RED BLOOD CELL COUNT 5.92 10^6/uL (4.40-6.38); RED CELL DISTRIBUTION WIDTH 18.4 % (11.5-15.2)
[2017-05-22 15:43] LABS: ANION GAP 18 mEq/L (8-16); CALCIUM 9.8 mg/dL (8.5-10.4); CARBON DIOXIDE 18 mEq/l (22-31); CHLORIDE 104 mEq/L (97-110); CREATININE 1.5 mg/dL (0.7-1.3); GLOMERULAR FILTRATION RATE 51; GLUCOSE 143 mg/dL (70-100); SODIUM 140 mEq/L (134-144)
[2017-05-22 15:47] LABS: APTT 24.7 SEC (23.0-38.0); INR 1.48 (0.83-1.16); PROTIME(PATIENT) 18.1 SEC (12.0-15.0)
[2017-05-22] MEDS ORDERED: NS 1,000 ML IV ONE ×2 (15:48)
[2017-05-22 15:55] LABS: TROPONIN I 0.208 ng/mL (0.000-0.034)
[2017-05-22] MEDS ORDERED: ONDANSETRON 4 MG/2 ML VIAL IVP PRN (17:51)
[2017-05-22] MEDS ORDERED: ONDANSETRON DISINTEGRATING 4 MG TAB PO PRN (17:51)
[2017-05-22] MEDS ORDERED: NICOTINE 7 MG/24 HR PATCH TD PRN (19:51)
[2017-05-22] MEDS ORDERED: hydrOXYzine HCL 25 MG TAB PO PRN (19:51)
[2017-05-22] MEDS ORDERED: LR 1,000 ML IV SCH (20:00)
--- NOTE | 2017-05-22 20:05 | CPEKG ---
Heart Rate: 81 RR Interval: 741 P-R Interval: 168 QRSD Interval: 124 QT Interval: 416 QTC Interval: 483 P [place]: 17 QRS [place]: -29 T Wave [place]: 121 EKG Severity - ABNORMAL ECG - EKG Impression: SINUS RHYTHM EKG Impression: VENTRICULAR PREMATURE COMPLEX EKG Impression: LVH WITH IVCD AND SECONDARY REPOL ABNRM Electronically Signed By: Abiel Mark 22-May-2017 20:13:04
[2017-05-22] MEDS: ENOXAPARIN 100 MG/ML SYR SC SCH (20:15)
[2017-05-22] MEDS: NICOTINE 7 MG/24 HR PATCH TD SCH (20:21)
[2017-05-22] MEDS: GABAPENTIN 300 MG CAP PO SCH (20:24)
[2017-05-22] MEDS: METOPROLOL TARTRATE 100 MG TAB PO SCH (20:24)
[2017-05-22] MEDS: TOPIRAMATE 25 MG TAB PO SCH (20:25)
[2017-05-22] MEDS: CYCLOBENZAPRINE 10 MG TAB PO SCH (20:25)
[2017-05-22] MEDS: OLANZapine 10 MG TAB PO SCH (20:25)
[2017-05-22] MEDS: TOPIRAMATE 100 MG TAB PO SCH (20:25)
[2017-05-22] MEDS: VENLAFAXINE XR 150 MG CAP PO SCH (20:26)
[2017-05-22] MEDS: ACETAMINOPHEN 325 MG TAB PO PRN (20:36)
[2017-05-22] MEDS: CEPACOL LOZENGE PO PRN (20:36)
--- NOTE | 2017-05-22 20:53 | GHP ---
[f rep st] HISTORY AND PHYSICAL DATE OF ADMISSION: 05/22/2017 CHIEF COMPLAINT: Syncope. HISTORY OF PRESENT ILLNESS: A 41-year-old male with a history of HOCM, mitral valve replacement, systolic heart failure, AICD, and polysubstance abuse who presented after 3 syncopal episodes today. States that he has been clean for 9 years and went on a 4 day meth sandra. He was using it intravenously yesterday. Said he slept 10 hours last night and woke up and passed out 3 times. Thinks maybe out for 2 minutes. He has had minimal food intake and has been able to drink some liquids. This evening, he had 5 episodes of nonbloody diarrhea. He feels very fatigued. Complains of shortness of breath with walking. Left-sided chest discomfort, worse with movements. No radiation to arm. No associated numbness, tingling. Has had sweats. No fevers, chills. No cough. REVIEW OF SYSTEMS: I completed a 10-point review of systems, negative except as noted in HPI. PAST MEDICAL HISTORY: 1. HOCM. 2. Mechanical valve replacement in 2008. 3. Chronic back pain. 4. Hepatitis C status post treatment but relapsed per patient. 5. History of an aortic thrombus on chronic anticoagulation. 6. Atrial fibrillation status post ablation. 7. Chronic upper extremity neuropathy. 8. Hypothyroidism. 9. PTSD. 10. Migraines. 11. Degenerative joint disease. SOCIAL HISTORY: Lives with his . Smokes 5 cigarettes a day. Denies alcohol. IV meth as stated above. FAMILY HISTORY: Notable for HOCM. ALLERGIES: Amiodarone. DIAGNOSTIC STUDIES: Echocardiogram December 18, LV dilated, EF 40-45%, bileaflet mechanical mitral valve. PAST SURGICAL HISTORY: 1. Mitral valve. 2. Inguinal hernia repair. PHYSICAL EXAMINATION: VITAL SIGNS: Temperature 37.1, blood pressure 120/80, heart rate in the 70s, respirations 18, 96% on room air. GENERAL: Fatigued, but no acute distress. HEENT: PERRLA. EOMI. Oropharynx clear. Mildly dry mucous membranes. CV: Regular rate. Mechanical valve auscultated. LUNGS: Clear bilaterally. ABDOMEN: Soft, nontender, nondistended. Positive bowel sounds. : No Cabrera. MUSCULOSKELETAL: 5/5 upper lower extremity strength. NEURO: 2 through 12 intact. SKIN: Track fernandez on his left wrist. PSYCHIATRIC : Alert and oriented x3. LABS: WBC 9, hemoglobin 16, hematocrit 47, platelets 219. INR is 1.4, PT is 18. Sodium 140, potassium 4, chloride 104, carbon dioxide 18, creatinine is 1.5 , baseline is 0.5, BUN is 28, glucose 143, calcium 9.8. Troponin 0.208. Chest x-ray personally reviewed by me. Pacemaker without pneumothorax. No acute opacity. EKG, personally reviewed by me, sinus rhythm, LVH with repolarization abnormality. Some diffuse ST elevation. ASSESSMENT AND PLAN: 1. Syncope: Suspect secondary to dehydration in the setting of meth binge, decreased p.o. intake. This is confirmed by acute kidney injury and symptomatology. Blood pressure is stable at this time. The patient had recent echocardiogram in December. 2. Non-ST elevation myocardial infarction. Troponin elevated at 0.2. (at baseline). Likely due to meth. Complains of chest pain currently. We will treat with Lovenox, IV morphine and continue beta liseth. Stat troponin and EKG now. Discuss case with Dr. Chi. 3. Mechanical mitral valve: INR subtherapeutic will bridge with Lovenox. 4. Polysubstance abuse: Will have Case Management evaluate in the morning. 5. Posttraumatic stress disorder. Continue home medications. 6. Acute kidney injury: Creatinine elevated at 1.5, baseline 0.9. Will give fluids. Monitor with systolic heart failure. 7. Compensated systolic heart failure, ejection fraction is 40-45% on echo in December. Resume beta liseth. Hold FLOR with acute kidney injury. Monitor fluid status closely. 8. Hypertrophic obstructive cardiomyopathy (HOCM). Continue beta liseth. 9. Nicotine abuse. Nicotine patch. 10. Gastroesophageal reflux disease. Proton pump inhibitor. 11. DVT prophylaxis on Lovenox. DISPOSITION: The patient warrants observation admission given acute syncope, chest pain warranting telemetry, serial troponin, EKG and cardiology consult. /[id number]/MODL MTDD
[2017-05-23] MEDS: GABAPENTIN 300 MG CAP PO SCH ×4 (05:54→19:58)
[2017-05-23] MEDS: LEVOTHYROXINE 50 MCG TAB PO SCH (05:54)
[2017-05-23 06:02] LABS: INR 1.66 (0.83-1.16); PROTIME(PATIENT) 19.7 SEC (12.0-15.0)
[2017-05-23 06:34] LABS: ANION GAP 9 mEq/L (8-16); CALCIUM 8.4 mg/dL (8.5-10.4); CARBON DIOXIDE 25 mEq/l (22-31); CHLORIDE 106 mEq/L (97-110); CREATININE 1.1 mg/dL (0.7-1.3); GLOMERULAR FILTRATION RATE > 60; GLUCOSE 101 mg/dL (70-100); POTASSIUM 3.9 mEq/L (3.5-5.2); SODIUM 140 mEq/L (134-144)
[2017-05-23] MEDS ORDERED: ENOXAPARIN 40 MG/0.4 ML SYR SC SCH (09:00)
[2017-05-23] MEDS: LR 1,000 ML IV SCH ×2 (10:02→19:43)
--- NOTE | 2017-05-23 10:09 | HOSPPROG ---
Hospitalist Progress Note Assessment/Plan: New patient encounter 41 yo male with hx of polysubstance abuse s/p 3 4 day Meth binge admitted with syncope, dehydration, NSTEMI #Syncope, likely due to volume deficit #Dehydration #Acute Renal failure, pre-renal etiology, due to dehydration, resolved #NSTEMI, trops decreasing slightly -still with chest pain and chest pressure -On Lovenox therapeutic #Polysubstance abuse #Chronic AC, on Coumadin #Hx of Hypertrophic Obstructive Cardiomyopathy #Leukocytosis, no fever Plan: -Await Cards consult -Cont Lovenox/Coumadin. INR is not therapeutic -Provide additional IVF, still clinically dehydrated although Cr is back to baseline. Minimal UOP -Cont NPO until seen by Cards -Recheck labs in a.m. Subjective: still with cp and intermittent SOB. Afebrile. no leg swelling Objective: Vital Signs Temp Pulse Resp BP Pulse Ox 36.7 C 56 L 12 87/51 L 98 05/23/17 08:00 05/23/17 08:00 05/23/17 08:00 05/23/17 08:00 05/23/17 08:00 Laboratory Results 05/23/17 04:09 05/22/17 05/23/17 05/24/17 05:59 05:59 05:59 Intake Total 6735 Output Total 550 Balance 6185 PT 19.7 SEC (12.0-15.0) H 05/23/17 04:09 INR 1.66 (0.83-1.16) H 05/23/17 04:09 - Physical Exam Constitutional: no apparent distress, appears nourished Eyes: PERRL, EOMI Ears, Nose, Mouth, Throat: hearing normal, dry mucous membranes Cardiovascular: regular rate and rhythym, No JVD, No edema Respiratory: no respiratory distress, no rales or rhonchi, clear to auscultation Gastrointestinal: normoactive bowel sounds, soft, non-tender abdomen Genitourinary: no bladder fullness Skin: warm, normal color Musculoskeletal: full muscle strength Neurologic: AAOx3 Psychiatric: interacting appropriately, not anxious, not encephalopathic, thought process linear Lymph, Heme, Immunologic: No petechiae ICD10 Worksheet Patient Problems: Problems Problem Status Onset Dehydration Acute Syncope Acute Mood disorder Active Acute chest pain Acute Altered mental status Acute Chest pain Acute Chest wall hematoma Acute Chest wall pain Acute Chest wall pain Acute Elevated troponin Acute Encephalopathy acute Acute History of coronary artery disease Acute Intraparenchymal hemorrhage of brain Acute Lightheadedness Acute Malfunction of cardiac pacemaker battery Acute Narcotic overdose Acute Nonischemic cardiomyopathy Acute Polysubstance overdose Acute Shortness of breath Acute Troponin level elevated Acute
[2017-05-23] MEDS: ENOXAPARIN 100 MG/ML SYR SC SCH ×2 (10:13→19:56)
[2017-05-23] MEDS: PANTOPRAZOLE SODIUM 40 MG TAB PO SCH (10:14)
[2017-05-23] MEDS: ASPIRIN 81 MG CHEWABLE TAB PO SCH (10:14)
[2017-05-23] MEDS: METOPROLOL TARTRATE 50 MG TAB PO SCH (10:19)
[2017-05-23] MEDS: NICOTINE 7 MG/24 HR PATCH TD SCH ×2 (10:20→20:07)
--- NOTE | 2017-05-23 10:30 | ASMTCMCOM ---
CM Note CM Note Notes: 05/23/2017 Case Management Note Met w/pt. Pt was drowsy but participated in conversation. Pt states that he wants to achieve sobriety again. He had a 10 day stay at [facility] several years ago and "found it enlightening". His is a regular user of illicit substances and he finds maintaining sobriety challenging in his current living situation. Case Management provided information on [facility] intake process to pt. Pt to call [facility] to start intake assessment. Pt would like to d/c straight to [facility] if accepted. Provided info on other resources including sober living group homes, intensive outpatient and other longer term inpatient treatment options. Case Management d/c poc: home independent with follw up as directed. Case Management available if needs change. Date Signed: 05/23/2017 10:30 AM Electronically Signed By:Qing Lucero RN
--- NOTE | 2017-05-23 11:45 | PDMN ---
Medical Necessity Medical necessity: est los>2mn for syncope r/t dehydration in setting of meth binge, IZA, NSTEMI, and systolic heart failure; admit for tele, serial troponin , cardiology consult; comorbid mechanical MV, PTSD, HO CM; per order and H&P
[2017-05-23] MEDS ORDERED: WARFARIN SODIUM 7.5 MG TAB PO SCH (16:00)
[2017-05-23] MEDS: CEPACOL LOZENGE PO PRN (19:56)
[2017-05-23] MEDS: CYCLOBENZAPRINE 10 MG TAB PO SCH (19:58)
[2017-05-23] MEDS: METOPROLOL TARTRATE 100 MG TAB PO SCH (19:59)
[2017-05-23] MEDS: VENLAFAXINE XR 150 MG CAP PO SCH (19:59)
[2017-05-23] MEDS: OLANZapine 10 MG TAB PO SCH (19:59)
[2017-05-23] MEDS: TOPIRAMATE 100 MG TAB PO SCH (20:03)
[2017-05-23] MEDS: TOPIRAMATE 25 MG TAB PO SCH (20:03)
[2017-05-24] MEDS: ACETAMINOPHEN 325 MG TAB PO PRN (01:59)
[2017-05-24] MEDS ORDERED: MELATONIN 3 MG TAB PO PRN (02:09)
[2017-05-24] MEDS: GABAPENTIN 300 MG CAP PO SCH ×4 (05:34→21:18)
[2017-05-24] MEDS: LEVOTHYROXINE 50 MCG TAB PO SCH (05:34)
[2017-05-24] MEDS: LR 1,000 ML IV SCH (05:34)
[2017-05-24 06:11] LABS: % IMMATURE GRANULYOCYTES 0.2 % (0.0-1.1); ABSOLUTE IMMATURE GRANULOCYTES 0.01 10^3/uL (0.00-0.10); ADD DIFF? NO; ADD MORPH? NO; ADD SCAN? NO; ATYPICAL LYMPHOCYTE FLAG 0 (0-99); FRAGMENT RBC FLAG 20 (0-99); HEMATOCRIT 34.8 % (40.0-51.0); HEMOGLOBIN 11.7 g/dL (13.7-17.5); LEFT SHIFT FLG 0 (0-99); LIPEMIA HEMOLYSIS FLAG 80 (0-99); MEAN CELL HEMOGLOBIN 27.8 pg (27.9-34.1); MEAN CELL HEMOGLOBIN CONCENTR. 33.6 g/dL (32.4-36.7); MEAN CELL VOLUME 82.7 fL (81.5-99.8); MEAN PLATELET VOLUME 10.1 fL (8.7-11.7); PLATELET CLUMPS FLAG 0 (0-99); PLATELET COUNT 140 10^3/uL (150-400); RED BLOOD CELL COUNT 4.21 10^6/uL (4.40-6.38)
[2017-05-24 06:25] LABS: ANION GAP 8 mEq/L (8-16); CALCIUM 8.7 mg/dL (8.5-10.4); CARBON DIOXIDE 25 mEq/l (22-31); CHLORIDE 109 mEq/L (97-110); CREATININE 0.9 mg/dL (0.7-1.3); GLOMERULAR FILTRATION RATE > 60; GLUCOSE 122 mg/dL (70-100); MAGNESIUM 1.7 mg/dL (1.6-2.3); POTASSIUM 4.1 mEq/L (3.5-5.2); SODIUM 142 mEq/L (134-144)
[2017-05-24] MEDS: NICOTINE 7 MG/24 HR PATCH TD SCH (09:47)
[2017-05-24] MEDS: ENOXAPARIN 100 MG/ML SYR SC SCH ×2 (09:47→21:17)
[2017-05-24] MEDS: METOPROLOL TARTRATE 50 MG TAB PO SCH (09:47)
[2017-05-24] MEDS: ASPIRIN 81 MG CHEWABLE TAB PO SCH (09:47)
[2017-05-24] MEDS: PANTOPRAZOLE SODIUM 40 MG TAB PO SCH (09:47)
[2017-05-24 14:51] LABS: INR 1.41 (0.83-1.16); PROTIME(PATIENT) 17.4 SEC (12.0-15.0)
--- NOTE | 2017-05-24 15:10 | HOSPPROG ---
Hospitalist Progress Note Assessment/Plan: 41 yo male with hx of mechanical valve, chronic AC, and polysubstance abuse s/p 3 4 day Meth binge admitted with syncope, dehydration, NSTEMI #Syncope, likely due to volume deficit #Dehydration, improving #Acute Renal failure, pre-renal etiology, due to dehydration, resolved #NSTEMI, trops decreasing slightly -On Lovenox therapeutic #Polysubstance abuse #Chronic AC, on Coumadin #Hx of Hypertrophic Obstructive Cardiomyopathy #Leukocytosis, no fever, resolved Plan: -No further chest pain. Will get one more troponin. -Cont Lovenox -Coumadin, target INR 2.5 - 3.5, Pharmacy to dose -trial off IVF -cont to hold FLOR-I -Cardiac diet -No need for Cardiovascular intervention -D/W pharmacy Subjective: no further chest pain. Urine has increased. Good UOP. No resp sx's. Objective: Vital Signs Temp Pulse Resp BP Pulse Ox 36.7 C 59 L 14 104/62 96 05/24/17 11:38 05/24/17 11:38 05/24/17 11:38 05/24/17 11:38 05/24/17 11:38 Laboratory Results 05/24/17 04:27 05/24/17 04:27 05/23/17 05/24/17 05/25/17 05:59 05:59 05:59 Intake Total 6735 3938 Output Total 550 2450 Balance 6185 1488 PT 17.4 SEC (12.0-15.0) H 05/24/17 14:34 INR 1.41 (0.83-1.16) H 05/24/17 14:34 - Physical Exam Constitutional: no apparent distress, appears nourished Eyes: PERRL, EOMI Ears, Nose, Mouth, Throat: moist mucous membranes, hearing normal Cardiovascular: regular rate and rhythym, No edema Respiratory: no respiratory distress, no rales or rhonchi Gastrointestinal: normoactive bowel sounds, soft, non-tender abdomen Skin: warm Musculoskeletal: full muscle strength Neurologic: AAOx3 Psychiatric: interacting appropriately, not anxious, not encephalopathic Lymph, Heme, Immunologic: No petechiae ICD10 Worksheet Patient Problems: Problems Problem Status Onset Dehydration Acute Syncope Acute Mood disorder Active Acute chest pain Acute Altered mental status Acute Chest pain Acute Chest wall hematoma Acute Chest wall pain Acute Chest wall pain Acute Elevated troponin Acute Encephalopathy acute Acute History of coronary artery disease Acute Intraparenchymal hemorrhage of brain Acute Lightheadedness Acute Malfunction of cardiac pacemaker battery Acute Narcotic overdose Acute Nonischemic cardiomyopathy Acute Polysubstance overdose Acute Shortness of breath Acute Troponin level elevated Acute
[2017-05-24] MEDS ORDERED: WARFARIN SODIUM 5 MG TAB PO SCH (16:00)
[2017-05-24] MEDS ORDERED: MAGNESIUM HYDROXIDE 30 ML UDCUP PO PRN (17:59)
[2017-05-24] MEDS ORDERED: BISACODYL 10 MG SUPP PR PRN (17:59)
[2017-05-24] MEDS ORDERED: POLYETHYLENE GLYCOL 3350 17 GM PKT PO PRN (17:59)
[2017-05-24] MEDS ORDERED: LACTULOSE 20 GM/30 ML UDCUP PO PRN (17:59)
[2017-05-24] MEDS: SENNOSIDES/DOCUSATE SODIUM TAB PO SCH (21:17)
[2017-05-24] MEDS: VENLAFAXINE XR 150 MG CAP PO SCH (21:18)
[2017-05-24] MEDS: METOPROLOL TARTRATE 100 MG TAB PO SCH (21:18)
[2017-05-24] MEDS: CYCLOBENZAPRINE 10 MG TAB PO SCH (21:18)
[2017-05-24] MEDS: TOPIRAMATE 100 MG TAB PO SCH (21:18)
[2017-05-24] MEDS: OLANZapine 10 MG TAB PO SCH (21:18)
[2017-05-24] MEDS: TOPIRAMATE 25 MG TAB PO SCH (21:20)
[2017-05-25 04:03] LABS: INR 1.6 (0.83-1.16); PROTIME(PATIENT) 19.2 SEC (12.0-15.0)
[2017-05-25] MEDS: GABAPENTIN 300 MG CAP PO SCH ×4 (06:30→22:09)
[2017-05-25] MEDS: LEVOTHYROXINE 50 MCG TAB PO SCH (06:30)
[2017-05-25] MEDS: SENNOSIDES/DOCUSATE SODIUM TAB PO SCH ×2 (08:46→22:09)
[2017-05-25] MEDS: ASPIRIN 81 MG CHEWABLE TAB PO SCH (08:46)
[2017-05-25] MEDS: PANTOPRAZOLE SODIUM 40 MG TAB PO SCH (08:47)
[2017-05-25] MEDS: METOPROLOL TARTRATE 50 MG TAB PO SCH (08:47)
[2017-05-25] MEDS: ENOXAPARIN 100 MG/ML SYR SC SCH ×2 (08:47→22:08)
[2017-05-25] MEDS: NICOTINE 7 MG/24 HR PATCH TD SCH (08:50)
--- NOTE | 2017-05-25 11:30 | HOSPPROG ---
Hospitalist Progress Note Assessment/Plan: 41 yo male with hx of mechanical valve, chronic AC, and polysubstance abuse s/p 3 4 day Meth binge admitted with syncope, dehydration, NSTEMI NO CP overnight but CP this morning borderline low BP Trop trended down (0.208 --> 0.177 --> 0.104) since stopping IVF, urine is again concentrated Afebrile no leukocytosis #Syncope, likely due to volume deficit #Dehydration #Acute Renal failure, pre-renal etiology, due to dehydration, resolved #NSTEMI, trops decreasing slightly -On Lovenox therapeutic #chest pain #Polysubstance abuse #Chronic AC, on Coumadin #Hx of Hypertrophic Obstructive Cardiomyopathy #Leukocytosis, no fever, resolved #Weakness and deconditioning Plan: -check trop now given CP. -restart IVF -check pc -cont lovenox and coumadin. Target INR 2.5-3.5 (mechanical valve). -Hold FLOR-I -Cardiac diet -PT -if possible, at discharge, admission to [facility] d/w nurse, cm, pharmacy Subjective: Feels better, but now with concetrated urine. afebrile. borderline low bp Objective: Vital Signs Temp Pulse Resp BP Pulse Ox 36.6 C 61 20 97/58 L 96 05/25/17 11:09 05/25/17 11:09 05/25/17 11:09 05/25/17 11:09 05/25/17 11:09 Laboratory Results 05/24/17 04:27 05/24/17 04:27 05/24/17 05/25/17 05/26/17 05:59 05:59 05:59 Intake Total 3938 3099 400 Output Total 2450 2513 Balance 1488 586 400 PT 19.2 SEC (12.0-15.0) H 05/25/17 03:28 INR 1.60 (0.83-1.16) H 05/25/17 03:28 - Physical Exam Constitutional: no apparent distress Eyes: PERRL Ears, Nose, Mouth, Throat: moist mucous membranes, hearing normal Cardiovascular: regular rate and rhythym, No edema Respiratory: no respiratory distress Gastrointestinal: normoactive bowel sounds, soft, non-tender abdomen Skin: warm Musculoskeletal: generalized weakness Neurologic: AAOx3 Psychiatric: interacting appropriately, not anxious, not encephalopathic Lymph, Heme, Immunologic: No petechiae ICD10 Worksheet Patient Problems: Problems Problem Status Onset Dehydration Acute Syncope Acute Mood disorder Active Acute chest pain Acute Altered mental status Acute Chest pain Acute Chest wall hematoma Acute Chest wall pain Acute Chest wall pain Acute Elevated troponin Acute Encephalopathy acute Acute History of coronary artery disease Acute Intraparenchymal hemorrhage of brain Acute Lightheadedness Acute Malfunction of cardiac pacemaker battery Acute Narcotic overdose Acute Nonischemic cardiomyopathy Acute Polysubstance overdose Acute Shortness of breath Acute Troponin level elevated Acute
--- NOTE | 2017-05-25 11:35 | ASMTCMCOM ---
CM Note CM Note Notes: Chart reviewed. Discussed patient with RN. He stated to michelle TANNER he wants to go home and no longer expresses interest in [facility] for recovery, He tells me he hopes his is sober and that he told her he would not return home unless she was. He shares with me that she tells him she has quit abusing. His plan is to return home to her and his back up plan is to go live with an Uncle in [place]. per his Areli, he does not follow up with mental health and is not motivated to help himself. She does not want him to return home at this point as she is actively trying to recover from addictions herself and does not feel emotionally stable to help him. I conveyed this to him and he is flat and does not make eye contact with me. He states he is having chest pain and does not want to spend mychal at [facility]. He has the number for [facility] as well as other sobriety sources. I explained to his that he is currently not threatening to harm himself or others and is decisional at this point so we had no recourse to commit him. JESSICA to follow, Date Signed: 05/25/2017 11:35 AM Electronically Signed By:Cecilia Danielle RN
[2017-05-25] MEDS: LR 1,000 ML IV SCH (11:36)
--- NOTE | 2017-05-25 13:59 | ASMTCMCOM ---
CM Note CM Note Notes: Patient asked to see CM. Requesting to go to [facility]. Informed patient that is a process not a guaruntee . Erik placed to [facility] and they were to call. They are referring him for an intensive outpatient program . He is to contact them upon discharge. Plan dc to home when medically stable. Date Signed: 05/25/2017 01:59 PM Electronically Signed By:Cecilia Danielle RN
[2017-05-25 15:22] LABS: TROPONIN I 0.114 ng/mL (0.000-0.034)
[2017-05-25 15:35] LABS: PROCALCITONIN 0.11 ng/mL (0.02-0.10)
[2017-05-25] MEDS ORDERED: WARFARIN SODIUM 5 MG TAB PO ONE (16:00)
[2017-05-25] MEDS: TOPIRAMATE 100 MG TAB PO SCH (22:09)
[2017-05-25] MEDS: METOPROLOL TARTRATE 100 MG TAB PO SCH (22:09)
[2017-05-25] MEDS: TOPIRAMATE 25 MG TAB PO SCH (22:09)
[2017-05-25] MEDS: CYCLOBENZAPRINE 10 MG TAB PO SCH (22:09)
[2017-05-25] MEDS: OLANZapine 10 MG TAB PO SCH (22:10)
[2017-05-25] MEDS: VENLAFAXINE XR 150 MG CAP PO SCH (22:10)
[2017-05-26 05:26] LABS: % IMMATURE GRANULYOCYTES 0.6 % (0.0-1.1); ABSOLUTE IMMATURE GRANULOCYTES 0.04 10^3/uL (0.00-0.10); ADD DIFF? NO; ADD MORPH? NO; ADD SCAN? NO; ATYPICAL LYMPHOCYTE FLAG 0 (0-99); FRAGMENT RBC FLAG 20 (0-99); HEMOGLOBIN 12.6 g/dL (13.7-17.5); LEFT SHIFT FLG 0 (0-99); LIPEMIA HEMOLYSIS FLAG 80 (0-99); MEAN CELL HEMOGLOBIN 27.1 pg (27.9-34.1); MEAN CELL HEMOGLOBIN CONCENTR. 33.2 g/dL (32.4-36.7); MEAN CELL VOLUME 81.7 fL (81.5-99.8); MEAN PLATELET VOLUME 10.1 fL (8.7-11.7); PLATELET CLUMPS FLAG 10 (0-99); PLATELET COUNT 162 10^3/uL (150-400); RED BLOOD CELL COUNT 4.65 10^6/uL (4.40-6.38); RED CELL DISTRIBUTION WIDTH 18.5 % (11.5-15.2)
[2017-05-26 05:35] LABS: INR 2.2 (0.83-1.16); PROTIME(PATIENT) 24.5 SEC (12.0-15.0)
[2017-05-26 05:59] LABS: ANION GAP 11 mEq/L (8-16); CALCIUM 9.2 mg/dL (8.5-10.4); CARBON DIOXIDE 22 mEq/l (22-31); CHLORIDE 109 mEq/L (97-110); CREATININE 0.9 mg/dL (0.7-1.3); GLOMERULAR FILTRATION RATE > 60; GLUCOSE 93 mg/dL (70-100); POTASSIUM 4.1 mEq/L (3.5-5.2); SODIUM 142 mEq/L (134-144)
[2017-05-26] MEDS: GABAPENTIN 300 MG CAP PO SCH ×4 (06:37→20:47)
[2017-05-26] MEDS: LEVOTHYROXINE 50 MCG TAB PO SCH (06:37)
[2017-05-26] MEDS: LR 1,000 ML IV SCH (06:37)
[2017-05-26] MEDS: ENOXAPARIN 100 MG/ML SYR SC SCH ×2 (09:02→20:48)
[2017-05-26] MEDS: NICOTINE 7 MG/24 HR PATCH TD SCH (09:02)
[2017-05-26] MEDS: PANTOPRAZOLE SODIUM 40 MG TAB PO SCH (09:02)
[2017-05-26] MEDS: METOPROLOL TARTRATE 50 MG TAB PO SCH (09:02)
[2017-05-26] MEDS: ASPIRIN 81 MG CHEWABLE TAB PO SCH (09:03)
[2017-05-26] MEDS: SENNOSIDES/DOCUSATE SODIUM TAB PO SCH ×2 (09:07→20:44)
--- NOTE | 2017-05-26 14:15 | HOSPPROG ---
Hospitalist Progress Note Assessment/Plan: 41 yo male with hx of mechanical valve, chronic AC, and polysubstance abuse s/p 3 4 day Meth binge admitted with syncope, dehydration, NSTEMI NO CP overnight but CP this morning borderline low BP Trop trended down (0.208 --> 0.177 --> 0.104) Afebrile no leukocytosis #Syncope, likely due to volume deficit #Dehydration, resolving #Acute Renal failure, pre-renal etiology, due to dehydration, resolved #NSTEMI, trops decreasing slightly -On Lovenox therapeutic for bridging to Coumadin #chest pain #Polysubstance abuse #Chronic AC, on Coumadin #Hx of Hypertrophic Obstructive Cardiomyopathy #Leukocytosis, no fever, resolved #Weakness and deconditioning Plan: -stop IVF -monitor overnight -anticipate d/c tomorrow -cont warfarin per pharmacy. Target INR 2.5-3.5 (mechanical valve). -Hold FLOR-I -Cardiac diet -PT -Anticipate d/c tomorrow Subjective: still with weakness, not back to baseline. INR is not at goal. good uop. Tele reviwed Objective: Vital Signs Temp Pulse Resp BP Pulse Ox 36.7 C 57 L 14 99/67 L 96 05/26/17 12:00 05/26/17 12:00 05/26/17 12:00 05/26/17 12:00 05/26/17 12:00 Laboratory Results 05/26/17 04:23 05/26/17 04:23 05/25/17 05/26/17 05/27/17 05:59 05:59 05:59 Intake Total 3099 1810 Output Total 2513 3650 Balance 586 -1840 PT 24.5 SEC (12.0-15.0) H 05/26/17 04:23 INR 2.20 (0.83-1.16) H 05/26/17 04:23 - Physical Exam Constitutional: no apparent distress Eyes: PERRL, EOMI Ears, Nose, Mouth, Throat: moist mucous membranes, hearing normal Cardiovascular: regular rate and rhythym Respiratory: no respiratory distress, no rales or rhonchi, clear to auscultation Gastrointestinal: normoactive bowel sounds, soft, non-tender abdomen Skin: warm, normal color Musculoskeletal: generalized weakness Neurologic: AAOx3 Psychiatric: interacting appropriately, not anxious, not encephalopathic Lymph, Heme, Immunologic: No petechiae ICD10 Worksheet Patient Problems: Problems Problem Status Onset Dehydration Acute Syncope Acute Mood disorder Active Acute chest pain Acute Altered mental status Acute Chest pain Acute Chest wall hematoma Acute Chest wall pain Acute Chest wall pain Acute Elevated troponin Acute Encephalopathy acute Acute History of coronary artery disease Acute Intraparenchymal hemorrhage of brain Acute Lightheadedness Acute Malfunction of cardiac pacemaker battery Acute Narcotic overdose Acute Nonischemic cardiomyopathy Acute Polysubstance overdose Acute Shortness of breath Acute Troponin level elevated Acute
[2017-05-26] MEDS ORDERED: WARFARIN SODIUM 5 MG TAB PO ONE (16:00)
[2017-05-26] MEDS: TOPIRAMATE 25 MG TAB PO SCH (20:45)
[2017-05-26] MEDS: OLANZapine 10 MG TAB PO SCH (20:45)
[2017-05-26] MEDS: METOPROLOL TARTRATE 100 MG TAB PO SCH (20:46)
[2017-05-26] MEDS: CYCLOBENZAPRINE 10 MG TAB PO SCH (20:46)
[2017-05-26] MEDS: TOPIRAMATE 100 MG TAB PO SCH (20:46)
[2017-05-26] MEDS: VENLAFAXINE XR 150 MG CAP PO SCH (20:46)
[2017-05-27 05:11] LABS: INR 2.41 (0.83-1.16); PROTIME(PATIENT) 26.2 SEC (12.0-15.0)
[2017-05-27] MEDS: GABAPENTIN 300 MG CAP PO SCH ×2 (05:52→11:04)
[2017-05-27] MEDS: LEVOTHYROXINE 50 MCG TAB PO SCH (05:52)
[2017-05-27 07:44] VITALS: RESP 14; TEMP 97.9; O2SAT 98
[2017-05-27 09:46] VITALS: BP 113/75; PULSE 63
[2017-05-27] MEDS: ASPIRIN 81 MG CHEWABLE TAB PO SCH (09:46)
[2017-05-27] MEDS: NICOTINE 7 MG/24 HR PATCH TD SCH (09:46)
[2017-05-27] MEDS: ENOXAPARIN 100 MG/ML SYR SC SCH (09:46)
[2017-05-27] MEDS: SENNOSIDES/DOCUSATE SODIUM TAB PO SCH (09:46)
[2017-05-27] MEDS: METOPROLOL TARTRATE 50 MG TAB PO SCH (09:46)
[2017-05-27] MEDS: PANTOPRAZOLE SODIUM 40 MG TAB PO SCH (09:46)
--- NOTE | 2017-05-27 10:50 | PDDCSUM ---
Discharge Summary Discharge Summary: HPI/HOSPITAL COURSE 41 yo male with hx of mechanical valve, chronic AC, and polysubstance abuse s/p 3 4 day Meth binge admitted with syncope, dehydration, NSTEMI NSTEMI was thought to be due to severe dehydration and prolonged hypotension. No interventions were performed. Cards reviewed the case but did not consult formally He is no longer having CP Hydration status is normal and he is tolerating fluids well Trop trended down (0.208 --> 0.177 --> 0.104) Afebrile and no leukocytosis Cleared for d/c from a PT perspective cont warfarin per pharmacy. Target INR 2.5-3.5 (mechanical valve). he will f/u with his pcp in one week DDX: #Syncope, likely due to volume deficit #Dehydration, resolved #Acute Renal failure, pre-renal etiology, due to dehydration, resolved #NSTEMI, trops decreasing slightly -On Lovenox therapeutic for bridging to Coumadin while INR was not therapeutic. He is being d/c on Coumadin alone. #chest pain #Polysubstance abuse #Chronic AC, on Coumadin #Hx of Hypertrophic Obstructive Cardiomyopathy #Leukocytosis, no fever, resolved #Weakness and deconditioning Exam: VSS, BP OK RRR CTA B S/NT/ND NO LE EDEMA AAOX3 D/C MEDS: NO NEW MEDS WERE PROVIDED. SEE MED REC F/U: PER ABOVE TOTAL TIME SPENT ON D/C IS 35 MINS
--- NOTE | 2017-05-27 11:53 | ASMTCMCOM ---
CM Note CM Note Notes: Per hospitalist patient medically stable for discharge to home. Patient is reluctant to go home due to interpersonal problems wit his who is also suffering from addiction issues, I counseled him on options such as the [facility] or nursing home and he declines these at this point. He really wants an inpatient facility. The other day he spoke with [facility] but he needs to go through [facility] with his medicaid to be considered for screening. I have encouraged him to follow up with [facility]. I have provided him with a taxi voucher to his home address. I also revisited the conversation about an uncle who would take him in but that is not a possibility at this point. CM available should other needs arise. Date Signed: 05/27/2017 11:53 AM Electronically Signed By:Cecilia Danielle RN
--- NOTE | 2017-05-27 14:01 | ASDISCHSUM ---
Discharge Information Plan Status:Home with No Needs Medically Cleared to Leave:05/26/2017 Discharge Date:05/27/2017 12:21 PM CM D/C Disposition:Home, Routine, Self-Care ADT D/C Disposition:Home, Routine, Self-Care Projected Discharge Date:05/27/2017 12:21 PM Transportation at D/C: Discharge Delay Reason: Follow-Up Date:05/27/2017 12:21 PM Discharge Slot: Final Diagnosis: Placement Information Patient Contact Information Contact Name:JENNIFER Relationship: Address:[address] Work Phone: [facility]:[place] Alternate Phone: [facility]/Zip Code:[place] [address] Email: Financial Information Financial Class: Primary Plan Desc:MEDICAID FFWD [facility] Primary Plan Number:[id number] Secondary Plan Desc: Secondary Plan Number: Assessment Information LACE LACE Length of stay for Answers: Less than 1 day current admission Acuity / Level of Care Answers: Was the patient admitted to hospital via the emergency department? Yes: Emergency dept visits in Answers: 3 last 6 months Score: 6 Date Signed: 05/22/2017 05:04 PM Electronically Signed By:Jonh Alston LCSW Case Management Discharge Plan Note Case Management Discharge Discharge Order Complete? Answers: Yes Patient to Obtain Answers: Independently Medications Discharge Comments Notes: Pt seen in [facility] for symptoms related to methamphetamine use. Pt has been seen in the [facility] on numerous occasions with chest pain, pasmaker issues, and syncope exaserbated by methamphetamine use. Pt stated he was diagnosed with PTSD and he is an IV user comming off of a 6 day binge. Pt indicted he would like medicaid resources outside of [facility] because he does not like the treatment he recieves there. He also asked for resources to the [place] because his and sister in law are active drug users as well. Printed resources for medicaid providers in the [facility] provided. Pt to follow up with care provider at [facility]. Date Signed: 05/22/2017 05:13 PM Electronically Signed By:Jonh Alston LCSW [facility] CM Progress Note CM Note CM Note Notes: 05/23/2017 Case Management Note Met w/pt. Pt was drowsy but participated in conversation. Pt states that he wants to achieve sobriety again. He had a 10 day stay at [facility] several years ago and "found it enlightening". His is a regular user of illicit substances and he finds maintaining sobriety challenging in his current living situation. Case Management provided information on [facility] intake process to pt. Pt to call [facility] to start intake assessment. Pt would like to d/c straight to [facility] if accepted. Provided info on other resources including sober living group homes, intensive outpatient and other longer term inpatient treatment options. Case Management d/c poc: home independent with follw up as directed. Case Management available if needs change. Date Signed: 05/23/2017 10:30 AM Electronically Signed By:Qing Lucero RN [facility] CM Progress Note CM Note CM Note Notes: Chart reviewed. Discussed patient with RN. He stated to michelle TANNER he wants to go home and no longer expresses interest in [facility] for recovery, He tells me he hopes his is sober and that he told her he would not return home unless she was. He shares with me that she tells him she has quit abusing. His plan is to return home to her and his back up plan is to go live with an Uncle in [place]. per his Areli, he does not follow up with mental health and is not motivated to help himself. She does not want him to return home at this point as she is actively trying to recover from addictions herself and does not feel emotionally stable to help him. I conveyed this to him and he is flat and does not make eye contact with me. He states he is having chest pain and does not want to spend mychal at [facility]. He has the number for [facility] as well as other sobriety sources. I explained to his that he is currently not threatening to harm himself or others and is decisional at this point so we had no recourse to commit him. CM to follow, Date Signed: 05/25/2017 11:35 AM Electronically Signed By:Cecilia Danielle RN [facility] Progress Note CM Note CM Note Notes: Patient asked to see CM. Requesting to go to [facility]. Informed patient that is a process not a guaruntee . Erik placed to [facility] and they were to call. They are referring him for an intensive outpatient program . He is to contact them upon discharge. Plan dc to home when medically stable. Date Signed: 05/25/2017 01:59 PM Electronically Signed By:Cecilia Danielle RN [facility] CM Progress Note CM Note CM Note Notes: Per hospitalist patient medically stable for discharge to home. Patient is reluctant to go home due to interpersonal problems wit his who is also suffering from addiction issues, I counseled him on options such as the [facility] or [facility] and he declines these at this point. He really wants an inpatient facility. The other day he spoke with [facility] but he needs to go through [facility] with his medicaid to be considered for screening. I have encouraged him to follow up with [facility]. I have provided him with a taxi voucher to his home address. I also revisited the conversation about an uncle who would take him in but that is not a possibility at this point. CM available should other needs arise. Date Signed: 05/27/2017 11:53 AM Electronically Signed By:Cecilia Danielle RN Intervention Information
== END 2017-05-27 12:21 | disposition home or self-care (01) | DRG 281 ==
LOC: OBSVTOIN 17:51 → F2W 18:05
PROVIDERS: ADMIT Internal Medicine; ATTEND Family Medicine
DX: R55 Syncope and collapse (principal); E86.0 Dehydration; I21.4 Non-ST elevation (NSTEMI) myocardial infarction; T43.621A Poisoning by amphetamines, accidental (unintentional), initial encounter; F15.120 Other stimulant abuse with intoxication, uncomplicated; I42.1 Obstructive hypertrophic cardiomyopathy; N17.9 Acute kidney failure, unspecified; I50.20 Unspecified systolic (congestive) heart failure; I48.2 Chronic atrial fibrillation; K21.9 Gastro-esophageal reflux disease without esophagitis; E03.9 Hypothyroidism, unspecified; F32.9 Major depressive disorder, single episode, unspecified; F43.10 Post-traumatic stress disorder, unspecified; F17.200 Nicotine dependence, unspecified, uncomplicated; M54.9 Dorsalgia, unspecified; Z79.01 Long term (current) use of anticoagulants; Z95.2 Presence of prosthetic heart valve; Z95.810 Presence of automatic (implantable) cardiac defibrillator; Z86.718 Personal history of other venous thrombosis and embolism
CPT/HCPCS: 97116-GP; 97161-GP; 97165-GO; J1650